=== PATIENT | female | born 1955 | race Caucasian/White ===

== ENCOUNTER → 2017-08-10 11:32 | Outpatient (REF) | payer MEDICARE, SELFPAY ==
[2017-08-10 14:02] LABS: Amphetamine/Metha Screen,Urine Negative ng/mL (<1000); Barbiturates Screen,Urine Negative ng/mL (<200); Benzodiazepines Screen,Urine Negative ng/mL (200); Cannabinoid Screen,Urine Negative ng/mL (<50); Cocaine Screen,Urine Negative ng/g (<300); Methadone Screen,Urine Negative ng/mL (<300); Opiate Screen,Urine Positive ng/mL (<300); Phencyclidine Screen,Urine Negative ng/mL (<25)
== END ==
LOC: LAB 11:32
PROVIDERS: Visit Provider Emergency Medicine
DX: Z79.899 Other long term (current) drug therapy (principal)
CPT/HCPCS: 80305

== ENCOUNTER → 2017-09-08 11:12 | Outpatient (REF) | payer MEDICARE, SELFPAY ==
[2017-09-08 14:08] LABS: Amphetamine/Metha Screen,Urine Negative ng/mL (<1000); Barbiturates Screen,Urine Negative ng/mL (<200); Benzodiazepines Screen,Urine Negative ng/mL (200); Cannabinoid Screen,Urine Negative ng/mL (<50); Cocaine Screen,Urine Negative ng/g (<300); Methadone Screen,Urine Negative ng/mL (<300); Opiate Screen,Urine Positive ng/mL (<300); Phencyclidine Screen,Urine Negative ng/mL (<25)
== END ==
LOC: LAB 11:12
PROVIDERS: Visit Provider Emergency Medicine
DX: Z79.899 Other long term (current) drug therapy (principal)
CPT/HCPCS: 80305

== ENCOUNTER → 2017-10-06 11:21 | Outpatient (REF) | payer MEDICARE, SELFPAY ==
[2017-10-06 14:10] LABS: Amphetamine/Metha Screen,Urine Negative ng/mL (<1000); Barbiturates Screen,Urine Negative ng/mL (<200); Benzodiazepines Screen,Urine Negative ng/mL (200); Cannabinoid Screen,Urine Negative ng/mL (<50); Cocaine Screen,Urine Negative ng/g (<300); Methadone Screen,Urine Negative ng/mL (<300); Opiate Screen,Urine Positive ng/mL (<300); Phencyclidine Screen,Urine Negative ng/mL (<25)
== END ==
LOC: LAB 11:21
PROVIDERS: Visit Provider Emergency Medicine
DX: Z79.899 Other long term (current) drug therapy (principal)
CPT/HCPCS: 80305

== ENCOUNTER → 2017-10-23 08:34 | Outpatient (CLI) | payer MEDICARE, SELFPAY ==
--- NOTE | 2017-10-23 08:37 | MR_ITS ---
MR lumbar spine wo con, MR 3-d myelogram/MRCP HISTORY: LBP Left Leg tingling and numbness started 6 months ago after surgery. Surgery X5yrs ago. ITS.REASON: Back Pain ORDERING PHYSICIAN: Glenn Mckee MD PATIENT AGE: 61 years COMPARISON: MRI of 12/27/2014 TECHNIQUE: Standard multiplanar multiecho sequences are performed without contrast. 3-D MIP and myelographic images are also rendered and reviewed FINDINGS: There is normal alignment. Spinal cord ends at the T12-L1 level. T11-T12: Mild degenerative disc disease. T12-L1: Unremarkable. L1-L2: Mild disc desiccation. L2-L3: Mild degenerative disc disease with minimal bulging disc with minimal central disc protrusion. There is facet hypertrophic change with bilateral lateral recess narrowing and mild bilateral foraminal narrowing. L3-L4: Mild degenerative disc disease with minimal bulging disc along with facet and ligamentum flavum hypertrophy with moderate bilateral lateral recess and foraminal narrowing. Type II endplate changes are present posteriorly. Previously described right paracentral disc protrusion at L3-L4 no longer apparent. L4-L5: Mild degenerative disc disease with minimal anterolisthesis of L4 to millimeters with bulging disc along with facet and ligamentum flavum hypertrophy with moderate left-sided foraminal narrowing and minimal impingement upon the exiting L4 nerve root. L5-S1: Mild degenerative disc disease with minimal bulging disc. IMPRESSION: 1. Mild multilevel lumbar spondylosis as described above. Please see above for detailed description at each level. 2. Bilateral foraminal narrowing at L3-L4 and left-sided foraminal narrowing at L4-L5 not significantly changed. 3. No canal stenosis or disc herniation evident
== END ==
PROVIDERS: PCP Emergency Medicine; Visit Provider Emergency Medicine
DX: M54.9 Dorsalgia, unspecified (principal); M54.5 Low back pain
CPT/HCPCS: 72148; 76376

== ENCOUNTER → 2017-11-04 08:28 | Outpatient (REF) | payer MEDICARE, SELFPAY ==
[2017-11-04 19:14] LABS: Amphetamine/Metha Screen,Urine Negative ng/mL (<1000); Barbiturates Screen,Urine Negative ng/mL (<200); Benzodiazepines Screen,Urine Negative ng/mL (200); Cannabinoid Screen,Urine Negative ng/mL (<50); Cocaine Screen,Urine Negative ng/g (<300); Methadone Screen,Urine Negative ng/mL (<300); Opiate Screen,Urine Positive ng/mL (<300); Phencyclidine Screen,Urine Negative ng/mL (<25)
== END ==
LOC: LAB 08:28
PROVIDERS: Visit Provider Emergency Medicine
DX: Z79.899 Other long term (current) drug therapy (principal)
CPT/HCPCS: 80305

== ENCOUNTER → 2017-12-04 10:24 | Outpatient (CLI) | payer MEDICARE, SELFPAY ==
[2017-12-04 14:12] LABS: Amphetamine/Metha Screen,Urine Negative ng/mL (<1000); Barbiturates Screen,Urine Negative ng/mL (<200); Benzodiazepines Screen,Urine Negative ng/mL (200); Cannabinoid Screen,Urine Negative ng/mL (<50); Cocaine Screen,Urine Negative ng/g (<300); Methadone Screen,Urine Negative ng/mL (<300); Opiate Screen,Urine Positive ng/mL (<300); Phencyclidine Screen,Urine Negative ng/mL (<25)
== END ==
PROVIDERS: Visit Provider Emergency Medicine
DX: M51.16 Intervertebral disc disorders with radiculopathy, lumbar region (principal); Z79.899 Other long term (current) drug therapy
CPT/HCPCS: 80305

== ENCOUNTER → 2018-01-01 10:24 | Outpatient (CLI) | payer MEDICARE, SELFPAY ==
[2018-01-01 19:35] LABS: Amphetamine/Metha Screen,Urine Negative ng/mL (<1000); Barbiturates Screen,Urine Negative ng/mL (<200); Benzodiazepines Screen,Urine Negative ng/mL (200); Cannabinoid Screen,Urine Negative ng/mL (<50); Cocaine Screen,Urine Negative ng/g (<300); Methadone Screen,Urine Negative ng/mL (<300); Opiate Screen,Urine Positive ng/mL (<300); Phencyclidine Screen,Urine Negative ng/mL (<25)
== END ==
PROVIDERS: Visit Provider Emergency Medicine
DX: M51.16 Intervertebral disc disorders with radiculopathy, lumbar region (principal)
CPT/HCPCS: 80305

== ENCOUNTER → 2018-02-01 11:29 | Outpatient (REF) | payer MEDICARE, SELFPAY ==
[2018-02-01 14:04] LABS: Amphetamine/Metha Screen,Urine Negative ng/mL (<1000); Barbiturates Screen,Urine Negative ng/mL (<200); Benzodiazepines Screen,Urine Negative ng/mL (<200); Cannabinoid Screen,Urine Negative ng/mL (<50); Cocaine Screen,Urine Negative ng/mL (<300); Methadone Screen,Urine Negative ng/mL (<300); Opiate Screen,Urine Negative ng/mL (<300); Phencyclidine Screen,Urine Negative ng/mL (<25)
== END ==
LOC: LAB 11:29
PROVIDERS: Visit Provider Emergency Medicine
DX: M51.16 Intervertebral disc disorders with radiculopathy, lumbar region (principal)
CPT/HCPCS: 80305

== ENCOUNTER → 2018-03-01 09:46 | Outpatient (REF) | payer MEDICARE, SELFPAY ==
[2018-03-01 14:18] LABS: Amphetamine/Metha Screen,Urine Negative ng/mL (<1000); Barbiturates Screen,Urine Negative ng/mL (<200); Benzodiazepines Screen,Urine Negative ng/mL (<200); Cannabinoid Screen,Urine Negative ng/mL (<50); Cocaine Screen,Urine Negative ng/mL (<300); Methadone Screen,Urine Negative ng/mL (<300); Opiate Screen,Urine Positive ng/mL (<300); Phencyclidine Screen,Urine Negative ng/mL (<25)
== END ==
LOC: LAB 09:46
PROVIDERS: Visit Provider Emergency Medicine
DX: M51.16 Intervertebral disc disorders with radiculopathy, lumbar region (principal)
CPT/HCPCS: 80305

== ENCOUNTER → 2018-03-06 09:04 | Outpatient (CLI) | payer MEDICARE, SELFPAY ==
[2018-03-06 09:29] LABS: Basophils # 0.1 K/mm3 (0-0.2); Basophils % 1.1 % (0.1-2.0); Eosinophils # 0.2 K/mm3 (0.0-0.4); Eosinophils % 2.7 % (0.1-12.0); Hematocrit 45.6 % (37.0-47.0); Hemoglobin 15.1 g/dL (12.2-16.2); Lymphocytes # 1.8 K/mm3 (0.7-4.5); Lymphocytes % 31.7 K/mm3 (10-50); Mean Corpuscular HGB Conc 33.2 g/dL (31.8-35.4); Mean Corpuscular Hemoglobin 29.6 pg (27.0-31.2); Mean Corpuscular Volume 89.4 fl (81-99); Mean Platelet Volume 6.9 fl (7.4-10.4); Monocytes # 0.3 K/mm3 (0.1-1.0); Monocytes % 5.6 % (1.7-9.3); Neutrophils # 3.4 K/mm3 (1.8-7.8); Neutrophils % 58.9 % (37.0-80.0); Platelet Count 366 K/mm3 (142-424); Red Cell Distribution Width 12.2 % (11.5-17.5); White Blood Count 5.8 K/mm3 (4.8-10.8)
[2018-03-06 12:20] LABS: Hemoglobin A1C 5.8 % (0.0-7.0)
[2018-03-06 12:21] LABS: Alanine Aminotransferase 29 U/L (12-78); Albumin Level 4.4 gm/dL (3.4-5.0); Albumin/Globulin Ratio 1.4 (1.1-1.8); Alkaline Phosphatase 192 U/L (46-116); Anion Gap 9.5 mEq/L (5-15); Aspartate Amino Transferase 18 U/L (15-37); Bilirubin,Direct 0.1 mg/dL (0.0-0.2); Bilirubin,Indirect 0.2 mg/dL (0.0-0.9); Bilirubin,Total 0.3 mg/dL (0.2-1.0); Blood Urea Nitrogen 19 mg/dL (7-18); Calcium 10.8 mg/dL (8.5-10.1); Carbon Dioxide 30 mmol/L (21.0-32.0); Chloride 104 mmol/L (98-107); Cholesterol 209 mg/dL (140-200); Creatinine,Serum 0.92 mg/dL (0.55-1.02); Estimated Glomerular Filt Rate 62 ml/min (>60); Free T4 (Free Thyroxine) 1.03 ng/dl (0.76-1.46); GFR (African American) 75 ML/MIN (>60); Globulin 3.1 gm/dl (1.3-3.2); Glucose 102 mg/dL (74-106); HDL Cholesterol 42 mg/dL (29-89); LDL Cholesterol 117 mg/dL (0-130); Potassium 4.5 mmoL/L (3.5-5.1); Sodium 139 mmol/L (136-145); Thyroid Stimulating Hormone 1.73 uIU/ml (0.358-3.740); Total Protein,Serum 7.5 gm/dL (6.4-8.2); Triglycerides 248 mg/dL (30-200); VLDL Cholesterol 50 mg/dL (0-40)
[2018-03-08 05:32] LABS: Triiodothyronine (T3) Free 3.3 pg/mL (2.0-4.4); Vitamin B12 526 pg/mL (232-1245)
[2018-03-09 16:04] LABS: Vitamin D 25 Hydroxy 13.1 ng/mL (30.0-100.0)
== END ==
PROVIDERS: Visit Provider Nurse Practitioner Psychiatric/Mental Health
DX: F43.10 Post-traumatic stress disorder, unspecified (principal); Z79.899 Other long term (current) drug therapy
CPT/HCPCS: 36415; 80053; 80061; 80076; 82607; 82652; 83036; 84439; 84443; 84481; 85025

== ENCOUNTER → 2018-03-31 10:26 | Outpatient (CLI) | payer MEDICARE, SELFPAY | PROVIDERS: Visit Provider Emergency Medicine | DX: Z79.899 Other long term (current) drug therapy (principal) ==

== ENCOUNTER → 2018-05-11 16:21 | Outpatient (REF) | payer MEDICARE, SELFPAY ==
[2018-05-11 20:43] LABS: Amphetamine/Metha Screen,Urine Negative ng/mL (<1000); Barbiturates Screen,Urine Negative ng/mL (<200); Benzodiazepines Screen,Urine Negative ng/mL (<200); Cannabinoid Screen,Urine Negative ng/mL (<50); Cocaine Screen,Urine Negative ng/mL (<300); Methadone Screen,Urine Negative ng/mL (<300); Opiate Screen,Urine Positive ng/mL (<300); Phencyclidine Screen,Urine Negative ng/mL (<25)
== END ==
LOC: LAB 16:21
PROVIDERS: Visit Provider Emergency Medicine
DX: Z79.899 Other long term (current) drug therapy (principal)
CPT/HCPCS: 80305

== ENCOUNTER → 2018-06-11 14:04 | Outpatient (CLI) | payer MEDICARE, SELFPAY ==
[2018-06-11 14:53] LABS: Amphetamine/Metha Screen,Urine Negative ng/mL (<1000); Barbiturates Screen,Urine Negative ng/mL (<200); Benzodiazepines Screen,Urine Negative ng/mL (<200); Cannabinoid Screen,Urine Negative ng/mL (<50); Cocaine Screen,Urine Negative ng/mL (<300); Methadone Screen,Urine Negative ng/mL (<300); Opiate Screen,Urine Positive ng/mL (<300); Phencyclidine Screen,Urine Negative ng/mL (<25)
== END ==
PROVIDERS: Visit Provider Emergency Medicine
DX: Z79.899 Other long term (current) drug therapy (principal)
CPT/HCPCS: 80305

== ENCOUNTER → 2018-07-09 14:35 | Outpatient (CLI) | payer MEDICARE, SELFPAY ==
[2018-07-09 16:36] LABS: Amphetamine/Metha Screen,Urine Negative ng/mL (<1000); Barbiturates Screen,Urine Negative ng/mL (<200); Benzodiazepines Screen,Urine Negative ng/mL (<200); Cannabinoid Screen,Urine Negative ng/mL (<50); Cocaine Screen,Urine Negative ng/mL (<300); Methadone Screen,Urine Negative ng/mL (<300); Opiate Screen,Urine Positive ng/mL (<300); Phencyclidine Screen,Urine Negative ng/mL (<25)
== END ==
PROVIDERS: Visit Provider Emergency Medicine
DX: Z79.899 Other long term (current) drug therapy (principal)
CPT/HCPCS: 80305

== ENCOUNTER → 2018-08-06 14:32 | Outpatient (CLI) | payer MEDICARE, SELFPAY ==
[2018-08-06 15:59] LABS: Amphetamine/Metha Screen,Urine Negative ng/mL (<1000); Barbiturates Screen,Urine Negative ng/mL (<200); Benzodiazepines Screen,Urine Negative ng/mL (<200); Cannabinoid Screen,Urine Negative ng/mL (<50); Cocaine Screen,Urine Negative ng/mL (<300); Methadone Screen,Urine Negative ng/mL (<300); Opiate Screen,Urine Positive ng/mL (<300); Phencyclidine Screen,Urine Negative ng/mL (<25)
== END ==
PROVIDERS: Visit Provider Emergency Medicine
DX: G89.29 Other chronic pain (principal)
CPT/HCPCS: 80305

== ENCOUNTER → 2018-10-04 14:52 | Outpatient (CLI) | payer MEDICARE, SELFPAY ==
[2018-10-04 17:53] LABS: Amphetamine/Metha Screen,Urine Negative ng/mL (<1000); Barbiturates Screen,Urine Negative ng/mL (<200); Benzodiazepines Screen,Urine Negative ng/mL (<200); Cannabinoid Screen,Urine Negative ng/mL (<50); Cocaine Screen,Urine Negative ng/mL (<300); Methadone Screen,Urine Negative ng/mL (<300); Opiate Screen,Urine Positive ng/mL (<300); Phencyclidine Screen,Urine Negative ng/mL (<25)
== END ==
PROVIDERS: Visit Provider Emergency Medicine
DX: Z79.899 Other long term (current) drug therapy (principal)
CPT/HCPCS: 80305

== ENCOUNTER → 2018-10-15 10:09 | Outpatient (CLI) | payer MEDICARE, SELFPAY ==
--- NOTE | 2018-10-15 10:11 | MR_ITS ---
MR lumbar spine wo con, MR 3-d myelogram/MRCP HISTORY: Low back pain with bilateral leg pain ITS.REASON: back pain ORDERING PHYSICIAN: Glenn Mckee MD PATIENT AGE: 62 years Comparison: 10/23/2017 TECHNIQUE: Standard multiplanar multiecho sequences are performed without contrast. 3-D MIP and myelographic images are also rendered and reviewed FINDINGS: There is normal alignment. The spinal cord ends at the T12 level. T11-T12: Mild degenerative disc disease. T12-L1: Unremarkable. L1-L2: Unremarkable. L2-L3: Minimal bulging disc with mild facet ligamentous hypertrophy with mild bilateral lateral recess narrowing. L3-L4: Mild degenerative disc disease with mild bulging disc along with facet and ligamentum flavum hypertrophy. There is a small left-sided foraminal disc protrusion causing moderate narrowing of the left L3-L4 foramen at this level. There is mild bilateral lateral recess narrowing from the facet and ligamentum hypertrophy. There is moderate bilateral foraminal narrowing left greater than right. L4-L5: Minimal anterolisthesis of L4 of 3 mm with mild bulging disc along with facet and ligamentum flavum hypertrophy. There is moderate left-sided foraminal narrowing at this level from the facet ligamentum flavum hypertrophic change with mild impingement upon the exiting L4 nerve root not significantly changed.. L5-S1: Degenerative disc disease with mild bulging disc and mild facet and ligamentum flavum hypertrophy. No other significant anomalies are evident. IMPRESSION: 1. L3-L4: Mild degenerative disc disease with mild bulging disc along with facet and ligamentum flavum hypertrophy. There is mild bilateral lateral recess narrowing and moderate bilateral foraminal narrowing is greater on the left secondary to a small foraminal disc protrusion . 2. L4-L5: Minimal anterolisthesis of L4 of 3 mm with mild bulging disc along with facet and ligamentum flavum hypertrophy. There is moderate left-sided foraminal narrowing at this level from the facet ligamentum flavum hypertrophic change with mild impingement upon the exiting L4 nerve root not significantly changed..
== END ==
PROVIDERS: PCP Emergency Medicine; Visit Provider Emergency Medicine
DX: M54.9 Dorsalgia, unspecified (principal); M54.5 Low back pain
CPT/HCPCS: 72148; 76376

== ENCOUNTER → 2018-11-11 15:11 | Outpatient (POV) | payer MEDICARE, SELFPAY | PROVIDERS: Visit Provider Neurological Surgery | DX: Z00.00 Encounter for general adult medical examination without abnormal findings (principal) ==

== ENCOUNTER → 2019-01-14 12:48 | Outpatient (CLI) | payer MEDICARE, SELFPAY ==
[2019-01-14 14:41] LABS: Amphetamine/Metha Screen,Urine Negative ng/mL (<1000); Barbiturates Screen,Urine Negative ng/mL (<200); Benzodiazepines Screen,Urine Negative ng/mL (<200); Cannabinoid Screen,Urine Negative ng/mL (<50); Cocaine Screen,Urine Negative ng/mL (<300); Methadone Screen,Urine Negative ng/mL (<300); Opiate Screen,Urine Positive ng/mL (<300); Phencyclidine Screen,Urine Negative ng/mL (<25)
== END ==
PROVIDERS: Visit Provider Emergency Medicine
DX: M47.816 Spondylosis without myelopathy or radiculopathy, lumbar region (principal)
CPT/HCPCS: 80305

== ENCOUNTER → 2019-03-15 13:50 | Outpatient (CLI) | payer MEDICARE, SELFPAY ==
[2019-03-15 15:43] LABS: Amphetamine/Metha Screen,Urine Negative ng/mL (<1000); Barbiturates Screen,Urine Negative ng/mL (<200); Benzodiazepines Screen,Urine Negative ng/mL (<200); Cannabinoid Screen,Urine Negative ng/mL (<50); Cocaine Screen,Urine Negative ng/mL (<300); Methadone Screen,Urine Negative ng/mL (<300); Opiate Screen,Urine Positive ng/mL (<300); Phencyclidine Screen,Urine Negative ng/mL (<25)
== END ==
PROVIDERS: Visit Provider Emergency Medicine
DX: M47.816 Spondylosis without myelopathy or radiculopathy, lumbar region (principal)
CPT/HCPCS: 80305

== ENCOUNTER → 2019-05-13 13:28 | Outpatient (CLI) | payer MEDICARE, SELFPAY ==
[2019-05-13 15:08] LABS: Amphetamine/Metha Screen,Urine Negative ng/mL (<1000); Barbiturates Screen,Urine Negative ng/mL (<200); Benzodiazepines Screen,Urine Negative ng/mL (<200); Cannabinoid Screen,Urine Negative ng/mL (<50); Cocaine Screen,Urine Negative ng/mL (<300); Methadone Screen,Urine Negative ng/mL (<300); Opiate Screen,Urine Positive ng/mL (<300); Phencyclidine Screen,Urine Negative ng/mL (<25)
== END ==
PROVIDERS: Visit Provider Emergency Medicine
DX: M47.816 Spondylosis without myelopathy or radiculopathy, lumbar region (principal)
CPT/HCPCS: 80305

== ENCOUNTER → 2019-05-17 09:59 | Outpatient (CLI) | payer MEDICARE, SELFPAY ==
--- NOTE | 2019-05-17 10:04 | XR_ITS ---
PROCEDURE: XR FOOT RT MIN 3V CLINICAL INDICATION: injured rt great toe Posttraumatic pain with bruising and swelling COMPARISON: No exams were available for comparison FINDINGS: No fracture or dislocation. No lytic or blastic change. There is normal mineralization. The joint spaces are well-preserved. No significant degenerative/arthritic changes. No erosive changes evident. Other findings:None. IMPRESSION: No acute findings. Dictated by: Devon Mayers MD 05/17/2019 17:39 Electronically signed by Devon Mayers MD in [place] 05/17/2019 17:39
== END ==
PROVIDERS: PCP Nurse Practitioner Family; Visit Provider Nurse Practitioner Family
DX: S99.921A Unspecified injury of right foot, initial encounter (principal)
CPT/HCPCS: 73630

== ENCOUNTER → 2019-05-24 09:37 | Outpatient (POV) | payer MEDICARE, SELFPAY | PROVIDERS: Visit Provider Dermatology | DX: Z00.00 Encounter for general adult medical examination without abnormal findings (principal) ==

== ENCOUNTER → 2019-07-12 13:50 | Outpatient (CLI) | payer MEDICARE, SELFPAY ==
[2019-07-12 16:50] LABS: Amphetamine/Metha Screen,Urine Negative ng/mL (<1000); Barbiturates Screen,Urine Negative ng/mL (<200); Benzodiazepines Screen,Urine Negative ng/mL (<200); Cannabinoid Screen,Urine Negative ng/mL (<50); Cocaine Screen,Urine Negative ng/mL (<300); Methadone Screen,Urine Negative ng/mL (<300); Opiate Screen,Urine Positive ng/mL (<300); Phencyclidine Screen,Urine Negative ng/mL (<25)
== END ==
PROVIDERS: Visit Provider Emergency Medicine
DX: M47.816 Spondylosis without myelopathy or radiculopathy, lumbar region (principal)
CPT/HCPCS: 80305

== ENCOUNTER → 2019-09-09 13:43 | Outpatient (CLI) | payer MEDICARE, SELFPAY ==
[2019-09-09 16:23] LABS: Amphetamine/Metha Screen,Urine Negative ng/mL (<1000); Barbiturates Screen,Urine Negative ng/mL (<200); Benzodiazepines Screen,Urine Positive ng/mL (<200); Cannabinoid Screen,Urine Negative ng/mL (<50); Cocaine Screen,Urine Negative ng/mL (<300); Methadone Screen,Urine Negative ng/mL (<300); Opiate Screen,Urine Positive ng/mL (<300); Phencyclidine Screen,Urine Negative ng/mL (<25)
[2019-09-18 12:08] LABS: Alprazolam Negative (Cutoff=100); Benzodiazepines Positive ng/mL (Cutoff=100); Clonazepam Negative (Cutoff=100); Flurazepam Negative (Cutoff=100); Lorazepam Negative (Cutoff=100); Midazolam Negative (Cutoff=100); Temazepam Negative (Cutoff=100); Triazolam Negative (Cutoff=100)
== END ==
PROVIDERS: Visit Provider Emergency Medicine
DX: M47.816 Spondylosis without myelopathy or radiculopathy, lumbar region (principal); Z79.899 Other long term (current) drug therapy
CPT/HCPCS: 80305; 80346

== ENCOUNTER 2020-01-19 16:16 | Emergency (ER) | payer MEDICARE, SELFPAY ==
[2020-01-19 16:18] VITALS: BP 178/114; PULSE 121; RESP 20; TEMP 36.9; O2SAT 96; BMI 25.7
--- NOTE | 2020-01-19 16:35 | CT_ITS ---
PROCEDURE: CT ABDOMEN PELVIS W CON CLINICAL INDICATION: NVD abd pain COMPARISON: ABDPELW/O CT ABD PELVIS W/O CONTRAST from 02/15/2015 TECHNIQUE: IV Contrast: 75ML OPTIRAY 350 Oral Contrast None Axial images obtained with sagittal and coronal reformats. All CT scans at the facility use one or more dose reduction, viz: automated exposure control, ma/kV adjustment per patient size (including targeted exams where dose is matched to indication, i.e. head), or iterative reconstruction technique. FINDINGS: CT scan the abdomen with contrast: There are 2 punctate calcifications in the left lower lobe. The enhanced liver, gallbladder, kidneys, adrenal glands, and pancreas is unremarkable. There is scattered splenic calcifications. The aorta, small and large bowel, and area of the appendix is unremarkable. Soft tissues are unremarkable. There is mild degenerative lumbar scoliosis. CT scan of the pelvis with contrast: Patient is status post hysterectomy. The adnexal structures, bladder, soft tissues and bony structures are unremarkable. IMPRESSION: Status posthysterectomy, remote pulmonary and splenic granulomatous disease. Dictated by: Zeus Berkowitz 01/20/2020 09:21 Electronically signed by Zeus Berkowitz in [facility] 01/20/2020 09:21
--- NOTE | 2020-01-19 16:51 | ECG_ITS ---
APPROVED REPORT Exam: Resting ECG HR:95 bpm ECG Measurements Heart Rate 95 AXES ND 168 P 52 QRSd 78 QRS -1 QT 346 T 17 QTc 434 <Conclusion> Normal sinus rhythm Poor R wave progression, unchanged since 2016 Abnormal ECG Electronically signed by : Ramesh Turcios, 01/23/2020 12:04:29
[2020-01-19 16:54] LABS: Basophils # 0.1 K/mm3 (0-0.2); Basophils % 1.8 % (0.1-2.0); Eosinophils # 0.1 K/mm3 (0.0-0.4); Eosinophils % 1.1 % (0.1-12.0); Hematocrit 45.9 % (37.0-47.0); Hemoglobin 15.3 g/dL (12.2-16.2); Lymphocytes # 1.7 K/mm3 (0.7-4.5); Lymphocytes % 22.9 % (10-50); Mean Corpuscular HGB Conc 33.2 g/dL (31.8-35.4); Mean Corpuscular Hemoglobin 30.9 pg (27.0-31.2); Mean Corpuscular Volume 92.9 fl (81-99); Mean Platelet Volume 6.6 fl (7.4-10.4); Monocytes # 0.5 K/mm3 (0.1-1.0); Monocytes % 6.6 % (1.7-9.3); Neutrophils % 67.6 % (37.0-80.0); Platelet Count 410 K/mm3 (142-424); Red Blood Count 4.94 M/mm3 (4.20-5.40); Red Cell Distribution Width 12.8 % (11.5-17.5); White Blood Count 7.3 K/mm3 (4.8-10.8)
[2020-01-19 17:07] LABS: Lipase 87 U/L (23-300)
[2020-01-19 17:17] LABS: Chloride 110 mmol/L (98-107); Potassium 3.5 mmoL/L (3.5-5.1); Sodium 142 mmol/L (136-145)
[2020-01-19 17:18] VITALS: BP 177/107; PULSE 106; RESP 20; O2SAT 96
[2020-01-19 17:19] LABS: Amylase 91 U/L (30-110)
[2020-01-19 17:20] LABS: Alanine Aminotransferase 15 U/L (12-78); Albumin Level 4.6 g/dl (3.5-5.0); Albumin/Globulin Ratio 1.8 (1.1-1.8); Alkaline Phosphatase 152 U/L (38-126); Anion Gap 9.5 mEq/L (5-15); Aspartate Amino Transferase 24 U/L (14-36); Bilirubin,Total 0.5 mg/dl (0.2-1.3); Blood Urea Nitrogen 13 mg/dl (7-17); Calcium 10.5 mg/dl (8.4-10.2); Carbon Dioxide 26 mmol/L (22.0-30.0); Creatinine Clearance Estimated 63 mL/min (50-200); Estimated Glomerular Filt Rate 85 ml/min (>60); GFR (African American) 103 ML/MIN (>60); Globulin 2.6 g/dL (1.3-3.2); Glucose 111 mg/dl (74-100); Total Protein,Serum 7.2 g/dl (6.3-8.2)
[2020-01-19 17:24] LABS: Microscopic, Urine URINE MICROSCOPIC (MICROSCOPIC)
[2020-01-19 17:26] LABS: Appearance,Urine CLEAR (Clear); Bilirubin,Urine Negative (Negative); Blood, Urine Negative (Negative); Color,Urine YELLOW (Yellow); Glucose,Urine (UA) Negative (Negative); Ketones,Urine Negative (Negative); Leukocyte Esterase,Urine TRACE (Negative); Nitrate,Urine Negative (Negative); PH,Urine 6.5 (5.0-8.5); Protein,Urine Negative (Negative); Urobilinogen,Urine 0.2 EU/dl (0.2)
[2020-01-19 17:30] VITALS: BP 174/96; PULSE 104; RESP 20; O2SAT 96
[2020-01-19 17:39] LABS: Bacteria,Urine Trace /lpf; Squamous Epithelial Cell,Urine Occasional #/hpf (0-5)
[2020-01-19 18:00] VITALS: BP 167/89; PULSE 105; RESP 20; O2SAT 96
--- NOTE | 2020-01-19 18:29 | HMH.EDGENADL ---
ED Disposition Clinical Impression: Gastroenteritis, Dehydration, Elevated blood pressure reading Disposition: Home, Self-Care Condition on Discharge: Good Instructions: DI for High Blood Pressure, DI for Diarrhea and Traveler's Diarrhea -- Adult, DI for Vomiting -- Adult Additional Instructions: Follow-up with your primary care provider for blood pressure management. Phenergan or Zofran as needed for nausea and vomiting. Continue to drink plenty of fluids. Collect diarrhea sample at home and have someone bring it back to the lab for outpatient testing, follow-up results with your primary care provider. Prescriptions: Ondansetron [Zofran 4mg ODT] 4 mg PO TIDP PRN #10 tab.rapdis PRN Reason: Nausea And Vomiting Transmission Status: Received by [facility] Referrals: Bev Eckert PA [Primary Care Provider] - - Critical Care Critical Care Time: No Attestation: On 01/19/20, the high probability of a clinically significant, sudden or life threatening deterioration of the following system(s) required my full and direct attention, intervention and personal management. The time I documented below is in addition to time spent performing reported procedures but includes the following listed in this critical care notation. Medical Decision Making - Marc Inquiry Pt receiving controlled substance: No Vital Signs: 01/19/20 16:18 01/19/20 17:18 01/19/20 17:30 Temperature 98.4 F Temperature Source Oral Pulse Rate Pulse Rate [Right] 121 H 106 H 104 H Respiratory Rate 20 20 20 Blood Pressure Blood Pressure [Right Arm] 178/114 H 177/107 H 174/96 H Blood Pressure Mean [Right Arm] 135 130 122 Blood Pressure Source Blood Pressure Source [Right Arm] Automatic Cuff Blood Pressure Position Blood Pressure Position [Right Arm] Supine Supine 02 Sat by Pulse Oximetry 96 96 96 Oxygen Delivery Method Room Air Room Air 01/19/20 18:00 01/19/20 18:30 01/19/20 18:54 Temperature 98.1 F Temperature Source Oral Pulse Rate 95 H Pulse Rate [Right] 105 H 95 H Respiratory Rate 20 20 20 Blood Pressure 154/97 H Blood Pressure [Right Arm] 167/89 H 154/97 H Blood Pressure Mean [Right Arm] 115 116 Blood Pressure Source Automatic Cuff Blood Pressure Source [Right Arm] Automatic Cuff Automatic Cuff Blood Pressure Position Sitting Blood Pressure Position [Right Arm] Supine Supine 02 Sat by Pulse Oximetry 96 98 Oxygen Delivery Method Room Air Room Air Room Air - Lab Data Lab results reviewed: Yes: I reviewed the patient's lab results. Lab Results 01/19/20 16:30: WBC 7.3, RBC 4.94, Hgb 15.3, Hct 45.9, MCV 92.9, MCH 30.9, MCHC 33.2, RDW 12.8, Plt Count 410, MPV 6.6 L, Neut % (Auto) 67.6, Lymph % (Auto) 22.9, [place] % (Auto) 6.6, Eos % (Auto) 1.1, Baso % (Auto) 1.8, Neut # (Auto) 5.0, Lymph # (Auto) 1.7, [place] # (Auto) 0.5, Eos # (Auto) 0.1, Baso # (Auto) 0.1 01/19/20 16:30: Sodium 142, Potassium 3.5, Chloride 110 H, Carbon Dioxide 26, Anion Gap 9.5, BUN 13, Creatinine 0.70, Estimated Creat Clear 63, Estimated GFR 85, Est GFR ( Amer) 103, Glucose 111 H, Calcium 10.5 H, Total Bilirubin 0.5, AST 24, ALT 15, Alkaline Phosphatase 152 H, Total Protein 7.2, Albumin 4.6, Globulin 2.6, Albumin/Globulin Ratio 1.8, Amylase 91 01/19/20 16:30: Lipase 87 01/19/20 17:07: Urine Color Yellow, Urine Appearance Clear, Urine pH 6.5, Ur Specific [place] 1.010, Urine Protein Negative, Urine Glucose (UA) Negative, Urine Ketones Negative, Urine Blood Negative, Urine Nitrate Negative, Urine Bilirubin Negative, Urine Urobilinogen 0.2, Ur Leukocyte Esterase Trace, Urine WBC 3-5, Ur Squamous Epith Cells Occasional, Urine Bacteria Trace Result diagrams: 01/19/20 16:30 01/19/20 16:30 Orders (Tests/Meds): ED MEDICATIONS Discontinued Medications Generic Name Dose Route Start Last Admin Trade Name Freq PRN Reason Stop Dose Admin Sodium Chloride 1,000 mls @ 999 mls/hr 01/19/20 16:45 01/18
[2020-01-19 18:30] VITALS: BP 154/97; PULSE 95; RESP 20; O2SAT 98
[2020-01-19 18:54] VITALS: BP 154/97; PULSE 95; RESP 20; TEMP 36.7; O2SAT 98
== END 2020-01-19 18:57 | disposition home or self-care (01) ==
PROVIDERS: Emergency Provider Emergency Medicine; PCP Physician Assistant
DX: K52.9 Noninfective gastroenteritis and colitis, unspecified (principal); E86.0 Dehydration; K21.9 Gastro-esophageal reflux disease without esophagitis; Z88.1 Allergy status to other antibiotic agents; Z79.899 Other long term (current) drug therapy
CPT/HCPCS: 74177; 80053; 81001; 82150; 83690; 85025; 93005; 96365; 96375; 99284; J2405; Q9967

== ENCOUNTER → 2020-01-20 11:48 | Outpatient (CLI) | payer MEDICARE, SELFPAY ==
[2020-01-20 14:09] LABS: Coronavirus 19 IgG Antibody Negative (Negative); Coronavirus 19 IgM Antibody Negative (Negative)
== END ==
PROVIDERS: PCP Emergency Medicine; Visit Provider Emergency Medicine
DX: Z03.818 Encounter for observation for suspected exposure to other biological agents ruled out (principal)
CPT/HCPCS: 36415; 86328

== ENCOUNTER 2020-02-09 13:04 | Emergency (ER) | payer MEDICARE, SELFPAY ==
[2020-02-09 13:34] VITALS: BP 142/93; PULSE 101; RESP 19; TEMP 36.8; O2SAT 98; BMI 25.5
--- NOTE | 2020-02-09 13:48 | HMH.EDUTC ---
[facility] [place] Disposition Clinical Impression: URI (upper respiratory infection) Qualifiers: URI type: unspecified URI Qualified Code(s): J06.9 - Acute upper respiratory infection, unspecified Disposition: Home, Self-Care Condition on Discharge: Good Instructions: Sore Throat, Sinusitis (Alternative Therapy), Preventing the Spread of Coronavirus Discharge Instructions Additional Instructions: *Monitor Temp, Over the counter Motrin or Tylenol as directed/as needed Tylenol every 4 hours and Motrin every 6 hours (as long as your family doctor has told you that you can take it) for fever or pain. and straight to ER if unable to lower temp less than 101.0 after medication given *Warm salt water gargles may help to soothe the throat *Throat Lozenges *Warm fluids like tea with honey may help to soothe the throat *Sleep elevated *Humidifier/Vaporizer *Flonase 2 sprays in each nostril daily but be aware that it may take 2-3 days before you notice improvement You was given handout with instructions on Quarantine for COVID19 make sure that you follow them as instructed Return if needed Your throat swab was sent for culture. Those results are typically sent to your primary care. Be sure to follow up in 2-3 days with your family doctor/primary care physician if no improvement so they can review those result and treat if necessary. If you don?t have a primary care doctor, I recommend you get one but in the mean time, you will have to return to a walk in clinic Follow up IMMEDIATELY for new or worsening symptoms or no Noticeable improvement over the next 48-72 hours. 911 for difficulty breathing or swallowing Prescriptions: Fluticasone Propionate [Flonase 50mcg nasal spray 16gm] 1 - 2 spr NS DAILY #1 bottle Transmission Status: [facility] Azithromycin [Z-Mikey 250mg Tab] 250 mg PO DIRECTED #6 tab Transmission Status: Pending to [facility] Referrals: Glenn Mckee MD [Primary Care Provider] - As needed Time of Disposition: 14:19 Medical Decision Making - Marc Inquiry Pt receiving controlled substance: No Marc was queried for this patient: No Vital Signs: 02/09/20 13:34 Temperature 98.2 F Temperature Source Oral Pulse Rate [Right Brachial] 101 H Respiratory Rate 19 Blood Pressure [Right Arm] 142/93 H Blood Pressure Mean [Right Arm] 109 Blood Pressure Source [Right Arm] Automatic Cuff Blood Pressure Position [Right Arm] Sitting 02 Sat by Pulse Oximetry 98 Oxygen Delivery Method Room Air - Lab Data Lab results reviewed: Yes: I reviewed the patient's lab results. Lab Results 02/09/20 13:41: Influenza Type A Ag Negative, Influenza Type B Ag Negative 02/09/20 13:41: Strep Scn Rapid Clinic Negative Orders (Tests/Meds): ORDERS Category Date Time Status SARS-CoV-2, ROSY Stat Lab 02/09/20 13:55 Received Strep Screen Confirmation Stat Micro 02/09/20 13:41 Received [facility] [place] HPI - General Stated complaint: sore throat cough muscle aches nausea Time Seen by Provider: 02/09/20 13:48 Mode of Arrival: Ambulatory Source of Information: Patient Limitations: No Limitations Description of Symptoms (Recalled from Triage Doc. by RN): PATIENT C/O SORE THROAT, BODY ACHES, NAUSEA, HEADACHE, EXHAUSTION, AND MUSCLE PAIN SINCE THURSDAY. SHE STATES THAT SHE HAD THE SAME SYMPTOMS APPROX 3 WEEKS AGO AND GOT BETTER, BUT IS SICK AGAIN HEENT Symptoms (Recalled from RN notes): Yes Resp Symptoms (Recalled from RN notes): No Skin Symptoms (Recalled from RN notes): No MS Symptoms (Recalled from RN notes): Yes Functional Status (Recalled from RN notes): WNL - History of Present Illness Provider Complaint: Patient states that she was sick about 3 weeks ago with the same symptoms and was tested for COVID and was negative States that around Thursday she started having some of the same symptoms again States that she was having sore throat, body aches, chills, sinus pain and pressure and low grade fever States that
[2020-02-09 14:00] LABS: UTC Strep Screen (Rapid) Negative (Negative)
[2020-02-09 14:01] LABS: UTC Influenza A Antigen Negative (Negative); UTC Influenza B Antigen Negative (Negative)
[2020-02-09 14:28] VITALS: BP 142/93; PULSE 101; RESP 19; TEMP 36.8; O2SAT 98
[2020-02-10 14:03] LABS: Covid-19 Nasal PCR Sendout Lex POSITIVE
== END 2020-02-09 14:30 | disposition home or self-care (01) ==
PROVIDERS: Emergency Provider Nurse Practitioner; PCP Emergency Medicine
DX: J06.9 Acute upper respiratory infection, unspecified (principal); F41.8 Other specified anxiety disorders; I10 Essential (primary) hypertension; Z03.818 Encounter for observation for suspected exposure to other biological agents ruled out
CPT/HCPCS: 87804; 87880; 99202; U0004

== ENCOUNTER → 2020-03-09 13:12 | Outpatient (CLI) | payer MEDICARE, SELFPAY ==
--- NOTE | 2020-03-09 13:18 | XR_ITS ---
PROCEDURE: XR HAND RT MIN 3V CLINICAL INDICATION: RT hand pain Fall with injury and pain COMPARISON: No exams were available for comparison FINDINGS: No fracture or dislocation. No lytic or blastic change. There is normal mineralization. There are mild osteoarthritic changes at the 2nd and 5th DIP joint Other findings:None. IMPRESSION: No acute findings. Dictated by: Devon Mayers MD 03/09/2020 13:39 Devon Mayers MD in [place] 03/09/2020 13:39
== END ==
PROVIDERS: PCP Emergency Medicine; Visit Provider Orthopaedic Surgery
DX: M79.643 Pain in unspecified hand (principal)
CPT/HCPCS: 73130

== ENCOUNTER 2020-03-09 14:38 | Outpatient (RCR) | payer MEDICARE, SELFPAY | END 2020-03-09 15:00 | disposition home or self-care (01) | LOC: OT 14:38 | PROVIDERS: Visit Provider Orthopaedic Surgery | DX: M79.641 Pain in right hand (principal) | CPT/HCPCS: 97763 ==

== ENCOUNTER → 2020-06-19 16:56 | Outpatient (CLI) | payer MEDICARE, SELFPAY ==
[2020-06-19 18:55] LABS: Alanine Aminotransferase 27 U/L (12-78); Albumin Level 4.5 g/dl (3.5-5.0); Albumin/Globulin Ratio 1.7 (1.1-1.8); Alkaline Phosphatase 163 U/L (38-126); Anion Gap 12.6 mEq/L (5-15); Aspartate Amino Transferase 33 U/L (14-36); Bilirubin,Total 0.7 mg/dl (0.2-1.3); Blood Urea Nitrogen 18 mg/dl (7-17); Calcium 11.3 mg/dl (8.4-10.2); Carbon Dioxide 28 mmol/L (22.0-30.0); Chloride 105 mmol/L (98-107); Chol/HDL Ratio 4.1 (1-3.5); Cholesterol 227 mg/dl (140-200); Estimated Glomerular Filt Rate 85 ml/min (>60); GFR (African American) 103 ML/MIN (>60); Globulin 2.7 g/dL (1.3-3.2); Glucose 103 mg/dl (74-100); HDL Cholesterol 56 mg/dl (40-60); Potassium 4.6 mmoL/L (3.5-5.1); Sodium 141 mmol/L (136-145); Total Protein,Serum 7.2 g/dl (6.3-8.2); Triglycerides 158 mg/dl (30-150); VLDL Cholesterol 32 mg/dL (0-40)
[2020-06-19 19:06] LABS: Direct LDL Cholesterol 139.27 mg/dL (100-129)
[2020-06-19 19:09] LABS: Basophils # 0.2 K/mm3 (0-0.2); Basophils % 2.4 % (0.1-2.0); Eosinophils # 0.1 K/mm3 (0.0-0.4); Eosinophils % 0.9 % (0.1-12.0); Hematocrit 47.6 % (37.0-47.0); Hemoglobin 15.6 g/dL (12.2-16.2); Lymphocytes # 1.4 K/mm3 (0.7-4.5); Lymphocytes % 21.5 % (10-50); Mean Corpuscular HGB Conc 32.8 g/dL (31.8-35.4); Mean Corpuscular Hemoglobin 31.9 pg (27.0-31.2); Mean Corpuscular Volume 97.3 fl (81-99); Mean Platelet Volume 10.7 fl (7.4-10.4); Monocytes # 0.4 K/mm3 (0.1-1.0); Monocytes % 6.1 % (1.7-9.3); Neutrophils # 4.5 K/mm3 (1.8-7.8); Platelet Count 396 K/mm3 (142-424); Red Blood Count 4.89 M/mm3 (4.20-5.40); Red Cell Distribution Width 14.5 % (11.5-17.5); White Blood Count 6.5 K/mm3 (4.8-10.8)
[2020-06-19 19:13] LABS: 25-OH Vitamin D, Total < 12.8 ng/mL (30-100); Free T4 (Free Thyroxine) 1.47 ng/dl (0.78-2.19)
[2020-06-19 19:28] LABS: Thyroid Stimulating Hormone 0.38 uIU/mL (0.465-4.68)
== END ==
PROVIDERS: Visit Provider Emergency Medicine
DX: R53.83 Other fatigue (principal); Z79.899 Other long term (current) drug therapy; E55.9 Vitamin D deficiency, unspecified
CPT/HCPCS: 80053; 80061; 82306; 84439; 84443; 85025

== ENCOUNTER → 2020-06-20 16:02 | Outpatient (CLI) | payer MEDICARE, SELFPAY ==
[2020-06-20 19:30] LABS: Intact Parathyroid Hormone 209.1 pg/mL (7.5-53.5)
== END ==
PROVIDERS: Visit Provider Physician Assistant
DX: E83.52 Hypercalcemia (principal); R74.8 Abnormal levels of other serum enzymes
CPT/HCPCS: 36415; 82330; 83970

== ENCOUNTER → 2020-07-03 11:34 | Outpatient (CLI) | payer MEDICARE, SELFPAY | PROVIDERS: Visit Provider Otolaryngology | DX: E21.3 Hyperparathyroidism, unspecified (principal) | CPT/HCPCS: 36415; 82330 ==

== ENCOUNTER → 2020-07-13 09:03 | Outpatient (CLI) | payer MEDICARE, SELFPAY ==
--- NOTE | 2020-07-13 09:04 | NM_ITS ---
PROCEDURE: NM PARATHYROID SPECT CLINICAL INDICATION: sestamibi scan to eval parathyroid Hyperparathyroidism COMPARISON: No exams were available for comparison TECHNIQUE: Dose 21.9 mCi technetium sestamibi FINDINGS: Immediate and 2 hour delayed images are obtained. On the immediate images there is a focal area of increased activity overlying the upper pole of the left lobe of the thyroid gland. This activity persists on the delayed images and is suspicious for a parathyroid adenoma IMPRESSION: Findings suspicious for left-sided parathyroid adenoma overlying the upper pole of the left lobe of the thyroid gland. Ultrasound may provide further evaluation for anatomic localization. Dictated by: Devon Mayers MD 07/16/2020 09:51 Devon Mayers MD in [place] 07/16/2020 09:51
== END ==
PROVIDERS: PCP Emergency Medicine; Visit Provider Otolaryngology
DX: E21.3 Hyperparathyroidism, unspecified (principal)
CPT/HCPCS: 78071; A9500

== ENCOUNTER → 2020-07-20 08:15 | Outpatient (CLI) | payer MEDICARE, SELFPAY ==
--- NOTE | 2020-07-20 08:38 | ECG_ITS ---
APPROVED REPORT Exam: Resting ECG HR:85 bpm ECG Measurements Heart Rate [address] 158 P 44 QRSd 64 QRS 58 QT 344 T 6 QTc 409 Conclusion Normal sinus rhythm Low voltage QRS Nonspecific T wave abnormality Abnormal ECG Electronically signed by : Ramesh Turcios, 07/21/2020 07:39:57
[2020-07-20 08:59] LABS: MANUAL DIFFERENTIAL MANUAL DIFFERENTIAL (MANUAL DIFF)
[2020-07-20 09:08] LABS: Chloride 104 mmol/L (98-107); Potassium 4.4 mmoL/L (3.5-5.1); Sodium 140 mmol/L (136-145)
[2020-07-20 09:10] LABS: Blood Urea Nitrogen 25 mg/dl (7-17); Estimated Glomerular Filt Rate 85 ml/min (>60); GFR (African American) 103 ML/MIN (>60)
[2020-07-20 09:11] LABS: Alanine Aminotransferase 20 U/L (12-78); Albumin Level 4.8 g/dl (3.5-5.0); Albumin/Globulin Ratio 1.6 (1.1-1.8); Alkaline Phosphatase 149 U/L (38-126); Anion Gap 10.4 mEq/L (5-15); Aspartate Amino Transferase 28 U/L (14-36); Bilirubin,Total 0.7 mg/dl (0.2-1.3); Calcium 11.2 mg/dl (8.4-10.2); Carbon Dioxide 30 mmol/L (22.0-30.0); Glucose 128 mg/dl (74-100); Total Protein,Serum 7.8 g/dl (6.3-8.2)
[2020-07-20 09:17] LABS: Basophils # 0.1 K/mm3 (0-0.2); Basophils % 1.4 % (0.1-2.0); Eosinophils # 0.1 K/mm3 (0.0-0.4); Eosinophils % 1.3 % (0.1-12.0); Hematocrit 45.8 % (37.0-47.0); Hemoglobin 15.2 g/dL (12.2-16.2); Lymphocytes # 1.7 K/mm3 (0.7-4.5); Lymphocytes % 27.7 % (10-50); Mean Corpuscular HGB Conc 33.2 g/dL (31.8-35.4); Mean Corpuscular Hemoglobin 30.9 pg (27.0-31.2); Mean Corpuscular Volume 92.9 fl (81-99); Mean Platelet Volume 7.7 fl (7.4-10.4); Monocytes # 0.4 K/mm3 (0.1-1.0); Monocytes % 6.6 % (1.7-9.3); Neutrophils # 3.9 K/mm3 (1.8-7.8); Platelet Count 403 K/mm3 (142-424); Red Blood Count 4.93 M/mm3 (4.20-5.40); White Blood Count 6.2 K/mm3 (4.8-10.8)
[2020-07-20 11:01] LABS: Lymphocytes % 26 % (10-50); Monocytes % 8 % (2-9); Neutrophils % 66 % (42-76); Platelet Estimate Normal; RBC Morphology Normal; Total Cells Counted 100
== END ==
PROVIDERS: PCP Emergency Medicine; Visit Provider Otolaryngology
DX: D35.1 Benign neoplasm of parathyroid gland (principal); Z03.818 Encounter for observation for suspected exposure to other biological agents ruled out
CPT/HCPCS: 36415; 80053; 85007; 85014; 85018; 85048; 85049; 93005; U0003

== ENCOUNTER 2020-08-01 16:28 | Emergency (ER) | payer MEDICARE, SELFPAY ==
[2020-08-01 16:35] VITALS: BP 197/107; PULSE 85; RESP 16; TEMP 36.8; O2SAT 98; BMI 25.7
--- NOTE | 2020-08-01 16:51 | HMH.EDGENADL ---
ED Disposition Clinical Impression: Postoperative bleeding from incision Disposition: Home, Self-Care Condition on Discharge: Good Instructions: DI for Post-Surgical Bleeding Additional Instructions: You have been evaluated for our bleeding from incisional site. Please keep Dermabond in place. Keep Steri-Strips in place. You may wash the area in 24 hours, do not scrub. Reapply Steri-Strips. Follow-up with your surgeon and PCP. Return to the emergency department for any new or worsening symptoms. Referrals: Glenn Mckee MD [Primary Care Provider] - Time of Disposition: 16:59 - Critical Care Critical Care Time: No Attestation: On , the high probability of a clinically significant, sudden or life threatening deterioration of the following system(s) required my full and direct attention, intervention and personal management. The time I documented below is in addition to time spent performing reported procedures but includes the following listed in this critical care notation. Medical Decision Making - Medical Records Medical records reviewed: Yes: I reviewed the patient's medical records. - Marc Inquiry Pt receiving controlled substance: No Medical Decision Narrative: In summary this is a 64-year-old female presenting to the emergency department with bleeding after thyroidectomy. Patient clinically stable on arrival. Bleeding is controlled with pressure. No palpable hematoma. No pulsatile bleed. Believe that bleeding was caused by removal of Dermabond. Wound cleaned. Reapproximated. Repaired with Dermabond. Procedure well-tolerated. Steri-Strips placed on top for extra tensile strength. Procedure well-tolerated. On reassessment there was no additional bleeding. Patient was comfortable with plan for discharge home. She will follow-up with her PCP. Given return precautions. General Adult HPI - General Stated complaint: Para thyroid surgery 07/24/20 Bleeding Time Seen by Provider: 08/01/20 16:41 - History of Present Illness HPI narrative: 64-year-old female presenting to the emergency department with postoperative bleeding. She had an elective parathyroidectomy 1 week ago. Has had a bandage over the incision site. Today she remove the bandage and some of the purple Dermabond came off with it. She has had bleeding from the right lateral side since then. Is dark purple blood. Not brisk. Not pulsatile. No swelling or hematoma. She does not take any blood thinning medicines. Denies any trauma to the site. No difficulty swallowing. No other concerns. - Related Data Home Medications Medication Instructions Recorded Confirmed carvedilol 6.25 mg tablet 6.25 mg PO tab 07/03/20 07/30/20 vitamin B complex 1 tab PO DAILY 07/03/20 07/30/20 Previous Rx's Medication Instructions Recorded Fluticasone Propionate [Flonase 1 - 2 spr NS DAILY #1 bottle 02/09/20 50mcg nasal spray 16gm] lisinopril 20 See Rx Instructions .ROUTE 03/07/20 mg-hydrochlorothiazide 25 mg tablet .COMPLEX #90 tab lisinopril 20 mg tablet See Rx Instructions .ROUTE 03/28/20 .COMPLEX #90 tab hydrocodone 10 mg-acetaminophen 1 tab PO QID PRN #120 tab 06/19/20 325 mg tablet atorvastatin 10 mg tablet 10 mg PO QHS #90 tab 06/20/20 cholecalciferol (vitamin D3) 25 1,000 unit PO DAILY #90 cap 06/20/20 mcg (1,000 unit) capsule ergocalciferol (vitamin D2) 1,250 50,000 unit PO QWEEK 90 Days #12 06/20/20 mcg (50,000 unit) capsule cap ondansetron HCl 4 mg tablet 4 mg PO Q8H PRN #20 tab 07/31/20 Allergies Allergy/AdvReac Type Severity Reaction Status Date / Time cefdinir [From Omnicef] Allergy Intermediate racing Verified 07/30/20 12:54 heart amoxicillin [AMOXICILLIN] Allergy Unknown I-RASH Verified 07/30/20 12:54 naproxen [NAPROXEN] Allergy Unknown I-RASH Verified 07/30/20 12:54 [facility] History - Hepatitis A Screen Attestation statement:: This patient has been screened for Hepatitis A risk factors. Medi
[2020-08-01 17:16] VITALS: BP 201/93; PULSE 85; RESP 16; TEMP 36.8; O2SAT 98
== END 2020-08-01 17:17 | disposition home or self-care (01) ==
PROVIDERS: Emergency Provider Emergency Medicine; PCP Emergency Medicine
DX: L76.22 Postprocedural hemorrhage of skin and subcutaneous tissue following other procedure (principal); F41.8 Other specified anxiety disorders; I10 Essential (primary) hypertension; Z88.1 Allergy status to other antibiotic agents
CPT/HCPCS: 12002; 99282

== ENCOUNTER 2020-08-02 22:52 | Emergency (ER) | payer MEDICARE, SELFPAY ==
[2020-08-02 23:04] VITALS: BP 132/70; PULSE 82; RESP 17; TEMP 36.6; O2SAT 100; BMI 24.1
[2020-08-02 23:18] VITALS: BP 135/72; PULSE 85; RESP 16; TEMP 36.6; O2SAT 98
== END 2020-08-02 23:25 | disposition home or self-care (01) ==
LOC: ER 23:21
PROVIDERS: Emergency Provider Emergency Medicine; PCP Emergency Medicine
DX: Z51.89 Encounter for other specified aftercare (principal); L76.22 Postprocedural hemorrhage of skin and subcutaneous tissue following other procedure
CPT/HCPCS: 99281

== ENCOUNTER → 2020-08-06 10:28 | Outpatient (CLI) | payer MEDICARE, SELFPAY ==
[2020-08-06 12:52] LABS: Intact Parathyroid Hormone 60.8 pg/mL (7.5-53.5)
[2020-08-08 03:18] LABS: Calcium, Ionized 5.3 mg/dL (4.5-5.6)
== END ==
PROVIDERS: Visit Provider Otolaryngology
DX: D35.1 Benign neoplasm of parathyroid gland (principal)
CPT/HCPCS: 36415; 82330; 83970

== ENCOUNTER → 2020-08-09 13:10 | Outpatient (CLI) | payer MEDICARE, SELFPAY ==
[2020-08-09 14:38] LABS: Activated Partial Thrombo Time 27.8 seconds (23.6-34.0); INR 0.94 (0.9-1.1); Prothrombin Time 10.5 seconds (9.4-11.8)
== END ==
PROVIDERS: Visit Provider Otolaryngology
DX: Z48.89 Encounter for other specified surgical aftercare (principal); Z51.89 Encounter for other specified aftercare
CPT/HCPCS: 36415; 85610; 85730

== ENCOUNTER → 2020-12-05 14:28 | Outpatient (CLI) | payer MEDICARE, SELFPAY ==
[2020-12-05 15:42] LABS: Amphetamine/Metha Screen,Urine Negative ng/ml (<1000)
[2020-12-05 15:43] LABS: Barbiturates Screen,Urine Negative ng/ml (<200); Benzodiazepines Screen,Urine Negative ng/ml (<200)
[2020-12-05 15:45] LABS: Cannabinoid Screen,Urine Negative ng/ml (<50); Cocaine Screen,Urine Negative ng/ml (<300)
[2020-12-05 15:46] LABS: Methadone Screen,Urine Negative ng/ml (<300)
[2020-12-05 15:47] LABS: Opiate Screen,Urine Positive ng/ml (<300); Phencyclidine Screen,Urine Negative ng/ml (<25)
== END ==
PROVIDERS: Visit Provider Emergency Medicine
DX: M47.816 Spondylosis without myelopathy or radiculopathy, lumbar region (principal); Z79.899 Other long term (current) drug therapy
CPT/HCPCS: 80305

== ENCOUNTER 2020-12-31 12:57 | Emergency (ER) | payer MEDICARE, SELFPAY ==
[2020-12-31 13:17] VITALS: BP 158/78; PULSE 107; RESP 18; TEMP 37.2; O2SAT 96; BMI 26.6
[2020-12-31 13:44] LABS: UTC Strep Screen (Rapid) Positive (Negative)
--- NOTE | 2020-12-31 13:47 | HMH.EDUTC ---
[facility] [place] Clinical Impression: Strep throat Disposition: Home, Self-Care Condition on Discharge: Good Instructions: DI for Strep Throat, Strep Throat Additional Instructions: *Monitor Temp, Over the counter Motrin or Tylenol as directed/as needed Tylenol every 4 hours and Motrin every 6 hours (as long as your family doctor has told you that you can take it) for fever or pain. and straight to ER if unable to lower temp less than 101.0 after medication given *Warm salt water gargles may help to soothe the throat *Throat Lozenges *Warm fluids like tea with honey may help to soothe the throat *Sleep elevated *Humidifier/Vaporizer *If you did not take Penicillin shot or was unable to, start taking antibiotic immediately and make sure that you take it for the FULL length of time although you should start to feel better in 24-48 hours *change toothbrush and toothpaste 24-48 hours after starting to take antibiotics so you do not reinfect yourself Monitor Temp. Tylenol and/or Ibuprofen as needed. ER if fever is no less than 101 despite alternating Tylenol and Ibuprofen * Encourage fluids, water, Gatorade, powerade, pedialyte if infant/toddler/or child *Cold fluids, popsicles and ice cream may feel good on his throat Follow up IMMEDIATELY for new or worsening symptoms or no Noticeable improvement over the next 48-72 hours. 911 for difficulty breathing or swallowing Prescriptions: Azithromycin [Z-Mikey 250mg Tab] 250 mg PO DIRECTED #6 tab Transmission Status: Pending to [facility] Referrals: Glenn Mckee MD [Primary Care Provider] - As needed Time of Disposition: 13:54 Medical Decision Making - Marc Inquiry Pt receiving controlled substance: No Marc was queried for this patient: No Vital Signs: 12/31/20 13:17 Temperature 98.9 F Temperature Source Oral Pulse Rate [Right] 107 H Respiratory Rate 18 Blood Pressure [Right Arm] 158/78 H Blood Pressure Mean [Right Arm] 104 02 Sat by Pulse Oximetry 96 - Lab Data Lab results reviewed: Yes: I reviewed the patient's lab results. Lab Results 12/31/20 13:24: Strep Scn Rapid Clinic Positive A Medical Decision Narrative: Patient states that she has taken azithromycin in the past without reactions or complications [facility] [place] - General Stated complaint: congestion,body aches,sore throat Time Seen by Provider: 12/31/20 13:47 Mode of Arrival: Ambulatory Source of Information: Patient Limitations: No Limitations Description of Symptoms (Recalled from Triage Doc. by RN): pt c/o cough, sore throat, body aches, FERRELL, runny/congested nose, and nauseous. pt states her grandaughter had strep last week. HEENT Symptoms (Recalled from RN notes): Yes (sore throat and nasal congestion) Resp Symptoms (Recalled from RN notes): Yes (cough) Skin Symptoms (Recalled from RN notes): No MS Symptoms (Recalled from RN notes): No Functional Status (Recalled from RN notes): body aches - History of Present Illness Provider Complaint: Patient state that she hasnt felt well for several days States that she has been having sore throat, cough, nasal congestion body aches and headache State that she was around her grandchild last week that had strep and thinks she may have it now too - Related Data Home Medications Medication Instructions Recorded Confirmed carvedilol 6.25 mg tablet 6.25 mg PO tab 07/03/20 12/05/20 vitamin B complex 1 tab PO DAILY 07/03/20 12/05/20 Previous Rx's Medication Instructions Recorded cholecalciferol (vitamin D3) 25 1,000 unit PO DAILY #90 cap 06/20/20 mcg (1,000 unit) capsule atorvastatin 10 mg tablet 10 mg PO QHS #90 tab 12/05/20 hydrocodone 10 mg-acetaminophen 1 tab PO QID PRN #120 tab 12/05/20 325 mg tablet lisinopril 20 See Rx Instructions .ROUTE 12/05/20 mg-hydrochlorothiazide 25 mg tablet .COMPLEX #90 tab ondansetron HCl 4 mg tablet 4 mg PO Q8H PRN #20 tab 12/28/20 Azithromycin [Z-Mikey 250mg Tab] 250 mg PO DIR
[2020-12-31 13:55] VITALS: BP 000/00; PULSE 99; RESP 18; TEMP 37.2
== END 2020-12-31 13:56 | disposition home or self-care (01) ==
PROVIDERS: Emergency Provider Nurse Practitioner; PCP Emergency Medicine
DX: J02.0 Streptococcal pharyngitis (principal); I10 Essential (primary) hypertension; F41.9 Anxiety disorder, unspecified; Z79.899 Other long term (current) drug therapy
CPT/HCPCS: G0463; 87880; 99202

== ENCOUNTER → 2021-02-01 17:35 | Outpatient (CLI) | payer MEDICARE, SELFPAY ==
[2021-02-01 18:35] LABS: Amphetamine/Metha Screen,Urine Negative ng/ml (<1000)
[2021-02-01 18:36] LABS: Barbiturates Screen,Urine Negative ng/ml (<200)
[2021-02-01 18:37] LABS: Benzodiazepines Screen,Urine Negative ng/ml (<200); Cannabinoid Screen,Urine Negative ng/ml (<50)
[2021-02-01 18:38] LABS: Cocaine Screen,Urine Negative ng/ml (<300)
[2021-02-01 18:39] LABS: Methadone Screen,Urine Negative ng/ml (<300); Opiate Screen,Urine Positive ng/ml (<300)
[2021-02-01 18:40] LABS: Phencyclidine Screen,Urine Negative ng/ml (<25)
== END ==
PROVIDERS: Visit Provider Emergency Medicine
DX: M47.816 Spondylosis without myelopathy or radiculopathy, lumbar region (principal)
CPT/HCPCS: 80305

== ENCOUNTER 2021-02-25 11:34 | Emergency (ER) | payer MEDICARE, SELFPAY ==
[2021-02-25 12:28] VITALS: BP 193/99; PULSE 94; RESP 22; TEMP 36.9; O2SAT 95; BMI 25.0
--- NOTE | 2021-02-25 12:43 | HMH.EDUTC ---
[facility] [place] Impression: Viral syndrome Disposition: Home, Self-Care Condition on Discharge: Good Instructions: DI for Viral Syndrome, DI for Nausea -- Adult, DI for COVID-19 (Suspected or Confirmed ), Preventing the Spread of Coronavirus Discharge Instructions Additional Instructions: Drink extra fluids with and between meals. If you have difficulty drinking, try very small amounts of water or suck on ice chips. ? Avoid fruit juices, as these do not replace minerals and can actually increase diarrhea. ? Children and adults can use sports drinks to replenish electrolytes. Younger children and infants should use products formulated for children, like oral rehydration solutions. ? Eat food in small amounts and let your stomach recover. ? Get lots of rest. You may feel tired or weak. ? No greasy or fried foods for the next 24-48 hours BRAT diet Bananas Rice Apples and [place] ? Make sure to drink plenty of liquids ? Return if needed ? Straight to ER if any life threatening symptoms ? Zofran as prescribed ? You was given an outpatient order for diarrhea panel, please collect specimen and bring back to outpatient lab then call back to the [facility] or follow up with family doctor for results ? Follow up with family doctor in the next 48-72 hours if no improvement or any worsening of symptoms Make sure to follow up for re-evaluation of your blood pressure Referrals: Glenn Mckee MD [Primary Care Provider] - As needed Time of Disposition: 12:50 Medical Decision Making - Marc Inquiry Pt receiving controlled substance: No Marc was queried for this patient: No Vital Signs: 02/25/21 12:28 02/25/21 12:52 Temperature 98.5 F 98.5 F Temperature Source Oral Pulse Rate 94 H Pulse Rate [Left Brachial] 94 H Respiratory Rate 22 22 Blood Pressure 193/99 H Blood Pressure [Left Arm] 193/99 H Blood Pressure Mean [Left Arm] 130 Blood Pressure Source [Left Arm] Automatic Cuff Blood Pressure Position [Left Arm] Sitting 02 Sat by Pulse Oximetry 95 Oxygen Delivery Method Room Air Orders (Tests/Meds): ORDERS Category Date Time Status Full Resp Panel w/COVID ([facility]) Routine Lab 02/25/21 12:30 Received Medical Decision Narrative: Patient blood pressure elevated discussed with patient about transfer to the ED for further work up and evaluation and patient declined States that she took her blood pressure medication but she is nervous and worried about maybe having COVID and thinks that is why it is up States that she will monitor it at home and follow up with her PCP if no improvement if she is negative for COVID [facility] [place] - General Stated complaint: vomiting, headache Time Seen by Provider: 02/25/21 12:43 Mode of Arrival: Ambulatory Source of Information: Patient Limitations: No Limitations Description of Symptoms (Recalled from Triage Doc. by RN): PATIENT STATES SHE HAS FELT SLUGGISH ALL LAST WEEK AND C/O HEADACHE, VOMITING, STOMACH ACHE AND CHILLS SINCE THURSDAY MORNING HEENT Symptoms (Recalled from RN notes): Yes Resp Symptoms (Recalled from RN notes): No Skin Symptoms (Recalled from RN notes): No MS Symptoms (Recalled from RN notes): No Functional Status (Recalled from RN notes): WNL - History of Present Illness Provider Complaint: Patient states that she wanted to get tested for COVID States that she has been feeling bad since Thursday States that she has been feeling sluggish and tired, body aches, chills, headache, diarrhea and nausea States that she had some Zofran and has helped a little but she is almost out States that she was worried that she may have COVID or the flu and wanted to get checked - Related Data Home Medications Medication Instructions Recorded Confirmed carvedilol 6.25 mg tablet 6.25 mg PO DAILY tab 07/03/20 02/25/21 Lisinopril/Hydrochlorothiazide 1 tab PO DAILY 02/25/21 02/25/21 [Lisinopril-Hctz 20-25 mg Tab*] lisinopriL [Lisinopril] 20 mg PO DAILY 02/25/21 02/25/21 ondanset
[2021-02-25 12:52] VITALS: BP 193/99; PULSE 94; RESP 22; TEMP 36.9; O2SAT 95
[2021-02-25 13:01] LABS: Adenovirus,PCR Not Detected (NotDetected); Bordetella Pertussis Not Detected (NotDetected); Chlamydophila Pneumoniae, PCR Not Detected (NotDetected); Coronavirus 19, PCR Not Detected (NotDetected); Coronavirus 229E Not Detected (NotDetected); Coronavirus NL63 Not Detected (NotDetected); Coronavirus OC43 Not Detected (NotDetected); Coronovirus HKU1,PCR Not Detected (NotDetected); Human Metapneumovirus Not Detected (NotDetected); Influenza A, PCR Not Detected (NotDetected); Influenza AH1, 2009 Not Detected (NotDetected); Influenza AH1, PCR Not Detected (NotDetected); Influenza AH3,PCR Not Detected (NotDetected); Influenza B, PCR Not Detected (NotDetected); Mycoplasma Pneumoniae, PCR Not Detected (NotDetected); Parainfluenza 1, PCR Not Detected (NotDetected); Parainfluenza 2, PCR Not Detected (NotDetected); Parainfluenza 3, PCR Not Detected (NotDetected); Parainfluenza 4, PCR Not Detected (NotDetected); Respiratory Syncytial Virus Not Detected (NotDetected); Rhinovirus/Enterovirus Not Detected (NotDetected)
== END 2021-02-25 13:00 | disposition home or self-care (01) ==
PROVIDERS: Emergency Provider Nurse Practitioner; PCP Emergency Medicine
DX: B34.9 Viral infection, unspecified (principal); Z20.822 Contact with and (suspected) exposure to COVID-19; I10 Essential (primary) hypertension; F41.8 Other specified anxiety disorders
CPT/HCPCS: G0463; 87581; 87633; 87798; 99202

== ENCOUNTER 2021-03-02 13:57 | Emergency (ER) | payer MEDICARE, SELFPAY ==
[2021-03-02 13:57] VITALS: BP 192/105; PULSE 98; RESP 18; TEMP 36.9; O2SAT 98; BMI 25.7
--- NOTE | 2021-03-02 14:11 | CT_ITS ---
PROCEDURE INFORMATION: Exam: CT Abdomen And Pelvis With Contrast Exam date and time: 03/02/2021 2:11 PM Age: 65 years old Clinical indication: Abdominal pain; Localized; Left lower quadrant (llq); Additional info: Llq pain and tenderness, R/O diverticulitis, PT only given iv contrast TECHNIQUE: Imaging protocol: Computed tomography of the abdomen and pelvis with contrast. Radiation optimization: All CT scans at this facility use at least one of these dose optimization techniques: automated exposure control; mA and/or kV adjustment per patient size (includes targeted exams where dose is matched to clinical indication); or iterative reconstruction. Contrast material: ISOVUE; Contrast volume: 75 ml; Contrast route: IV; COMPARISON: CT ABDOMEN PELVIS W CON 01/19/2020 5:36 PM FINDINGS: Liver: Subcentimeter low attenuation area in the liver is too small for characterization. Gallbladder and bile ducts: Normal. No calcified stones. No ductal dilation. Pancreas: Normal. No ductal dilation. Spleen: Normal. No splenomegaly. Adrenal glands: Normal. No mass. Kidneys and ureters: Normal. No hydronephrosis. Stomach and bowel: Bowel wall thickening in the rectosigmoid consistent with colitis. Constipation throughout the colon. Appendix: No evidence of appendicitis. Intraperitoneal space: Unremarkable. No free air. No significant fluid collection. Vasculature: Unremarkable. No abdominal aortic aneurysm. Lymph nodes: Unremarkable. No enlarged lymph nodes. Urinary bladder: Unremarkable as visualized. Reproductive: Unremarkable as visualized. Bones/joints: Unremarkable. No acute fracture. Soft tissues: Unremarkable. IMPRESSION: Bowel wall thickening in the rectosigmoid consistent with colitis..
--- NOTE | 2021-03-02 14:15 | HMH.EDNVD ---
ED Disposition Clinical Impression: Hypertension, Colitis Disposition: Home, Self-Care Condition on Discharge: Fair Instructions: DI for Diarrhea and Traveler's Diarrhea -- Adult, DI for Nausea -- Adult Prescriptions: Ciprofloxacin HCl [Cipro 500mg Tab] 500 mg PO BID #20 tab Transmission Status: Pending to [facility] metroNIDAZOLE [Metronidazole] 500 mg PO BID #20 tab Transmission Status: Pending to [facility] Referrals: Glenn Mckee MD [Primary Care Provider] - - Critical Care Critical Care Time: No Attestation: On , the high probability of a clinically significant, sudden or life threatening deterioration of the following system(s) required my full and direct attention, intervention and personal management. The time I documented below is in addition to time spent performing reported procedures but includes the following listed in this critical care notation. Medical Decision Making - Medical Records Medical records reviewed: Yes: I reviewed the patient's medical records. - Marc Inquiry Pt receiving controlled substance: No Vital Signs: 03/02/21 13:57 03/02/21 15:45 Temperature 98.4 F 98.4 F Temperature Source Oral Pulse Rate 89 Pulse Rate [Left] 98 H Respiratory Rate 18 20 Blood Pressure 195/100 H Blood Pressure [Left Arm] 192/105 H Blood Pressure Mean [Left Arm] 134 02 Sat by Pulse Oximetry 98 Oxygen Delivery Method Room Air Room Air - Lab Data Lab results reviewed: Yes: I reviewed the patient's lab results. Lab Results 03/02/21 14:20: WBC 10.4, RBC 5.24, Hgb 15.7, Hct 47.1 H, MCV 89.9, MCH 30.0, MCHC 33.3, RDW 13.2, Plt Count 465 H, MPV 7.0 L, Neut % (Auto) 77.4, Lymph % (Auto) 16.1, [place] % (Auto) 3.5, Eos % (Auto) 1.6, Baso % (Auto) 1.3, Neut # (Auto) 8.1 H, Lymph # (Auto) 1.7, [place] # (Auto) 0.4, Eos # (Auto) 0.2, Baso # (Auto) 0.1 03/02/21 14:20: Sodium 141, Potassium 3.9, Chloride 101, Carbon Dioxide 29, Anion Gap 14.9, BUN 14, Creatinine 0.60, Estimated Creat Clear 62, Estimated GFR 101, Est GFR ( Amer) 122, Glucose 121 H, Calcium 9.5, Total Bilirubin 0.5, AST 27, ALT 18, Alkaline Phosphatase 114, Total Protein 7.6, Albumin 4.8, Globulin 2.8, Albumin/Globulin Ratio 1.7, Lipase 30 03/02/21 14:20: Urine Color Yellow, Urine Appearance Sl cloudy, Urine pH 6.5, Ur Specific [place] <= 1.005, Urine Protein Negative, Urine Glucose (UA) Negative, Urine Ketones Negative, Urine Blood Negative, Urine Nitrate Negative, Urine Bilirubin Negative, Urine Urobilinogen 0.2, Ur Leukocyte Esterase 1+ A, Urine RBC None, Urine WBC Occasional, Ur Squamous Epith Cells Occasional, Urine Bacteria None Result diagrams: 03/02/21 14:20 03/02/21 14:20 Orders (Tests/Meds): ED MEDICATIONS Discontinued Medications Generic Name Dose Route Start Last Admin Trade Name Jamieq PRN Reason Stop Dose Admin Iopamidol 75 ml 03/02/21 15:01 03/02/21 15:02 Iopamidol-370 (76%);100ml Bottle IV 03/02/21 15:02 75 ml ONCE ONE Administration Sodium Chloride 10 ml 03/02/21 15:01 03/02/21 15:02 Sodium Chloride 0.9% 10ml Syr (Rad Only) IV 03/02/21 15:02 10 ml ONCE ONE Administration ORDERS Category Date Time Status Urine Culture Stat Micro 03/02/21 14:20 Received Medical Decision Narrative: Did with some diarrhea and left lower quadrant pain. The patient's work-up included a CT of the abdomen. The CT of the abdomen was consistent with colitis. The patient's vital signs are otherwise stable except for some chronic hypertension. The patient's laboratory work-up was unremarkable. The patient will be discharged home in stable condition with a prescription for metronidazole and ciprofloxacin. Nausea/Vomiting/Diarrhea HPI - General Chief complaint: Nausea/Vomiting/Diarrhea Stated complaint: dairrhea, nausea, bp feels high Time Seen by Provider: 03/02/21 14:15 Mode of Arrival: Ambulatory Source of Information: Patient Limitations: No Limitations Descrip
[2021-03-02 14:30] LABS: Microscopic, Urine URINE MICROSCOPIC (MICROSCOPIC)
[2021-03-02 14:38] LABS: Appearance,Urine SL CLOUDY (Clear); Bilirubin,Urine Negative (Negative); Blood, Urine Negative (Negative); Color,Urine YELLOW (Yellow); Glucose,Urine (UA) Negative (Negative); Ketones,Urine Negative (Negative); Leukocyte Esterase,Urine 1+ (Negative); Nitrate,Urine Negative (Negative); PH,Urine 6.5 (5.0-8.5); Protein,Urine Negative (Negative); Specific Gravity, Urine <= 1.005 (1.005-1.030); Urobilinogen,Urine 0.2 EU/dl (0.2)
[2021-03-02 14:40] LABS: Basophils # 0.1 K/mm3 (0-0.2); Basophils % 1.3 % (0.1-2.0); Eosinophils # 0.2 K/mm3 (0.0-0.4); Eosinophils % 1.6 % (0.1-12.0); Hematocrit 47.1 % (37.0-47.0); Hemoglobin 15.7 g/dL (12.2-16.2); Lymphocytes # 1.7 K/mm3 (0.7-4.5); Lymphocytes % 16.1 % (10-50); Mean Corpuscular HGB Conc 33.3 g/dL (31.8-35.4); Mean Corpuscular Volume 89.9 fl (81-99); Monocytes # 0.4 K/mm3 (0.1-1.0); Monocytes % 3.5 % (1.7-9.3); Neutrophils # 8.1 K/mm3 (1.8-7.8); Neutrophils % 77.4 % (37.0-80.0); Platelet Count 465 K/mm3 (142-424); Red Blood Count 5.24 M/mm3 (4.20-5.40); Red Cell Distribution Width 13.2 % (11.5-17.5); White Blood Count 10.4 K/mm3 (4.8-10.8)
[2021-03-02 14:45] LABS: Alanine Aminotransferase 18 U/L (12-78); Albumin Level 4.8 g/dl (3.5-5.0); Albumin/Globulin Ratio 1.7 (1.1-1.8); Alkaline Phosphatase 114 U/L (38-126); Anion Gap 14.9 mEq/L (5-15); Aspartate Amino Transferase 27 U/L (14-36); Bilirubin,Total 0.5 mg/dl (0.2-1.3); Blood Urea Nitrogen 14 mg/dl (7-17); Calcium 9.5 mg/dl (8.4-10.2); Carbon Dioxide 29 mmol/L (22.0-30.0); Chloride 101 mmol/L (98-107); Creatinine Clearance Estimated 62 mL/min (50-200); Estimated Glomerular Filt Rate 101 ml/min (>60); GFR (African American) 122 ML/MIN (>60); Globulin 2.8 g/dL (1.3-3.2); Glucose 121 mg/dl (74-100); Lipase 30 U/L (23-300); Potassium 3.9 mmoL/L (3.5-5.1); Sodium 141 mmol/L (136-145); Total Protein,Serum 7.6 g/dl (6.3-8.2)
--- NOTE | 2021-03-02 14:49 | PC.NURSE ---
pt to CT scanner via wheelchair at this time.
[2021-03-02 14:57] LABS: WBC,Urine Occasional #/hpf (0-3)
[2021-03-02 14:58] LABS: Squamous Epithelial Cell,Urine Occasional #/hpf (0-5)
[2021-03-02 15:45] VITALS: BP 195/100; PULSE 89; RESP 20; TEMP 36.9; O2SAT 98
== END 2021-03-02 15:50 | disposition home or self-care (01) ==
PROVIDERS: Emergency Provider Emergency Medicine; PCP Emergency Medicine
DX: K52.9 Noninfective gastroenteritis and colitis, unspecified (principal); I10 Essential (primary) hypertension; K21.9 Gastro-esophageal reflux disease without esophagitis; F41.8 Other specified anxiety disorders
CPT/HCPCS: 74177; 80053; 81001; 83690; 85025; 87086; 99283; Q9967

== ENCOUNTER → 2021-03-29 14:05 | Outpatient (CLI) | payer MEDICARE, SELFPAY ==
[2021-03-29 14:45] LABS: Amphetamine/Metha Screen,Urine Negative ng/ml (<1000); Benzodiazepines Screen,Urine Negative ng/ml (<200)
[2021-03-29 14:46] LABS: Barbiturates Screen,Urine Negative ng/ml (<200)
[2021-03-29 14:47] LABS: Cannabinoid Screen,Urine Negative ng/ml (<50); Cocaine Screen,Urine Negative ng/ml (<300)
[2021-03-29 14:48] LABS: Methadone Screen,Urine Negative ng/ml (<300); Opiate Screen,Urine Positive ng/ml (<300)
[2021-03-29 14:49] LABS: Phencyclidine Screen,Urine Negative ng/ml (<25)
== END ==
PROVIDERS: Visit Provider Emergency Medicine
DX: M47.816 Spondylosis without myelopathy or radiculopathy, lumbar region (principal)
CPT/HCPCS: 80305

== ENCOUNTER → 2021-05-24 12:45 | Outpatient (CLI) | payer MEDICARE, SELFPAY ==
[2021-05-24 13:19] LABS: Amphetamine/Metha Screen,Urine Negative ng/ml (<1000); Barbiturates Screen,Urine Negative ng/ml (<200)
[2021-05-24 13:20] LABS: Benzodiazepines Screen,Urine Negative ng/ml (<200)
[2021-05-24 13:21] LABS: Cannabinoid Screen,Urine Negative ng/ml (<50); Cocaine Screen,Urine Negative ng/ml (<300)
[2021-05-24 13:22] LABS: Methadone Screen,Urine Negative ng/ml (<300)
[2021-05-24 13:23] LABS: Opiate Screen,Urine Positive ng/ml (<300); Phencyclidine Screen,Urine Negative ng/ml (<25)
== END ==
PROVIDERS: Visit Provider Emergency Medicine
DX: M47.816 Spondylosis without myelopathy or radiculopathy, lumbar region (principal)
CPT/HCPCS: 80305

== ENCOUNTER → 2021-06-07 08:47 | Outpatient (CLI) | payer MEDICARE, SELFPAY ==
--- NOTE | 2021-06-07 08:47 | CA_ITS ---
APPROVED REPORT Probation Manager: Shari Wise RVT Study Quality: Good Indications: hypertension Risk Factors Hypertension Renal Artery Doppler Origin (R) 155.7/ cm/sec Proximal (R) 178.7/ cm/sec Mid (R) 126.8/ cm/sec Distal (R) 160.5/ cm/sec Renal Aorta Ratio (R) 1.50 Segmental A. (R) 76.9/23.1 cm/sec RI: 0.69 Segmental A. Sup (R) 63.0/26.1 cm/sec Segmental A. Mid (R) 73.8/27.7 cm/sec Segmental A. Inf (R) 76.9/23.1 cm/sec Origin (L) 105.7/ cm/sec Proximal (L) 117.2/ cm/sec Mid (L) 107.6/ cm/sec Distal (L) 138.4/ cm/sec Renal Aorta Ratio (L) 1.16 Segmental A. (L) 60.1/22.7 cm/sec RI: 0.62 Segmental A. Sup (L) 60.1/22.7 cm/sec Segmental A. Mid (L) 34.7/14.7 cm/sec Segmental A. Inf (L) 46.8/17.4 cm/sec Renal Measurements Kidney Size (R) 10.1x6.1 cm Cortical Thickness (R) 1.1 cm Kidney Size (L) 9.3x6.9 cm Cortical Thickness (L) 1.2 cm Findings Study suggests no evidence of stenosis of the bilateral renal arteries. Conclusion Study suggests no evidence of stenosis of the bilateral renal arteries. Electronically signed by : Devon Mayers MD 06/10/2021 15:24:27
== END ==
PROVIDERS: PCP Emergency Medicine; Visit Provider Emergency Medicine
DX: I10 Essential (primary) hypertension (principal)
CPT/HCPCS: 93976

== ENCOUNTER 2021-06-22 10:18 | Emergency (ER) | payer MEDICARE, SELFPAY ==
[2021-06-22] VITALS (8 sets, daily range): BP systolic 145–162; BP diastolic 71–103; PULSE 98–132; RESP 18; TEMP 36.8–37.1; O2SAT 94–96; BMI 24.9; BMI 24.1
[2021-06-22 11:40] LABS: Apearance,Urine Clear (Clear); Bilirubin,Urine Negative (Negative); Blood, Urine Trace (Negative); Color,Urine Yellow (Yellow); Glucose,Urine (UA) Negative (Negative); Ketones,Urine Negative (Negative); Protein,Urine Negative (Negative); Urobilinogen,Urine 0.2 EU/dl (0.2)
[2021-06-22 11:41] LABS: UTC Leukocyte Esterase,Urine Negative (Negative); UTC Nitrate,Urine Negative (Negative)
--- NOTE | 2021-06-22 12:17 | HMH.EDUTC ---
[facility] – [place] Disposition Condition on Discharge: Good <BarbourJaclyn briceno - Last Filed: 06/22/21 20:57> Time of Disposition: 15:00 <Álvaro Magaña - Last Filed: 06/24/21 07:59> Clinical Impression: Colitis Abdominal pain Qualifiers: Abdominal location: unspecified location Qualified Code(s): R10.9 - Unspecified abdominal pain Disposition: Home, Self-Care Instructions: DI for Acute Abdominal Pain Prescriptions: metroNIDAZOLE [Metronidazole] 500 mg PO TID #21 tab Transmission Status: Received by [facility] Referrals: Glenn Mckee MD [Primary Care Provider] - 06/24/21 (Call for appointment) Medical Decision Making - Marc Inquiry Pt receiving controlled substance: No Marc was queried for this patient: No - Lab Data Lab results reviewed: Yes: I reviewed the patient's lab results. Result diagrams: 06/22/21 13:00 06/22/21 13:00 <BarbourJaclyn Munoz - Last Filed: 06/22/21 20:57> - Lab Data Lab results reviewed: Yes: I reviewed the patient's lab results. Result diagrams: 06/22/21 13:00 06/22/21 13:00 <Álvaro Magaña - Last Filed: 06/24/21 07:59> Vital Signs: 06/22/21 11:15 06/22/21 12:33 06/22/21 12:34 Temperature 98.5 F 98.7 F Temperature Source Oral Oral Pulse Rate 124 H Pulse Rate [Right Brachial] 127 H 132 H Respiratory Rate 18 18 18 Blood Pressure 159/100 H Blood Pressure [Right Arm] 158/90 H 155/98 H Blood Pressure Mean 115 Blood Pressure Mean [Right Arm] 112 117 Blood Pressure Source Blood Pressure Source [Right Arm] Automatic Cuff Manual Cuff/ Doppler Blood Pressure Position Blood Pressure Position [Right Arm] Sitting Sitting 02 Sat by Pulse Oximetry 96 96 96 Oxygen Delivery Method Room Air Room Air Room Air 06/22/21 13:02 06/22/21 13:30 06/22/21 14:23 Temperature Temperature Source Pulse Rate 103 H 109 H 98 H Pulse Rate [Right Brachial] Respiratory Rate 18 18 18 Blood Pressure 162/103 H 145/76 H 146/71 H Blood Pressure [Right Arm] Blood Pressure Mean 122 107 116 Blood Pressure Mean [Right Arm] Blood Pressure Source Blood Pressure Source [Right Arm] Blood Pressure Position Blood Pressure Position [Right Arm] 02 Sat by Pulse Oximetry 96 94 L 96 Oxygen Delivery Method Room Air Room Air Room Air 06/22/21 14:30 06/22/21 15:12 Temperature 98.2 F Temperature Source Oral Pulse Rate 101 H 117 H Pulse Rate [Right Brachial] Respiratory Rate 18 18 Blood Pressure 149/72 H 149/72 H Blood Pressure [Right Arm] Blood Pressure Mean 103 Blood Pressure Mean [Right Arm] Blood Pressure Source Automatic Cuff Blood Pressure Source [Right Arm] Blood Pressure Position Supine Blood Pressure Position [Right Arm] 02 Sat by Pulse Oximetry 95 Oxygen Delivery Method Room Air Room Air - Lab Data Lab Results 06/22/21 11:28: Urine Color Yellow, Urine Appearance Clear, Urine pH 6.5, Ur Specific [place] <= 1.005, Urine Protein Negative, Urine Glucose (UA) Negative, Urine Ketones Trace, Urine Blood Trace-l, Urine Nitrate Negative, Urine Bilirubin Negative, Urine Urobilinogen 0.2, Ur Leukocyte Esterase Negative, Urine WBC Occasional, Ur Squamous Epith Cells Occasional, Urine Bacteria Trace 06/22/21 11:30: Urine Color Yellow, Urine Appearance Clear, Urine pH 6.0, Ur Specific [place] 1.010, Urine Protein Negative, Urine Glucose (UA) Negative, Urine Ketones Negative, Urine Blood Trace, Urine Nitrate Negative, Urine Bilirubin Negative, Urine Urobilinogen 0.2, Ur Leukocyte Esterase Negative 06/22/21 13:00: WBC 15.5 H, RBC 4.74, Hgb 15.4, Hct 43.7, MCV 92.0, MCH 32.4 H, MCHC 35.2, RDW 13.2, Plt Count 421, MPV 7.7, Neut % (Auto) 82.9 H, Lymph % (Auto) 10.6, [place] % (Auto) 4.9, Eos % (Auto) 0.7, Baso % (Auto) 0.9, Neut # (Auto) 12.9 H, Lymph # (Auto) 1.7, [place] # (Auto) 0.8, Eos # (Auto) 0.1, Baso # (Auto) 0.1, Total Counted 100, Neutrophils % (Manual) 85 H, Lymphocytes % (Manual) 9 L, Monocytes % (Manual) 6, Platelet Estimate Slight increase, RBC Morphol
[2021-06-22 13:19] LABS: Basophils # 0.1 K/mm3 (0-0.2); Basophils % 0.9 % (0.1-2.0); Eosinophils # 0.1 K/mm3 (0.0-0.4); Eosinophils % 0.7 % (0.1-12.0); Hematocrit 43.7 % (37.0-47.0); Hemoglobin 15.4 g/dL (12.2-16.2); Lymphocytes # 1.7 K/mm3 (0.7-4.5); Lymphocytes % 10.6 % (10-50); Mean Corpuscular HGB Conc 35.2 g/dL (31.8-35.4); Mean Corpuscular Hemoglobin 32.4 pg (27.0-31.2); Mean Platelet Volume 7.7 fl (7.4-10.4); Monocytes # 0.8 K/mm3 (0.1-1.0); Monocytes % 4.9 % (1.7-9.3); Neutrophils # 12.9 K/mm3 (1.8-7.8); Neutrophils % 82.9 % (37.0-80.0); Platelet Count 421 K/mm3 (142-424); Red Blood Count 4.74 M/mm3 (4.20-5.40); Red Cell Distribution Width 13.2 % (11.5-17.5); White Blood Count 15.5 K/mm3 (4.8-10.8)
[2021-06-22 13:21] LABS: MANUAL DIFFERENTIAL MANUAL DIFFERENTIAL (MANUAL DIFF)
[2021-06-22 13:25] LABS: Chloride 100 mmol/L (98-107); Potassium 3.8 mmoL/L (3.5-5.1); Sodium 138 mmol/L (136-145)
[2021-06-22 13:27] LABS: Alanine Aminotransferase 11 U/L (12-78); Alkaline Phosphatase 138 U/L (38-126); Anion Gap 11.8 mEq/L (5-15); Aspartate Amino Transferase 24 U/L (14-36); Bilirubin,Total 0.7 mg/dl (0.2-1.3); Blood Urea Nitrogen 18 mg/dl (7-17); Carbon Dioxide 30 mmol/L (22.0-30.0); Creatinine Clearance Estimated 60 mL/min (50-200); Estimated Glomerular Filt Rate 85 ml/min (>60); GFR (African American) 102 ML/MIN (>60); Lipase 26 U/L (23-300)
[2021-06-22 13:28] LABS: Albumin Level 4.3 g/dl (3.5-5.0); Albumin/Globulin Ratio 1.7 (1.1-1.8); Globulin 2.5 g/dL (1.3-3.2); Glucose 128 mg/dl (74-100); Total Protein,Serum 6.8 g/dl (6.3-8.2)
--- NOTE | 2021-06-22 13:31 | CT_ITS ---
PROCEDURE INFORMATION: Exam: CT Abdomen And Pelvis With Contrast Exam date and time: 06/22/2021 1:31 PM Age: 65 years old Clinical indication: Abdominal pain; Acute; Additional info: Llq pain TECHNIQUE: Imaging protocol: Computed tomography of the abdomen and pelvis with contrast. Radiation optimization: All CT scans at this facility use at least one of these dose optimization techniques: automated exposure control; mA and/or kV adjustment per patient size (includes targeted exams where dose is matched to clinical indication); or iterative reconstruction. Contrast material: ISOVUE; Contrast volume: 70 ml; Contrast route: IV; COMPARISON: CT ABDOMEN PELVIS W CON 03/02/2021 2:52 PM FINDINGS: Liver: 4 mm cyst noted within the left lobe of the liver. Gallbladder and bile ducts: Mild distention of the gallbladder without definitive stones present. Pancreas: Normal. No ductal dilation. Spleen: Normal. No splenomegaly. Adrenal glands: Normal. No mass. Kidneys and ureters: Normal. No hydronephrosis. Stomach and bowel: Thickening of the bowie of the descending rectosigmoid colon present consistent with colitis. Appendix: No evidence of appendicitis. Intraperitoneal space: Normal. No significant fluid collection. Vasculature: Unremarkable. No abdominal aortic aneurysm. Lymph nodes: Unremarkable. No enlarged lymph nodes. Urinary bladder: Unremarkable as visualized. Reproductive: Unremarkable as visualized. Bones/joints: The lumbar spine demonstrates mild degenerative changes at multiple levels. Soft tissues: There is a fat-containing umbilical hernia. IMPRESSION: 1. Thickening of the bowie of the descending rectosigmoid colon present consistent with colitis. Short-term follow-up is recommended. 2. Mild distention of the gallbladder without definitive stones present. 3. 4 mm cyst noted within the left lobe of the liver.
[2021-06-22 13:37] LABS: Lymphocytes % 9 % (10-50); Monocytes % 6 % (2-9); Neutrophils % 85 % (42-76); RBC Morphology Normal; Total Cells Counted 100
[2021-06-22 13:38] LABS: Platelet Estimate Slight Increase
[2021-06-22 14:26] LABS: Coronavirus 19, PCR Not Detected (NotDetected); Influenza A, PCR Not Detected (NotDetected); Influenza B, PCR Not Detected (NotDetected)
--- NOTE | 2021-06-22 14:41 | HMH.EDGENADL ---
ED Disposition Clinical Impression: Colitis Abdominal pain Qualifiers: Abdominal location: unspecified location Qualified Code(s): R10.9 - Unspecified abdominal pain Disposition: Home, Self-Care Condition on Discharge: Good Prescriptions: metroNIDAZOLE [Metronidazole] 500 mg PO TID #21 tab Transmission Status: [facility] Referrals: Glenn Mckee MD [Primary Care Provider] - 06/24/21 (Call for appointment) Time of Disposition: 14:47 - Critical Care Critical Care Time: No Attestation: On 06/22/21, the high probability of a clinically significant, sudden or life threatening deterioration of the following system(s) required my full and direct attention, intervention and personal management. The time I documented below is in addition to time spent performing reported procedures but includes the following listed in this critical care notation. Medical Decision Making - Medical Records Medical records reviewed: Yes: I reviewed the patient's medical records. - Marc Inquiry Pt receiving controlled substance: No Vital Signs: 06/22/21 11:15 06/22/21 12:34 Temperature 98.5 F 98.7 F Temperature Source Oral Oral Pulse Rate [Right Brachial] 127 H 132 H Respiratory Rate 18 18 Blood Pressure [Right Arm] 158/90 H 155/98 H Blood Pressure Mean [Right Arm] 112 117 Blood Pressure Source [Right Arm] Automatic Cuff Manual Cuff/ Doppler Blood Pressure Position [Right Arm] Sitting Sitting 02 Sat by Pulse Oximetry 96 96 Oxygen Delivery Method Room Air Room Air - Lab Data Lab results reviewed: Yes: I reviewed the patient's lab results. Lab Results 06/22/21 11:30: Urine Color Yellow, Urine Appearance Clear, Urine pH 6.0, Ur Specific [place] 1.010, Urine Protein Negative, Urine Glucose (UA) Negative, Urine Ketones Negative, Urine Blood Trace, Urine Nitrate Negative, Urine Bilirubin Negative, Urine Urobilinogen 0.2, Ur Leukocyte Esterase Negative 06/22/21 13:00: WBC 15.5 H, RBC 4.74, Hgb 15.4, Hct 43.7, MCV 92.0, MCH 32.4 H, MCHC 35.2, RDW 13.2, Plt Count 421, MPV 7.7, Neut % (Auto) 82.9 H, Lymph % (Auto) 10.6, [place] % (Auto) 4.9, Eos % (Auto) 0.7, Baso % (Auto) 0.9, Neut # (Auto) 12.9 H, Lymph # (Auto) 1.7, [place] # (Auto) 0.8, Eos # (Auto) 0.1, Baso # (Auto) 0.1, Total Counted 100, Neutrophils % (Manual) 85 H, Lymphocytes % (Manual) 9 L, Monocytes % (Manual) 6, Platelet Estimate Slight increase, RBC Morphology Normal 06/22/21 13:00: Sodium 138, Potassium 3.8, Chloride 100, Carbon Dioxide 30, Anion Gap 11.8, BUN 18 H, Creatinine 0.70, Estimated Creat Clear 60, Estimated GFR 85, Est GFR ( Amer) 102, Glucose 128 H, Calcium 9.0, Total Bilirubin 0.7, AST 24, ALT 11 L, Alkaline Phosphatase 138 H, Total Protein 6.8, Albumin 4.3, Globulin 2.5, Albumin/Globulin Ratio 1.7, Lipase 26 Result diagrams: 06/22/21 13:00 06/22/21 13:00 Orders (Tests/Meds): ED MEDICATIONS Discontinued Medications Generic Name Dose Route Start Last Admin Trade Name Jamieq PRN Reason Stop Dose Admin Iopamidol 70 ml 06/22/21 14:02 06/22/21 14:03 Iopamidol-370 (76%);100ml Bottle IV 06/22/21 14:03 70 ml ONCE ONE Administration Morphine Sulfate 4 mg 06/22/21 13:34 06/22/21 13:45 Morphine 4mg/Ml Syringe IV 06/22/21 13:35 4 mg ONCE ONE Administration Ondansetron HCl 4 mg 06/22/21 13:17 06/22/21 13:19 Ondansetron 4mg/2ml Vial IV 06/22/21 13:18 4 mg ONCE ONE Administration Ondansetron HCl 4 mg 06/22/21 13:34 06/22/21 13:47 Ondansetron 4mg/2ml Vial IV 06/22/21 13:35 Not Given ONCE ONE Sodium Chloride 10 ml 06/22/21 14:02 06/22/21 14:03 Sodium Chloride 0.9% 10ml Syr (Rad Only) IV 06/22/21 14:03 10 ml ONCE ONE Administration ORDERS Category Date Time Status Lactic Acid Stat Lab 06/22/21 Ordered Rapid PCR Covid and Flu A/B Stat Lab 06/22/21 13:16 Received UA [Urinalysis and Microscopic] Stat Lab 06/22/21 12:21 Ordered - CT Data CT Scan: Abdomen, Pelvis
[2021-06-22 15:53] LABS: Microscopic, Urine URINE MICROSCOPIC (MICROSCOPIC)
[2021-06-22 15:59] LABS: Appearance,Urine CLEAR (Clear); Bilirubin,Urine Negative (Negative); Blood, Urine TRACE-L (Negative); Color,Urine YELLOW (Yellow); Glucose,Urine (UA) Negative (Negative); Ketones,Urine TRACE (Negative); Leukocyte Esterase,Urine Negative (Negative); Nitrate,Urine Negative (Negative); PH,Urine 6.5 (5.0-8.5); Protein,Urine Negative (Negative); Specific Gravity, Urine <= 1.005 (1.005-1.030); Urobilinogen,Urine 0.2 EU/dl (0.2)
[2021-06-22 16:07] LABS: Bacteria,Urine Trace /lpf; Squamous Epithelial Cell,Urine Occasional #/hpf (0-5); WBC,Urine Occasional #/hpf (0-3)
== END 2021-06-22 15:12 | disposition home or self-care (01) ==
LOC: UTC 10:22 → ER 12:22
PROVIDERS: Nurse Practitioner; Emergency Provider Family Medicine; PCP Emergency Medicine
DX: K52.9 Noninfective gastroenteritis and colitis, unspecified (principal); F41.8 Other specified anxiety disorders; I10 Essential (primary) hypertension; Z20.822 Contact with and (suspected) exposure to COVID-19
CPT/HCPCS: 74177; 80053; 81001; 81003; 83690; 85007; 85025; 96374; 96375; 99284; C9803; J2405; Q9967; U0003; U0005

== ENCOUNTER 2021-06-28 09:35 | Emergency (ER) | payer MEDICARE, SELFPAY ==
[2021-06-28 11:17] VITALS: BP 165/109; PULSE 76; RESP 18; TEMP 36.9; O2SAT 98; BMI 24.1
[2021-06-28 11:27] LABS: UTC Strep Screen (Rapid) Negative (Negative)
--- NOTE | 2021-06-28 11:55 | HMH.EDUTC ---
[facility] Disposition Clinical Impression: Stomatitis Disposition: Home, Self-Care Condition on Discharge: Good Instructions: DI for Mouth Pain Additional Instructions: Take the medications as directed. Finish the flagyl (metronidazole) that you are on. This does not appear to be an allergic reaction to the flagyl. If you do start having tongue swelling or lip swelling please follow up merissa. The pharmacy is going to mix something up called magic mouthwash for you that will contain benedryl, maalox, and lidocaine. This medication should sooth your mouth and help your symptoms regardless of what is causing this. Take the diflucan as directed. Don't start it until tomorrow since we gave you the first dose here today. Follow up with your primary care physician. GO TO THE ER FOR ANY WORSENING SYMPTOMS OR CONCERNS Prescriptions: Fluconazole [Diflucan] 100 mg PO DAILY 3 Days #3 tab Transmission Status: Received by [facility] diphenhydrAMINE HCL [Diphenhydramine HCl] 5 ml PO TIDP PRN #50 ml PRN Reason: Mouth Irritation Transmission Status: Received by [facility] lidocaine HCL [Lidocaine viscous 100mL bottle] 5 ml PO TIDP PRN #50 ml PRN Reason: Mouth Irritation Transmission Status: Received by [facility] Mag Hydrox/Aluminum Hyd/Simeth [Mylanta Maximum Strength Liq] 5 ml PO TIDP PRN #50 ml PRN Reason: Mouth Irritation Transmission Status: Received by [facility] predniSONE [Prednisone 20mg Tab] 20 mg PO BID 4 Days #8 tab Transmission Status: Received by [facility] ondansetron HCL [Zofran 4mg Tab*] 4 mg PO TIDP PRN #30 tab PRN Reason: Nausea Transmission Status: Received by [facility] Referrals: Glenn Mckee MD [Primary Care Provider] - Time of Disposition: 12:15 Medical Decision Making - Medical Records Medical records reviewed: No: I reviewed the patient's medical records. - Marc Inquiry Pt receiving controlled substance: No Vital Signs: 06/28/21 11:17 06/28/21 12:19 Temperature 98.5 F 98.5 F Temperature Source Oral Pulse Rate 76 Pulse Rate [Left] 76 Respiratory Rate 18 18 Blood Pressure 165/109 H Blood Pressure [Right Arm] 165/109 H Blood Pressure Mean [Right Arm] 127 02 Sat by Pulse Oximetry 98 - Lab Data Lab Results 06/28/21 11:20: Strep Scn Rapid Clinic Negative Orders (Tests/Meds): ED MEDICATIONS Discontinued Medications Generic Name Dose Route Start Last Admin Trade Name Sharon PRN Reason Stop Dose Admin Fluconazole 200 mg 06/28/21 12:14 06/28/21 12:16 Fluconazole 100mg Tablet PO 06/28/21 12:15 200 mg ONCE ONE Administration ORDERS Category Date Time Status Strep Screen Confirmation Routine Micro 06/28/21 11:20 Received [facility] HPI - General Stated complaint: nausea Time Seen by Provider: 06/28/21 11:55 Mode of Arrival: Ambulatory Source of Information: Patient Limitations: No Limitations Description of Symptoms (Recalled from Triage Doc. by RN): pt c/o nausea and sores in her mouth. pt states she was seen in the ER thursday and dx with colitis. pt states she is feel worse. HEENT Symptoms (Recalled from RN notes): Yes (sores in mouth) Resp Symptoms (Recalled from RN notes): No Skin Symptoms (Recalled from RN notes): No MS Symptoms (Recalled from RN notes): No Functional Status (Recalled from RN notes): wnl - History of Present Illness Provider Complaint: She was having gi complaints (abdominal cramping, abd. pain, mucousy stools) and she was diagnosed with colitis in the ER here on 06/22. She was started on oral flagyl then. She states that her GI symptoms have resolved now, but over the past 2 days she has began having mouth irriation and sore areas on her tongue and the inside of her cheeks. She also thought she saw a whitish coating on her tongue and was worried about having thrush also. She denies any tongue swelling, lip swelling, lip pain or symptoms of an all
[2021-06-28 12:19] VITALS: BP 165/109; PULSE 76; RESP 18; TEMP 36.9
== END 2021-06-28 12:26 | disposition home or self-care (01) ==
PROVIDERS: Emergency Provider Nurse Practitioner Family; PCP Emergency Medicine
DX: K12.1 Other forms of stomatitis (principal); I10 Essential (primary) hypertension; F41.8 Other specified anxiety disorders
CPT/HCPCS: G0463; 87880; 99202

== ENCOUNTER 2021-07-26 11:20 | Emergency (ER) | payer MEDICARE, SELFPAY ==
[2021-07-26 13:00] VITALS: BP 186/86; PULSE 76; RESP 19; TEMP 36.8; O2SAT 99; BMI 23.8
[2021-07-26 13:27] LABS: UTC Influenza A Antigen Negative (Negative); UTC Influenza B Antigen Negative (Negative); UTC Strep Screen (Rapid) Negative (Negative)
--- NOTE | 2021-07-26 14:00 | HMH.EDUTC ---
[facility] [place] Disposition Clinical Impression: Pharyngitis Qualifiers: Pharyngitis/tonsillitis etiology: unspecified etiology Qualified Code(s): J02.9 - Acute pharyngitis, unspecified Disposition: Home, Self-Care Condition on Discharge: Good Instructions: DI for Pharyngitis/Tonsillopharyngitis -- Adult Additional Instructions: Drink plenty of fluids. Take tylenol or ibuprofen for pain or fever. Take the medications as directed. Follow up with your regular doctor. GO TO THE ER FOR ANY WORSENING SYMPTOMS Quarantine until you know the results of your covid-19 test. If it is positive, the health department should call you and give you further instructions about your length of Quarantine and other things. Notify your school or workplace of your results and follow their instructions regarding return to work/school. The cough medication (promethazine dm) will make you drowsy, so don't drive or operate heavy machinery after taking it. Prescriptions: Promethazine/Dextromethorphan [Promethazine-Dm Syrup] 5 ml PO Q6HP PRN #240 ml PRN Reason: Cough Transmission Status: Received by [facility] methylPREDNISolone [Medrol] 4 mg PO DIRECTED 6 Days #21 packet Transmission Status: Received by [facility] Azithromycin [Z-Mikey 250mg Tab*] 250 mg PO UD DOSE PK #6 tab Transmission Status: Received by [facility] Referrals: Glenn Mckee MD [Primary Care Provider] - Time of Disposition: 14:11 Medical Decision Making - Medical Records Medical records reviewed: No: I reviewed the patient's medical records. - Marc Inquiry Pt receiving controlled substance: No Vital Signs: 07/26/21 13:00 07/26/21 14:25 Temperature 98.3 F 98.3 F Temperature Source Oral Pulse Rate 76 Pulse Rate [Right Brachial] 76 Respiratory Rate 19 19 Blood Pressure 186/86 H Blood Pressure [Right Arm] 186/86 H Blood Pressure Mean [Right Arm] 119 Blood Pressure Source [Right Arm] Automatic Cuff Blood Pressure Position [Right Arm] Sitting 02 Sat by Pulse Oximetry 99 Oxygen Delivery Method Room Air - Lab Data Lab results reviewed: Yes: I reviewed the patient's lab results. Lab Results 07/26/21 13:11: Influenza Type A Ag Negative, Influenza Type B Ag Negative 07/26/21 13:11: Strep Scn Rapid Clinic Negative Orders (Tests/Meds): ORDERS Category Date Time Status Strep Screen Confirmation Stat Micro 07/26/21 13:11 Received [facility] [place] HPI - General Stated complaint: sore throat, cough, h/a, body aches Time Seen by Provider: 07/26/21 14:01 Mode of Arrival: Ambulatory Source of Information: Patient Limitations: No Limitations Description of Symptoms (Recalled from Triage Doc. by RN): PATIENT C/O SORE THROAT, BODY ACHES, HEADACHE, AND CONGESTION SINCE YESTERDAY HEENT Symptoms (Recalled from RN notes): Yes Resp Symptoms (Recalled from RN notes): Yes Skin Symptoms (Recalled from RN notes): No MS Symptoms (Recalled from RN notes): No Functional Status (Recalled from RN notes): WNL - History of Present Illness Provider Complaint: She c/o sore throat, low grade fever and feeling achy for the past 2 days. 2 of her grand children that she has been around have tested positive for strep throat. - Related Data Home Medications Medication Instructions Recorded Confirmed carvedilol 6.25 mg tablet 6.25 mg PO DAILY tab 07/03/20 07/08/21 cloNIDine HCL [cloNIDine 0.1mg 0.1 mg PO BID 06/22/21 07/08/21 Tablet] lisinopriL [Lisinopril] 20 mg PO DAILY 06/22/21 07/08/21 Previous Rx's Medication Instructions Recorded Fluconazole [Diflucan] 100 mg PO DAILY 3 Days #3 tab 06/28/21 Mag Hydrox/Aluminum Hyd/Simeth 5 ml PO TIDP PRN #50 ml 06/28/21 [Mylanta Maximum Strength Liq] diphenhydrAMINE HCL 5 ml PO TIDP PRN #50 ml 06/28/21 [Diphenhydramine HCl] lidocaine HCL [Lidocaine viscous 5 ml PO TIDP PRN #50 ml 06/28/21 100mL bottle] ondansetron HCL [Zofran 4mg Tab*] 4 mg PO TIDP PRN #30 tab 06/28/21
[2021-07-26 14:25] VITALS: BP 186/86; PULSE 76; RESP 19; TEMP 36.8; O2SAT 99
== END 2021-07-26 14:27 | disposition home or self-care (01) ==
PROVIDERS: Emergency Provider Nurse Practitioner Family; PCP Emergency Medicine
DX: U07.1 COVID-19 (principal); J02.9 Acute pharyngitis, unspecified; F41.8 Other specified anxiety disorders; I10 Essential (primary) hypertension; K21.9 Gastro-esophageal reflux disease without esophagitis; Z79.899 Other long term (current) drug therapy
CPT/HCPCS: G0463; 87804; 87880; 99203; C9803; U0003; U0005

== ENCOUNTER → 2021-08-14 09:28 | Outpatient (CLI) | payer MEDICARE, SELFPAY | PROVIDERS: Visit Provider Surgery | DX: Z01.812 Encounter for preprocedural laboratory examination (principal); Z11.52 Encounter for screening for COVID-19; Z12.11 Encounter for screening for malignant neoplasm of colon | CPT/HCPCS: C9803; U0003; U0005 ==

== ENCOUNTER 2021-08-16 09:30 | Day surgery (SDC) | payer MEDICARE, SELFPAY ==
[2021-08-12 09:16] VITALS: BMI 27.1
[2021-08-16 09:49] VITALS: BP 206/109; PULSE 102; RESP 18; TEMP 36.5; O2SAT 98
--- NOTE | 2021-08-16 09:49 | P.PN_ITS ---
[facility] Anesthesia Checklist - Patient Identification Patient Identification: Arm Band - Structural Data Admitted From: Home Planned Operative Procedure/s: Colonoscopy Consent for Planned Operative Procedure(s) Verified: Yes - NPO Status Verified Time NPO: 04:00 (prep) - Airway Assessment C-Spine Mobility Assessed: Yes TMJ Mobility Assessed: Yes - Neurological Assessment Level of Consciousness: Awake Hx Seizures: No Numbness or tingling in extremities: No - Anesthesia Plan Anesthesia Risk discussed: Yes Anesthesia Plan: Verified ASA Class: III Anesthesia Type: MAC [facility] History I have reviewed the patient's past medical history: Yes Medical History: Reports:: Anxiety, Cancer (breast), Depression, Hypertension Denies:: Diabetes Mellitus Type 1, Diabetes Mellitus Type 2, Internal Pacemaker, MRSA *Have you ever received a pneumonia vaccine?: No *Have you received a flu vaccine this season?: No Other Medical History: Reports: Arthritis Anesthesia experience/problems:: None Laterality Cases: Right: Breast Biopsy, Carpal Tunnel Release, Lumpectomy Other Surgeries: Yes: Appendectomy, Cancer Surgery, Colonoscopy, Hysterectomy- Total, Other. No: Pacemaker Amputation: No Fractures: No - *Social History Last grade of school completed: GED Smoking Status: Never smoker Tobacco Type: cigarettes Alcohol Intake: never Alcohol Intake Frequency:: other Substance Use Type: denies use *Occupational Status:: disabled Housing: house Household Members: spouse *Travel in the last 8 weeks: None - Psychiatric History Pschychiatric History:: Reports:: Anxiety, Depression Family Hx:: Cancer, Diabetes, Hypertension
--- NOTE | 2021-08-16 09:54 | PC.NURSE ---
anesthesia made aware of pt blood pressure
[2021-08-16 10:08] VITALS: O2SAT 97
--- NOTE | 2021-08-16 10:30 | P.PCN_ITS ---
- Procedure: Date: 08/16/21 Patient Date of :: 1955 Procedure Performed:: Limited colonoscopy with biopsies Indications:: Patient is a 65-year-old female. She had previous colonoscopy in 2016. Several months ago she had developed some significant lower abdominal pain and CT scan done on 03/02/2021 revealed findings consistent with colitis. Her symptoms had improved but then she had recurrent symptoms. Repeat CT scan done after presentation to the emergency department on 06/22/2021 revealed findings consistent with left-sided colitis. She was able to be managed with antibiotics and her symptoms improved. She was scheduled for colonoscopy. Performing Provider:: Cesar Roth MD Referring Provider:: Hussein Mckee MD Sedation:: MAC sedation Procedure:: Patient was taken to endoscopy procedure room. She was positioned in lateral decubitus position. Adequate intravenous sedation was achieved. Variable stiffness Olympus colonoscope was inserted via the anus. Significant stool was immediately encountered. However the colonoscope was ultimately able to be advanced to the transverse colon. Colonic preparation was very poor. Vis ualization was poor. Colonoscope was withdrawn through the colon. There was no evidence of any obvious masses or diverticuli. However, visualization was rather poor. Several biopsies were obtained of the left colon to rule out microscopic colitis but there was no obvious gross colitis noted. Colonoscope was withdrawn. Findings:: Very poor preparation and poor visualization No obvious mass or grossly severe colitis or obvious diverticulosis Biopsies performed to rule out microscopic colitis Recommendations:: Plan to follow-up on the biopsy results. I will obtain the pathology from her previous colonoscopy 5 years ago. Likely would advocate repeat colonoscopy in 6 to 12 months with aggressive 2-day bowel preparation. Complications:: None immediately apparent Estimated blood obtained (mL): 1
[2021-08-16 10:32] VITALS: BP 103/56; PULSE 103; RESP 16; TEMP 36.3; O2SAT 95
[2021-08-16 10:42] VITALS: BP 137/72; PULSE 102; RESP 16; O2SAT 98
[2021-08-16 10:52] VITALS: BP 128/69; PULSE 100; RESP 16; O2SAT 99
[2021-08-16 11:02] VITALS: BP 146/79; PULSE 84; RESP 16; O2SAT 100
== END 2021-08-16 11:02 | disposition home or self-care (01) ==
LOC: OUTP 09:31
PROVIDERS: PCP Emergency Medicine; Visit Provider Surgery
PROC: 0DJD8ZZ Inspection of Lower Intestinal Tract, Via Natural or Artificial Opening Endoscopic (ICD-10-PCS; principal; 2021-08-16 08:30)
DX: K52.9 Noninfective gastroenteritis and colitis, unspecified (principal); Z85.3 Personal history of malignant neoplasm of breast; I10 Essential (primary) hypertension; F41.9 Anxiety disorder, unspecified; F32.A Depression, unspecified; M19.90 Unspecified osteoarthritis, unspecified site; Z80.9 Family history of malignant neoplasm, unspecified; Z83.3 Family history of diabetes mellitus; Z82.49 Family history of ischemic heart disease and other diseases of the circulatory system; K21.9 Gastro-esophageal reflux disease without esophagitis; Z88.1 Allergy status to other antibiotic agents; Z88.8 Allergy status to other drugs, medicaments and biological substances; Z79.899 Other long term (current) drug therapy
CPT/HCPCS: 45380; 88305; J2704

== ENCOUNTER → 2021-11-11 09:17 | Outpatient (CLI) | payer MEDICARE, SELFPAY ==
[2021-11-11 14:48] LABS: Amphetamine/Metha Screen,Urine Negative ng/ml (<1000)
[2021-11-11 14:49] LABS: Barbiturates Screen,Urine Negative ng/ml (<200); Benzodiazepines Screen,Urine Negative ng/ml (<200)
[2021-11-11 14:50] LABS: Cannabinoid Screen,Urine Negative ng/ml (<50)
[2021-11-11 14:51] LABS: Cocaine Screen,Urine Negative ng/ml (<300); Methadone Screen,Urine Negative ng/ml (<300)
[2021-11-11 14:52] LABS: Opiate Screen,Urine Positive ng/ml (<300); Phencyclidine Screen,Urine Negative ng/ml (<25)
== END ==
PROVIDERS: Visit Provider Emergency Medicine
DX: G89.29 Other chronic pain (principal)
CPT/HCPCS: 80305

== ENCOUNTER → 2022-01-06 16:31 | Outpatient (CLI) | payer MEDICARE, SELFPAY ==
[2022-01-06 14:25] LABS: Amphetamine/Metha Screen,Urine Negative ng/ml (<1000)
[2022-01-06 14:28] LABS: Barbiturates Screen,Urine Negative ng/ml (<200); Benzodiazepines Screen,Urine Negative ng/ml (<200)
[2022-01-06 14:29] LABS: Cannabinoid Screen,Urine Negative ng/ml (<50)
[2022-01-06 14:33] LABS: Cocaine Screen,Urine Negative ng/ml (<300)
[2022-01-06 14:34] LABS: Methadone Screen,Urine Negative ng/ml (<300); Opiate Screen,Urine Positive ng/ml (<300)
[2022-01-06 14:35] LABS: Phencyclidine Screen,Urine Negative ng/ml (<25)
== END ==
PROVIDERS: Visit Provider Emergency Medicine
DX: M47.816 Spondylosis without myelopathy or radiculopathy, lumbar region (principal)
CPT/HCPCS: 80305

== ENCOUNTER → 2022-04-09 17:13 | Outpatient (CLI) | payer MEDICARE, SELFPAY ==
[2022-04-09 16:39] LABS: Alanine Aminotransferase 27 U/L (12-78); Albumin Level 4.4 g/dl (3.5-5.0); Albumin/Globulin Ratio 1.9 (1.1-1.8); Alkaline Phosphatase 123 U/L (38-126); Aspartate Amino Transferase 30 U/L (14-36); Bilirubin,Total 0.2 mg/dl (0.2-1.3); Blood Urea Nitrogen 17 mg/dl (7-17); Calcium 9.2 mg/dl (8.4-10.2); Carbon Dioxide 27 mmol/L (22.0-30.0); Chloride 104 mmol/L (98-107); Chol/HDL Ratio 3.9 (1-3.5); Cholesterol 221 mg/dl (140-200); Estimated Glomerular Filt Rate 124 ml/min (>60); GFR (African American) 150 ML/MIN (>60); Globulin 2.3 g/dL (1.3-3.2); Glucose 119 mg/dl (74-100); HDL Cholesterol 57 mg/dl (40-60); Sodium 140 mmol/L (136-145); Total Protein,Serum 6.7 g/dl (6.3-8.2); Triglycerides 105 mg/dl (30-150); VLDL Cholesterol 21 mg/dL (0-40)
[2022-04-09 16:48] LABS: Basophils # 0.1 K/mm3 (0-0.2); Basophils % 1.2 % (0.1-2.0); Hematocrit 46.2 % (37.0-47.0); Hemoglobin 14.7 g/dL (12.2-16.2); Lymphocytes # 1.2 K/mm3 (0.7-4.5); Lymphocytes % 16.3 % (10-50); Mean Corpuscular HGB Conc 31.8 g/dL (31.8-35.4); Mean Corpuscular Hemoglobin 31.7 pg (27.0-31.2); Mean Corpuscular Volume 99.7 fl (81-99); Mean Platelet Volume 8.2 fl (7.4-10.4); Monocytes # 0.4 K/mm3 (0.1-1.0); Monocytes % 5.7 % (1.7-9.3); Neutrophils # 5.8 K/mm3 (1.8-7.8); Neutrophils % 76.9 % (37.0-80.0); Platelet Count 493 K/mm3 (142-424); Red Blood Count 4.63 M/mm3 (4.20-5.40); White Blood Count 7.6 K/mm3 (4.8-10.8)
[2022-04-09 16:50] LABS: Direct LDL Cholesterol 138.05 mg/dL (100-129)
[2022-04-09 17:09] LABS: Thyroid Stimulating Hormone 0.13 uIU/mL (0.465-4.68)
[2022-04-09 18:01] LABS: Hemoglobin A1C 5.5 % (4.0-6.0)
== END ==
PROVIDERS: PCP Physician Assistant; Visit Provider Physician Assistant
DX: I10 Essential (primary) hypertension (principal); Z79.899 Other long term (current) drug therapy
CPT/HCPCS: 80053; 80061; 83036; 84443; 85025

== ENCOUNTER → 2022-04-25 12:00 | Outpatient (CLI) | payer MEDICARE, SELFPAY ==
[2022-04-25 12:26] LABS: Occult Blood,Stool Positive (Negative)
== END ==
PROVIDERS: PCP Physician Assistant; Visit Provider Physician Assistant
DX: R19.7 Diarrhea, unspecified (principal); K92.1 Melena
CPT/HCPCS: 82272; G0328

== ENCOUNTER → 2022-10-01 09:55 | Outpatient (CLI) | payer MEDICARE, SELFPAY ==
[2022-10-01 14:11] LABS: Basophils # 0.1 K/mm3 (0-0.2); Basophils % 1.7 % (0.1-2.0); Eosinophils # 0.1 K/mm3 (0.0-0.4); Eosinophils % 1.7 % (0.1-12.0); Hematocrit 38.7 % (37.0-47.0); Hemoglobin 13.1 g/dL (12.2-16.2); Lymphocytes # 1.5 K/mm3 (0.7-4.5); Lymphocytes % 21.7 % (10-50); Mean Corpuscular HGB Conc 33.8 g/dL (31.8-35.4); Mean Corpuscular Hemoglobin 32.9 pg (27.0-31.2); Mean Corpuscular Volume 97.1 fl (81-99); Mean Platelet Volume 8.5 fl (7.4-10.4); Monocytes # 0.5 K/mm3 (0.1-1.0); Monocytes % 6.7 % (1.7-9.3); Neutrophils # 4.7 K/mm3 (1.8-7.8); Neutrophils % 68.2 % (37.0-80.0); Platelet Count 518 K/mm3 (142-424); Red Blood Count 3.98 M/mm3 (4.20-5.40); Red Cell Distribution Width 14.3 % (11.5-17.5); White Blood Count 6.9 K/mm3 (4.8-10.8)
[2022-10-01 14:40] LABS: Alanine Aminotransferase 13 U/L (12-78); Albumin/Globulin Ratio 1.9 (1.1-1.8); Alkaline Phosphatase 107 U/L (38-126); Anion Gap 11.1 mEq/L (5-15); Aspartate Amino Transferase 21 U/L (14-36); Bilirubin,Total 0.4 mg/dl (0.2-1.3); Blood Urea Nitrogen 17 mg/dl (7-17); Calcium 8.8 mg/dl (8.4-10.2); Carbon Dioxide 26 mmol/L (22.0-30.0); Chloride 107 mmol/L (98-107); Chol/HDL Ratio 3.9 (1-3.5); Cholesterol 185 mg/dl (140-200); Estimated Glomerular Filt Rate 101 ml/min (>60); GFR (African American) 122 ML/MIN (>60); Globulin 2.1 g/dL (1.3-3.2); Glucose 119 mg/dl (74-100); HDL Cholesterol 47 mg/dl (40-60); Potassium 4.1 mmoL/L (3.5-5.1); Sodium 140 mmol/L (136-145); Total Protein,Serum 6.1 g/dl (6.3-8.2); Triglycerides 240 mg/dl (30-150); VLDL Cholesterol 48 mg/dL (0-40)
[2022-10-01 14:51] LABS: Direct LDL Cholesterol 91.41 mg/dL (100-129)
[2022-10-01 15:11] LABS: Thyroid Stimulating Hormone 0.57 uIU/mL (0.465-4.68)
[2022-10-01 17:52] LABS: Hemoglobin A1C 5.3 % (4.0-6.0)
== END ==
PROVIDERS: PCP Physician Assistant; Visit Provider Physician Assistant
DX: I10 Essential (primary) hypertension (principal); R11.0 Nausea; R53.83 Other fatigue; E66.3 Overweight; R73.09 Other abnormal glucose
CPT/HCPCS: 80053; 80061; 83036; 84443; 85025

== ENCOUNTER 2022-10-16 17:03 | Emergency (ER) | payer MEDICARE, SELFPAY ==
[2022-10-16 17:32] VITALS: BP 183/94; PULSE 94; RESP 20; TEMP 36.8; O2SAT 97; BMI 24.1
--- NOTE | 2022-10-16 18:04 | EXP.UTC ---
Discharge Plan Disposition Patient Disposition: Home, Self-Care Condition: Good Prescriptions Prescriptions: New azithromycin [Zithromax Z-Mikey] 250 mg tablet See Rx Instructions .ROUTE .COMPLEX 5 Days Qty: 6 0RF Rx Instructions: For 250 mg dose pack: take 500 mg today (day 1), then 250 mg for 4 days (days 2-5) No Action carvedilol 6.25 mg tablet 6.25 mg PO BID Qty: 180 3RF clonidine HCl 0.1 mg tablet 0.1 mg PO Q8H PRN (Reason: blood pressure) Qty: 90 1RF lisinopril 20 mg tablet See Rx Instructions .ROUTE .COMPLEX Qty: 90 1RF Dose Instruction: TAKE ONE TABLET BY MOUTH EVERY DAY FOR HYPERTENSION Rx Instructions: TAKE ONE TABLET BY MOUTH EVERY DAY FOR HYPERTENSION lisinopril-hydrochlorothiazide 20-25 mg tablet See Rx Instructions .ROUTE .COMPLEX Qty: 90 1RF Dose Instruction: TAKE ONE TABLET BY MOUTH EVERY DAY Rx Instructions: TAKE ONE TABLET BY MOUTH EVERY DAY atorvastatin [Lipitor] 10 mg tablet 10 mg PO HS Qty: 90 3RF amlodipine 5 mg tablet 5 mg PO DAILY Qty: 90 0RF ondansetron HCl 4 mg tablet See Rx Instructions .ROUTE .COMPLEX Qty: 20 5RF Dose Instruction: TAKE ONE TABLET BY MOUTH EVERY 8 HOURS Rx Instructions: TAKE ONE TABLET BY MOUTH EVERY 8 HOURS hydrocodone-acetaminophen 7.5-325 mg tablet 1 tab PO QID Qty: 120 0RF Referrals Follow up/Referrals: Bev Eckert PA [Primary Care Provider] - See instructions Activity Restrictions/Add. Instructions Additional Instructions/Restrictions: *Monitor Temp, Over the counter Motrin or Tylenol as directed/as needed Tylenol every 4 hours and Motrin every 6 hours (as long as your family doctor has told you that you can take it) for fever or pain. and straight to ER if unable to lower temp less than 101.0 after medication given *Warm salt water gargles may help to soothe the throat *Throat Lozenges? *Warm fluids like tea with honey may help to soothe the throat? *Sleep elevated *Humidifier/Vaporizer Follow up IMMEDIATELY for new or worsening symptoms or no Noticeable improvement over the next 48-72 hours. 911 for difficulty breathing or swallowing Follow up with your Family Doctor for Reevaluation of your blood pressure Clinical Impressions Clinical Impression: Strep throat Stand Alone Forms Stand Alone Forms: Work/School Release Instructions Patient Instructions: Strep Throat, DI for Strep Throat Discharge ED Provider: Jaclyn Barbour [facility] [place] HPI General Stated complaint: FERRELL, body aches, sore throat Mode of Arrival: Ambulatory Source of Information: Patient Limitations: No Limitations Time Seen by Provider: 10/16/22 17:45 Description of Symptoms (Recalled from Triage Doc. by RN): pt states she has had a sore throat, headache, and body aches for 2 days, states she was exposed to someone with strep throat a few days ago HEENT Symptoms (Recalled from RN notes): Yes (sore throat, headache) Resp Symptoms (Recalled from RN notes): No Skin Symptoms (Recalled from RN notes): No MS Symptoms (Recalled from RN notes): No Functional Status (Recalled from RN notes): wnl History of Present Illness Provider Complaint: Patient states that for the last couple of days she has been having sore throat, headache, body aches, chills States that she was around someone that has strep throat and feels like she may have it now too Related Data Previous Rx's Medication Instructions Recorded atorvastatin 10 mg tablet (Lipitor) 10 mg PO HS #90 tabs 08/06/22 carvedilol 6.25 mg tablet 6.25 mg PO BID Hypertension #180 08/06/22 tabs clonidine HCl 0.1 mg tablet 0.1 mg PO Q8H PRN blood pressure 08/06/22 #90 tabs lisinopril 20 mg tablet See Rx Instructions .Route 08/06/22 .COMPLEX #90 tabs lisinopril 20 See Rx Instructions .Route 08/06/22 mg-hydrochlorothiazide 25 mg tablet .COMPLEX #90 tabs ondansetron HCl 4 mg tablet See Rx Instructions .Route 08/14/22 .COMPL
[2022-10-16 18:10] VITALS: BP 183/94; PULSE 94; RESP 20; TEMP 36.8; O2SAT 97
[2022-10-16 18:39] LABS: UTC Strep Screen (Rapid) Positive (Negative)
== END 2022-10-16 18:16 | disposition home or self-care (01) ==
PROVIDERS: Emergency Provider Nurse Practitioner; PCP Physician Assistant
DX: J02.0 Streptococcal pharyngitis (principal); R51.9 Headache, unspecified; I10 Essential (primary) hypertension
CPT/HCPCS: 87880; 99212; 99214; G0463

== ENCOUNTER → 2022-10-21 13:19 | Outpatient (CLI) | payer MEDICARE, SELFPAY ==
[2022-10-21 14:13] LABS: Alanine Aminotransferase 22 U/L (12-78); Albumin Level 4.2 g/dl (3.5-5.0); Albumin/Globulin Ratio 1.9 (1.1-1.8); Alkaline Phosphatase 128 U/L (38-126); Anion Gap 11.3 mEq/L (5-15); Aspartate Amino Transferase 32 U/L (14-36); Bilirubin,Total 0.4 mg/dl (0.2-1.3); Blood Urea Nitrogen 13 mg/dl (7-17); Calcium 8.5 mg/dl (8.4-10.2); Carbon Dioxide 29 mmol/L (22.0-30.0); Chloride 103 mmol/L (98-107); Chol/HDL Ratio 4.7 (1-3.5); Cholesterol 180 mg/dl (140-200); Estimated Glomerular Filt Rate 124 ml/min (>60); GFR (African American) 150 ML/MIN (>60); Globulin 2.2 g/dL (1.3-3.2); Glucose 106 mg/dl (74-100); HDL Cholesterol 38 mg/dl (40-60); Potassium 3.3 mmoL/L (3.5-5.1); Sodium 140 mmol/L (136-145); Total Protein,Serum 6.4 g/dl (6.3-8.2); Triglycerides 381 mg/dl (30-150); VLDL Cholesterol 76 mg/dL (0-40)
[2022-10-21 14:17] LABS: Basophils # 0.1 K/mm3 (0-0.2); Basophils % 1.3 % (0.1-2.0); Eosinophils # 0.1 K/mm3 (0.0-0.4); Eosinophils % 2.2 % (0.1-12.0); Hematocrit 37.2 % (37.0-47.0); Hemoglobin 11.9 g/dL (12.2-16.2); Lymphocytes # 1.7 K/mm3 (0.7-4.5); Lymphocytes % 37.7 % (10-50); Mean Corpuscular Hemoglobin 30.6 pg (27.0-31.2); Mean Corpuscular Volume 95.9 fl (81-99); Mean Platelet Volume 8.2 fl (7.4-10.4); Monocytes # 0.3 K/mm3 (0.1-1.0); Monocytes % 5.8 % (1.7-9.3); Neutrophils # 2.4 K/mm3 (1.8-7.8); Platelet Count 597 K/mm3 (142-424); Red Blood Count 3.88 M/mm3 (4.20-5.40); Red Cell Distribution Width 13.9 % (11.5-17.5); White Blood Count 4.5 K/mm3 (4.8-10.8)
[2022-10-21 14:24] LABS: Direct LDL Cholesterol 94.67 mg/dL (100-129)
[2022-10-21 14:26] LABS: Intact Parathyroid Hormone 93.6 pg/mL (7.5-53.5)
[2022-10-21 14:31] LABS: 25-OH Vitamin D, Total < 12.8 ng/mL (30-100)
[2022-10-21 14:44] LABS: Thyroid Stimulating Hormone 0.94 uIU/mL (0.465-4.68)
[2022-10-22 12:18] LABS: Calcium, Ionized 4.8 mg/dL (4.5-5.6)
== END ==
PROVIDERS: PCP Physician Assistant; Visit Provider Physician Assistant
DX: Z86.018 Personal history of other benign neoplasm; E66.3 Overweight; F32.9 Major depressive disorder, single episode, unspecified; E55.9 Vitamin D deficiency, unspecified; G47.30 Sleep apnea, unspecified; R53.83 Other fatigue; R06.83 Snoring
CPT/HCPCS: 80053; 80061; 82306; 82330; 83970; 84443; 85025; G0399

== ENCOUNTER → 2022-10-23 08:16 | Outpatient (CLI) | payer MEDICARE, SELFPAY ==
--- NOTE | 2022-10-23 08:17 | US_ITS ---
FINAL REPORT TECHNIQUE: Sonographic images of the right upper quadrant were obtained. CLINICAL HISTORY: postprandial nausea COMPARISON: None FINDINGS: PANCREAS: Unremarkable. LIVER: There may be a tiny cyst in the left lobe of the liver. Otherwise, the liver is homogeneous. No intrahepatic biliary ductal dilatation. GALLBLADDER: No gallstones. No gallbladder wall thickening or pericholecystic fluid. COMMON DUCT: 4 mm. Normal for age. RIGHT KIDNEY: The right kidney measures 10.8 cm. There is no hydronephrosis, mass, or stone. FREE FLUID: None. IMPRESSION: Question tiny hepatic cyst. Otherwise unremarkable. Reviewed, Interpreted and Dictated by Shelia Brooke MD Transcribed by Zoë Cooper Authenticated and [facility]
== END ==
PROVIDERS: PCP Physician Assistant; Visit Provider Physician Assistant
DX: R11.0 Nausea (principal)
CPT/HCPCS: 76705

== ENCOUNTER → 2022-10-29 10:11 | Outpatient (CLI) | payer MEDICARE, SELFPAY ==
--- NOTE | 2022-10-29 10:11 | CA_ITS ---
FINAL REPORT TECHNIQUE: Color Doppler, duplex Doppler and rodriguez scale sonography of the bilateral neck arterial vasculature was performed. Velocities were measured in the carotid arteries. Stenosis evaluation based on the validated velocity criteria. CLINICAL HISTORY: bruit RCA, HTN FINDINGS: The peak systolic velocity of the right common carotid artery is 124 cm/s. The peak systolic velocity of the right internal carotid artery is 140 cm/s and end diastolic velocity 40 cm/s. The ICA/CCA ratio is 1.3. A small amount of plaque is present. The right external carotid artery is patent. The right vertebral artery is patent with antegrade flow. The peak systolic velocity of the left common carotid artery is 112 cm/s. The peak systolic velocity of the left internal carotid artery is 162 cm/s and end diastolic velocity 59 cm/s. The ICA/CCA ratio is 1.7. A small amount of plaque is present. The left external carotid artery is patent.The left vertebral artery is patent with antegrade flow. IMPRESSION: Less than 50% bilateral carotid stenoses. Bilateral patent vertebral arteries with antegrade flow. If indicated, CTA or MRA could further evaluate. Reviewed, Interpreted and Dictated by Chris Feldman MD Transcribed by Keke Allen Authenticated and . [facility]
== END ==
LOC: RT 10:11
PROVIDERS: PCP Physician Assistant; Visit Provider Physician Assistant
DX: I10 Essential (primary) hypertension (principal); Z79.899 Other long term (current) drug therapy; R09.89 Other specified symptoms and signs involving the circulatory and respiratory systems; R00.0 Tachycardia, unspecified
CPT/HCPCS: 93306; 93880

== ENCOUNTER → 2022-11-11 12:57 | Outpatient (CLI) | payer MEDICARE, SELFPAY ==
--- NOTE | 2022-11-11 12:58 | CT_ITS ---
FINAL REPORT TECHNIQUE: Thin section axial CT with IV contrast supplemented with multiplanar reconstruction under CT angiogram protocol. This study was performed with techniques to keep radiation doses as low as reasonably achievable (ALARA). Individualized dose reduction techniques using automated exposure control or adjustment of mA and/or kV according to the patient''s size were employed. NASCET criteria was utilized during interpretation. CLINICAL HISTORY: Bilateral carotid stenosis, high bp FINDINGS: Aortic arch: Arch shows no significant narrowing. Great vessel origins are widely patent. Right carotid: There is mild plaque in the carotid bulbs without evidence of stenosis. Left carotid: There is mild plaque in the carotid bulbs without evidence of stenosis. Vertebral: The vertebral arteries are codominant. No significant stenosis is present. There are multiple small thyroid nodules. IMPRESSION: Mild plaque in the carotid bulbs bilaterally without evidence of stenosis. Multiple thyroid nodules. If indicated, thyroid ultrasound may be helpful. Reviewed, Interpreted and Dictated by Cesar Matos III, MD Transcribed by Keke Allen Authenticated and [facility]
== END ==
PROVIDERS: PCP Physician Assistant; Visit Provider Physician Assistant
DX: I65.23 Occlusion and stenosis of bilateral carotid arteries (principal)
CPT/HCPCS: 70498; Q9967

== ENCOUNTER → 2022-11-17 11:06 | Outpatient (CLI) | payer MEDICARE, SELFPAY ==
--- NOTE | 2022-11-17 11:06 | US_ITS ---
FINAL REPORT TECHNIQUE: Ultrasound images of the thyroid were obtained. CLINICAL HISTORY: nodules FINDINGS: The right lobe of the thyroid measures 4.6 x 1.3 by 1.7 cm. The left lobe of the thyroid measures 4.5 x 1.3 x 1.4 cm. Bilateral thyroid nodules are seen. Nodule 1: on the right measuring 4 x 4 x 3 mm is cystic, TI-RADS 1. Nodule 2: On the right measuring 6 x 6 x 3 mm, is solid and hypoechoic. TI-RADS category 4. Nodule 3: On the left measuring 11 x 7 x 9 mm, solid/cystic and isoechoic, TI-RADS category 2. Multiple other smaller nodules are seen bilaterally. IMPRESSION: Multiple thyroid nodules, with no follow-up recommended. Reviewed, Interpreted and Dictated by Cesar Matos III, MD Transcribed by Shilpa Kline Authenticated and [facility]
== END ==
LOC: RAD 11:06
PROVIDERS: PCP Physician Assistant; Visit Provider Physician Assistant
DX: E04.1 Nontoxic single thyroid nodule (principal)
CPT/HCPCS: 76536

== ENCOUNTER → 2022-12-23 08:43 | Outpatient (CLI) | payer MEDICARE, SELFPAY ==
--- NOTE | 2022-12-23 08:43 | NM_ITS ---
FINAL REPORT CLINICAL HISTORY: Elevated PTH FINDINGS: 19.6 mCi Technetium Sestamibi was administered. Planar imaging was performed early and two-hour delayed of the neck and upper thorax. Early imaging shows physiologic uptake within the upper neck involving the salivary glands and lower neck involving the thyroid gland. On delayed imaging there is no abnormal retained activity in the lower neck or mediastinum to localize parathyroid adenoma. IMPRESSION: No scintigraphic evidence of parathyroid adenoma. Reviewed, Interpreted and Dictated by Chris Feldman MD Transcribed by Alexey Marks Authenticated and [facility]
== END ==
LOC: RAD 08:43
PROVIDERS: PCP Physician Assistant; Visit Provider Physician Assistant
DX: Z86.018 Personal history of other benign neoplasm (principal); E21.3 Hyperparathyroidism, unspecified
CPT/HCPCS: 78070; A9500

== ENCOUNTER 2023-03-21 13:56 | Emergency (ER) | payer MEDICARE, SELFPAY ==
[2023-03-21] VITALS (10 sets, daily range): BP systolic 175–210; BP diastolic 90–109; PULSE 85–105; RESP 17–23; TEMP 36.6–36.8; O2SAT 96–98; BMI 23.4
--- NOTE | 2023-03-21 13:56 | ECG_ITS ---
APPROVED REPORT Exam: Resting ECG HR:106 bpm ECG Measurements Heart Rate 106 AXES AZ 181 P 68 QRSd 86 QRS 37 QT 315 T 40 QTc 377 Conclusion SINUS TACHYCARDIA WITH OCCASIONAL SUPRAVENTRICULAR PREMATURE COMPLEXES MINIMAL ST DEPRESSION [0.025+ mV ST DEPRESSION] ABNORMAL RHYTHM ECG UNCONFIRMED REPORT Electronically signed by : Ramesh Turcios MD 03/24/2023 17:26:04
--- NOTE | 2023-03-21 14:16 | CT_ITS ---
PROCEDURE INFORMATION: Exam: CT Head Without Contrast Exam date and time: 03/21/2023 3:21 PM Age: 67 years old Clinical indication: Pain; Headache not specified; Additional info: Severe FERRELL TECHNIQUE: Imaging protocol: Computed tomography of the head without contrast. Radiation optimization: All CT scans at this facility use at least one of these dose optimization techniques: automated exposure control; mA and/or kV adjustment per patient size (includes targeted exams where dose is matched to clinical indication); or iterative reconstruction. REPORTING DATA: Count of CT and Cardiac NM exams in prior 12 months: This patient has received [address] and 0 known cardiac nuclear medicine studies in the 12 months prior to the current study. COMPARISON: CT ANGIO NECK 11/11/2022 1:15 PM FINDINGS: Brain: No acute intracranial hemorrhage.. There is mild diffuse heterogeneity of the white matter attenuation, consistent with chronic white matter ischemic changes. Mild cerebral atrophy Cerebral ventricles: No ventriculomegaly. Paranasal sinuses: Visualized sinuses are unremarkable. No fluid levels. Mastoid air cells: Visualized mastoid air cells are well aerated. Bones/joints: Unremarkable. No acute fracture. Soft tissues: Unremarkable. IMPRESSION: No acute intracranial hemorrhage..
--- NOTE | 2023-03-21 14:16 | CT_ITS ---
PROCEDURE INFORMATION: Exam: CTA Chest With Contrast Exam date and time: 03/21/2023 3:23 PM Age: 67 years old Clinical indication: Chest wall pain and radiating; Additional info: Chest pain rad- back, HTN TECHNIQUE: Imaging protocol: Computed tomographic angiography of the chest with contrast. Exam focused on the arteries. 3D rendering (Not supervised by radiologist): MIP and/or 3D reconstructed images were created by the technologist. Radiation optimization: All CT scans at this facility use at least one of these dose optimization techniques: automated exposure control; mA and/or kV adjustment per patient size (includes targeted exams where dose is matched to clinical indication); or iterative reconstruction. Contrast material: ISOVUE; Contrast volume: 100 ml; Contrast route: INTRAVENOUS (IV); REPORTING DATA: Count of CT and Cardiac NM exams in prior 12 months: This patient has received [address] and 0 known cardiac nuclear medicine studies in the 12 months prior to the current study. COMPARISON: CT ANGIO NECK 11/11/2022 1:15 PM FINDINGS: Pulmonary arteries: Pulmonary vasculature is adequately opacified without filling defects or other evidence of acute pulmonary embolism. Aorta: Scattered atherosclerotic changes of the thoracic aorta. No evidence of aortic aneurysm or dissection. Lungs: Scattered chronic granulomatous calcifications left lower lobe. Lung hatch are otherwise aerated and clear. Pleural spaces: Unremarkable. No pneumothorax. No pleural effusion. Heart: Heart is not significantly enlarged. No significant coronary artery calcifications. No significant pericardial effusion. Lymph nodes: Unremarkable. No enlarged lymph nodes. Bones/joints: Unremarkable. No acute fracture. Soft tissues: Unremarkable. IMPRESSION: Negative CT angiogram of the chest. No evidence of acute pulmonary embolism.
--- NOTE | 2023-03-21 14:17 | HMH.EDGENADL ---
Discharge Plan Disposition Patient Disposition: Home, Self-Care Condition: Good Prescriptions Prescriptions: New carvedilol [Coreg] 6.25 mg tablet 6.25 mg PO BID 30 Days Qty: 60 0RF Rx Instructions: must administer with a meal/food Continued atorvastatin 10 mg tablet 10 mg PO lisinopril-hydrochlorothiazide 20-25 mg tablet 1 tab PO QAM Patient Comments: TAKE ONE TABLET BY MOUTH EVERY DAY omeprazole 40 mg capsule,delayed release(DR/EC) 40 mg PO DAILY amlodipine 10 mg tablet 10 mg PO DAILY Qty: 30 2RF ergocalciferol (vitamin D2) 1,250 mcg (50,000 unit) capsule 1,250 mcg PO WEEKLY Qty: 14 3RF cholecalciferol (vitamin D3) 50 mcg (2,000 unit) capsule 50 mcg PO DAILY Qty: 90 3RF lisinopril 20 mg tablet See Rx Instructions .ROUTE .COMPLEX Qty: 90 1RF Dose Instruction: TAKE ONE TABLET BY MOUTH EVERY DAY Rx Instructions: TAKE ONE TABLET BY MOUTH EVERY DAY hydrocodone-acetaminophen 7.5-325 mg tablet 1 tab PO QID Qty: 120 0RF Discontinued clonidine HCl 0.1 mg tablet See Rx Instructions .ROUTE .COMPLEX Qty: 90 1RF Dose Instruction: TAKE ONE TABLET BY MOUTH EVERY 8 HOURS NEEDED FOR BLOOD PRESSURE Rx Instructions: TAKE ONE TABLET BY MOUTH EVERY 8 HOURS NEEDED FOR BLOOD PRESSURE Referrals Follow up/Referrals: Bev Eckert PA [Primary Care Provider] - See instructions Activity Restrictions/Add. Instructions Additional Instructions/Restrictions: You were evaluated in the emergency department today. At this time, Dr. Lord is ordering some outpatient medications for you to take. Please restart taking your carvedilol. Stop your clonidine. Follow-up outpatient with your primary care provider on Thursday or return here for lab reassessment. Return to the emergency department for new or worsening symptoms, such as recurrence of chest pain, shortness of breath, or other concerns. Clinical Impressions Clinical Impression: Dyspnea on exertion, FABIÁN (acute kidney injury) HTN (hypertension) Qualifiers: Hypertension type: primary hypertension Qualified Code(s): I10 - Essential (primary) hypertension Chest pain Qualifiers: Chest pain type: precordial pain Qualified Code(s): R07.2 - Precordial pain Instructions Patient Instructions: Acute Kidney Injury, DI for High Blood Pressure, DI for Atypical Chest Pain Discharge ED Provider: Chanel Stewart General Adult HPI <Alexis Denney MD - Last Filed: 03/21/23 14:22> General Chief complaint: Chest Pain Stated complaint: chest pain Time Seen by Provider: 03/21/23 14:04 History of Present Illness HPI narrative: Patient is a 67-year-old female with a history of refractory hypertension presenting today with multiple complaints. Patient states she is having some chest pain has been radiating through to her back over the last 24 hours. Also has some arm heaviness in bilateral upper extremities. Also complains of a headache that is severe in nature but has not been a thunderclap and has been slowly worsening. Also complains of dyspnea on exertion over the last month. Has a history of having a heart cath but has no coronary disease that she is aware of. She has been attempting to have her blood pressure controlled in outpatient setting and has been escalated to lisinopril 20 mg daily lisinopril 20 mg with hydrochlorothiazide combination tablets also takes clonidine and amlodipine 10 mg daily and has been taking a blood pressure log and her systolic blood pressures been remaining around 200 systolic. No changes in urine output or changes in mental status. Patient states she just does not feel well. No fevers or chills. Her main complaint from a pain standpoint at the moment is a headache. No neurologic complaints Related Data Home Medications Medication Instructions Recorded Confirmed atorvastatin 10 mg tablet 10 mg PO 01/21/23 03/18/23 lisinopril 20 1 tab PO QAM 03/18/23
[2023-03-21 14:30] LABS: Chloride 106 mmol/L (98-107)
[2023-03-21 14:31] LABS: Potassium 3.4 mmoL/L (3.5-5.1); Sodium 144 mmol/L (136-145)
[2023-03-21 14:33] LABS: Alanine Aminotransferase 19 U/L (12-78); Alkaline Phosphatase 114 U/L (38-126); Aspartate Amino Transferase 27 U/L (14-36); Bilirubin,Total 0.2 mg/dl (0.2-1.3); Blood Urea Nitrogen 17 mg/dl (7-17); Creatinine Clearance Estimated 51 mL/min (50-200); Estimated Glomerular Filt Rate 50 ml/min (>60); GFR (African American) 60 ML/MIN (>60)
[2023-03-21 14:34] LABS: Albumin Level 4.3 g/dl (3.5-5.0); Albumin/Globulin Ratio 1.6 (1.1-1.8); Anion Gap 13.4 mEq/L (5-15); Calcium 9.6 mg/dl (8.4-10.2); Carbon Dioxide 28 mmol/L (22.0-30.0); Globulin 2.7 g/dL (1.3-3.2); Glucose 121 mg/dl (74-100)
[2023-03-21 14:35] LABS: Basophils # 0.1 K/mm3 (0-0.2); Basophils % 1.2 % (0.1-2.0); Eosinophils # 0.1 K/mm3 (0.0-0.4); Eosinophils % 1.6 % (0.1-12.0); Hematocrit 38.5 % (37.0-47.0); Hemoglobin 12.1 g/dL (12.2-16.2); Lymphocytes # 1.4 K/mm3 (0.7-4.5); Mean Corpuscular HGB Conc 31.4 g/dL (31.8-35.4); Mean Corpuscular Hemoglobin 26.8 pg (27.0-31.2); Mean Corpuscular Volume 85.3 fl (81-99); Monocytes # 0.4 K/mm3 (0.1-1.0); Monocytes % 5.6 % (1.7-9.3); Neutrophils # 5.1 K/mm3 (1.8-7.8); Neutrophils % 71.7 % (37.0-80.0); Platelet Count 587 K/mm3 (142-424); Red Blood Count 4.51 M/mm3 (4.20-5.40); Red Cell Distribution Width 15.7 % (11.5-17.5); White Blood Count 7.2 K/mm3 (4.8-10.8)
[2023-03-21 14:42] LABS: Activated Partial Thrombo Time 28.7 seconds (22.8-30.6); INR 0.95 (0.9-1.1); Prothrombin Time 10.3 seconds (10.1-12.5)
[2023-03-21 14:43] LABS: NT Pro Brain Natriuretic Pep. 667 pg/mL (0-125)
[2023-03-21 14:54] LABS: Troponin I < 0.01 ng/ml (0.00-0.034)
[2023-03-21 15:20] LABS: Microscopic, Urine URINE MICROSCOPIC (MICROSCOPIC)
[2023-03-21 15:34] LABS: Appearance,Urine CLEAR (Clear); Bilirubin,Urine Negative (Negative); Blood, Urine TRACE-I (Negative); Color,Urine YELLOW (Yellow); Glucose,Urine (UA) Negative (Negative); Ketones,Urine Negative (Negative); Leukocyte Esterase,Urine 1+ (Negative); Nitrate,Urine Negative (Negative); Protein,Urine Negative (Negative); Urobilinogen,Urine 0.2 EU/dl (0.2)
[2023-03-21 15:48] LABS: RBC,Urine Occasional #/hpf (0-3); Squamous Epithelial Cell,Urine Occasional #/hpf (0-5); WBC,Urine Occasional #/hpf (0-3)
--- NOTE | 2023-03-21 16:28 | PC.NURSE ---
pt up to restroom, assisted back to bed by family, iv reconnected and bp cuff applied
--- NOTE | 2023-03-21 16:29 | PC.NURSE ---
DR BECKETT AT BEDSIDE TO UPDATE PT AND FAMILY
--- NOTE | 2023-03-21 17:06 | PC.NURSE ---
DR BECKETT SPEAKING WITH DR GREEN
[2023-03-21 17:34] LABS: Coronavirus 19, PCR Not Detected (NotDetected); Influenza A, PCR Not Detected (NotDetected); Influenza B, PCR Not Detected (NotDetected)
--- NOTE | 2023-03-21 18:16 | EXP.MED.CON ---
History of Present Illness *Admission Date: 03/21/23 *Reason for visit:: Chest pressure, back pain *History of present illness: Ms. Hutchinson is a pleasant 67-year-old female with history of refractory hypertension. She presented to the ER today with multiple complaints including chest pressure, radiation to her back, and elevated blood pressure over the past 24 hours. Has had intermittent headache. Symptoms accompanied by shortness of breath with exertion over the past month. Previous work-up with heart cath showed no coronary artery disease. Renal duplex in 2020 negative for stenosis. Has been working with her PCP to make adjustments to her blood pressure regimen, recently referred to cardiology [facility] but still awaiting appointment. Work-up in the ER consisting of imaging including CTA to evaluate for dissection. Imaging nonactionable. Lab abnormalities include bump in creatinine from her baseline (0.5-0.6) to 1.1. BUN at baseline however. Making urine. Improved blood pressure control treatment with labetalol in the ER. Medicine consulted for possible admission. Patient reports that she has been taking her blood pressure meds as prescribed. Blood pressure at home has been logged anywhere from systolic of 130-220. No changes in mentation, urine output. Denies fevers, chills, nausea, vomiting, hematuria. Pain is improved by the time of my evaluation after receiving labetalol with systolic blood pressure 170-180. No focal or general neurologic symptoms. [facility] Disclaimer: The information contained in this section may have been updated after the patient was seen, as this information can be updated by other users. Medical History History of pituitary adenoma History of sleep study Social History Smoking Status: Never smoker alcohol intake: never substance use type: denies use current occupational status: disabled Travel in the last 8 weeks: None household members: spouse housing: house current occupational exposures/hazards: No caffeine: Yes Review of Systems Review of Systems Review of systems (narrative): 14 point review of systems performed, pertinent positives and negatives as per HPI Exam Data for Last 24 hours Vital signs and Labs for Last 24 Hours: Temp Pulse Resp BP Pulse Ox O2 Del Method 98.2 F 86 23 192/94 H 96 Room Air 03/21/23 13:57 03/21/23 16:30 03/21/23 13:57 03/21/23 16:30 03/21/23 16:30 03/21/23 16:30 Laboratory Results - last 24 hr 03/21/23 14:00: WBC 7.2, RBC 4.51, Hgb 12.1 L, Hct 38.5, MCV 85.3, MCH 26.8 L, MCHC 31.4 L, RDW 15.7, Plt Count 587 H, MPV 7.0 L, Neut % (Auto) 71.7, Lymph % (Auto) 20.0, Citrus % (Auto) 5.6, Eos % (Auto) 1.6, Baso % (Auto) 1.2, Neut # (Auto) 5.1, Lymph # (Auto) 1.4, Citrus # (Auto) 0.4, Eos # (Auto) 0.1, Baso # (Auto) 0.1, PT 10.3, INR 0.95, APTT 28.7, Sodium 144, Potassium 3.4 L, Chloride 106, Carbon Dioxide 28, Anion Gap 13.4, BUN 17, Creatinine 1.10 H, Estimated Creat Clear 51, Estimated GFR 50 L, Est GFR ( Amer) 60, Glucose 121 H, Calcium 9.6, Total Bilirubin 0.2, AST 27, ALT 19, Alkaline Phosphatase 114, Troponin I < 0.01, NT-Pro-B Natriuret Pep 667 H, Total Protein 7.0, Albumin 4.3, Globulin 2.7, Albumin/Globulin Ratio 1.6 03/21/23 15:02: Urine Color Yellow, Urine Appearance Clear, Urine pH 6.0, Ur Specific Lisle 1.020, Urine Protein Negative, Urine Glucose (UA) Negative, Urine Ketones Negative, Urine Blood Trace-i, Urine Nitrate Negative, Urine Bilirubin Negative, Urine Urobilinogen 0.2, Ur Leukocyte Esterase 1+ A, Urine RBC Occasional, Urine WBC Occasional, Ur Squamous Epith Cells Occasional, Urine Bacteria None I & O for Last 24 hours: Intake & Output 03/18/23 03/19/23 03/20/23 03/21/23 23:59 23:59 23:59 23:59 Weight 63.957 kg Constitutional Constitutional: no acute distress *Routine HEENT Exam Head: Present normocephalic
[2023-03-21 18:37] LABS: Troponin I < 0.01 ng/ml (0.00-0.034)
== END 2023-03-21 18:15 | disposition home or self-care (01) ==
PROVIDERS: Student in an Organized Health Care Education/Training Program; Emergency Provider Emergency Medicine; PCP Physician Assistant
DX: R07.2 Precordial pain; N17.9 Acute kidney failure, unspecified; R51.9 Headache, unspecified; I10 Essential (primary) hypertension
CPT/HCPCS: 36415; 70450; 71275; 80053; 81001; 83880; 84484; 85025; 85610; 85730; 87086; 87636; 93005; 96361; 96374; 96375; 99285; J0131; Q9967

== ENCOUNTER → 2023-03-23 08:32 | Outpatient (CLI) | payer MEDICARE, SELFPAY ==
[2023-03-23 09:18] LABS: Alanine Aminotransferase 15 U/L (12-78); Albumin Level 4.3 g/dl (3.5-5.0); Albumin/Globulin Ratio 1.7 (1.1-1.8); Alkaline Phosphatase 113 U/L (38-126); Anion Gap 16.3 mEq/L (5-15); Aspartate Amino Transferase 20 U/L (14-36); Bilirubin,Total 0.2 mg/dl (0.2-1.3); Blood Urea Nitrogen 18 mg/dl (7-17); Calcium 9.5 mg/dl (8.4-10.2); Carbon Dioxide 27 mmol/L (22.0-30.0); Chloride 103 mmol/L (98-107); Estimated Glomerular Filt Rate 72 ml/min (>60); GFR (African American) 87 ML/MIN (>60); Globulin 2.5 g/dL (1.3-3.2); Glucose 116 mg/dl (74-100); Potassium 3.3 mmoL/L (3.5-5.1); Sodium 143 mmol/L (136-145); Total Protein,Serum 6.8 g/dl (6.3-8.2)
[2023-03-23 12:58] LABS: Magnesium 1.8 mg/dl (1.6-2.3)
[2023-03-23 13:16] LABS: Free T4 (Free Thyroxine) 1.17 ng/dl (0.78-2.19)
[2023-03-23 13:30] LABS: Thyroid Stimulating Hormone 0.64 uIU/mL (0.465-4.68)
[2023-03-27 00:09] LABS: Renin Activity, Plasma 2.681 ng/mL/hr (0.167-5.380)
[2023-04-05 00:07] LABS: Dopamine, Ur, 24hr 186 ug/24 hr (0-510); Dopamine, Urine 265 ug/L (Undefined); Epinephrine, U, 24hr 8 ug/24 hr (0-20); Epinephrine, Urine 11 ug/L (Undefined); Norepinephrine, Ur 73 ug/L (Undefined); Norepinephrine,U,24h 51 ug/24 hr (0-135)
== END ==
PROVIDERS: PCP Internal Medicine; Visit Provider Internal Medicine Adolescent Medicine
DX: I10 Essential (primary) hypertension (principal); R06.09 Other forms of dyspnea; R07.9 Chest pain, unspecified
CPT/HCPCS: 36415; 80053; 82088; 82384; 83735; 83835; 84244; 84439; 84443; 84585

== ENCOUNTER → 2023-03-25 06:08 | Outpatient (CLI) | payer MEDICARE, SELFPAY ==
[2023-04-06 04:10] LABS: Metanephrine, U,24hr 102 ug/24 hr (36-209); Metanephrine, Ur 146 ug/L (Undefined); Normetanephr.,U,24h 333 ug/24 hr (131-612); Normetanephrine, Ur 476 ug/L (Undefined)
== END ==
PROVIDERS: Internal Medicine; PCP Physician Assistant; Visit Provider Physician Assistant
DX: I10 Essential (primary) hypertension (principal); R06.09 Other forms of dyspnea; R07.9 Chest pain, unspecified
CPT/HCPCS: 83835

== ENCOUNTER → 2023-03-25 16:30 | Outpatient (CLI) | payer MEDICARE, SELFPAY | PROVIDERS: PCP Physician Assistant; Visit Provider Internal Medicine Adolescent Medicine | DX: R06.09 Other forms of dyspnea (principal) ==

== ENCOUNTER 2023-04-01 08:41 | Day surgery (SDC) | payer MEDICARE, SELFPAY ==
[2023-04-01] VITALS (14 sets, daily range): BP systolic 98–222; BP diastolic 48–116; PULSE 59–88; RESP 18–20; TEMP 36.1; O2SAT 95–99; BMI 22.9
--- NOTE | 2023-04-01 07:05 | IR_ITS ---
APPROVED REPORT Patient Location: Outpatient Circuits Engineer: ESTHER Marcus RT (R) PROCEDURES Left heart catheterization Left ventriculogram Selective coronary angiogram Drug-eluting stent deployment to the proximal LAD Bilateral selective renal angiography INDICATION Angina pectoris, Coronary artery disease, Malignant hypertension, Renovascular hypertension suspected, Renal artery stenosis suspected, Informed consent was obtained prior to the procedure. COMPLICATIONS None Estimated Blood Loss: Less than 10 ML TECHNIQUE One percent lidocaine used to anesthetize the right anterior aspect of the wrist. The right radial artery was accessed via the Seldinger technique. A 6 [place] Citizen sheath was placed in the right radial artery. 2.5 mg of Verapamil, 800 mcg of nitroglycerin, 1mg Lidocaine and 5000 U Heparin were given through the arterial sheath. The papa catheter was also used to perform selective coronary angiogram. At the end of the procedure therapeutic heparin was administered giving a therapeutic ACT and the guide catheter was placed in left main artery followed by Choice PT to support wire down the LAD. 3.5 x 18 mm Ilya frontier stent was deployed at 16 ciarra reducing the stenosis. A 3.5 x 8 mm noncompliant balloon was placed in the proximal and midportion and initially deployed at 20 ciarra then 24 ciarra and 26 ciarra to post dilate. Excellent angiographic results were obtained with MONIQUE-3 flow down the LAD and diagonal artery before and after the procedure. At the end the procedure the catheter was used to perform bilateral selective renal angiography. At the end the procedure the apparatus was removed the sheath was removed and hemostasis was achieved using TR banding patient was transferred to the postop putting in stable condition ANGIOGRAPHIC RESULTS The left main artery Normal The left anterior descending artery Has a proximal concentric 70 to 80% stenosis The circumflex artery Codominant mild 10% luminal irregularities The right coronary artery Codominant and normal The PAYAN ventriculogram reveals Not performed The left ventricular end-diastolic pressure Not measured Right renal artery singular normal Left renal artery singular normal IMPRESSION Severe proximal LAD disease Successful stent to the proximal LAD severe disease reduced to 0% with 1 drug-eluting stent Normal renal arteries bilaterally PLAN 1. Effient 10 mg daily plus aspirin 81 mg daily 2. Addition of beta-uziel to control heart rate and tachycardia 3. Avoidance of tobacco products 4. LDL less than 55 to be achieved with high intensity statin 5. Cardiac rehabilitation Electronically signed by : Ravinder Rogers MD 04/01/2023 10:47:02
[2023-04-01 09:26] LABS: Anion Gap 16.3 mEq/L (5-15); Basophils # 0.1 K/mm3 (0-0.2); Blood Urea Nitrogen 14 mg/dl (7-17); Carbon Dioxide 24 mmol/L (22.0-30.0); Chloride 108 mmol/L (98-107); Creatinine Clearance Estimated 55 mL/min (50-200); Eosinophils # 0.3 K/mm3 (0.0-0.4); Eosinophils % 3.8 % (0.1-12.0); Estimated Glomerular Filt Rate 100 ml/min (>60); GFR (African American) 121 ML/MIN (>60); Glucose 107 mg/dl (74-100); Hematocrit 23.6 % (37.0-47.0); Hemoglobin 12.5 g/dL (12.2-16.2); Lymphocytes # 1.8 K/mm3 (0.7-4.5); Lymphocytes % 19.7 % (10-50); Mean Platelet Volume 7.5 fl (7.4-10.4); Monocytes # 0.5 K/mm3 (0.1-1.0); Monocytes % 5.2 % (1.7-9.3); Neutrophils # 6.3 K/mm3 (1.8-7.8); Neutrophils % 70.3 % (37.0-80.0); Platelet Count 319 K/mm3 (142-424); Potassium 4.3 mmoL/L (3.5-5.1); Red Blood Count 2.75 M/mm3 (4.20-5.40); Red Cell Distribution Width 16.5 % (11.5-17.5); Sodium 144 mmol/L (136-145)
[2023-04-01 09:31] LABS: Mean Corpuscular HGB Conc 53.2 g/dL (31.8-35.4); Mean Corpuscular Hemoglobin 45.7 pg (27.0-31.2)
[2023-04-01 12:18] LABS: CATHL Activated Clotting Time 238 SEC (74-125)
--- NOTE | 2023-04-01 14:37 | P.CONPHA_ITS ---
PHA University Counselor Discharge Med Chief Design Drafter: Lupekaterin Foster has received discharge medication counseling on the following medications: ASPIRIN (NEW) EFFIENT (NEW) ATORVASTATIN CARVEDILOL LISINOPRIL PATIENT VERBALIZED UNDERSTANDING AND HAD NO QUESTIONS AT THIS TIME. -PRAVEEN MOHR, PHARMD
== END 2023-04-01 14:30 | disposition home or self-care (01) ==
PROVIDERS: PCP Physician Assistant; Visit Provider Internal Medicine
DX: R94.31 Abnormal electrocardiogram [ECG] [EKG] (principal); I25.118 Atherosclerotic heart disease of native coronary artery with other forms of angina pectoris; I70.1 Atherosclerosis of renal artery; I15.0 Renovascular hypertension; I10 Essential (primary) hypertension; Z79.899 Other long term (current) drug therapy
CPT/HCPCS: 36252; 80048; 85025; 85347; 92928; 93454; 99152; C1725; C1769; C1876; C9600; J1644; J2405; Q9967

== ENCOUNTER → 2023-04-09 10:04 | Outpatient (CLI) | payer MEDICARE, SELFPAY ==
[2023-04-09 10:58] LABS: Basophils # 0.1 K/mm3 (0-0.2); Basophils % 1.4 % (0.1-2.0); Eosinophils # 0.4 K/mm3 (0.0-0.4); Hematocrit 36.4 % (37.0-47.0); Hemoglobin 11.1 g/dL (12.2-16.2); Lymphocytes # 1.5 K/mm3 (0.7-4.5); Lymphocytes % 19.8 % (10-50); Mean Corpuscular HGB Conc 30.4 g/dL (31.8-35.4); Mean Corpuscular Hemoglobin 26.1 pg (27.0-31.2); Mean Corpuscular Volume 85.7 fl (81-99); Mean Platelet Volume 7.3 fl (7.4-10.4); Monocytes # 0.4 K/mm3 (0.1-1.0); Monocytes % 5.8 % (1.7-9.3); Neutrophils % 67.9 % (37.0-80.0); Platelet Count 537 K/mm3 (142-424); Red Blood Count 4.25 M/mm3 (4.20-5.40); Red Cell Distribution Width 15.6 % (11.5-17.5); White Blood Count 7.4 K/mm3 (4.8-10.8)
[2023-04-09 11:23] LABS: Anion Gap 12.5 mEq/L (5-15); Blood Urea Nitrogen 24 mg/dl (7-17); Carbon Dioxide 29 mmol/L (22.0-30.0); Chloride 103 mmol/L (98-107); Estimated Glomerular Filt Rate 84 ml/min (>60); GFR (African American) 102 ML/MIN (>60); Glucose 114 mg/dl (74-100); Potassium 4.5 mmoL/L (3.5-5.1); Sodium 140 mmol/L (136-145)
== END ==
PROVIDERS: PCP Physician Assistant; Visit Provider Internal Medicine
DX: I25.10 Atherosclerotic heart disease of native coronary artery without angina pectoris (principal)
CPT/HCPCS: 36415; 80048; 85025

== ENCOUNTER 2023-05-19 09:55 | Emergency (ER) | payer MEDICARE, SELFPAY ==
[2023-05-19 10:15] VITALS: BP 148/76; PULSE 136; RESP 19; TEMP 36.8; O2SAT 98; BMI 24.0
[2023-05-19 10:34] LABS: UTC Influenza A Antigen Negative (Negative); UTC Influenza B Antigen Positive (Negative)
--- NOTE | 2023-05-19 10:34 | EXP.UTC ---
Discharge Plan Disposition Patient Disposition: Home, Self-Care Condition: Good Prescriptions Prescriptions: No Action atorvastatin [Lipitor] 40 mg tablet 40 mg PO DAILY Qty: 30 5RF omeprazole 40 mg capsule,delayed release(DR/EC) 40 mg PO DAILY ondansetron HCl 4 mg tablet See Rx Instructions .ROUTE .COMPLEX Qty: 20 5RF Dose Instruction: TAKE ONE TABLET BY MOUTH EVERY 8 HOURS Rx Instructions: TAKE ONE TABLET BY MOUTH EVERY 8 HOURS hydrocodone-acetaminophen 7.5-325 mg tablet 1 tab PO QID Qty: 120 0RF lisinopril 20 mg tablet 20 mg PO DAILY spironolactone [Aldactone] 25 mg tablet 25 mg PO DAILY amlodipine 10 mg tablet 10 mg PO DAILY lisinopril-hydrochlorothiazide 20-25 mg tablet 1 tab PO QAM ergocalciferol (vitamin D2) 1,250 mcg (50,000 unit) capsule 1,250 mcg PO WEEKLY cholecalciferol (vitamin D3) 50 mcg (2,000 unit) capsule 50 mcg PO DAILY aspirin 81 mg Tablet,Chewable 81 mg PO DAILY Qty: 30 6RF prasugrel [Effient] 10 mg Tablet 10 mg PO DAILY Qty: 30 6RF carvedilol 25 mg Tablet 25 mg PO BID Qty: 60 3RF Rx Instructions: must administer with a meal/food Referrals Follow up/Referrals: Bev Eckert PA [Primary Care Provider] - See instructions Activity Restrictions/Add. Instructions Additional Instructions/Restrictions: Too late to start Tamiflu. Most effective when started within 48 hours of symptoms onset Lots of rest Increase Fluids water, Gatorade, powerade, pedialyte,if /toddler/child Alternate Tylenol and / or ibuprofen as discussed for fever, aches, chills Follow up IMMEDIATELY with your family doctor for new or worsening Symptoms OR no noticeable improvement over the next 48-72 hours, 911 for difficulty or breathing You or your child area contagious until no fever, aches, chills for 24 hours with medication for symptoms Help Prevent the spread of influenza: ?Wash your hands often. Use soap and water. Wash your hands after you use the bathroom, change a child's diapers, or sneeze. Wash your hands before you prepare or eat food. Use gel hand cleanser that has 60% alcohol, when soap and water are not available. Do not touch your eyes, nose, or mouth unless you have washed your hands first. Cover your mouth when you sneeze or cough. Cough into a tissue or the bend of your arm. If you use a tissue, throw it away immediately and wash your hands. Clean shared items with a germ-killing hand rug cleaner. Clean table surfaces, doorknobs, and light switches. Do not share towels, silverware, and dishes with people who are sick. Wash bed sheets, towels, silverware, and dishes with soap and water. Wear a mask over your mouth and nose if you are sick. The face mask may help protect others from becoming infected with the flu. Wear the mask when in common areas of your home or if you seek care with a healthcare provider. Stay away from others if you are sick. Stay at home until 24 hours after your fever and symptoms are gone. Clinical Impressions Clinical Impression: Influenza Instructions Patient Instructions: Influenza, DI for Influenza -- Adult Discharge ED Provider: Jaclyn Barbour [facility] [place] HPI General Stated complaint: THROWING UP Mode of Arrival: Ambulatory Source of Information: Patient Limitations: No Limitations Time Seen by Provider: 05/19/23 10:34 Description of Symptoms (Recalled from Triage Doc. by RN): PATIENT C/O VOMITING, CHILLS, BODY ACHES AND DIARRHEA X 3 DAYS HEENT Symptoms (Recalled from RN notes): No Resp Symptoms (Recalled from RN notes): No Skin Symptoms (Recalled from RN notes): No MS Symptoms (Recalled from RN notes): No Functional Status (Recalled from RN notes): WNL History of Present Illness Provider Complaint: Patient states that for
[2023-05-19 10:47] VITALS: BP 148/76; PULSE 103; RESP 19; TEMP 36.9; O2SAT 98
== END 2023-05-19 10:50 | disposition home or self-care (01) ==
PROVIDERS: Emergency Provider Nurse Practitioner; PCP Physician Assistant
DX: J10.2 Influenza due to other identified influenza virus with gastrointestinal manifestations (principal); R11.2 Nausea with vomiting, unspecified; R19.7 Diarrhea, unspecified; K21.9 Gastro-esophageal reflux disease without esophagitis; I10 Essential (primary) hypertension; F33.9 Major depressive disorder, recurrent, unspecified
CPT/HCPCS: 87804

== ENCOUNTER 2023-05-21 07:17 | Inpatient (IN) | payer MEDICARE, SELFPAY ==
[2023-05-21] VITALS (26 sets, daily range): BP systolic 132–178; BP diastolic 67–89; PULSE 108–135; RESP 13–21; TEMP 36.5–37.3; O2SAT 96–99; BMI 23.3; BMI 23.7
--- NOTE | 2023-05-21 07:23 | XR_ITS ---
FINAL REPORT CLINICAL HISTORY: Precordial chest pain COMPARISON: None FINDINGS: A single portable view of the chest was obtained. The heart size and pulmonary vascularity are within normal limits. The mediastinum is within normal limits. No acute pulmonary abnormality is identified. The bony thorax is intact. Multiple foreign bodies in the left arm may be on the patient. IMPRESSION: No active cardiopulmonary disease. Reviewed, Interpreted and Dictated by Cesar Matos III, MD Transcribed by Zoë Cooper Authenticated and . [facility]
--- NOTE | 2023-05-21 07:23 | CT_ITS ---
FINAL REPORT CLINICAL HISTORY: flu pos, CP, tachy COMPARISON: 03/21/2023 FINDINGS: Thin section axial CT images of the chest were obtained with contrast. 3D reformatted images were also obtained. This study was performed with techniques to keep radiation doses as low as reasonably achievable (ALARA). Individualized dose reduction techniques using automated exposure control or adjustment of mA and/or kV according to the patient's size were employed. There is no evidence of pulmonary embolism. There is no evidence of thoracic aortic aneurysm or dissection. There is no evidence of mediastinal or hilar mass or adenopathy. There is no evidence of pulmonary mass or nodule. Mild patchy groundglass opacities may represent edema or alveolitis. Calcified granulomas noted. Limited images of the upper abdomen are unremarkable. IMPRESSION: No evidence of pulmonary embolism. Mild patchy groundglass opacities may represent edema or alveolitis. Reviewed, Interpreted and Dictated by Cesar Matos III, MD Transcribed by Zoë Cooper Authenticated and [facility]
--- NOTE | 2023-05-21 07:25 | ECG_ITS ---
APPROVED REPORT Exam: Resting ECG HR:113 bpm ECG Measurements Heart Rate 113 AXES QRSd 79 QRS 42 QT 335 T -35 QTc 402 Conclusion ATRIAL FLUTTER/TACHYCARDIA WITH RAPID VENTRICULAR RESPONSE WITH ABERRANT CONDUCTION OR VENTRICULAR PREMATURE COMPLEXES ST DEVIATION AND MODERATE T-WAVE ABNORMALITY, CONSIDER INFERIOR ISCHEMIA [-0.1+ mV T-WAVE IN II/aVF] ABNORMAL ECG UNCONFIRMED REPORT Electronically signed by : Ramesh Turcios MD 05/21/2023 21:26:30
--- NOTE | 2023-05-21 07:27 | HMH.EDGENADL ---
Discharge Plan Disposition Patient Disposition: Admitted Chief Complaint: Chest Pain Prescriptions Prescriptions: No Action atorvastatin [Lipitor] 40 mg tablet 40 mg PO DAILY Qty: 30 5RF omeprazole 40 mg capsule,delayed release(DR/EC) 40 mg PO DAILY ondansetron HCl 4 mg tablet See Rx Instructions .ROUTE .COMPLEX Qty: 20 5RF Dose Instruction: TAKE ONE TABLET BY MOUTH EVERY 8 HOURS Rx Instructions: TAKE ONE TABLET BY MOUTH EVERY 8 HOURS hydrocodone-acetaminophen 7.5-325 mg tablet 1 tab PO QID Qty: 120 0RF lisinopril 20 mg tablet 20 mg PO DAILY spironolactone [Aldactone] 25 mg tablet 25 mg PO DAILY amlodipine 10 mg tablet 10 mg PO DAILY lisinopril-hydrochlorothiazide 20-25 mg tablet 1 tab PO QAM ergocalciferol (vitamin D2) 1,250 mcg (50,000 unit) capsule 1,250 mcg PO WEEKLY cholecalciferol (vitamin D3) 50 mcg (2,000 unit) capsule 50 mcg PO DAILY aspirin 81 mg Tablet,Chewable 81 mg PO DAILY Qty: 30 6RF prasugrel [Effient] 10 mg Tablet 10 mg PO DAILY Qty: 30 6RF carvedilol 25 mg Tablet 25 mg PO BID Qty: 60 3RF Rx Instructions: must administer with a meal/food Referrals Follow up/Referrals: Bev Eckert PA [Primary Care Provider] - See instructions Clinical Impressions Clinical Impression: Melena, Abnormal gall bladder diagnostic imaging, ABLA (acute blood loss anemia), Non-ST elevation OR (NSTEMI) Discharge ED Provider: Alfredo Schmidt General Adult HPI General Chief complaint: Chest Pain Stated complaint: vomiting,fever,stomach pain Time Seen by Provider: 05/21/23 07:23 History of Present Illness HPI narrative: Patient is a 67-year-old female with past medical history of coronary artery disease status post stenting who presents emergency department for evaluation of chest pain. Patient was recently diagnosed with the flu. Approximately 3 hours prior to arrival patient had substernal chest pain that was nonmodifiable, moderate to severe in intensity causing her to present here for continued evaluation. Per review of recent cardiology note ejection fraction 57%. Patient has stent in her LAD. Related Data Home Medications Medication Instructions Recorded Confirmed omeprazole 40 mg capsule,delayed 40 mg PO DAILY stomach 03/18/23 05/13/23 release amlodipine 10 mg tablet 10 mg PO DAILY htn 04/01/23 05/13/23 cholecalciferol (vitamin D3) 50 50 mcg PO DAILY Supplement 04/01/23 05/13/23 mcg (2,000 unit) capsule ergocalciferol (vitamin D2) 1,250 1,250 mcg PO WEEKLY Supplement 04/01/23 05/13/23 mcg (50,000 unit) capsule lisinopril 20 mg tablet 20 mg PO DAILY htn 04/01/23 05/13/23 lisinopril 20 1 tab PO QAM htn 04/01/23 05/13/23 mg-hydrochlorothiazide 25 mg tablet spironolactone 25 mg tablet 25 mg PO DAILY Fluid 04/01/23 05/13/23 (Aldactone) Previous Rx's Medication Instructions Recorded aspirin 81 mg chewable tablet 81 mg PO DAILY #30 tabs 04/01/23 carvedilol 25 mg tablet 25 mg PO BID #60 tabs 04/01/23 prasugrel 10 mg tablet (Effient) 10 mg PO DAILY #30 tabs 04/01/23 atorvastatin 40 mg tablet (Lipitor) 40 mg PO DAILY #30 tabs 04/09/23 ondansetron HCl 4 mg tablet See Rx Instructions .Route 05/05/23 .COMPLEX #20 tabs hydrocodone 7.5 mg-acetaminophen 1 tab PO QID Pain #120 tabs 05/13/23 325 mg tablet Allergies Allergy/AdvReac Type Severity Reaction Status Date / Time cefdinir [From Omnicef] Allergy Intermediate racing Verified 05/13/23 08:34 heart amoxicillin [AMOXICILLIN] Allergy Unknown I-RASH Verified 05/13/23 08:34 naproxen [NAPROXEN] Allergy Unknown I-RASH Verified 05/13/23 08:34 [id number]-[id number]-LgX Reductase AdvReac Intermediate Muscle Pain Verified 05/13/23 08:34 Inhibitor PFSH PFS Disclaimer: The information contained in this section may have been updated after the patient was seen, as this information can be updated by other users. Medical History (Updated
[2023-05-21 07:39] LABS: Basophils # 0.1 K/mm3 (0-0.2); Basophils % 0.8 % (0.1-2.0); Eosinophils # 0.1 K/mm3 (0.0-0.4); Eosinophils % 1.3 % (0.1-12.0); Lymphocytes # 1.7 K/mm3 (0.7-4.5); Lymphocytes % 22.4 % (10-50); Mean Corpuscular HGB Conc 33.6 g/dL (31.8-35.4); Mean Corpuscular Hemoglobin 29.4 pg (27.0-31.2); Mean Corpuscular Volume 87.3 fl (81-99); Mean Platelet Volume 7.4 fl (7.4-10.4); Monocytes # 0.3 K/mm3 (0.1-1.0); Monocytes % 4.3 % (1.7-9.3); Neutrophils # 5.3 K/mm3 (1.8-7.8); Neutrophils % 71.1 % (37.0-80.0); Platelet Count 449 K/mm3 (142-424); Red Blood Count 1.97 M/mm3 (4.20-5.40); Red Cell Distribution Width 21.7 % (11.5-17.5); White Blood Count 7.5 K/mm3 (4.8-10.8)
[2023-05-21 07:46] LABS: Chloride 111 mmol/L (98-107); Potassium 3.4 mmoL/L (3.5-5.1); Sodium 142 mmol/L (136-145)
[2023-05-21 07:48] LABS: Alanine Aminotransferase 16 U/L (12-78); Aspartate Amino Transferase 22 U/L (14-36); Blood Urea Nitrogen 29 mg/dl (7-17); Estimated Glomerular Filt Rate 100 ml/min (>60); GFR (African American) 121 ML/MIN (>60)
[2023-05-21 07:49] LABS: Albumin Level 3.5 g/dl (3.5-5.0); Albumin/Globulin Ratio 1.8 (1.1-1.8); Alkaline Phosphatase 98 U/L (38-126); Anion Gap 9.4 mEq/L (5-15); Bilirubin,Total < 0.1 mg/dl (0.2-1.3); Carbon Dioxide 25 mmol/L (22.0-30.0); Glucose 145 mg/dl (74-100); Total Protein,Serum 5.5 g/dl (6.3-8.2)
[2023-05-21 07:55] LABS: Hematocrit 17.2 % (37.0-47.0)
--- NOTE | 2023-05-21 07:56 | CT_ITS ---
FINAL REPORT TECHNIQUE: Pre-and postcontrast images of the abdomen through the pelvis were performed by computed tomography. Extensive 3-D reconstruction images were performed. A CTA was performed. This study was performed with techniques to keep radiation doses as low as reasonably achievable (ALARA). Individualized dose reduction techniques using automated exposure control or adjustment of mA and/or kV according to the patient's size were employed. CLINICAL HISTORY: melana/ Tachycardia/Epigastric pain COMPARISON: CT abdomen and pelvis 06/22/2021 FINDINGS: ABDOMEN: Precontrast images demonstrate no evidence of nephrolithiasis. There is mild nonspecific gallbladder wall thickening. There is new mild to moderate biliary ductal dilatation of uncertain etiology. There is mild bilateral adrenal gland enlargement, likely hyperplasia or adenoma. The liver, spleen and pancreas are unremarkable. PELVIS: The appendix is not identified. The urinary bladder is unremarkable. There is wall thickening of the descending and sigmoid colon which may represent colitis. Post hysterectomy. There is no significant free fluid or adenopathy. The bony pelvis is unremarkable. CTA: The abdominal aorta is proper caliber. The SMA, celiac axis, and SOWMYA are patent. There is no significant stenosis or calcification. The renal arteries are patent bilaterally. The iliac arteries are patent bilaterally. IMPRESSION: No evidence of stenosis or occlusion. Colitis. Mild bilateral adrenal gland enlargement, likely hyperplasia or adenoma. New mild to moderate biliary ductal dilatation of uncertain etiology. Severe gallbladder wall thickening. Reviewed, Interpreted and Dictated by Cesar Matos III, MD Transcribed by Zoë Cooper Authenticated and [facility]
--- NOTE | 2023-05-21 07:59 | PC.NURSE ---
Called peanut grader to notify DXrLuz Marina Schmidt added on CT scan
--- NOTE | 2023-05-21 07:59 | PC.NURSE ---
Dr. Schmidt notified of critical Hgb 5.8 & Hct 17.2. States he would like to transfuse 2 units and get a 3 hr post transfusion H&H
[2023-05-21 08:01] LABS: Troponin I 0.08 ng/ml (0.00-0.034)
--- NOTE | 2023-05-21 08:01 | PC.NURSE ---
Pt gone to RAD via stretcher
[2023-05-21 08:06] LABS: Reticulocyte % (Auto) 6.2 % (0.9-3.2)
[2023-05-21 08:21] LABS: Lactate Dehydrogenase 146 U/L (313-618)
--- NOTE | 2023-05-21 08:34 | PC.NURSE ---
Pt returned from RAD
--- NOTE | 2023-05-21 09:10 | PC.NURSE ---
Repeat EKG done at 0908
[2023-05-21 09:25] LABS: Hemoglobin 5.8 g/dL (12.2-16.2)
--- NOTE | 2023-05-21 09:38 | PC.NURSE ---
Pt ambulatory to bathroom. No other needs voiced. Call light within reach.
--- NOTE | 2023-05-21 09:45 | PC.NURSE ---
Dr. Schmidt at BS to update pt/family on results and POC
--- NOTE | 2023-05-21 10:30 | PC.NURSE ---
LAB at to collect second trop
--- NOTE | 2023-05-21 10:41 | PC.NURSE ---
waiting prescription benefit specialist back from cardiology office for consult per dr. dunaway request
--- NOTE | 2023-05-21 10:44 | PC.NURSE ---
Chanelle called back, notified her of cardiac consult
--- NOTE | 2023-05-21 10:44 | PC.NURSE ---
notified ja ozuna of cardiology consult
--- NOTE | 2023-05-21 10:58 | PC.NURSE ---
waiting transcription back from dr. collins, office staff reports dr. collins is in surgery states she will text him and notify him of consult it may be a little bit before he returns the call. Dr. Schmidt is aware.
--- NOTE | 2023-05-21 11:03 | PC.NURSE ---
dr. dunaway speaking with aj ozuna
--- NOTE | 2023-05-21 11:32 | PC.NURSE ---
Dr. Schmidt s/w Dr. Alcantara for gen surg consult
--- NOTE | 2023-05-21 11:36 | EXP.CARD.CON ---
History of Present Illness History of Present Illness Consult date: 05/21/23 Requesting physician: Anthony Lord Chief complaint: Generalized weakness, soa, palpitations History of present illness: 67-year-old white female with past medical history of coronary artery disease with recent stenting to LAD 04/01/2023 on DAPT with aspirin and effient, hypertension, history of breast cancer now in remission presents to ER with complaint of generalized weakness, palpitations and soa x a few days. Of note, patient was evalutated on May 09 in [facility] for n/v and dx with influence A. Patient was outside of tamiflu window. Upon presentation to ER, EKG was noted to be sinus tach rate of 113 without acute EKG changes. Labs as follow: WBC 7.5, hemoglobin 5.8, platelet count 449, sodium 142, potassium 3.4, creatinine 0.6, and troponin 0.08. Chest x-ray negative for acute cardiopulmonary process. CT abdomen pelvis shows no evidence of stenosis or occlusion. Colitis is present. Mild bilateral adrenal gland enlargement likely hyperplasia or adenoma. New mild to moderate biliary ductal dilation of uncertain etiology. Severe gallbladder wall thickening. Cardiology was asked to evaluate for elevated troponin and tachycardia. Patient does endorse a history of black, tarry stools the last few days and abdominal pain. Denies chest pain. Reports soa with exertion. [facility] Disclaimer: The information contained in this section may have been updated after the patient was seen, as this information can be updated by other users. Medical History (Updated 05/21/23 @ 11:58 by Jacqueline Dunn APRN) Bladder prolapse Breast cancer GERD (gastroesophageal reflux disease) History of pituitary adenoma History of sleep study HTN (hypertension) Major depressive disorder Pelvic organ prolapse quantification stage 3 cystocele Surgical History History of cardiac cath History of [facility] History of lumpectomy Family History Father Heart attack Social History Smoking Status: Never smoker alcohol intake: never substance use type: denies use current occupational status: disabled Travel in the last 8 weeks: None household members: spouse housing: house current occupational exposures/hazards: No caffeine: Yes Review of Systems Review of Systems Review of systems:: pertinent systems reviewed and negative unless documented below Constitutional Constitutional: Reports system reviewed and no additional complaints, except as documented *Cardiovascular Cardiovascular: Reports system reviewed and no additional complaints, except as documented and Reports dyspnea Comments: Palpitations *Respiratory Respiratory: Reports system reviewed and no additional complaints, except as documented and Reports dyspnea *Gastrointestinal Gastrointestinal: Reports system reviewed and no additional complaints, except as documented, Reports melena, Reports nausea and Reports vomiting *Neurologic Neurologic: Reports system reviewed and no additional complaints, except as documented and Denies confusion Psychiatric Psychiatric: Reports system reviewed and no additional complaints, except as documented and Denies confusion Exam Data for Last 24 hours Vital signs and Labs for Last 24 Hours: Temp Pulse Resp BP Pulse Ox O2 Del Method 98.9 F 109 H 16 151/80 H 99 Room Air 05/21/23 11:29 05/21/23 11:29 05/21/23 11:29 05/21/23 11:29 05/21/23 11:29 05/21/23 09:30 Laboratory Results - last 24 hr 05/21/23 07:30: WBC 7.5, RBC 1.97 L*, Hgb 5.8 L*, Hct 17.2 L*, MCV 87.3, MCH 29.4, MCHC 33.6, RDW 21.7 H, Plt Count 449 H, MPV 7.4, Neut % (Auto) 71.1, Lymph % (Auto) 22.4, [place] % (Auto) 4.3, Eos % (Auto) 1.3, Baso % (Auto) 0.8, Neut # (Auto) 5.3, Lymph # (Auto) 1.7, [place] # (Auto) 0.3, Eos # (Auto) 0.1, Baso # (Auto) 0.1, R
--- NOTE | 2023-05-21 11:37 | PC.NURSE ---
Dr. Schmidt s/w Dr. Lord for admission.
--- NOTE | 2023-05-21 11:39 | PC.NURSE ---
Called Case Management, s/w Karina to notify of admission to Dr. Lord for: Anemia HgB <6, Melena, and Type 2 NSTEMI
[2023-05-21 11:41] LABS: Troponin I 0.09 ng/ml (0.00-0.034)
--- NOTE | 2023-05-21 12:17 | EXP.HP ---
History of Present Illness *Admission Date: 05/21/23 *Reason for visit:: weakness, abdominal pain *History of present illness: This VBACs a 67-year-old female with a recent heart cath 6 weeks ago, CAD, on DAPT therapy. Has a history of hypertension, breast cancer now in remission. She presented to the ER with complaint of generalized weakness and palpitations for the past 2 to 3 days. Notes that this past weekend she had a GI illness with diarrhea and nausea and vomiting. Diarrhea was black tarry stool. For follow-up but better until Thursday when she was diagnosed with flu and is just felt weak since. Outside Tamiflu window so this medication was not resumed. Presented today due to persistent fatigue. Noted to have tachycardia with heart rate greater than 100. Labs upon work-up with white cell count of 7.5, hemoglobin 5.8, platelet count 449. BUN elevated disproportionately to creatinine. Given anemia and recent black stools along with elevated BUN, concern for GI bleed. CT obtained of the abdomen showing some mild to moderate biliary ductal dilatation. Liver enzymes normal however on labs. Gallbladder wall thickening but no right upper quadrant pain on exam. ER discussed case with cardiology and surgery who recommended admission for further management. ER consulted medicine for admission. After arriving to the floor, patient is stable on room air. Complains of some mild cough and fatigue but no oxygen requirement or productive cough. No further nausea vomiting or diarrhea since this weekend. Has received both her units of blood. Awaiting post H&H. Afebrile. [facility] Disclaimer: The information contained in this section may have been updated after the patient was seen, as this information can be updated by other users. Medical History Bladder prolapse Breast cancer GERD (gastroesophageal reflux disease) History of pituitary adenoma History of sleep study HTN (hypertension) Major depressive disorder Pelvic organ prolapse quantification stage 3 cystocele Surgical History History of cardiac cath History of [facility] History of lumpectomy Family History Heart attack Father Social History Smoking Status: Never smoker alcohol intake: never substance use type: denies use current occupational status: disabled Travel in the last 8 weeks: None household members: spouse housing: house current occupational exposures/hazards: No caffeine: Yes Review of Systems Review of Systems Review of systems (narrative): 14 point review of systems performed, pertinent positives and negatives as per HPI *Neurologic Neurologic: Reports system reviewed and no additional complaints, except as documented and Denies confusion Psychiatric Psychiatric: Denies confusion Meds Home Medications and Allergies Home Medications Medication Instructions Recorded Confirmed Type omeprazole 40 mg capsule,delayed 40 mg PO DAILY Acid Reflux 03/18/23 05/21/23 History release amlodipine 10 mg tablet 10 mg PO DAILY High Blood Pressure 04/01/23 05/21/23 History cholecalciferol (vitamin D3) 50 50 mcg PO DAILY Supplement 04/01/23 05/21/23 History mcg (2,000 unit) capsule ergocalciferol (vitamin D2) 1,250 1,250 mcg PO WEEKLY Supplement 04/01/23 05/21/23 History mcg (50,000 unit) capsule lisinopril 20 mg tablet 20 mg PO DAILY High Blood Pressure 04/01/23 05/21/23 History lisinopril 20 1 tab PO DAILY High Blood Pressure 04/01/23 05/21/23 History mg-hydrochlorothiazide 25 mg tablet spironolactone 25 mg tablet 25 mg PO DAILY Fluid 04/01/23 05/21/23 History (Aldactone) hydrocodone 7.5 mg-acetaminophen 1 tab PO QID Pain #120 tabs 05/13/23 05/21/23 Rx 325 mg tablet aspirin 81 mg chewable tablet 81 mg PO DAILY Heart Health
--- NOTE | 2023-05-21 12:20 | PC.NURSE ---
report called to lee ann monaco on second floor at this time.
--- NOTE | 2023-05-21 12:50 | HMH.PHAINT1 ---
Pharmacy Intervention Comments: MEDICATION RECONCILIATION COMPLETED ON PATIENT USING EXTERNAL FILL HISTORY FROM PHARMACY. -PRAVEEN MOHR, JOSE LD
--- NOTE | 2023-05-21 13:16 | CA_ITS ---
APPROVED REPORT EXAM: Comprehensive 2D, Doppler, and color-flow Echocardiogram [employer] Administrator: Melania Bejarano, FREYA, RVS Ht: 5 ft 4 in Wt: 136lbs BSA: 1.66 BP: 147/72 mmHg Indications: anemia-Hgb 5, Pre-op, CHF, Gerd, CP 2D Dimensions IVSd 1.32 cm LVEF (Visual) 58.30 % PWd 1.32 cm LVDd 3.92 cm LVDs 2.73 cm Aortic Root 2.91 cm Left Atrium 2.94 cm LVOT 2.10 cm (M/F) 1.5-2.5 M-Mode Dimensions EPSs 0.27 cm TAPSE 2.17 (<1.7) LV Diastology E Decel Time 47.00 (160-240 msec) E/A Ratio 0.58 MED E' 5.30 (< 7 cm/sec) MED A' 13.00 cm/s E'/MED E' Ratio 13.47 (>14) LAT E' 10.40 (<10 cm/sec) LAT A' 12.80 cm/s E/LAT E' Ratio 6.87 (>14) Aortic Valve LVOT Max 112.00 (70-110 cm/s) LVOT VTI 20.61 cm AoV Peak Germán. 143.00 (50-130 cm/s) AO Peak GR. 8.20 mmHg AO Mean GR. 4.00 (<5 mmHg) AO VTI 23.38 (18-25 cm) FABIAN (VTI) 3.05 (2.5-4.5 cm2) Mitral Valve MV A Velocity 124.00 (40-130 cm/s) E/A Ratio 0.58 MV Decel. Time 47.00 (160-240 ms) Tricuspid Valve TR P. Velocity 282.00 cm/s RAP Estimate 10.00 mmHg RVSP 41.80 mmHg Left Ventricle The left ventricle is normal size. The left ventricular systolic function is normal. The left ventricular ejection fraction is within the normal range. There is increased LV wall thickness. There is normal LV segmental wall motion. The left ventricular diastolic function is normal. LVEF is 65-70%. Right Ventricle The right ventricle is normal size. The right ventricular systolic function is normal. Atria The left atrium size is normal. The right atrium size is normal. Aortic Valve The aortic valve opens well. There is no aortic valvular stenosis. Trace aortic regurgitation. Mitral Valve The mitral valve is normal in structure. No evidence of mitral valve stenosis. Trace mitral regurgitation. Tricuspid Valve The tricuspid valve leaflets are thin and pliable. Mild tricuspid regurgitation. RVSP is 30-35 mmHg. Pulmonic Valve The pulmonary valve is normal in structure. Trace pulmonic regurgitation. Great Vessels The aortic root is normal in size. The ascending aorta is not well visualized. IVC is normal in size and collapses >50% with inspiration. Pericardium Trivial pericardial effusion. Other Information Study Quality: Fair Conclusion Normal biventricular systolic function. No significant valvular stenosis or regurgitation. Trivial pericardial effusion. Electronically signed by : Sandy Mccarty MD 05/23/2023 21:02:52
--- NOTE | 2023-05-21 14:16 | EXP.SURG.CON ---
History of Present Illness *Admission Date: 05/21/23 *Reason for visit:: Anemia *History of present illness: This is a 67-year-old female seen in consultation from the primary service after presenting to the emergency department with increasing weakness. Evaluation revealed a hemoglobin of 5.8. She is currently receiving a blood transfusion and states that she feels a little better . Forwarded from emergency department evaluation: Patient is a 67-year-old female with past medical history of coronary artery disease status post stenting who presents emergency department for evaluation of chest pain. Patient was recently diagnosed with the flu. Approximately 3 hours prior to arrival patient had substernal chest pain that was nonmodifiable, moderate to severe in intensity causing her to present here for continued evaluation. Per review of recent cardiology note ejection fraction 57%. Patient has stent in her LAD. Forwarded from cardiology evaluation: 67-year-old white female with past medical history of coronary artery disease with recent stenting to LAD 04/01/2023 on DAPT with aspirin and effient, hypertension, history of breast cancer now in remission presents to ER with complaint of generalized weakness, palpitations and soa x a few days. Of note, patient was evalutated on May 09 in [facility] for n/v and dx with influence A. Patient was outside of tamiflu window. Upon presentation to ER, EKG was noted to be sinus tach rate of 113 without acute EKG changes. Labs as follow: WBC 7.5, hemoglobin 5.8, platelet count 449, sodium 142, potassium 3.4, creatinine 0.6, and troponin 0.08. Chest x-ray negative for acute cardiopulmonary process. CT abdomen pelvis shows no evidence of stenosis or occlusion. Colitis is present. Mild bilateral adrenal gland enlargement likely hyperplasia or adenoma. New mild to moderate biliary ductal dilation of uncertain etiology. Severe gallbladder wall thickening. Cardiology was asked to evaluate for elevated troponin and tachycardia. Patient does endorse a history of black, tarry stools the last few days and abdominal pain. Denies chest pain. Reports soa with exertion. Acute myocardial injury -Elevated troponin noted at 0.1 in the setting of acute illness, GI bleed -EKG is negative for acute ischemic changes -Left heart cath 04/01/2023: Severe proximal LAD disease with stenting, normal renal arteries bilaterally -Patient was receiving DAPT therapy with Effient and aspirin. We will hold Effient and aspirin given new onset GI bleed. Continue Lipitor 40 mg p.o. daily and carvedilol 25 mg p.o. twice daily -Historically normal EF present. We will repeat echocardiogram after patient has received at least 2 units of packed red blood cells. Acute GI bleed Anemia Colitis Recent diagnosis of influenza -Hemoglobin 5.8, RBC transfusion initiated in emergency department. Please give Lasix 20 mg IV x1. -Hold DAPT therapy for acute bleed -Patient is cleared from a cardiology standpoint to proceed with upper and lower GI scopes. Hypertension -Continue carvedilol 25 mg p.o. twice daily and lisinopril 20 mg p.o. daily Hyperlipidemia -LDL goal < 100. LDL is 94. On statin. CV summary 05/21/2023: Elevated troponin likely secondary from acute illness and acute GI bleed. Please hold DAPT therapy. Echocardiogram to be performed after patient receives blood transfusions. PFSH PFSH Disclaimer: The information contained in this section may have been updated after the patient was seen, as this information can be updated by other users. Medical History (Updated 05/21/23 @ 11:58 by Jacqueline Dunn APRN) Bladder prolapse Breast cancer GERD (gastroesophageal reflux disease) History of pituitary adenoma History of sleep study HTN (hypertension) Major depressive disorder Pelvic organ prolapse quantification s
[2023-05-21 14:36] LABS: Troponin I 0.11 ng/ml (0.00-0.034)
--- NOTE | 2023-05-21 18:32 | PC.NURSE ---
Patient admitted to unit and tolerated two units of blood today. Continue to monitor.
[2023-05-21 18:45] LABS: Hematocrit 21.7 % (37.0-47.0)
[2023-05-21 18:55] LABS: Hemoglobin 7.4 g/dL (12.2-16.2)
--- NOTE | 2023-05-21 23:55 | PC.NURSE ---
2015 iv zofran ineffective for nausea. Remi Linda NP notified and order for phenergan obtained.
--- NOTE | 2023-05-21 23:56 | PC.NURSE ---
PATIENT RECEIVED PHENERGAN 25MG IN 25 ML NS FOR DRY HEAVES AT 2030 AND WAS EFFECTIVE. PATIENT C/O MUSCLE CRAMPS IN LEGGS. KESHAWN Linda NP WAS NOTIFIED BUT NO NEW ORDERS RECEIVED. AT 2339 PATIENT MEDICATED WITH NORC 7.5 1 TAB PO.
[2023-05-22] VITALS (20 sets, daily range): BP systolic 126–164; BP diastolic 58–84; PULSE 80–109; RESP 16–19; TEMP 36.5–36.9; O2SAT 97–99; BMI 23.3
--- NOTE | 2023-05-22 00:22 | PC.NURSE ---
PATIENT IS NPO SINCE MN FOR EGD IN AM.
--- NOTE | 2023-05-22 05:13 | PC.NURSE ---
PRE-OP CHECK LIST COMPLETED. CONSENT SIGNED. PATIENT NPO SINCE MN FOR EGD. NO FURTHER C/O NAUSEA SINCE 2100. NO FURTHER C/O LEG CRAMPS SINCE MIDNIGHT. FAMILY MEMBER AT BEDSIDE.
--- NOTE | 2023-05-22 06:22 | PC.NURSE ---
DR MONTALVO HERE TO SEE PATIENT.
--- NOTE | 2023-05-22 06:34 | PC.NURSE ---
1835 TO THE OR VIA BED. MASK ON DUE TO DROPLET PRECAUTIONS.
--- NOTE | 2023-05-22 06:35 | PC.NURSE ---
pt went down to get EGD via bed @06:34
--- NOTE | 2023-05-22 06:37 | P.PN_ITS ---
Subjective Patient reports: feels better Exam Data for Last 24 hours Vital signs and Labs for Last 24 Hours: Temp Pulse Resp BP Pulse Ox O2 Del Method 98.0 F 98 H 18 160/78 H 99 Room Air 05/22/23 04:00 05/22/23 04:00 05/22/23 04:00 05/22/23 04:00 05/22/23 04:00 05/22/23 06:23 Laboratory Results - last 24 hr 05/21/23 07:30: WBC 7.5, RBC 1.97 L*, Hgb 5.8 L*, Hct 17.2 L*, MCV 87.3, MCH 29.4, MCHC 33.6, RDW 21.7 H, Plt Count 449 H, MPV 7.4, Neut % (Auto) 71.1, Lymph % (Auto) 22.4, [place] % (Auto) 4.3, Eos % (Auto) 1.3, Baso % (Auto) 0.8, Neut # (Auto) 5.3, Lymph # (Auto) 1.7, [place] # (Auto) 0.3, Eos # (Auto) 0.1, Baso # (Auto) 0.1, Retic Count (auto) 6.2 H, Sodium 142, Potassium 3.4 L, Chloride 111 H, Carbon Dioxide 25, Anion Gap 9.4, BUN 29 H, Creatinine 0.60, Estimated GFR 1 00, Est GFR ( Amer) 121, Glucose 145 H, Calcium 8.0 L, Total Bilirubin < 0.1 L, AST 22, ALT 16, Alkaline Phosphatase 98, Lactate Dehydrogenase 146 L, Troponin I 0.08 H, Total Protein 5.5 L, Albumin 3.5, Globulin 2.0, Albumin/Globulin Ratio 1.8, Blood Type Confirm O Positive 05/21/23 08:44: Blood Type O Positive, Antibody Screen Negative, Crossmatch (AHG) See Detail 05/21/23 10:30: Troponin I 0.09 H 05/21/23 13:41: Troponin I 0.11 H 05/21/23 18:35: Hgb 7.4 L D, Hct 21.7 L I & O for Last 24 hours: Intake & Output 05/19/23 05/20/23 05/21/23 05/22/23 11:59 11:59 11:59 11:59 Intake Total 251 / 251 480 / 480 Output Total 2 / 2 Balance 251 / 251 478 / 478 Weight 136 lb 136 lb 6 oz Constitutional Constitutional: no acute distress *Routine Respiratory Exam Respiratory: Absent respiratory distress *Routine Cardiovascular Exam Cardiovascular: Absent tachycardia Progress Note: A&P Assessment and plan (1) Acute GI bleeding: Status: Acute Assessment and plan: Appropriate response to transfusion. Esophagogastroduodenoscopy this morning I have discussed the risks and benefits including, but not limited to: Bleeding Infection Damage to surrounding tissue Inherent risks of sedation The patient agrees to proceed. (2) Melena: Status: Acute (3) Abnormal gall bladder diagnostic imaging: Status: Acute Assessment and plan: The patient is aware of the radiographic findings. She reports no definitive symptomatology and states that she wishes to discuss in greater detail later in the office .
--- NOTE | 2023-05-22 07:07 | EXP.ANES.CKL ---
[facility] Disclaimer: The information contained in this section may have been updated after the patient was seen, as this information can be updated by other users. Medical History Bladder prolapse Breast cancer GERD (gastroesophageal reflux disease) History of pituitary adenoma History of sleep study HTN (hypertension) Major depressive disorder Pelvic organ prolapse quantification stage 3 cystocele Surgical History History of cardiac cath History of [facility] History of lumpectomy Family History Heart attack Father Social History Smoking Status: Never smoker alcohol intake: never substance use type: denies use current occupational status: disabled Travel in the last 8 weeks: None household members: spouse housing: house current occupational exposures/hazards: No caffeine: Yes [facility] Anesthesia Checklist Patient Identification Patient Identification: Arm Band Structural Data Admitted From: Home Planned Operative Procedure/s: EGD Consent for Planned Operative Procedure(s) Verified: Yes Verified Documents: Surgical Consent and History and Physical NPO Status Verified Time NPO: 00:00 Additional verifications Anesthesia Reactions: No Airway Assessment Mallampati Score:: Class I C-Spine Mobility Assessed: Yes TMJ Mobility Assessed: Yes Dentition: Good Dentition Neurological Assessment Level of Consciousness: Awake and Alert Anesthesia Plan Anesthesia Risk discussed: Yes Anesthesia Plan: Verified ASA Class: III Anesthesia Type: MAC
--- NOTE | 2023-05-22 07:24 | HMH.SCOPE ---
Procedure: Date: 05/22/23 Patient Date of :: 1955 Procedure Performed:: Esophagogastroduodenoscopy with biopsy Indications:: Gastrointestinal hemorrhage Melena Performing Provider:: aRchid Alcantara MD Referring Provider:: . Sedation:: Monitored anesthesia care Procedure:: After informed consent was obtained the patient was taken to the endoscopy suite. Sedation ensued after the patient was transferred to the left lateral decubitus position. Pulse, blood pressure, and oxygen saturation were monitored throughout the procedure. The endoscope was advanced beyond the duodenal bulb. Retroflexion within the gastric lumen was accomplished. The gastroscope was carefully removed and the patient was transferred to recovery in stable condition. Please see findings and specimens below for detail. Findings:: Gastroesophageal junction at 37 cm Moderate to large sliding hiatal hernia Patchy inflammatory mucosa in/around gastroesophageal junction/hiatal hernia Cluster of small to medium sized shallow ulcerations in antrum/prepyloric region Shallow nonbleeding duodenal sweep ulcer No sign of active/recent hemorrhage No visible clot at base of any ulcerations Specimens:: Antral biopsy Recommendations:: Continue proton pump inhibition Consider [place] Consider Cytotec Show hemoglobin/hematocrit Repeat esophagogastroduodenoscopy in 6-8 weeks (unless needed more urgently) Complications:: No immediate Estimated blood obtained (mL): 1 Colonoscopy Component Colonoscopy Component Was a colonoscopy performed during today's procedure?: No
[2023-05-22 09:37] LABS: Basophils % 0.5 % (0.1-2.0); Eosinophils # 0.1 K/mm3 (0.0-0.4); Eosinophils % 0.9 % (0.1-12.0); Hematocrit 22.4 % (37.0-47.0); Hemoglobin 7.6 g/dL (12.2-16.2); Lymphocytes # 1.3 K/mm3 (0.7-4.5); Lymphocytes % 17.4 % (10-50); Mean Corpuscular HGB Conc 33.7 g/dL (31.8-35.4); Mean Corpuscular Hemoglobin 30.4 pg (27.0-31.2); Mean Corpuscular Volume 90.1 fl (81-99); Mean Platelet Volume 7.7 fl (7.4-10.4); Monocytes # 0.3 K/mm3 (0.1-1.0); Monocytes % 4.2 % (1.7-9.3); Neutrophils # 5.7 K/mm3 (1.8-7.8); Platelet Count 421 K/mm3 (142-424); Red Blood Count 2.49 M/mm3 (4.20-5.40); Red Cell Distribution Width 19.7 % (11.5-17.5); White Blood Count 7.4 K/mm3 (4.8-10.8)
--- NOTE | 2023-05-22 09:46 | EXP.CARD.PN ---
Subjective Subjective Date: 05/22/23 Time: 08:00 Principal diagnosis: GI bleed Interval history: Patient doing well this morning. Is status post 2 units transfused. Hemoglobin stable this morning at 7.6. Patient is status post EGD, see note. Morning labs reviewed Exam Data for Last 24 hours Vital signs and Labs for Last 24 Hours: Temp Pulse Resp BP Pulse Ox O2 Del Method O2 Flow Rate 98.3 F 98 H 16 147/73 H 98 Room Air 5 05/22/23 07:25 05/22/23 07:35 05/22/23 07:35 05/22/23 07:35 05/22/23 07:35 05/22/23 07:35 05/22/23 07:07 Laboratory Results - last 24 hr 05/21/23 08:44: Blood Type O Positive, Antibody Screen Negative, Crossmatch (AHG) See Detail 05/21/23 10:30: Troponin I 0.09 H 05/21/23 13:41: Troponin I 0.11 H 05/21/23 18:35: Hgb 7.4 L D, Hct 21.7 L 05/22/23 09:14: WBC 7.4, RBC 2.49 L D, Hgb 7.6 L, Hct 22.4 L, MCV 90.1, MCH 30.4, MCHC 33.7, RDW 19.7 H, Plt Count 421, MPV 7.7, Neut % (Auto) 77.0, Lymph % (Auto) 17.4, [place] % (Auto) 4.2, Eos % (Auto) 0.9, Baso % (Auto) 0.5, Neut # (Auto) 5.7, Lymph # (Auto) 1.3, [place] # (Auto) 0.3, Eos # (Auto) 0.1, Baso # (Auto) 0.0 I & O for Last 24 hours: Intake & Output 05/19/23 05/20/23 05/21/23 05/22/23 23:59 23:59 23:59 23:59 Intake Total 731 / 731 Output Total 2 / 2 0 / 0 Balance 729 / 729 0 / 0 Weight 138 lb 3 oz 136 lb 6 oz Constitutional Constitutional: no acute distress *Routine Respiratory Exam Respiratory: Present CTA bilaterally and symmetric chest movement *Routine Cardiovascular Exam Cardiovascular: Present RRR, Normal S1 and Normal S2 *Routine Abdominal Exam Abdominal: Present soft and normoactive bowel sounds; Absent tenderness *Routine Extremities Exam Extremities: Present full ROM and normal capillary refill; Absent edema *Routine Skin Exam Skin: Present intact, dry and warm Detailed Neck Exam: Thyroids Thyroid: Absent bruit Progress Note: A&P Assessment and plan (1) Acute GI bleeding: Status: Acute (2) Melena: Status: Acute (3) Abnormal gall bladder diagnostic imaging: Status: Acute Assessment and Plan Assessment and Plan for All Diagnoses:: Coronary artery disease Recent stenting to LAD Acute myocardial injury -Elevated troponin noted at 0.1 in the setting of acute illness, GI bleed -EKG is negative for acute ischemic changes -Left heart cath 04/01/2023: Severe proximal LAD disease with stenting, normal renal arteries bilaterally -Patient was receiving DAPT therapy with Effient and aspirin. We will hold Effient and aspirin given new onset GI bleed. Continue Lipitor 40 mg p.o. daily and carvedilol 25 mg p.o. twice daily -Historically normal EF present. We will repeat echocardiogram after patient has received at least 2 units of packed red blood cells. Acute GI bleed Anemia Colitis Recent diagnosis of influenza -Hemoglobin 5.8, RBC transfusion initiated in emergency department. Please give Lasix 20 mg IV x1. -Hold DAPT therapy for acute bleed -Patient is cleared from a cardiology standpoint to proceed with upper and lower GI scopes. 05/22/2023: Patient is status post 2 units transfused. Hemoglobin stable at 7.6. Patient underwent EGD this morning which showed no signs of active/recent hemorrhage. Cardiology recommends that if hemoglobin remains stable then can restart Plavix 75 mg p.o. daily tomorrow. Hypertension -Continue carvedilol 25 mg p.o. twice daily and lisinopril 20 mg p.o. daily Hyperlipidemia -LDL goal < 100. LDL is 94. On statin. CV summary 05/22/2023: Patient is stable. Hemoglobin 7.6 this morning. Cardiology recommends that if hemoglobin remains stable can restart patient on Plavix 75 mg p.o. daily tomorrow.
[2023-05-22 09:50] LABS: Chloride 108 mmol/L (98-107); Potassium 3.1 mmoL/L (3.5-5.1); Sodium 141 mmol/L (136-145)
[2023-05-22 09:52] LABS: Blood Urea Nitrogen 28 mg/dl (7-17); Creatinine Clearance Estimated 55 mL/min (50-200); Estimated Glomerular Filt Rate 124 ml/min (>60); GFR (African American) 150 ML/MIN (>60)
[2023-05-22 09:53] LABS: Alanine Aminotransferase 18 U/L (12-78); Albumin Level 3.6 g/dl (3.5-5.0); Albumin/Globulin Ratio 1.8 (1.1-1.8); Alkaline Phosphatase 57 U/L (38-126); Anion Gap 10.1 mEq/L (5-15); Aspartate Amino Transferase 31 U/L (14-36); Carbon Dioxide 26 mmol/L (22.0-30.0); Glucose 135 mg/dl (74-100); Magnesium 1.7 mg/dl (1.6-2.3); Total Protein,Serum 5.6 g/dl (6.3-8.2)
[2023-05-22 10:15] LABS: Bilirubin,Total < 0.1 mg/dl (0.2-1.3)
[2023-05-22 10:21] LABS: Iron 22 ug/dL (37-170)
[2023-05-22 10:31] LABS: Total Iron Binding Capacity 372 ug/dL (265-497)
[2023-05-22 10:58] LABS: Ferritin 5.86 ng/ml (11.1-264)
--- NOTE | 2023-05-22 11:21 | PC.NURSE ---
courtesy tech note: pt was given ice water upon request. call light is within reach. pt is sitting on the side of bed with family at BS.
--- NOTE | 2023-05-22 12:39 | EXP.ACUTE.PN ---
Subjective *Date: 05/22/23 *Time: 14:43 Interval history: Patient complaining of some epigastric discomfort this morning. Went for EGD, ulcers found. No active bleeding. Labs remain stable but still quite anemic. Heart rate improved. On room air. No nausea or vomiting. No bloody stools per report. Medical Exam Vital signs and Labs for Last 24 Hours: Vital Signs Temp Pulse Pulse Resp BP BP Pulse Ox 05/22/23 10:40 97.7 F 98 H 18 153/69 H 98 05/22/23 10:10 97.7 F 98 H 18 153/70 H 98 05/22/23 09:40 97.7 F 98 H 16 154/70 H 98 05/22/23 09:10 97.7 F 98 H 16 157/75 H 98 05/22/23 08:40 97.7 F 98 H 16 159/77 H 98 05/22/23 08:25 97.7 F 98 H 16 163/78 H 98 05/22/23 10:52 05/22/23 08:10 97.7 F 98 H 16 164/79 H 98 05/22/23 07:55 97.7 F 98 H 16 156/84 H 98 05/22/23 07:40 97.7 F 93 H 16 144/74 H 05/22/23 08:00 98 05/22/23 09:00 05/22/23 07:35 98 H 16 147/73 H 98 05/22/23 07:25 98.3 F 103 H 16 145/58 H 98 05/22/23 07:07 05/22/23 06:23 05/22/23 04:00 98.0 F 98 H 18 160/78 H 99 05/22/23 05:00 05/22/23 04:00 85 05/22/23 03:00 05/22/23 00:00 96 H 05/22/23 01:00 05/22/23 00:00 98.2 F 95 H 18 136/70 99 05/21/23 20:00 99.1 F 119 H 18 141/78 H 98 05/21/23 23:00 05/21/23 21:00 05/21/23 20:00 98 05/21/23 20:00 120 H 05/21/23 16:00 98.8 F 115 H 21 178/75 H 99 05/21/23 16:00 120 H 05/21/23 14:50 98.1 F 112 H 16 132/75 98 05/21/23 13:50 98.2 F 109 H 16 160/79 H 98 05/21/23 13:00 98.4 F 05/21/23 13:23 98.3 F 108 H 18 143/74 H 05/21/23 12:50 98.3 F 108 H 18 143/74 H 99 O2 Del Method O2 Flow Rate 05/22/23 10:40 Room Air 05/22/23 10:10 Room Air 05/22/23 09:40 Room Air 05/22/23 09:10 Room Air 05/22/23 08:40 Room Air 05/22/23 08:25 Room Air 05/22/23 10:52 Room Air 05/22/23 08:10 Room Air 05/22/23 07:55 Room Air 05/22/23 07:40 Room Air 05/22/23 08:00 Room Air 05/22/23 09:00 Room Air 05/22/23 07:35 Room Air 05/22/23 07:25 Room Air 05/22/23 07:07 Room Air 5 05/22/23 06:23 Room Air 05/22/23 04:00 Room Air 05/22/23 05:00 Room Air 05/22/23 04:00 05/22/23 03:00 Room Air 05/22/23 00:00 05/22/23 01:00 Room Air 05/22/23 00:00 Room Air 05/21/23 20:00 Room Air 05/21/23 23:00 Room Air 05/21/23 21:00 Room Air 05/21/23 20:00 Room Air 05/21/23 20:00 05/21/23 16:00 Room Air 05/21/23 16:00 05/21/23 14:50 05/21/23 13:50 05/21/23 13:00 05/21/23 13:23 Room Air 05/21/23 12:50 Intake and Output 05/21/23 05/22/23 05/22/23 23:59 07:59 15:59 Intake Total 480 / 731 Output Total 2 / 2 0 / 0 0 / 0 Balance 478 / 729 0 / 0 0 / 0 Intake: Intake, Oral Amount 480 / 480 Output: Output, Urine Amount 2 / 2 0 / 0 0 / 0 Other: Number of Voids 1 1 0 Number of Unmeasured Voids 1 1 Weight 61.859 kg Patient Weight 05/22/23 23:59 Weight 61.859 kg Laboratory Results - last 24 hr 05/21/23 08:44: Crossmatch (AHG) See Detail 05/21/23 13:41: Troponin I 0.11 H 05/21/23 18:35: Hgb 7.4 L D, Hct 21.7 L 05/22/23 09:14: WBC 7.4, RBC 2.49 L D, Hgb 7.6 L, Hct 22.4 L, MCV 90.1, MCH 30.4, MCHC 33.7, RDW 19.7 H, Plt Count 421, MPV 7.7, Neut % (Auto) 77.0, Lymph % (Auto) 17.4, [place] % (Auto) 4.2, Eos % (Auto) 0.9, Baso % (Auto) 0.5, Neut # (Auto) 5.7, Lymph # (Auto) 1.3, [place] # (Auto) 0.3, Eos # (Auto) 0.1, Baso # (Auto) 0.0, Sodium 141, Potassium 3.1 L, Chloride 108 H, Carbon Dioxide 26, Anion Gap 10.1, BUN 28 H, Creatinine 0.50 L, Estimated Creat Clear 55, Estimated GFR 124, Est GFR ( Amer) 150 D, Glucose 135 H, Calcium 8.0 L, Magnesium 1.7, Iron 22 L, TIBC 372, Iron Saturation 5.10873 L, Ferritin 5.86 L, Total Bilirubin < 0.1 L, AST 31 D, ALT 18, Alkaline Phosphatase 57, Total Protein 5.6 L, Alb
[2023-05-23] VITALS (29 sets, daily range): BP systolic 103–148; BP diastolic 46–86; PULSE 16–97; RESP 16–18; TEMP 36.3–37.4; O2SAT 96–98; BMI 23.5
--- NOTE | 2023-05-23 05:52 | PC.NURSE ---
PATIENT C/O BACK/LEG PAIN, MEDICATED TWICE THIS SHIFT WITH NORCO 7.5/325 MG AND HAS BEEN EFFECTIVE. NO REPORTS OF BLACK STOOLS THIS SHIFT. REMAINS ON DROPLET PRECAUTIONS FOR FLU. FAMILY MEMBER AT BEDSIDE.
[2023-05-23 08:11] LABS: Chloride 108 mmol/L (98-107); Potassium 3.2 mmoL/L (3.5-5.1); Sodium 140 mmol/L (136-145)
[2023-05-23 08:14] LABS: Alanine Aminotransferase 14 U/L (12-78); Albumin Level 3.1 g/dl (3.5-5.0); Albumin/Globulin Ratio 1.6 (1.1-1.8); Alkaline Phosphatase 52 U/L (38-126); Anion Gap 6.2 mEq/L (5-15); Aspartate Amino Transferase 23 U/L (14-36); Blood Urea Nitrogen 24 mg/dl (7-17); Calcium 7.8 mg/dl (8.4-10.2); Carbon Dioxide 29 mmol/L (22.0-30.0); Creatinine Clearance Estimated 55 mL/min (50-200); Estimated Glomerular Filt Rate 100 ml/min (>60); GFR (African American) 121 ML/MIN (>60); Globulin 1.9 g/dL (1.3-3.2); Glucose 111 mg/dl (74-100)
[2023-05-23 08:15] LABS: Bilirubin,Total 0.1 mg/dl (0.2-1.3); Magnesium 1.8 mg/dl (1.6-2.3)
[2023-05-23 08:22] LABS: Basophils % 0.6 % (0.1-2.0); Eosinophils # 0.1 K/mm3 (0.0-0.4); Eosinophils % 1.6 % (0.1-12.0); Lymphocytes # 1.5 K/mm3 (0.7-4.5); Lymphocytes % 24.7 % (10-50); Mean Corpuscular HGB Conc 33.7 g/dL (31.8-35.4); Mean Corpuscular Hemoglobin 31.2 pg (27.0-31.2); Mean Corpuscular Volume 92.4 fl (81-99); Mean Platelet Volume 7.6 fl (7.4-10.4); Monocytes # 0.4 K/mm3 (0.1-1.0); Monocytes % 6.1 % (1.7-9.3); Platelet Count 437 K/mm3 (142-424); Red Blood Count 2.08 M/mm3 (4.20-5.40); Red Cell Distribution Width 21.1 % (11.5-17.5); White Blood Count 5.9 K/mm3 (4.8-10.8)
[2023-05-23 08:37] LABS: Hemoglobin 6.5 g/dL (12.2-16.2)
[2023-05-23 08:38] LABS: Hematocrit 19.3 % (37.0-47.0)
--- NOTE | 2023-05-23 10:31 | EXP.ACUTE.PN ---
Subjective *Date: 05/23/23 *Time: 12:08 Interval history: Patient continues to be quite weak. Stable on room air. 1 black bowel movement yesterday. Hemoglobin down to 6.5 today. Necessitating transfusion. Denies any nausea or vomiting. Still having some mild heartburn. Medical Exam Vital signs and Labs for Last 24 Hours: Vital Signs Temp Pulse Pulse Resp BP Pulse Ox O2 Del Method 05/23/23 09:00 Room Air 05/23/23 08:00 Room Air 05/23/23 08:00 82 05/23/23 07:34 97.4 F L 80 16 118/52 L 97 Room Air 05/23/23 06:30 Room Air 05/23/23 05:00 Room Air 05/23/23 04:00 75 05/23/23 04:00 98.2 F 79 16 104/54 L 97 Room Air 05/23/23 02:55 Room Air 05/23/23 00:48 Room Air 05/23/23 00:00 78 05/23/23 00:00 98 F 82 16 103/49 L 96 Room Air 05/22/23 23:00 Room Air 05/22/23 21:00 Room Air 05/22/23 20:00 97 Room Air 05/22/23 20:00 109 H 05/22/23 19:59 98.2 F 101 H 16 134/61 97 Room Air 05/22/23 16:36 Room Air 05/22/23 16:35 Room Air 05/22/23 16:00 89 05/22/23 16:00 98.5 F 91 H 17 126/61 97 Room Air 05/22/23 12:00 80 05/22/23 12:00 98.2 F 93 H 19 130/62 98 Room Air 05/22/23 10:40 97.7 F 98 H 18 153/69 H 98 Room Air 05/22/23 10:52 Room Air Intake and Output 05/22/23 05/23/23 05/23/23 23:59 07:59 15:59 Intake Total 270 / 970 240 / 510 270 / 510 Output Total 1 / 0 / 0 Balance 269 / 969 240 / 510 270 / 510 Intake: Intake, Oral Amount 270 / 870 240 / 510 270 / 510 Output: Output, Urine Amount / 1 0 / 0 Other: Number of Voids 1 0 Number of Unmeasured Voids 1 Weight 62.505 kg Patient Weight 05/23/23 23:59 Weight 62.505 kg Laboratory Results - last 24 hr 05/22/23 09:14: Iron 22 L, TIBC 372, Iron Saturation 5.13701 L, Ferritin 5.86 L 05/23/23 07:29: WBC 5.9, RBC 2.08 L, Hgb 6.5 L*, Hct 19.3 L*, MCV 92.4, MCH 31.2, MCHC 33.7, RDW 21.1 H, Plt Count 437 H, MPV 7.6, Neut % (Auto) 67.0, Lymph % (Auto) 24.7, [place] % (Auto) 6.1, Eos % (Auto) 1.6, Baso % (Auto) 0.6, Neut # (Auto) 4.0, Lymph # (Auto) 1.5, [place] # (Auto) 0.4, Eos # (Auto) 0.1, Baso # (Auto) 0.0, Sodium 140, Potassium 3.2 L, Chloride 108 H, Carbon Dioxide 29, Anion Gap 6.2, BUN 24 H, Creatinine 0.60, Estimated Creat Clear 55, Estimated GFR 100, Est GFR ( Amer) 121, Glucose 111 H, Calcium 7.8 L, Magnesium 1.8, Total Bilirubin 0.1 L, AST 23 D, ALT 14, Alkaline Phosphatase 52, Total Protein 5.0 L, Albumin 3.1 L D, Globulin 1.9, Albumin/Globulin Ratio 1.6 I & O for Labs for Last 24 Hours: Intake & Output 05/20/23 05/21/23 05/22/23 05/23/23 23:59 23:59 23:59 23:59 Intake Total 731 / 731 730 / 970 510 / 510 Output Total 2 / 2 0 / 0 Balance 729 / 729 729 / 969 510 / 510 Weight 62.681 kg 61.859 kg 62.505 kg Constitutional: Present no acute distress, average body habitus and chronically ill appearing Head: Present atraumatic and normocephalic ENT: Present normal exam Neck: Present normal inspection Respiratory: Present normal respiratory effort; Absent rhonchi, wheezes or crackles Cardiac: Present Reg Rate and Rhythm GI: Present soft, tenderness (mild epigastric) and normal bowel sounds; Absent distention Extremities: Present normal inspection and full ROM Skin: Present intact; Absent erythema Neuro: Present Grossly Intact, alert, awake, oriented x 3 and moves all extremities Assessment and Plan *Assessment and plan (1) Anemia: Status: Acute Qualifiers: Anemia type: iron deficiency Iron deficiency anemia type: chronic blood loss Qualified Code(s): D50.0 - Iron deficiency anemia secondary to blood loss (chronic) Category: Medical Code(s): D64.9 - Anemia, unspecified (2) Peptic ulcer disease: Status: Acute Category: Medical Code(s): K27.9 - Peptic ulcer, site unspecified, unspecified as acute or chronic, wi
--- NOTE | 2023-05-23 10:34 | EXP.SURG.PN ---
Subjective Narrative: She feels a little weak this morning . Exam Data for Last 24 hours Vital signs and Labs for Last 24 Hours: Temp Pulse Resp BP Pulse Ox O2 Del Method O2 Flow Rate 97.4 F L 82 16 118/52 L 97 Room Air 5 05/23/23 07:34 05/23/23 08:00 05/23/23 07:34 05/23/23 07:34 05/23/23 07:34 05/23/23 09:00 05/22/23 07:07 Laboratory Results - last 24 hr 05/22/23 09:14: Ferritin 5.86 L 05/23/23 07:29: WBC 5.9, RBC 2.08 L, Hgb 6.5 L*, Hct 19.3 L*, MCV 92.4, MCH 31.2, MCHC 33.7, RDW 21.1 H, Plt Count 437 H, MPV 7.6, Neut % (Auto) 67.0, Lymph % (Auto) 24.7, [place] % (Auto) 6.1, Eos % (Auto) 1.6, Baso % (Auto) 0.6, Neut # (Auto) 4.0, Lymph # (Auto) 1.5, [place] # (Auto) 0.4, Eos # (Auto) 0.1, Baso # (Auto) 0.0, Sodium 140, Potassium 3.2 L, Chloride 108 H, Carbon Dioxide 29, Anion Gap 6.2, BUN 24 H, Creatinine 0.60, Estimated Creat Clear 55, Estimated GFR 100, Est GFR ( Amer) 121, Glucose 111 H, Calcium 7.8 L, Magnesium 1.8, Total Bilirubin 0.1 L, AST 23 D, ALT 14, Alkaline Phosphatase 52, Total Protein 5.0 L, Albumin 3.1 L D, Globulin 1.9, Albumin/Globulin Ratio 1.6 I & O for Last 24 hours: Intake & Output 05/20/23 05/21/23 05/22/23 05/23/23 11:59 11:59 11:59 11:59 Intake Total 251 / 251 480 / 480 1240 / 1240 Output Total 2 / 2 Balance 251 / 251 478 / 478 1239 / 1239 Weight 136 lb 136 lb 6 oz 137 lb 12.8 oz Constitutional Constitutional: no acute distress *Routine Respiratory Exam Respiratory: Absent respiratory distress *Routine Cardiovascular Exam Cardiovascular: Absent tachycardia Progress Note: A&P Assessment and plan (1) Peptic ulcer disease: Status: Acute Assessment and plan: Continue PPI/Carafate Begin Cytotec (2) Acute GI bleeding: Status: Acute Assessment and plan: Hemoglobin 6.5 this morning. No active bleeding noted per EGD yesterday. May have some continued/recurrent active loss however, equilibration likely continuing. Continue medical management for now Transfuse as per primary service NPO after midnight for possible repeat EGD in a.m. (3) Melena: Status: Acute
[2023-05-23 21:14] LABS: Hematocrit 28.8 % (37.0-47.0)
[2023-05-24] VITALS: PULSE 77
[2023-05-24 04:00] VITALS: BP 125/60; PULSE 70; PULSE 75; RESP 17; TEMP 36.7; O2SAT 96; BMI 24.0
--- NOTE | 2023-05-24 06:03 | PC.NURSE ---
PATIENT HAS BEEN NPO SINCE MIDNIGHT FOR POSSIBLE EGD THIS AM. CONSENT SIGNED. MEDICATED TWICE THIS SHIFT WITH NORCO 7.5/325MG FOR BACK PAIN 02/02 WHICH WAS EFFECTIVE. NO REPORTS OF N/V/DIARRHEA THIS SHIFT.FAMILY MEMBER AT BED SIDE.
[2023-05-24 07:39] VITALS: BP 148/72; PULSE 82; RESP 17; TEMP 36.9; O2SAT 97
[2023-05-24 07:43] LABS: Basophils # 0.1 K/mm3 (0-0.2); Basophils % 0.8 % (0.1-2.0); Eosinophils # 0.1 K/mm3 (0.0-0.4); Eosinophils % 1.8 % (0.1-12.0); Hematocrit 29.4 % (37.0-47.0); Hemoglobin 9.9 g/dL (12.2-16.2); Lymphocytes # 1.6 K/mm3 (0.7-4.5); Lymphocytes % 23.5 % (10-50); Mean Corpuscular HGB Conc 33.6 g/dL (31.8-35.4); Mean Corpuscular Hemoglobin 30.1 pg (27.0-31.2); Mean Corpuscular Volume 89.5 fl (81-99); Mean Platelet Volume 7.5 fl (7.4-10.4); Monocytes # 0.5 K/mm3 (0.1-1.0); Monocytes % 7.4 % (1.7-9.3); Neutrophils # 4.4 K/mm3 (1.8-7.8); Neutrophils % 66.5 % (37.0-80.0); Platelet Count 446 K/mm3 (142-424); Red Blood Count 3.29 M/mm3 (4.20-5.40); Red Cell Distribution Width 18.8 % (11.5-17.5); White Blood Count 6.6 K/mm3 (4.8-10.8)
[2023-05-24 07:45] LABS: Chloride 109 mmol/L (98-107); Potassium 3.3 mmoL/L (3.5-5.1); Sodium 141 mmol/L (136-145)
[2023-05-24 07:47] LABS: Alanine Aminotransferase 16 U/L (12-78); Aspartate Amino Transferase 24 U/L (14-36); Blood Urea Nitrogen 20 mg/dl (7-17); Creatinine Clearance Estimated 57 mL/min (50-200); Estimated Glomerular Filt Rate 100 ml/min (>60); GFR (African American) 121 ML/MIN (>60)
[2023-05-24 07:48] LABS: Albumin Level 3.2 g/dl (3.5-5.0); Albumin/Globulin Ratio 1.5 (1.1-1.8); Alkaline Phosphatase 57 U/L (38-126); Anion Gap 7.3 mEq/L (5-15); Bilirubin,Total 0.2 mg/dl (0.2-1.3); Calcium 7.8 mg/dl (8.4-10.2); Carbon Dioxide 28 mmol/L (22.0-30.0); Globulin 2.1 g/dL (1.3-3.2); Glucose 112 mg/dl (74-100); Total Protein,Serum 5.3 g/dl (6.3-8.2)
--- NOTE | 2023-05-24 07:57 | EXP.DC.SUM ---
General Admission date:: 05/21/23 Discharge date: 05/24/23 HPI HPI HPI: Mrs. Foster is a 67-year-old female with a recent heart cath 6 weeks ago, CAD, on DAPT therapy. Has a history of hypertension, breast cancer now in remission. She presented to the ER with complaint of generalized weakness and palpitations for the past 2 to 3 days. Notes that this past weekend she had a GI illness with diarrhea and nausea and vomiting. Diarrhea was black tarry stool. For follow-up but better until Thursday when she was diagnosed with flu and is just felt weak since. Outside Tamiflu window so this medication was not resumed. Presented today due to persistent fatigue. Noted to have tachycardia with heart rate greater than 100. Labs upon work-up with white cell count of 7.5, hemoglobin 5.8, platelet count 449. BUN elevated disproportionately to creatinine. Given anemia and recent black stools along with elevated BUN, concern for GI bleed. CT obtained of the abdomen showing some mild to moderate biliary ductal dilatation. Liver enzymes normal however on labs. Gallbladder wall thickening but no right upper quadrant pain on exam. ER discussed case with cardiology and surgery who recommended admission for further management. ER consulted medicine for admission. After arriving to the floor, patient is stable on room air. Complains of some mild cough and fatigue but no oxygen requirement or productive cough. No further nausea vomiting or diarrhea since this weekend. Has received both her units of blood. Awaiting post H&H. Afebrile. Hospital Course Hospital Course Hospital Course: Ms. Foster is a 67-year-old female who presented with weakness after having melenic stools this past weekend. Found to be profoundly anemic with NSTEMI. Concern for upper GI bleed. Surgery was consulted along with cardiology, recommend admission for further management. Discussed case with ER physician, request admission for transfusion, possible EGD, further management. Medicine agreed to admit to inpatient care for treatment of suspected upper GI bleed with blood loss anemia. Transfused 4 units during hospitalization. Hemoglobin is remained stable for the last 24 hours after transfusion. Stable for discharge home. Close follow-up with cardiology already scheduled for tomorrow. Problems addressed during hospitalization as follows: Upper GI bleed Melena GERD Acute blood loss anemia -Patient presented with hemoglobin of 5.8. Recently had heart cath 6 weeks ago and was started on dual antiplatelet therapy with aspirin and Effient. Had episode of black bowel movements that were loose few days before presentation. Feeling quite fatigued. Anticoagulants were stopped and patient was transfused 2 units. She responded well with an increase to hemoglobin in the mid 7 range. Was taken for an EGD with surgery who was consulted to assist with care. EGD identified peptic ulcer disease. See report for full details. Started on pantoprazole on admission, advance to misoprostol and sucralfate to help with healing and ease irritation. Hemoglobin dropped again to 6.5 with only 1 dark bowel movement during remainder of hospitalization. Was transfused 2 more units with improvement to hemoglobin of 10. Stable at 9.9 on morning of discharge. Patient has close follow-up tomorrow, recommend repeat H&H in the morning. Continue PPI twice daily for 2 weeks then once daily thereafter, continue Carafate for a total of 2 weeks, continue Cytotec for 2 more weeks to 100 mg twice daily. Threshold for transfusion is hemoglobin less than 7. Received 1 dose of Venofer 220 mg IV during admission. Did not initiate iron therapy on discharge as I did not want to cloud the picture of if she is having further bleeding by causing dark stools with p.o. iron. Iron levels during admission showed that she is very low. Low ferritin and iron levels. 5.8 and 22 respectively. Would benefit from consideration for ir
[2023-05-24 08:00] VITALS: PULSE 72
--- NOTE | 2023-05-24 09:35 | EXP.SURG.PN ---
Subjective Patient reports: no new complaints and feels better Narrative: Feels stronger after blood transfusion yesterday. Exam Data for Last 24 hours Vital signs and Labs for Last 24 Hours: Temp Pulse Resp BP Pulse Ox O2 Del Method O2 Flow Rate 98.5 F 72 17 148/72 H 97 Room Air 5 05/24/23 07:39 05/24/23 08:00 05/24/23 07:39 05/24/23 07:39 05/24/23 07:39 05/24/23 07:39 05/22/23 07:07 Laboratory Results - last 24 hr 05/21/23 08:44: Blood Type O Positive, Antibody Screen Negative, Crossmatch (AHG) See Detail 05/23/23 21:05: Hgb 10.0 L D, Hct 28.8 L 05/24/23 07:12: WBC 6.6, RBC 3.29 L D, Hgb 9.9 L, Hct 29.4 L, MCV 89.5, MCH 30.1, MCHC 33.6, RDW 18.8 H, Plt Count 446 H, MPV 7.5, Neut % (Auto) 66.5, Lymph % (Auto) 23.5, [place] % (Auto) 7.4, Eos % (Auto) 1.8, Baso % (Auto) 0.8, Neut # (Auto) 4.4, Lymph # (Auto) 1.6, [place] # (Auto) 0.5, Eos # (Auto) 0.1, Baso # (Auto) 0.1, Sodium 141, Potassium 3.3 L, Chloride 109 H, Carbon Dioxide 28, Anion Gap 7.3, BUN 20 H, Creatinine 0.60, Estimated Creat Clear 57, Estimated GFR 100, Est GFR ( Amer) 121, Glucose 112 H, Calcium 7.8 L, Total Bilirubin 0.2, AST 24, ALT 16, Alkaline Phosphatase 57, Total Protein 5.3 L, Albumin 3.2 L, Globulin 2.1, Albumin/Globulin Ratio 1.5 I & O for Last 24 hours: Intake & Output 05/21/23 05/22/23 05/23/23 05/24/23 11:59 11:59 11:59 11:59 Intake Total 251 / 251 480 / 480 1240 / 1240 1610 / 1610 Output Total 2 / 2 804 / 804 Balance 251 / 251 478 / 478 1239 / 1239 806 / 806 Weight 136 lb 136 lb 6 oz 137 lb 12.8 oz 141 lb Constitutional Constitutional: no acute distress *Routine Respiratory Exam Respiratory: Absent respiratory distress *Routine Cardiovascular Exam Cardiovascular: Absent tachycardia Progress Note: A&P Assessment and plan (1) Acute GI bleeding: Status: Acute Assessment and plan: Hemoglobin 9.9 ([id number] response to 2 unit transfusion yesterday) this morning. No active bleeding noted per EGD yesterday. No evidence of ongoing blood loss Continue medical management for now Resume diet (2) Peptic ulcer disease: Status: Acute Assessment and plan: Continue PPI/Carafate/Cytotec
--- NOTE | 2023-05-25 16:46 | CARE MANAGER ---
Contacted patient related to hospital discharge. She states she is still tired, but feeling better. She has follow up appointment scheduled with cardiology, but plans on calling Dr. Alcantara's office tomorrow to schedule. She denies questions or concerns and has her new medications. LILIAN Harvey
== END 2023-05-24 10:00 | disposition home or self-care (01) | DRG 377 ==
LOC: ER 11:41 → 2ND 13:45
PROVIDERS: Surgery; Admitting Provider Internal Medicine Adolescent Medicine; Emergency Provider Emergency Medicine; PCP Physician Assistant; Visit Provider Internal Medicine Adolescent Medicine
PROC: 0DJ08ZZ Inspection of Upper Intestinal Tract, Via Natural or Artificial Opening Endoscopic (ICD-10-PCS; CPT 43235; principal; 2023-05-22 07:00)
DX: K26.4 Chronic or unspecified duodenal ulcer with hemorrhage (principal); I21.A1 Myocardial infarction type 2; K21.01 Gastro-esophageal reflux disease with esophagitis, with bleeding; D62 Acute posthemorrhagic anemia; J11.1 Influenza due to unidentified influenza virus with other respiratory manifestations; I25.10 Atherosclerotic heart disease of native coronary artery without angina pectoris; F32.9 Major depressive disorder, single episode, unspecified; I10 Essential (primary) hypertension; Z95.5 Presence of coronary angioplasty implant and graft; G89.29 Other chronic pain; K52.9 Noninfective gastroenteritis and colitis, unspecified; K25.4 Chronic or unspecified gastric ulcer with hemorrhage
CPT/HCPCS: 43239; 36415; 71045; 71275; 74174; 80053; 82728; 83540; 83550; 83615; 83735; 84484; 85014; 85018; 85025; 85044; 86850; 87804; 88305; 93005; 93306; 99291; J1756; J2405; P9016; Q9967

== ENCOUNTER → 2023-05-25 10:15 | Outpatient (CLI) | payer MEDICARE, SELFPAY ==
[2023-05-25 13:28] LABS: Hematocrit 31.3 % (37.0-47.0); Hemoglobin 10.7 g/dL (12.2-16.2)
== END ==
PROVIDERS: PCP Physician Assistant; Visit Provider Internal Medicine Adolescent Medicine
DX: E83.51 Hypocalcemia (principal); E83.42 Hypomagnesemia
CPT/HCPCS: 85014; 85018

== ENCOUNTER → 2023-06-02 10:04 | Outpatient (CLI) | payer MEDICARE, SELFPAY ==
[2023-06-02 10:38] LABS: Basophils # 0.1 K/mm3 (0-0.2); Basophils % 1.5 % (0.1-2.0); Eosinophils # 0.2 K/mm3 (0.0-0.4); Hematocrit 34.3 % (37.0-47.0); Hemoglobin 11.3 g/dL (12.2-16.2); Lymphocytes # 1.4 K/mm3 (0.7-4.5); Lymphocytes % 28.8 % (10-50); Mean Corpuscular HGB Conc 33.1 g/dL (31.8-35.4); Mean Corpuscular Hemoglobin 29.4 pg (27.0-31.2); Mean Corpuscular Volume 89.1 fl (81-99); Mean Platelet Volume 7.1 fl (7.4-10.4); Monocytes # 0.3 K/mm3 (0.1-1.0); Monocytes % 6.6 % (1.7-9.3); Neutrophils % 59.1 % (37.0-80.0); Red Blood Count 3.85 M/mm3 (4.20-5.40); Red Cell Distribution Width 16.2 % (11.5-17.5)
[2023-06-02 10:45] LABS: Platelet Count 630 K/mm3 (142-424)
== END ==
PROVIDERS: PCP Physician Assistant; Visit Provider Internal Medicine
DX: D64.9 Anemia, unspecified (principal); I10 Essential (primary) hypertension; I25.10 Atherosclerotic heart disease of native coronary artery without angina pectoris; K27.9 Peptic ulcer, site unspecified, unspecified as acute or chronic, without hemorrhage or perforation; K92.1 Melena
CPT/HCPCS: 36415; 85025

== ENCOUNTER → 2023-06-23 10:13 | Outpatient (CLI) | payer MEDICARE, SELFPAY ==
[2023-06-23 10:36] LABS: Basophils # 0.1 K/mm3 (0-0.2); Basophils % 0.8 % (0.1-2.0); Eosinophils # 0.2 K/mm3 (0.0-0.4); Eosinophils % 2.6 % (0.1-12.0); Hematocrit 35.8 % (37.0-47.0); Hemoglobin 11.2 g/dL (12.2-16.2); Lymphocytes # 1.3 K/mm3 (0.7-4.5); Lymphocytes % 17.9 % (10-50); Mean Corpuscular HGB Conc 31.3 g/dL (31.8-35.4); Mean Corpuscular Hemoglobin 28.4 pg (27.0-31.2); Mean Corpuscular Volume 90.9 fl (81-99); Mean Platelet Volume 7.2 fl (7.4-10.4); Monocytes # 0.3 K/mm3 (0.1-1.0); Monocytes % 4.5 % (1.7-9.3); Neutrophils # 5.3 K/mm3 (1.8-7.8); Neutrophils % 74.2 % (37.0-80.0); Platelet Count 553 K/mm3 (142-424); Red Blood Count 3.94 M/mm3 (4.20-5.40); Red Cell Distribution Width 16.2 % (11.5-17.5); White Blood Count 7.1 K/mm3 (4.8-10.8)
[2023-06-23 10:56] LABS: Chloride 109 mmol/L (98-107)
[2023-06-23 10:57] LABS: Potassium 3.5 mmoL/L (3.5-5.1); Sodium 143 mmol/L (136-145)
[2023-06-23 10:59] LABS: Blood Urea Nitrogen 19 mg/dl (7-17); Estimated Glomerular Filt Rate 84 ml/min (>60); GFR (African American) 102 ML/MIN (>60)
[2023-06-23 11:00] LABS: Alanine Aminotransferase 17 U/L (12-78); Albumin Level 4.2 g/dl (3.5-5.0); Alkaline Phosphatase 109 U/L (38-126); Anion Gap 11.5 mEq/L (5-15); Aspartate Amino Transferase 24 U/L (14-36); Bilirubin,Direct 0.3 mg/dl (0.0-0.4); Bilirubin,Total 0.3 mg/dl (0.2-1.3); Calcium 8.7 mg/dl (8.4-10.2); Carbon Dioxide 26 mmol/L (22.0-30.0); Glucose 86 mg/dl (74-100); Magnesium 1.9 mg/dl (1.6-2.3); Total Protein,Serum 6.3 g/dl (6.3-8.2)
== END ==
PROVIDERS: PCP Physician Assistant; Visit Provider Nurse Practitioner Family
DX: I10 Essential (primary) hypertension (principal); I25.10 Atherosclerotic heart disease of native coronary artery without angina pectoris
CPT/HCPCS: 36415; 80048; 80076; 83735; 85025

== ENCOUNTER → 2023-07-08 14:26 | Outpatient (CLI) | payer MEDICARE, SELFPAY ==
[2023-07-08 12:15] LABS: Benzodiazepines Screen,Urine Negative ng/ml (<200)
[2023-07-08 12:16] LABS: Amphetamine/Metha Screen,Urine Negative ng/ml (<1000)
[2023-07-08 12:17] LABS: Barbiturates Screen,Urine Negative ng/ml (<200); Methadone Screen,Urine Negative ng/ml (<300)
[2023-07-08 12:18] LABS: Cannabinoid Screen,Urine Negative ng/ml (<50); Cocaine Screen,Urine Negative ng/ml (<300)
[2023-07-08 12:20] LABS: Opiate Screen,Urine Positive ng/ml (<300); Phencyclidine Screen,Urine Negative ng/ml (<25)
== END ==
PROVIDERS: PCP Physician Assistant; Visit Provider Physician Assistant
DX: M47.816 Spondylosis without myelopathy or radiculopathy, lumbar region (principal)
CPT/HCPCS: 80305

== ENCOUNTER 2023-07-14 09:57 | Day surgery (SDC) | payer MEDICARE, SELFPAY ==
[2023-07-13 10:10] VITALS: BMI 22.6
[2023-07-14 10:13] VITALS: BP 205/102; PULSE 95; RESP 17; TEMP 36.2; O2SAT 98
--- NOTE | 2023-07-14 10:18 | HMH.SCOPE ---
Procedure: Date: 07/14/23 Patient Date of :: 1955 Procedure Performed:: Esophagogastroduodenoscopy with biopsy Indications:: Peptic ulcer disease Esophagogastroduodenoscopy in April 2023 revealed a cluster of antral/prepyloric region ulcerations and a shallow duodenal bulb ulceration. She was also found to have a moderate to large sliding hiatal hernia. Performing Provider:: Rachid Alcantara MD Referring Provider:: . Sedation:: Monitored anesthesia care Procedure:: After informed consent was obtained the patient was taken to the endoscopy suite. Sedation ensued after the patient was transferred to the left lateral decubitus position. Pulse, blood pressure, and oxygen saturation were monitored throughout the procedure. The endoscope was advanced beyond the duodenal bulb. Retroflexion within the gastric lumen was accomplished. The gastroscope was carefully removed and the patient was transferred to recovery in stable condition. Please see findings and specimens below for detail. Findings:: Gastroesophageal unction 37 cm Mild/early Schatzki ring Sliding hiatal hernia not as prominently visible most likely secondary to lack of full distention Antral/prepyloric ulcerations slightly improved Shallow duodenal bulb/sweep ulceration essentially unchanged Specimens:: Antral biopsy Recommendations:: Follow-up pathology Continue PPI/Cytotec Add Carafate Likely repeat EGD in 6-8 weeks Complications:: No immediate Estimated blood obtained (mL): 1 Colonoscopy Component Colonoscopy Component Was a colonoscopy performed during today's procedure?: No
--- NOTE | 2023-07-14 10:28 | EXP.ANES.CKL ---
[facility] Disclaimer: The information contained in this section may have been updated after the patient was seen, as this information can be updated by other users. Medical History Bladder prolapse Breast cancer GERD (gastroesophageal reflux disease) History of pituitary adenoma History of sleep study Negative for BRYAN 11/03/22 HTN (hypertension) Major depressive disorder Pelvic organ prolapse quantification stage 3 cystocele Surgical History History of appendectomy History of back surgery History of cardiac cath History of carpal tunnel surgery History of elbow surgery History of hammer toe correction History of LAVH History of lumpectomy History of shoulder surgery Family History Father Heart attack Cancer Mother Diabetes Sister Diabetes Hypertension Social History Smoking Status: Never smoker alcohol intake: never substance use type: denies use current occupational status: disabled Travel in the last 8 weeks: None household members: spouse housing: house current occupational exposures/hazards: No caffeine: Yes [facility] Anesthesia Checklist Patient Identification Patient Identification: Arm Band Structural Data Admitted From: Home Planned Operative Procedure/s: EGD Consent for Planned Operative Procedure(s) Verified: Yes Verified Documents: Surgical Consent and History and Physical NPO Status Verified Time NPO: 00:00 Additional verifications Anesthesia Reactions: No Airway Assessment Mallampati Score:: Class II C-Spine Mobility Assessed: Yes TMJ Mobility Assessed: Yes Dentition: Good Dentition Neurological Assessment Level of Consciousness: Awake and Alert Anesthesia Plan Anesthesia Risk discussed: Yes Anesthesia Plan: Verified ASA Class: III Anesthesia Type: MAC
[2023-07-14 10:43] VITALS: BP 144/68; PULSE 87; RESP 14; TEMP 36.2; O2SAT 98
[2023-07-14 10:53] VITALS: BP 125/54; PULSE 98; RESP 16; O2SAT 98
[2023-07-14 11:03] VITALS: BP 147/76; PULSE 92; RESP 16; O2SAT 98
[2023-07-14 11:16] VITALS: BP 177/85; PULSE 83; RESP 16; TEMP 36.6; O2SAT 98
== END 2023-07-14 11:20 | disposition home or self-care (01) ==
PROVIDERS: PCP Physician Assistant; Visit Provider Surgery
PROC: 0DJ08ZZ Inspection of Upper Intestinal Tract, Via Natural or Artificial Opening Endoscopic (ICD-10-PCS; CPT 43235; principal; 2023-07-14 11:00)
DX: K27.9 Peptic ulcer, site unspecified, unspecified as acute or chronic, without hemorrhage or perforation (principal); K22.2 Esophageal obstruction; K44.9 Diaphragmatic hernia without obstruction or gangrene; K31.9 Disease of stomach and duodenum, unspecified
CPT/HCPCS: 43239; 88305

== ENCOUNTER 2023-08-18 08:55 | Outpatient (CLI) | payer MEDICARE, SELFPAY ==
[2023-08-18 09:20] LABS: Basophils # 0.1 K/mm3 (0-0.2); Basophils % 1.7 % (0.1-2.0); Eosinophils # 0.1 K/mm3 (0.0-0.4); Eosinophils % 1.3 % (0.1-12.0); Hematocrit 25.4 % (37.0-47.0); Lymphocytes # 1.2 K/mm3 (0.7-4.5); Lymphocytes % 27.3 % (10-50); Mean Corpuscular HGB Conc 31.5 g/dL (31.8-35.4); Mean Corpuscular Hemoglobin 27.9 pg (27.0-31.2); Mean Corpuscular Volume 88.6 fl (81-99); Mean Platelet Volume 7.6 fl (7.4-10.4); Monocytes # 0.2 K/mm3 (0.1-1.0); Monocytes % 5.7 % (1.7-9.3); Neutrophils # 2.7 K/mm3 (1.8-7.8); Platelet Count 492 K/mm3 (142-424); Red Blood Count 2.87 M/mm3 (4.20-5.40); White Blood Count 4.3 K/mm3 (4.8-10.8)
[2023-08-18 09:44] LABS: Chloride 109 mmol/L (98-107)
[2023-08-18 09:45] LABS: Sodium 140 mmol/L (136-145)
[2023-08-18 09:46] LABS: Potassium 3.5 mmoL/L (3.5-5.1)
[2023-08-18 09:48] LABS: Alanine Aminotransferase 19 U/L (12-78); Albumin Level 3.7 g/dl (3.5-5.0); Alkaline Phosphatase 98 U/L (38-126); Anion Gap 9.5 mEq/L (5-15); Aspartate Amino Transferase 26 U/L (14-36); Bilirubin,Total 0.3 mg/dl (0.2-1.3); Blood Urea Nitrogen 17 mg/dl (7-17); Calcium 8.5 mg/dl (8.4-10.2); Carbon Dioxide 25 mmol/L (22.0-30.0); Cholesterol 111 mg/dl (140-200); Estimated Glomerular Filt Rate 100 ml/min (>60); GFR (African American) 121 ML/MIN (>60); Glucose 121 mg/dl (74-100); Total Protein,Serum 5.8 g/dl (6.3-8.2); Triglycerides 105 mg/dl (30-150); VLDL Cholesterol 21 mg/dL (0-40)
[2023-08-18 09:49] LABS: Chol/HDL Ratio 2.8 (1-3.5); HDL Cholesterol 39 mg/dl (40-60); Magnesium 1.8 mg/dl (1.6-2.3)
[2023-08-18 10:07] LABS: Free T4 (Free Thyroxine) 1.42 ng/dl (0.78-2.19)
[2023-08-18 10:20] LABS: Thyroid Stimulating Hormone 0.62 uIU/mL (0.465-4.68)
[2023-08-18 11:34] LABS: Bilirubin,Direct 0.1 mg/dl (0.0-0.4); Bilirubin,Indirect 0.1 mg/dL (0.0-0.9); Bilirubin,Unconjugated 0.1 mg/dL (0.0-1.1)
== END 2023-08-18 23:59 ==
LOC: LAB 08:56
PROVIDERS: PCP Physician Assistant; Visit Provider Internal Medicine
DX: D50.0 Iron deficiency anemia secondary to blood loss (chronic) (principal); I11.9 Hypertensive heart disease without heart failure; I25.10 Atherosclerotic heart disease of native coronary artery without angina pectoris; F32.9 Major depressive disorder, single episode, unspecified
CPT/HCPCS: 36415; 80048; 80061; 80076; 83735; 84439; 84443; 85025

== ENCOUNTER 2023-08-20 10:35 | Emergency (ER) | payer MEDICARE, SELFPAY ==
[2023-08-20] VITALS (10 sets, daily range): BP systolic 163–209; BP diastolic 78–117; PULSE 99–124; RESP 13–23; TEMP 36.6–36.7; O2SAT 96–99; BMI 22.1
--- NOTE | 2023-08-20 10:47 | PC.NURSE ---
PT WAS SENT OVER FROM CARDIOLOGY EKG WAS DONE AT OFFICE ER MD SEEN IT STATED HE WAS OKAY WITH THAT EKG, MARIELENA CALLED AND SPOKE WITH CHARGE NURSE(RONAK)
--- NOTE | 2023-08-20 11:25 | [facility].EDGENADL ---
Discharge Plan Disposition Patient Disposition: Home, Self-Care Condition: Good Prescriptions Prescriptions: No Action spironolactone [Aldactone] 50 mg tablet 50 mg PO DAILY Qty: 30 5RF misoprostol 200 mcg tablet 200 mcg PO BID 14 Days Qty: 28 0RF pantoprazole 40 mg tablet,delayed release (DR/EC) 40 mg PO BID 30 Days Qty: 60 12RF carvedilol 25 mg tablet 50 mg PO BID Qty: 120 5RF clopidogrel 75 mg tablet 75 mg PO DAILY 90 Days Qty: 90 0RF hydrocodone-acetaminophen 7.5-325 mg tablet 1 tab PO QID Qty: 120 0RF sucralfate [Carafate] 1 gram tablet 1 g PO BID Qty: 60 2RF lisinopril 20 mg tablet 20 mg PO DAILY amlodipine 10 mg tablet 10 mg PO DAILY lisinopril-hydrochlorothiazide 20-25 mg tablet 1 tab PO DAILY ergocalciferol (vitamin D2) 1,250 mcg (50,000 unit) capsule 1,250 mcg PO WEEKLY cholecalciferol (vitamin D3) 50 mcg (2,000 unit) capsule 50 mcg PO DAILY atorvastatin [Lipitor] 40 mg tablet 40 mg PO DAILY ondansetron HCl 4 mg tablet 4 mg PO Q8HP PRN (Reason: Nausea And Vomiting) Referrals Follow up/Referrals: Bev Eckert PA [Primary Care Provider] - See instructions Activity Restrictions/Add. Instructions Additional Instructions/Restrictions: You were evaluated in the emergency department today. At this time, your blood counts are stable. You have sludge in your gallbladder, but no evidence of acute infection. Please follow-up closely with Dr. Alcantara. I recommend calling his clinic in the morning to be seen in the morning. Take your pantoprazole twice a day. Take your sucralfate at home as well. Return to the emergency department for new or worsening symptoms. Follow-up with your primary care provider for reassessment of your potassium. Clinical Impressions Clinical Impression: Melena, Biliary sludge, Acute hypokalemia Instructions Patient Instructions: DI for Hypokalemia, DI for Gastrointestinal Bleeding Discharge ED Provider: Chanel Stewart General Adult HPI <Stephan Callaway MD - Last Filed: 08/20/23 16:02> General Chief complaint: GI Bleed Stated complaint: high heart rate anemia Time Seen by Provider: 08/20/23 10:38 Mode of Arrival: Ambulatory Source of Information: Patient Limitations: No Limitations Description of Symptoms (Recalled from ER Triage Doc. by RN): 67 yo F presents to ED from cardiology office for further workup. pt was being seen for high blood pressure. pt reports symptoms ongoing for the past several days. nausea, weakness associated. pt had labs drawn and cardiology notes hemoglobin low. History of Present Illness HPI narrative: 67-year-old female with history of hypertension, coronary, upper GI bleed secondary to peptic ulcer she is currently treating with Carafate and Protonix presenting with abdominal pain and dark stools. Patient states that she has had worsening dark stools and abdominal pain over the last 3 to 4 days. Nausea without vomiting. She states that since that time, she has also had shortness of breath and generalized weakness with minimal exertion. Yesterday, 08/19, she developed looser, dark, tarry stools concerning for GI bleed she had in the past. Not currently on anticoagulation. Related Data Home Medications Medication Instructions Recorded Confirmed amlodipine 10 mg tablet 10 mg PO DAILY High Blood Pressure 04/01/23 08/20/23 cholecalciferol (vitamin D3) 50 50 mcg PO DAILY Supplement 04/01/23 08/20/23 mcg (2,000 unit) capsule ergocalciferol (vitamin D2) 1,250 1,250 mcg PO WEEKLY Supplement 04/01/23 08/20/23 mcg (50,000 unit) capsule lisinopril 20 mg tablet 20 mg PO DAILY High Blood Pressure 04/01/23 08/20/23 lisinopril 20 1 tab PO DAILY High Blood Pressure 04/01/23 08/20/23 mg-hydrochlorothiazide 25 mg tablet atorvastatin 40 mg tablet (Lipitor) 40 mg PO DAILY Cholesterol 05/21/23 08/20/23 ondansetron HCl 4 mg tablet 4 mg PO Q8HP PRN Nausea And 05/21/23 08/20/23 Vomiting Previous Rx's Medication Instructions Recorded carvedilol 25 mg tablet 50 mg PO BID High Blood Pressure 06/02/23 #120 tabs misoprostol 200 mcg tablet 200 mcg PO BID 14 days #28 tabs 06/03/23 pantoprazole 40 mg tablet,delayed 40 mg PO BID 30 days #60 tabs 06/03/23 release clopidogrel 75 mg tablet 75 mg PO DAILY 90 days #90 tabs 06/16/23 spironolactone 50 mg tablet 50 mg PO DAILY #30 tabs 07/28/23 (Aldactone) hydrocodone 7.5 mg-acetaminophen 1 tab PO QID Pain #120 tabs 08/03/23 325 mg tablet sucralfate 1 gram tablet (Carafate) 1 g PO BID #60 tabs 08/12/23 Allergies Allergy/AdvReac Type Severity Reaction Status Date / Time cefdinir [From Omnicef] Allergy Intermediate racing Verified 08/20/23 10:52 heart amoxicillin [AMOXICILLIN] Allergy Unknown I-RASH Verified 08/20/23 10:52 naproxen [NAPROXEN] Allergy Unknown I-RASH Verified 08/20/23 10:52 [id number] Reductase AdvReac Intermediate Muscle Pain Verified 08/20/23 10:52 Inhibitor PFSH <Stephan Callaway MD - Last Filed: 08/20/23 16:02> PFSH Disclaimer: The information contained in this section may have been updated after the patient was seen, as this information can be updated by other users. Medical History Bladder prolapse Breast cancer GERD (gastroesophageal reflux disease) History of pituitary adenoma History of sleep study Negative for BRYAN 11/03/22 HTN (hypertension) Major depressive disorder Pelvic organ prolapse quantification stage 3 cystocele Surgical History History of appendectomy History of back surgery History of cardiac cath History of carpal tunnel surgery History of elbow surgery History of hammer toe correction History of LAVH History of lumpectomy History of shoulder surgery Family History Father Heart attack Cancer Mother Diabetes Sister Diabetes Hypertension Social History Smoking Status: Never smoker alcohol intake: never substance use type: denies use current occupational status: disabled Travel in the last 8 weeks: None household members: spouse housing: house current occupational exposures/hazards: No caffeine: Yes <Stephan Callaway MD - Last Filed: 08/20/23 16:02> ROS Obtained: Yes All systems reviewed & no additional complaints except as documented Physical Exam <Stephan Callaway MD - Last Filed: 08/20/23 16:02> General General appearance: alert and in no apparent distress Head Head exam: atraumatic and normocephalic Eye Eye exam: Present normal appearance, PERRL and EOMI ENT ENT exam: Present mucous membranes moist Neck Neck exam: Present normal inspection, full ROM and trachea midline Respiratory Respiratory exam: Absent respiratory distress, wheezes, stridor, accessory muscle use or prolonged expiratory phase Cardiovascular Cardiovascular exam: Present normal rhythm and tachycardia Abdominal Exam Abdominal exam: Present soft and tenderness; Absent distention, guarding, rebound or rigidity Abdominal tenderness: Present epigastrium and mild Extremities Exam Extremities exam: Absent edema Neurological Exam Neurological exam: Present alert, oriented X3, CN II-XII intact and normal gait; Absent motor sensory deficit Skin Skin exam: Present warm and dry; Absent diaphoresis or erythema Medical Decision Making <Stephan Callaway MD - Last Filed: 08/20/23 16:02> Medical Records Medical records reviewed: Yes I reviewed the patient's medical records. Marc Inquiry Pt receiving controlled substance: No Marc was queried for this patient: No Vital Signs: 08/20/23 10:36 08/20/23 11:00 08/20/23 11:30 Temperature 97.9 F Temperature Source Oral Pulse Rate 99 H 99 H Pulse Rate [Left Radial] 120 H Respiratory Rate 19 18 16 Blood Pressure 193/98 H 181/96 H Blood Pressure [Right Arm] 209/117 H Blood Pressure Mean 129 Blood Pressure Mean [Right Arm] 147 02 Sat by Pulse Oximetry 96 98 98 Oxygen Delivery Method Room Air Room Air Room Air 08/20/23 12:00 08/20/23 13:00 08/20/23 14:00 Temperature Temperature Source Pulse Rate 124 H 118 H 108 H Pulse Rate [Left Radial] Respiratory Rate 18 17 23 Blood Pressure 175/78 H 169/89 H 178/88 H Blood Pressure [Right Arm] Blood Pressure Mean Blood Pressure Mean [Right Arm] 02 Sat by Pulse Oximetry 98 98 97 Oxygen Delivery Method Room Air Room Air Room Air 08/20/23 14:30 08/20/23 15:00 08/20/23 15:30 Temperature Temperature Source Pulse Rate 114 H 107 H 107 H Pulse Rate [Left Radial] Respiratory Rate 19 14 13 Blood Pressure 165/85 H 163/84 H 170/89 H Blood Pressure [Right Arm] Blood Pressure Mean Blood Pressure Mean [Right Arm] 02 Sat by Pulse Oximetry 97 99 99 Oxygen Delivery Method Room Air Room Air Room Air 08/20/23 17:50 Temperature 98.0 F Temperature Source Pulse Rate 109 H Pulse Rate [Left Radial] Respiratory Rate 15 Blood Pressure 178/84 H Blood Pressure [Right Arm] Blood Pressure Mean Blood Pressure Mean [Right Arm] 02 Sat by Pulse Oximetry Oxygen Delivery Method Room Air Lab Data Lab Results 08/20/23 10:45: Urine Color Yellow, Urine Appearance Clear, Urine pH 6.0, Ur Specific [place] 1.025, Urine Protein Negative, Urine Glucose (UA) Negative, Urine Ketones Negative, Urine Blood Negative, Urine Nitrate Negative, Urine Bilirubin Negative, Urine Urobilinogen 0.2, Ur Leukocyte Esterase 2+ A, Urine RBC None, Urine WBC 5-10, Ur Squamous Epith Cells 3-5, Urine Bacteria Trace 08/20/23 10:46: WBC 5.0, RBC 3.31 L, Hgb 9.2 L, Hct 29.2 L, MCV 88.2, MCH 27.7, MCHC 31.4 L, RDW 18.4 H, Plt Count 627 H D, MPV 7.4, Neut % (Auto) 70.7, Lymph % (Auto) 21.9, [place] % (Auto) 5.2, Eos % (Auto) 0.4, Baso % (Auto) 1.7, Neut # (Auto) 3.5, Lymph # (Auto) 1.1, [place] # (Auto) 0.3, Eos # (Auto) 0.0, Baso # (Auto) 0.1, D-Dimer 0.57 H, Sodium 139, Potassium 3.1 L, Chloride 107, Carbon Dioxide 22, Anion Gap 13.1, BUN 18 H, Creatinine 0.70, Estimated Creat Clear 53, Estimated GFR 84, Est GFR ( Amer) 102, Glucose 117 H, Calcium 9.1, Total Bilirubin 0.4, AST 32, ALT 21, Alkaline Phosphatase 124, Troponin I < 0.01, Total Protein 6.7, Albumin 4.2, Globulin 2.5, Albumin/Globulin Ratio 1.7, Lipase 72 08/20/23 11:51: Lactate 1.3, Blood Type O Positive, Antibody Screen Negative 08/20/23 14:45: Troponin I < 0.01 08/20/23 17:15: SARS-CoV-2 (PCR) Not detected, Influenza A Untype (PCR) Not detected, Influenza Type B (PCR) Not detected 08/20/23 10:46 08/20/23 10:46 Orders (Tests/Meds): ED MEDICATIONS Discontinued Medications Generic Name Dose Route Start Last Admin Trade Name Freq PRN Reason Stop Dose Admin Hydrocodone Bitart/Acetaminophen 1 tab 08/20/23 17:45 08/20/23 17:47 Apap/Hydrocodone 325mg/7.5mg Tab PO 08/20/23 17:46 1 tab ONCE ONE Administration Belladonna Alkaloids 60 ml 08/20/23 11:18 08/20/23 11:30 Belladonna Alkaloids 60 Ml Ml PO 08/20/23 11:19 60 ml ONCE ONE Administration Famotidine 20 mg 08/20/23 11:18 08/20/23 11:30 Famotidine 20mg/2ml Vial IV 08/20/23 11:19 20 mg ONCE ONE Administration Hydralazine HCl 10 mg 08/20/23 11:20 08/20/23 11:30 Hydralazine 20mg/Ml Vial IV 08/20/23 11:21 10 mg ONCE ONE Administration Lactated Ringer's 1,000 mls @ 999 mls/hr 08/20/23 12:06 08/20/23 12:29 Lactated Ringer's 1000 Ml Bag IV 08/20/23 13:06 999 mls/hr .Q1H1M ONE Administration Ceftriaxone Sodium 1 gm/ 50 mls @ 100 mls/hr 08/20/23 13:39 08/20/23 14:22 Sodium Chloride IV 08/20/23 14:08 100 mls/hr ONCE ONE Administration Iopamidol 100 ml 08/20/23 13:52 08/20/23 13:54 Iopamidol-370 (76%);100ml Bottle IV 08/20/23 13:53 100 ml ONCE ONE Administration Ondansetron HCl 4 mg 08/20/23 12:19 08/20/23 12:29 Ondansetron 4mg/2ml Vial IV 08/20/23 12:20 4 mg ONCE ONE Administration Pantoprazole Sodium 40 mg 08/20/23 11:18 08/20/23 11:30 Pantoprazole 40mg Vial IV 08/20/23 11:19 40 mg ONCE ONE Administration Potassium Chloride 60 meq 08/20/23 12:05 08/20/23 12:29 Potassium Chloride 20meq Tab PO 08/20/23 12:06 60 meq ONCE ONE Administration Sodium Chloride 10 ml 08/20/23 11:18 Sodium Chloride 0.9% 10ml Vial IV 09/19/23 11:17 NEEDED PRN dilute protonix Sodium Chloride 8 ml 08/20/23 11:18 Sodium Chloride 0.9% 10ml Vial IV 09/19/23 11:17 NEEDED PRN dilute pepcid Sodium Chloride 10 ml 08/20/23 13:52 08/20/23 13:54 Sodium Chloride 0.9% 10ml Syr (Rad Only) IV 08/20/23 13:53 10 ml ONCE ONE Administration Sodium Chloride 50 ml 08/20/23 13:52 08/20/23 13:54 0.9 % Sodium Chloride 50 Ml Vial IV 08/20/23 13:53 50 ml ONCE ONE Administration ORDERS Category Date Time Status Type and Screen Stat BBK 08/20/23 11:[address] angio abdomen pelvis Stat Cat Scan 08/20/23 13:[address] angio chest PE protocol Stat Cat Scan 08/20/23 13:02 Completed US RUQ [US abdomen limited] Stat Exams 08/20/23 15:19 Completed CBC w/Auto Diff [Complete Blood Count Auto Diff] Stat Lab 08/20/23 10:46 Completed CMP [Comprehensive Metabolic Panel] Stat Lab 08/20/23 10:46 Completed D-Dimer Stat Lab 08/20/23 10:46 Completed Lactic Acid Stat Lab 08/20/23 11:51 Completed Lipase Stat Lab 08/20/23 10:46 Completed Rapid PCR Covid and Flu A/B Stat Lab 08/20/23 17:15 Completed Trop I [Troponin I] Stat Lab 08/20/23 10:46 Completed Troponin I Q3H Lab 08/20/23 14:45 Completed Troponin I Q3H Lab 08/20/23 17:30 Ordered UA [Urinalysis and Microscopic] Stat Lab 08/20/23 10:45 Completed Urine Culture Stat Micro 08/20/23 10:45 Received Medical Decision Narrative: 67-year-old female with history of hypertension, coronary, upper GI bleed secondary to peptic ulcer she is currently treating with Carafate and Protonix presenting with abdominal pain and dark stools. Patient states that she has had worsening dark stools and abdominal pain over the last 3 to 4 days. Nausea without vomiting. She states that since that time, she has also had shortness of breath and generalized weakness with minimal exertion. Yesterday, 08/19, she developed looser, dark, tarry stools concerning for GI bleed she had in the past. Not currently on anticoagulation. Patient states she does not think she has ever been worked up for or treated for H. pylori. History was obtained via conversation with patient and family. On arrival, patient hemodynamically stable, alert, oriented x4, appropriate, GCS 15, moving all extremities spontaneously, pupils equal and reactive to light. Full physical exam performed and significant for tired appearing woman in no acute distress. She is tachycardic to about 105 bpm while sitting still. Cardiac exam within normal limits, pulmonary exam within normal limits otherwise. No lower extremity edema. Oxygen saturation appropriate. Differential includes symptomatic anemia, upper GI bleed, lower GI bleed, peptic ulcer disease, H. pylori, AVM, ACS, CA, pancreatitis, PE, pneumothorax, among others. Patient was given Protonix, Pepcid for symptomatic management and correction of underlying abnormalities. Workup independently interpreted and significant for hemoglobin up to 9.2 up from 8 just a couple days prior, but otherwise her increase to make me think that she is probably hemoconcentrated and dehydrated. Nonactionable chemistry. Kidney function normal, troponin negative. D-dimer mildly elevated and in setting of persistent tachycardia, CT PE was ordered. CT PE negative for acute pulmonary embolus, CTA of the abdomen pelvis was negative for any acute bleed. CT of the abdomen pelvis did have renal artery stenosis, likely this is contributing to patient's hypertension. Because she does have epigastric pain/right upper quadrant pain and distended gallbladder on CT, gallbladder ultrasound was ordered. See radiology read for full review of final results. Independent interpretation of EKG shows sinus rhythm [address] changes concerning for acute ischemia, but patient does have T wave inversions in 3 and aVF. No reciprocal change. MS, QRS, QT intervals within normal limits. Prior to gallbladder ultrasound, canted off to oncoming physician. This patient likely to be admitted for symptomatic anemia and need for scope in the setting of previous bleeding ulcer. <Chanel N Stewart, DO - Last Filed: 08/20/23 20:13> Vital Signs: 08/20/23 10:36 08/20/23 11:00 08/20/23 11:30 Temperature 97.9 F Temperature Source Oral Pulse Rate 99 H 99 H Pulse Rate [Left Radial] 120 H Respiratory Rate 19 18 16 Blood Pressure 193/98 H 181/96 H Blood Pressure [Right Arm] 209/117 H Blood Pressure Mean 129 Blood Pressure Mean [Right Arm] 147 02 Sat by Pulse Oximetry 96 98 98 Oxygen Delivery Method Room Air Room Air Room Air 08/20/23 12:00 08/20/23 13:00 08/20/23 14:00 Temperature Temperature Source Pulse Rate 124 H 118 H 108 H Pulse Rate [Left Radial] Respiratory Rate 18 17 23 Blood Pressure 175/78 H 169/89 H 178/88 H Blood Pressure [Right Arm] Blood Pressure Mean Blood Pressure Mean [Right Arm] 02 Sat by Pulse Oximetry 98 98 97 Oxygen Delivery Method Room Air Room Air Room Air 08/20/23 14:30 08/20/23 15:00 08/20/23 15:30 Temperature Temperature Source Pulse Rate 114 H 107 H 107 H Pulse Rate [Left Radial] Respiratory Rate 19 14 13 Blood Pressure 165/85 H 163/84 H 170/89 H Blood Pressure [Right Arm] Blood Pressure Mean Blood Pressure Mean [Right Arm] 02 Sat by Pulse Oximetry 97 99 99 Oxygen Delivery Method Room Air Room Air Room Air 08/20/23 17:50 Temperature 98.0 F Temperature Source Pulse Rate 109 H Pulse Rate [Left Radial] Respiratory Rate 15 Blood Pressure 178/84 H Blood Pressure [Right Arm] Blood Pressure Mean Blood Pressure Mean [Right Arm] 02 Sat by Pulse Oximetry Oxygen Delivery Method Room Air Lab Data Lab Results 08/20/23 10:45: Urine Color Yellow, Urine Appearance Clear, Urine pH 6.0, Ur Specific [place] 1.025, Urine Protein Negative, Urine Glucose (UA) Negative, Urine Ketones Negative, Urine Blood Negative, Urine Nitrate Negative, Urine Bilirubin Negative, Urine Urobilinogen 0.2, Ur Leukocyte Esterase 2+ A, Urine RBC None, Urine WBC 5-10, Ur Squamous Epith Cells 3-5, Urine Bacteria Trace 08/20/23 10:46: WBC 5.0, RBC 3.31 L, Hgb 9.2 L, Hct 29.2 L, MCV 88.2, MCH 27.7, MCHC 31.4 L, RDW 18.4 H, Plt Count 627 H D, MPV 7.4, Neut % (Auto) 70.7, Lymph % (Auto) 21.9, [place] % (Auto) 5.2, Eos % (Auto) 0.4, Baso % (Auto) 1.7, Neut # (Auto) 3.5, Lymph # (Auto) 1.1, [place] # (Auto) 0.3, Eos # (Auto) 0.0, Baso # (Auto) 0.1, D-Dimer 0.57 H, Sodium 139, Potassium 3.1 L, Chloride 107, Carbon Dioxide 22, Anion Gap 13.1, BUN 18 H, Creatinine 0.70, Estimated Creat Clear 53, Estimated GFR 84, Est GFR ( Amer) 102, Glucose 117 H, Calcium 9.1, Total Bilirubin 0.4, AST 32, ALT 21, Alkaline Phosphatase 124, Troponin I < 0.01, Total Protein 6.7, Albumin 4.2, Globulin 2.5, Albumin/Globulin Ratio 1.7, Lipase 72 08/20/23 11:51: Lactate 1.3, Blood Type O Positive, Antibody Screen Negative 08/20/23 14:45: Troponin I < 0.01 08/20/23 17:15: SARS-CoV-2 (PCR) Not detected, Influenza A Untype (PCR) Not detected, Influenza Type B (PCR) Not detected Orders (Tests/Meds): ED MEDICATIONS Discontinued Medications Generic Name Dose Route Start Last Admin Trade Name Jamieq PRN Reason Stop Dose Admin Hydrocodone Bitart/Acetaminophen 1 tab 08/20/23 17:45 08/20/23 17:47 Apap/Hydrocodone 325mg/7.5mg Tab PO 08/20/23 17:46 1 tab ONCE ONE Administration Belladonna Alkaloids 60 ml 08/20/23 11:18 08/20/23 11:30 Belladonna Alkaloids 60 Ml Ml PO 08/20/23 11:19 60 ml ONCE ONE Administration Famotidine 20 mg 08/20/23 11:18 08/20/23 11:30 Famotidine 20mg/2ml Vial IV 08/20/23 11:19 20 mg ONCE ONE Administration Hydralazine HCl 10 mg 08/20/23 11:20 08/20/23 11:30 Hydralazine 20mg/Ml Vial IV 08/20/23 11:21 10 mg ONCE ONE Administration Lactated Ringer's 1,000 mls @ 999 mls/hr 08/20/23 12:06 08/20/23 12:29 Lactated Ringer's 1000 Ml Bag IV 08/20/23 13:06 999 mls/hr .Q1H1M ONE Administration Ceftriaxone Sodium 1 gm/ 50 mls @ 100 mls/hr 08/20/23 13:39 08/20/23 14:22 Sodium Chloride IV 08/20/23 14:08 100 mls/hr ONCE ONE Administration Iopamidol 100 ml 08/20/23 13:52 08/20/23 13:54 Iopamidol-370 (76%);100ml Bottle IV 08/20/23 13:53 100 ml ONCE ONE Administration Ondansetron HCl 4 mg 08/20/23 12:19 08/20/23 12:29 Ondansetron 4mg/2ml Vial IV 08/20/23 12:20 4 mg ONCE ONE Administration Pantoprazole Sodium 40 mg 08/20/23 11:18 08/20/23 11:30 Pantoprazole 40mg Vial IV 08/20/23 11:19 40 mg ONCE ONE Administration Potassium Chloride 60 meq 08/20/23 12:05 08/20/23 12:29 Potassium Chloride 20meq Tab PO 08/20/23 12:06 60 meq ONCE ONE Administration Sodium Chloride 10 ml 08/20/23 11:18 Sodium Chloride 0.9% 10ml Vial IV 09/19/23 11:17 NEEDED PRN dilute protonix Sodium Chloride 8 ml 08/20/23 11:18 Sodium Chloride 0.9% 10ml Vial IV 09/19/23 11:17 NEEDED PRN dilute pepcid Sodium Chloride 10 ml 08/20/23 13:52 08/20/23 13:54 Sodium Chloride 0.9% 10ml Syr (Rad Only) IV 08/20/23 13:53 10 ml ONCE ONE Administration Sodium Chloride 50 ml 08/20/23 13:52 08/20/23 13:54 0.9 % Sodium Chloride 50 Ml Vial IV 08/20/23 13:53 50 ml ONCE ONE Administration ORDERS Category Date Time Status Type and Screen Stat BBK 08/20/23 11:[address] angio abdomen pelvis Stat Cat Scan 08/20/23 13:[address] angio chest PE protocol Stat Cat Scan 08/20/23 13:02 Completed US RUQ [US abdomen limited] Stat Exams 08/20/23 15:19 Completed CBC w/Auto Diff [Complete Blood Count Auto Diff] Stat Lab 08/20/23 10:46 Completed CMP [Comprehensive Metabolic Panel] Stat Lab 08/20/23 10:46 Completed D-Dimer Stat Lab 08/20/23 10:46 Completed Lactic Acid Stat Lab 08/20/23 11:51 Completed Lipase Stat Lab 08/20/23 10:46 Completed Rapid PCR Covid and Flu A/B Stat Lab 08/20/23 17:15 Completed Trop I [Troponin I] Stat Lab 08/20/23 10:46 Completed Troponin I Q3H Lab 08/20/23 14:45 Completed Troponin I Q3H Lab 08/20/23 17:30 Ordered UA [Urinalysis and Microscopic] Stat Lab 08/20/23 10:45 Completed Urine Culture Stat Micro 08/20/23 10:45 Received Medical Decision Narrative: 67-year-old female with history of hypertension, coronary, upper GI bleed secondary to peptic ulcer she is currently treating with Carafate and Protonix presenting with abdominal pain and dark stools. Patient states that she has had worsening dark stools and abdominal pain over the last 3 to 4 days. Nausea without vomiting. She states that since that time, she has also had shortness of breath and generalized weakness with minimal exertion. Yesterday, 08/19, she developed looser, dark, tarry stools concerning for GI bleed she had in the past. Not currently on anticoagulation. Patient states she does not think she has ever been worked up for or treated for H. pylori. History was obtained via conversation with patient and family. On arrival, patient hemodynamically stable, alert, oriented x4, appropriate, GCS 15, moving all extremities spontaneously, pupils equal and reactive to light. Full physical exam performed and significant for tired appearing woman in no acute distress. She is tachycardic to about 105 bpm while sitting still. Cardiac exam within normal limits, pulmonary exam within normal limits otherwise. No lower extremity edema. Oxygen saturation appropriate. Differential includes symptomatic anemia, upper GI bleed, lower GI bleed, peptic ulcer disease, H. pylori, AVM, ACS, CA, pancreatitis, PE, pneumothorax, among others. Patient was given Protonix, Pepcid for symptomatic management and correction of underlying abnormalities. Workup independently interpreted and significant for hemoglobin up to 9.2 up from 8 just a couple days prior, but otherwise her increase to make me think that she is probably hemoconcentrated and dehydrated. Nonactionable chemistry. Kidney function normal, troponin negative. D-dimer mildly elevated and in setting of persistent tachycardia, CT PE was ordered. CT PE negative for acute pulmonary embolus, CTA of the abdomen pelvis was negative for any acute bleed. CT of the abdomen pelvis did have renal artery stenosis, likely this is contributing to patient's hypertension. Because she does have epigastric pain/right upper quadrant pain and distended gallbladder on CT, gallbladder ultrasound was ordered. See radiology read for full review of final results. Independent interpretation of EKG shows sinus rhythm [address] changes concerning for acute ischemia, but patient does have T wave inversions in 3 and aVF. No reciprocal change. MS, QRS, QT intervals within normal limits. Prior to gallbladder ultrasound, canted off to oncoming physician. This patient likely to be admitted for symptomatic anemia and need for scope in the setting of previous bleeding ulcer. Terry DO: On my assessment of the patient, she is resting comfortably and states she is feeling better. Ultrasound demonstrated biliary sludge without obvious acute findings concerning for cholecystitis. Her anemia is stable. I had an interactive discussion with Dr. Roth who advised that Dr. Alcantara has clinic in the morning and the patient should follow-up closely in the morning with them if I feel that she is appropriate for discharge. Patient does want to try going home. I counseled her that she needs to be seen very closely with surgery to determine whether or not her symptoms are coming from biliary issues versus symptomatic anemia related to her ulcers. She expressed understanding and agreement and will see them in the morning. She was given strict return precautions and instructions to continue her PPI and sucralfate as an outpatient. She was discharged in stable condition. Critical Care <Stephan Callaway MD - Last Filed: 08/20/23 16:02> Critical Care Time Critical Care Time: No
[2023-08-20] MEDS: FAMOTIDINE 20MG/2ML VIAL 20 MG IV (11:30)
[2023-08-20] MEDS: BELLADONNA ALKALOIDS 60 ML ML PO (11:30)
[2023-08-20] MEDS: PANTOPRAZOLE 40MG VIAL 40 MG IV (11:30)
[2023-08-20] MEDS: HYDRALAZINE 20MG/ML VIAL 10 MG IV (11:30)
[2023-08-20 11:41] LABS: D-Dimer 0.57 ug/mL (0.0-0.5)
[2023-08-20 11:42] LABS: Basophils # 0.1 K/mm3 (0-0.2); Basophils % 1.7 % (0.1-2.0); Eosinophils % 0.4 % (0.1-12.0); Hematocrit 29.2 % (37.0-47.0); Hemoglobin 9.2 g/dL (12.2-16.2); Lymphocytes # 1.1 K/mm3 (0.7-4.5); Lymphocytes % 21.9 % (10-50); Mean Corpuscular HGB Conc 31.4 g/dL (31.8-35.4); Mean Corpuscular Hemoglobin 27.7 pg (27.0-31.2); Mean Corpuscular Volume 88.2 fl (81-99); Mean Platelet Volume 7.4 fl (7.4-10.4); Monocytes # 0.3 K/mm3 (0.1-1.0); Monocytes % 5.2 % (1.7-9.3); Neutrophils # 3.5 K/mm3 (1.8-7.8); Neutrophils % 70.7 % (37.0-80.0); Platelet Count 627 K/mm3 (142-424); Red Blood Count 3.31 M/mm3 (4.20-5.40); Red Cell Distribution Width 18.4 % (11.5-17.5)
[2023-08-20 11:45] LABS: Chloride 107 mmol/L (98-107); Sodium 139 mmol/L (136-145)
[2023-08-20 11:46] LABS: Potassium 3.1 mmoL/L (3.5-5.1)
[2023-08-20 11:48] LABS: Alanine Aminotransferase 21 U/L (12-78); Albumin Level 4.2 g/dl (3.5-5.0); Albumin/Globulin Ratio 1.7 (1.1-1.8); Alkaline Phosphatase 124 U/L (38-126); Anion Gap 13.1 mEq/L (5-15); Aspartate Amino Transferase 32 U/L (14-36); Bilirubin,Total 0.4 mg/dl (0.2-1.3); Blood Urea Nitrogen 18 mg/dl (7-17); Calcium 9.1 mg/dl (8.4-10.2); Carbon Dioxide 22 mmol/L (22.0-30.0); Creatinine Clearance Estimated 53 mL/min (50-200); Estimated Glomerular Filt Rate 84 ml/min (>60); GFR (African American) 102 ML/MIN (>60); Globulin 2.5 g/dL (1.3-3.2); Glucose 117 mg/dl (74-100); Lipase 72 U/L (23-300); Total Protein,Serum 6.7 g/dl (6.3-8.2)
[2023-08-20 12:01] LABS: Troponin I < 0.01 ng/ml (0.00-0.034)
[2023-08-20 12:15] LABS: Lactic Acid 1.3 mmol/L (0.7-2.1)
[2023-08-20] MEDS: LACTATED RINGERS 1000ML 1,000 ML 999 ML IV (12:29)
[2023-08-20] MEDS: ONDANSETRON 4MG/2ML VIAL 4 MG IV (12:29)
[2023-08-20] MEDS: POTASSIUM CHLORIDE 20MEQ TAB 60 MEQ PO (12:29)
[2023-08-20 12:48] LABS: Microscopic, Urine URINE MICROSCOPIC (MICROSCOPIC)
[2023-08-20 12:54] LABS: Appearance,Urine CLEAR (Clear); Bilirubin,Urine Negative (Negative); Blood, Urine Negative (Negative); Color,Urine YELLOW (Yellow); Glucose,Urine (UA) Negative (Negative); Ketones,Urine Negative (Negative); Leukocyte Esterase,Urine 2+ (Negative); Nitrate,Urine Negative (Negative); Protein,Urine Negative (Negative); Specific Gravity, Urine 1.025 (1.005-1.030); Urobilinogen,Urine 0.2 EU/dl (0.2)
--- NOTE | 2023-08-20 13:02 | CT_ITS ---
FINAL REPORT TECHNIQUE: The patient was injected with IV contrast. Axial images were obtained through the chest in a PE protocol. 3-D reconstruction images were also performed. Individualized dose reduction techniques using automated exposure control or adjustment of the MA and/or KV according to patient's size were employed. CLINICAL HISTORY: tachycardia, soa COMPARISON: 05/21/2023 FINDINGS: Mediastinal vasculature is adequately opacified. No pulmonary artery filling defects are identified to suggest PE. There is no aortic dissection. There is no axillary adenopathy. There is no hilar or mediastinal adenopathy. The heart size is normal. There is no pericardial or pleural effusion. There are calcified granulomas in the superior segment of the left lower lobe. No suspicious infiltrate or nodule is identified. IMPRESSION: No pulmonary embolus or dissection. Reviewed, Interpreted and Dictated by Chris Feldman MD Transcribed by Keke Allen Authenticated and . [facility]
--- NOTE | 2023-08-20 13:02 | CT_ITS ---
FINAL REPORT TECHNIQUE: Pre-and postcontrast images of the abdomen and pelvis were performed by computed tomography. Extensive 3-D reconstruction images were performed. A CTA was performed. This study was performed with techniques to keep radiation doses as low as reasonably achievable (ALARA). Individualized dose reduction techniques using automated exposure control or adjustment of mA and/or kV according to the patient''s size were employed. CLINICAL HISTORY: UGIB with melena and epigastric pain COMPARISON: 05/21/2023 FINDINGS: ABDOMEN/PELVIS: Guide the liver parenchyma is homogeneous. The gallbladder is significantly distended. The spleen and pancreas are unremarkable. Common duct measures up to 7 mm in diameter. There is mild nodularity of the adrenal gland, probably due to adenomas. Finding is stable since prior. The kidneys are unremarkable. There is retained contrast or ingested material within the colon. Pessary device is seen in the pelvis. CTA: The abdominal aorta is proper caliber. Vascular calcification is seen at the origins of the celiac axis and SMA. Stenosis of the SMA measures 50%. There is dense calcification at the proximal renal arteries, left greater than right. There is mild to moderate stenosis of the proximal renal arteries bilaterally. The iliac arteries are widely patent. 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 Mild to moderate stenosis of the proximal renal arteries bilaterally. Significantly distended gallbladder. Reviewed, Interpreted and Dictated by Chris Feldman MD Transcribed by Keke Allen Authenticated and [facility]
[2023-08-20 13:32] LABS: Bacteria,Urine Trace /lpf
[2023-08-20] MEDS: IOPAMIDOL-370 (76%);100ML BOTTLE 100 ML IV (13:54)
[2023-08-20] MEDS: SODIUM CHLORIDE 0.9% 10ML SYR (RAD ONLY) 10 ML IV (13:54)
[2023-08-20] MEDS: 0.9 % SODIUM CHLORIDE 50 ML VIAL IV (13:54)
[2023-08-20] MEDS: CEFTRIAXONE SODIUM 1 GM in 0.9 % SODIUM CHLORIDE 50 ML IV (14:22)
--- NOTE | 2023-08-20 15:19 | US_ITS ---
FINAL REPORT CLINICAL HISTORY: epigastric pain, distended GB on ct FINDINGS: RIGHT UPPER QUADRANT ULTRASOUND Sonographic images of the right upper quadrant were obtained. Images of the pancreas are unremarkable. There is mild fatty infiltration of the liver. The gallbladder is distended with minimal sludge. The common duct measures 8 mm. Limited images of the right kidney are normal. IMPRESSION: Mildly enlarged common duct. Fatty liver. Distended gallbladder with sludge. Reviewed, Interpreted and Dictated by Chris Feldman MD Transcribed by Keke Allen Authenticated and [facility]
[2023-08-20 15:45] LABS: Troponin I < 0.01 ng/ml (0.00-0.034)
--- NOTE | 2023-08-20 16:10 | PC.NURSE ---
US spoke with Dr Callaway
[2023-08-20 17:18] LABS: Coronavirus 19, PCR Not Detected (NotDetected); Influenza A, PCR Not Detected (NotDetected); Influenza B, PCR Not Detected (NotDetected)
[2023-08-20] MEDS: APAP/HYDROCODONE 325MG/7.5MG TAB 1 TAB PO (17:47)
--- NOTE | 2023-08-26 16:23 | PC.NURSE ---
URINE CULTURE DISCUSSED WITH DR ALLEN, RX FOR MACROBID CALLED INTO CLINIC PHARMACY. PT NOTIFIED
== END 2023-08-20 17:51 | disposition home or self-care (01) ==
PROVIDERS: Emergency Medicine; Emergency Provider Emergency Medicine; PCP Physician Assistant
DX: R10.13 Epigastric pain (principal); K92.1 Melena; R06.02 Shortness of breath; R53.1 Weakness; R00.0 Tachycardia, unspecified; K83.9 Disease of biliary tract, unspecified; E87.6 Hypokalemia; I10 Essential (primary) hypertension; K21.9 Gastro-esophageal reflux disease without esophagitis; Z85.3 Personal history of malignant neoplasm of breast
CPT/HCPCS: 36415; 71275; 74174; 76705; 80053; 81001; 83605; 83690; 84484; 85025; 85378; 86850; 87086; 87636; 96361; 96365; 96375; 99285; J0696; J2405; Q9967

== ENCOUNTER 2023-08-21 09:48 | Outpatient (CLI) | payer MEDICARE, SELFPAY ==
[2023-08-21 10:32] LABS: Hematocrit 26.6 % (37.0-47.0); Hemoglobin 8.4 g/dL (12.2-16.2)
== END 2023-08-21 23:59 ==
LOC: LAB 09:49
PROVIDERS: PCP Physician Assistant; Visit Provider Surgery
DX: K92.1 Melena (principal)
CPT/HCPCS: 36415; 85014; 85018

== ENCOUNTER 2023-08-25 06:01 | Day surgery (SDC) | payer MEDICARE, SELFPAY ==
[2023-08-21 16:23] VITALS: BMI 22.1
[2023-08-25] MEDS: LACTATED RINGERS 1000ML 1,000 ML 25 ML IV (06:15)
--- NOTE | 2023-08-25 06:28 | HMH.SCOPE ---
Procedure: Date: 08/25/23 Patient Date of :: 1955 Procedure Performed:: Esophagogastroduodenoscopy Indications:: Peptic ulcer disease - Esophagogastroduodenoscopy in April 2023 revealed a cluster of antral/prepyloric region ulcerations and a shallow duodenal bulb ulceration. She was also found to have a moderate to large sliding hiatal hernia. Repeat esophagogastroduodenoscopy: August 05 of this year showed an essentially unchanged shallow duodenal bulb/sweep ulceration. Antral/prepyloric ulcerations slightly improved. She returned to the emergency department on August 20 with increasing weakness and concern for possible recurrent bleed. Most recent hemoglobin stable at 8.4. Performing Provider:: Rachid Alcantara MD Referring Provider:: . Sedation:: Monitored anesthesia care Procedure:: After informed consent was obtained the patient was taken to the endoscopy suite. Sedation ensued after the patient was transferred to the left lateral decubitus position. Pulse, blood pressure, and oxygen saturation were monitored throughout the procedure. The endoscope was advanced beyond the duodenal bulb. Retroflexion within the gastric lumen was accomplished. The gastroscope was carefully removed and the patient was transferred to recovery in stable condition. Please see findings and specimens below for detail. Findings:: Mild/early Schatzki ring unchanged Sliding hiatal hernia unchanged Antral/prepyloric ulceration persist Shallow duodenal bulb/sweep ulceration essentially unchanged Specimens:: none Recommendations:: Continue current medical regimen Continue serial hemoglobin/hematocrit Gastrin level ordered Consider evaluation at a tertiary facility with capabilities of complex endoscopic intervention and capabilities of complex foregut surgery Complications:: No immediate Estimated blood obtained (mL): 1 Colonoscopy Component Colonoscopy Component Was a colonoscopy performed during today's procedure?: No
[2023-08-25 06:32] VITALS: BP 214/109; PULSE 101; RESP 18; TEMP 36.1; O2SAT 98
[2023-08-25 06:43] LABS: Basophils # 0.1 K/mm3 (0-0.2); Basophils % 0.8 % (0.1-2.0); Eosinophils # 0.3 K/mm3 (0.0-0.4); Eosinophils % 4.7 % (0.1-12.0); Hematocrit 25.4 % (37.0-47.0); Hemoglobin 7.9 g/dL (12.2-16.2); Lymphocytes # 1.1 K/mm3 (0.7-4.5); Lymphocytes % 16.8 % (10-50); Mean Corpuscular HGB Conc 31.4 g/dL (31.8-35.4); Mean Corpuscular Volume 86.3 fl (81-99); Mean Platelet Volume 7.3 fl (7.4-10.4); Monocytes # 0.3 K/mm3 (0.1-1.0); Monocytes % 5.3 % (1.7-9.3); Neutrophils # 4.5 K/mm3 (1.8-7.8); Neutrophils % 72.3 % (37.0-80.0); Platelet Count 717 K/mm3 (142-424); Red Blood Count 2.94 M/mm3 (4.20-5.40); Red Cell Distribution Width 17.5 % (11.5-17.5); White Blood Count 6.2 K/mm3 (4.8-10.8)
[2023-08-25 07:09] VITALS: O2SAT 98
--- NOTE | 2023-08-25 07:10 | EXP.ANES.CKL ---
[facility] Disclaimer: The information contained in this section may have been updated after the patient was seen, as this information can be updated by other users. Medical History Bladder prolapse Breast cancer GERD (gastroesophageal reflux disease) History of pituitary adenoma History of sleep study Negative for BRYAN 11/03/22 HTN (hypertension) Major depressive disorder Pelvic organ prolapse quantification stage 3 cystocele Surgical History History of appendectomy History of back surgery History of cardiac cath History of carpal tunnel surgery History of elbow surgery History of hammer toe correction History of LAVH History of lumpectomy History of shoulder surgery Family History Father Heart attack Cancer Mother Diabetes Sister Diabetes Hypertension Social History Smoking Status: Never smoker alcohol intake: never substance use type: denies use current occupational status: disabled Travel in the last 8 weeks: None household members: spouse housing: house current occupational exposures/hazards: No caffeine: Yes [facility] Anesthesia Checklist Patient Identification Patient Identification: Arm Band Structural Data Admitted From: Home Planned Operative Procedure/s: EGD Consent for Planned Operative Procedure(s) Verified: Yes Verified Documents: Surgical Consent and History and Physical NPO Status Verified Time NPO: 00:00 Additional verifications Anesthesia Reactions: No Airway Assessment Mallampati Score:: Class II C-Spine Mobility Assessed: Yes TMJ Mobility Assessed: Yes Dentition: Poor Dentition Neurological Assessment Level of Consciousness: Awake and Alert Anesthesia Plan Anesthesia Risk discussed: Yes Anesthesia Plan: Verified ASA Class: III Anesthesia Type: MAC
[2023-08-25 07:22] VITALS: BP 167/133; PULSE 109; RESP 16; O2SAT 99
[2023-08-25 07:32] VITALS: BP 161/84; PULSE 101; RESP 16; O2SAT 98
[2023-08-25 07:42] VITALS: BP 162/78; PULSE 95; RESP 16; O2SAT 98
[2023-08-25 07:52] VITALS: BP 177/91; PULSE 90; RESP 16; TEMP 36.9; O2SAT 98
[2023-08-27 16:13] LABS: Gastrin 24 pg/mL (0-115)
== END 2023-08-25 07:52 | disposition home or self-care (01) ==
PROVIDERS: PCP Physician Assistant; Visit Provider Surgery
PROC: 0DJ08ZZ Inspection of Upper Intestinal Tract, Via Natural or Artificial Opening Endoscopic (ICD-10-PCS; CPT 43235; principal; 2023-08-25 07:00)
DX: K25.9 Gastric ulcer, unspecified as acute or chronic, without hemorrhage or perforation (principal); K26.9 Duodenal ulcer, unspecified as acute or chronic, without hemorrhage or perforation; K44.9 Diaphragmatic hernia without obstruction or gangrene; K22.2 Esophageal obstruction
CPT/HCPCS: 43235; 36415; 82941; 85025

== ENCOUNTER 2023-08-26 15:37 | Outpatient (CLI) | payer MEDICARE, SELFPAY ==
[2023-08-26 16:29] LABS: Basophils # 0.1 K/mm3 (0-0.2); Basophils % 1.1 % (0.1-2.0); Eosinophils # 0.2 K/mm3 (0.0-0.4); Eosinophils % 2.3 % (0.1-12.0); Hematocrit 27.5 % (37.0-47.0); Hemoglobin 8.4 g/dL (12.2-16.2); Lymphocytes # 1.4 K/mm3 (0.7-4.5); Lymphocytes % 18.2 % (10-50); Mean Corpuscular HGB Conc 30.4 g/dL (31.8-35.4); Mean Corpuscular Hemoglobin 26.4 pg (27.0-31.2); Mean Platelet Volume 7.4 fl (7.4-10.4); Monocytes # 0.3 K/mm3 (0.1-1.0); Neutrophils # 5.5 K/mm3 (1.8-7.8); Neutrophils % 74.3 % (37.0-80.0); Platelet Count 808 K/mm3 (142-424); Red Blood Count 3.17 M/mm3 (4.20-5.40); White Blood Count 7.4 K/mm3 (4.8-10.8)
[2023-08-26 16:46] LABS: Anion Gap 11.4 mEq/L (5-15); Blood Urea Nitrogen 15 mg/dl (7-17); Calcium 9.2 mg/dl (8.4-10.2); Carbon Dioxide 25 mmol/L (22.0-30.0); Chloride 107 mmol/L (98-107); Estimated Glomerular Filt Rate 100 ml/min (>60); GFR (African American) 121 ML/MIN (>60); Glucose 102 mg/dl (74-100); Potassium 4.4 mmoL/L (3.5-5.1); Sodium 139 mmol/L (136-145)
[2023-08-26 18:38] LABS: Creatinine,Urine Random 88 mg/dL (Not Estab.)
[2023-08-26 18:50] LABS: Microalbumin/Creatinine Ratio 39.6
== END 2023-08-26 23:59 ==
PROVIDERS: PCP Physician Assistant; Visit Provider Internal Medicine
DX: D64.9 Anemia, unspecified (principal); I10 Essential (primary) hypertension; I25.10 Atherosclerotic heart disease of native coronary artery without angina pectoris; R60.9 Edema, unspecified
CPT/HCPCS: 36415; 80048; 82043; 82570; 85025

== ENCOUNTER 2023-09-01 13:33 | Outpatient (CLI) | payer MEDICARE, SELFPAY ==
[2023-09-01 13:52] LABS: Hematocrit 23.1 % (37.0-47.0); Hemoglobin 7.1 g/dL (12.2-16.2)
== END 2023-09-01 23:59 ==
PROVIDERS: PCP Physician Assistant; Visit Provider Surgery
DX: K92.1 Melena (principal)
CPT/HCPCS: 36415; 85014; 85018

== ENCOUNTER 2023-09-02 08:36 | Outpatient (CLI) | payer MEDICARE, SELFPAY ==
[2023-09-02] VITALS (10 sets, daily range): BP systolic 132–204; BP diastolic 64–107; PULSE 89–105; RESP 16–18; TEMP 36.8–37.4; O2SAT 96–100; BMI 22.8
[2023-09-02 08:56] LABS: Hematocrit 23.8 % (37.0-47.0); Hemoglobin 7.3 g/dL (12.2-16.2)
[2023-09-02] MEDS: ACETAMINOPHEN 325MG TAB 650 MG (11:48)
[2023-09-02] MEDS: cloNIDine 0.2MG TABLET 0.200000000000000011 MG PO (11:49)
[2023-09-02] MEDS: FUROSEMIDE 20 MG/2 ML VIAL IV (11:57)
[2023-09-02] MEDS: 0.9 % SODIUM CHLORIDE 250 ML 25 ML IV (12:03)
--- NOTE | 2023-09-02 12:23 | PC.NURSE ---
MD aware of elevated blood pressure. Patient received Lasix 20mg IV and Clonidine 0.2mg po prior to transfusion initiation.
[2023-09-02 12:51] LABS: Microscopic, Urine URINE MICROSCOPIC (MICROSCOPIC)
[2023-09-02 13:03] LABS: Appearance,Urine CLEAR (Clear); Bilirubin,Urine Negative (Negative); Blood, Urine Negative (Negative); Color,Urine YELLOW (Yellow); Glucose,Urine (UA) Negative (Negative); Ketones,Urine Negative (Negative); Leukocyte Esterase,Urine TRACE (Negative); Nitrate,Urine Negative (Negative); Protein,Urine Negative (Negative); Urobilinogen,Urine 0.2 EU/dl (0.2)
[2023-09-02 14:19] LABS: Bacteria,Urine Trace /lpf; WBC,Urine Occasional #/hpf (0-3)
== END 2023-09-02 15:02 | disposition home or self-care (01) ==
PROVIDERS: PCP Physician Assistant; Visit Provider Surgery
DX: K92.1 Melena (principal)
CPT/HCPCS: 36415; 36430; 81001; 85014; 85018; 86850; P9016

== ENCOUNTER 2023-09-04 11:57 | Outpatient (CLI) | payer MEDICARE, SELFPAY ==
[2023-09-04 12:19] LABS: Hematocrit 29.9 % (37.0-47.0); Hemoglobin 9.5 g/dL (12.2-16.2); Mean Corpuscular HGB Conc 31.8 g/dL (31.8-35.4); Mean Corpuscular Hemoglobin 27.2 pg (27.0-31.2); Mean Corpuscular Volume 85.7 fl (81-99); Platelet Count 441 K/mm3 (142-424); Red Blood Count 3.49 M/mm3 (4.20-5.40); White Blood Count 5.1 K/mm3 (4.8-10.8)
[2023-09-04 12:47] LABS: C-Reactive Protein 1.6 mg/L (0-4)
[2023-09-04 13:17] LABS: Erythrocyte Sedimentation Rate 22 mm/hr (0-30)
[2023-09-04 13:41] LABS: Iron 24 ug/dL (37-170)
[2023-09-04 13:50] LABS: Total Iron Binding Capacity 440 ug/dL (265-497)
[2023-09-05 10:56] LABS: Transferrin 382 mg/dL (192-364)
[2023-09-05 12:20] LABS: Deamidated Gliadin Abs, IgA 7 units (0-19); Deamidated Gliadin Abs, IgG 2 units (0-19); Tissue Transglutaminase IgA Ab <2 U/mL (0-3); Tissue Transglutaminase IgG Ab <2 U/mL (0-5)
[2023-09-07 15:21] LABS: Endomysial IgA Antibody Negative (Negative)
[2023-09-09 07:12] LABS: Reticulin IgA Antibody Negative titer (Neg:<1:2.5)
== END 2023-09-04 23:59 ==
LOC: LAB 11:58
PROVIDERS: PCP Physician Assistant; Visit Provider Physician Assistant
DX: D50.0 Iron deficiency anemia secondary to blood loss (chronic) (principal)
CPT/HCPCS: 36415; 83516; 83540; 83550; 84466; 85014; 85018; 85048; 85049; 85651; 86140; 86255; 86256

== ENCOUNTER 2023-09-16 15:01 | Outpatient (CLI) | payer MEDICARE, SELFPAY ==
[2023-09-16 15:23] LABS: Basophils # 0.1 K/mm3 (0-0.2); Eosinophils # 0.1 K/mm3 (0.0-0.4); Eosinophils % 1.2 % (0.1-12.0); Hematocrit 31.3 % (37.0-47.0); Hemoglobin 9.7 g/dL (12.2-16.2); Lymphocytes # 1.7 K/mm3 (0.7-4.5); Lymphocytes % 27.7 % (10-50); Mean Corpuscular HGB Conc 30.9 g/dL (31.8-35.4); Mean Corpuscular Hemoglobin 26.9 pg (27.0-31.2); Mean Platelet Volume 7.2 fl (7.4-10.4); Monocytes # 0.4 K/mm3 (0.1-1.0); Neutrophils # 3.8 K/mm3 (1.8-7.8); Neutrophils % 64.1 % (37.0-80.0); Platelet Count 673 K/mm3 (142-424); Red Blood Count 3.59 M/mm3 (4.20-5.40); Red Cell Distribution Width 18.4 % (11.5-17.5); White Blood Count 5.9 K/mm3 (4.8-10.8)
== END 2023-09-16 23:59 ==
PROVIDERS: PCP Physician Assistant; Visit Provider Internal Medicine
DX: D64.9 Anemia, unspecified (principal)
CPT/HCPCS: 36415; 85025

== ENCOUNTER 2023-09-29 08:13 | Emergency (ER) | payer MEDICARE, SELFPAY ==
[2023-09-29 08:20] VITALS: BP 183/87; PULSE 114; RESP 18; TEMP 36.7; O2SAT 98; BMI 22.6
--- NOTE | 2023-09-29 08:38 | ED_ITS ---
Discharge Plan Disposition Patient Disposition: Home, Self-Care Condition: Good Prescriptions Prescriptions: New azithromycin [Zithromax] 250 mg tablet 250 mg PO UD DOSE PK Qty: 6 0RF Rx Instructions: Take two (2) tablets today, then one (1) tablet days #2 thru #5 benzonatate [benzonatate] 100 mg capsule 100 mg PO TIDP PRN (Reason: Cough) Qty: 30 0RF No Action spironolactone [Aldactone] 50 mg tablet 50 mg PO DAILY Qty: 30 5RF pantoprazole 40 mg tablet,delayed release (DR/EC) 40 mg PO BID 30 Days Qty: 60 12RF carvedilol 25 mg tablet 50 mg PO BID Qty: 120 5RF hydrocodone-acetaminophen 7.5-325 mg tablet 1 tab PO QID Qty: 120 0RF hydrochlorothiazide 50 mg tablet 50 mg PO DAILY Qty: 30 3RF isosorbide mononitrate 60 mg tablet extended release 24 hr 60 mg PO DAILY Qty: 30 3RF lisinopril 40 mg tablet 40 mg PO DAILY Qty: 30 3RF sucralfate [Carafate] 1 gram tablet 1 g PO BID Qty: 60 2RF amlodipine 10 mg tablet See Rx Instructions .ROUTE .COMPLEX Qty: 30 2RF Dose Instruction: TAKE ONE TABLET BY MOUTH EVERY DAY Rx Instructions: TAKE ONE TABLET BY MOUTH EVERY DAY ergocalciferol (vitamin D2) 1,250 mcg (50,000 unit) capsule 1,250 mcg PO WEEKLY cholecalciferol (vitamin D3) 50 mcg (2,000 unit) capsule 50 mcg PO DAILY atorvastatin [Lipitor] 40 mg tablet 40 mg PO DAILY Referrals Follow up/Referrals: Bev Eckert PA [Primary Care Provider] - See instructions Activity Restrictions/Add. Instructions Additional Instructions/Restrictions: Drink plenty of fluids. Take tylenol or ibuprofen for pain or fever. Take the medications as directed. Follow up with your regular doctor. GO TO THE ER FOR ANY WORSENING SYMPTOMS Clinical Impressions Clinical Impression: Acute viral syndrome, Sinusitis Instructions Patient Instructions: DI for Sinusitis, DI for Viral Syndrome Discharge ED Provider: Anthony Rea [facility] HPI General Stated complaint: sore throat, FERRELL, body aches Mode of Arrival: Ambulatory Source of Information: Patient Limitations: No Limitations Time Seen by Provider: 09/29/23 08:38 Description of Symptoms (Recalled from Triage Doc. by RN): Pt's symptoms are sore throat, coughing, body aches, and runny nose. HEENT Symptoms (Recalled from RN notes): Yes Resp Symptoms (Recalled from RN notes): No Skin Symptoms (Recalled from RN notes): No MS Symptoms (Recalled from RN notes): No Functional Status (Recalled from RN notes): n/a History of Present Illness Provider Complaint: She states that she has had sore throat, fever, chills, sinus congestion, and body aches since yesterday. Related Data Home Medications Medication Instructions Recorded Confirmed cholecalciferol (vitamin D3) 50 50 mcg PO DAILY Supplement 04/01/23 09/29/23 mcg (2,000 unit) capsule ergocalciferol (vitamin D2) 1,250 1,250 mcg PO WEEKLY Supplement 04/01/23 09/29/23 mcg (50,000 unit) capsule atorvastatin 40 mg tablet (Lipitor) 40 mg PO DAILY Cholesterol 05/21/23 09/29/23 Previous Rx's Medication Instructions Recorded carvedilol 25 mg tablet 50 mg PO BID High Blood Pressure 06/02/23 #120 tabs pantoprazole 40 mg tablet,delayed 40 mg PO BID 30 days #60 tabs 06/03/23 release spironolactone 50 mg tablet 50 mg PO DAILY #30 tabs 07/28/23 (Aldactone) sucralfate 1 gram tablet (Carafate) 1 g PO BID #60 tabs 08/12/23 hydrochlorothiazide 50 mg tablet 50 mg PO DAILY #30 tabs 08/26/23 isosorbide mononitrate 60 mg 60 mg PO DAILY #30 tabs 08/26/23 tablet,extended release 24 hr lisinopril 40 mg tablet 40 mg PO DAILY #30 tabs 08/26/23 amlodipine 10 mg tablet See Rx Instructions .Route 09/08/23 .COMPLEX #30 tabs hydrocodone 7.5 mg-acetaminophen 1 tab PO QID Pain #120 tabs 09/23/23 325 mg tablet azithromycin 250 mg tablet 250 mg PO UD DOSE PK #6 tabs 09/29/23 (Zithromax) benzonatate 100 mg capsule 100 mg PO TIDP PRN Cough #30 caps 09/29/23 Allergies Allergy/AdvReac Type Severity Reaction Status Date / Time cefdinir [From Omnicef] Allergy Intermediate racing Verified 09/29/23 08:33 heart amoxicillin [AMOXICILLIN] Allergy Unknown I-RASH Verified 09/29/23 08:33 naproxen [NAPROXEN] Allergy Unknown I-RASH Verified 09/29/23 08:33 Pxotcba-[id number]-LsM Reductase AdvReac Intermediate Muscle Pain Verified 09/29/23 08:33 Inhibitor Worker's Comp Is this a Worker's Comp case?: No [facility] Disclaimer: The information contained in this section may have been updated after the patient was seen, as this information can be updated by other users. Medical History Bladder prolapse Breast cancer GERD (gastroesophageal reflux disease) History of pituitary adenoma History of sleep study Negative for BRYAN 11/03/22 HTN (hypertension) Major depressive disorder Pelvic organ prolapse quantification stage 3 cystocele Surgical History History of appendectomy History of back surgery History of cardiac cath History of carpal tunnel surgery History of elbow surgery History of hammer toe correction History of LAVH History of lumpectomy History of shoulder surgery Family History Father Heart attack Cancer Mother Diabetes Sister Diabetes Hypertension Social History Smoking Status: Never smoker alcohol intake: never substance use type: denies use current occupational status: disabled Travel in the last 8 weeks: None household members: spouse housing: house current occupational exposures/hazards: No caffeine: Yes ROS Obtained: Yes All systems reviewed & no additional complaints except as documented Constitutional Constitutional: Reports chills and Reports fever(s) Eyes Eyes: Denies eye discharge ENT Ears, Nose, Mouth, and Throat: Reports as per HPI Cardiovascular Cardiovascular: Denies chest pain Respiratory Respiratory: Denies chest congestion and Reports cough Gastrointestinal Gastrointestingal: Reports nausea; Denies abdominal pain, constipation, cramping, diarrhea or vomiting Musculoskeletal Musculoskeletal: Denies arthralgias Integumentary/Breasts Skin/Breast: Denies rash Neurologic Neurologic: Denies paresthesias Physical Exam General General appearance: alert and in no apparent distress Eye Eye exam: Present normal appearance, PERRL and EOMI ENT ENT exam: Present mucous membranes moist and normal external ear exam Expanded ENT Exam External ear exam: Present normal external inspection TM/Canal exam: Bilateral TM: erythema and bulging Nose exam: Absent sinus tenderness Nasal speculum exam: Bilateral: normal Mouth exam: Present normal external inspection; Absent drooling Teeth exam: Present normal inspection Throat exam: Present tonsillar erythema and tonsillomegaly Neck Neck exam: Present normal inspection, full ROM and trachea midline; Absent tenderness, lymphadenopathy or thyromegaly Chest Chest inspection: Present normal inspection and symmetric chest wall rise; Absent tenderness or rash Respiratory Respiratory exam: Present normal lung sounds bilaterally; Absent respiratory distress, wheezes, stridor or accessory muscle use Cardiovascular Cardiovascular exam: Present regular rate, normal rhythm and normal heart sounds Abdominal Exam Abdominal exam: Present soft; Absent distention, tenderness, guarding, rebound or rigidity Extremities Exam Extremities exam: Present normal inspection, full ROM and normal capillary refill; Absent tenderness or calf tenderness Back Exam Back exam: Present normal inspection and full ROM; Absent tenderness Neurological Exam Neurological exam: Present alert and oriented X3 Psychiatric Psychiatric exam: Present normal affect and normal mood Skin Skin exam: Present warm, dry, intact and normal color Lymphatic Lymphatic Findings: no adenopathy Medical Decision Making Medical Records Medical records reviewed: No I reviewed the patient's medical records. Marc Inquiry Pt receiving controlled substance: No Vital Signs: 09/29/23 08:20 Temperature 98.0 F Temperature Source Oral Pulse Rate [Right Radial] 114 H Respiratory Rate 18 Blood Pressure [Right Arm] 183/87 H Blood Pressure Mean [Right Arm] 119 Blood Pressure Source [Right Arm] Automatic Cuff Blood Pressure Position [Right Arm] Sitting 02 Sat by Pulse Oximetry 98 Oxygen Delivery Method Room Air Lab Data Lab results reviewed: Yes I reviewed the patient's lab results.
[2023-09-29 08:49] LABS: UTC Influenza A Antigen Negative (Negative); UTC Influenza B Antigen Negative (Negative); UTC Strep Screen (Rapid) Negative (Negative)
[2023-09-29 09:16] VITALS: BP 183/87; PULSE 114; RESP 18; TEMP 36.7; O2SAT 98
[2023-09-29 09:19] LABS: Coronavirus 19, PCR Not Detected (NotDetected); Influenza A, PCR Not Detected (NotDetected); Influenza B, PCR Not Detected (NotDetected)
== END 2023-09-29 09:16 | disposition home or self-care (01) ==
PROVIDERS: Emergency Provider Nurse Practitioner Family; PCP Physician Assistant
DX: J01.90 Acute sinusitis, unspecified (principal); R07.0 Pain in throat; R50.9 Fever, unspecified; M79.18 Myalgia, other site; R09.81 Nasal congestion; B34.9 Viral infection, unspecified; K21.9 Gastro-esophageal reflux disease without esophagitis; I10 Essential (primary) hypertension
CPT/HCPCS: 87636; 87804; 87880; 99212; 99214; G0463

== ENCOUNTER 2023-10-02 08:13 | Emergency (ER) | payer MEDICARE, SELFPAY ==
[2023-10-02] VITALS (20 sets, daily range): BP systolic 156–198; BP diastolic 77–97; PULSE 106–125; RESP 14–18; TEMP 36.4–36.7; O2SAT 96–100; BMI 24.1
--- NOTE | 2023-10-02 08:13 | ECG_ITS ---
APPROVED REPORT Exam: Resting ECG HR:116 bpm ECG Measurements Heart Rate 116 AXES AZ 169 P 76 QRSd 80 QRS 53 QT 332 T 25 QTc 401 Conclusion SINUS TACHYCARDIA NONSPECIFIC ST & T-WAVE ABNORMALITY ABNORMAL RHYTHM ECG UNCONFIRMED REPORT Electronically signed by : Anthony Denney, 10/02/2023 15:45:49
--- NOTE | 2023-10-02 08:20 | PC.NURSE ---
DR DIAZ AT BEDSIDE
--- NOTE | 2023-10-02 08:22 | XR_ITS ---
FINAL REPORT CLINICAL HISTORY: Precordial chest pain FINDINGS: A single view of the chest was obtained. The heart is normal in size. The mediastinum is unremarkable. The lungs are clear. There is no pleural effusion. There is no pneumothorax. There is no acute osseous abnormality. IMPRESSION: No acute cardiopulmonary process. Reviewed, Interpreted and Dictated by Cesar Matos III, MD Transcribed by Rani Red Authenticated and [facility]
[2023-10-02 08:30] LABS: Basophils # 0.1 K/mm3 (0-0.2); Basophils % 1.7 % (0.1-2.0); Eosinophils # 0.1 K/mm3 (0.0-0.4); Eosinophils % 1.6 % (0.1-12.0); Lymphocytes # 1.4 K/mm3 (0.7-4.5); Mean Corpuscular HGB Conc 30.2 g/dL (31.8-35.4); Mean Corpuscular Volume 92.8 fl (81-99); Mean Platelet Volume 7.4 fl (7.4-10.4); Monocytes # 0.4 K/mm3 (0.1-1.0); Monocytes % 6.1 % (1.7-9.3); Neutrophils # 3.8 K/mm3 (1.8-7.8); Neutrophils % 65.6 % (37.0-80.0); Platelet Count 480 K/mm3 (142-424); Red Blood Count 1.85 M/mm3 (4.20-5.40); Red Cell Distribution Width 24.1 % (11.5-17.5); White Blood Count 5.7 K/mm3 (4.8-10.8)
[2023-10-02 08:34] LABS: Hematocrit 17.1 % (37.0-47.0)
[2023-10-02 08:37] LABS: Occult Blood,Stool Positive (Negative)
[2023-10-02 08:39] LABS: Hemoglobin 5.2 g/dL (12.2-16.2)
--- NOTE | 2023-10-02 08:41 | HMH.EDGENADL ---
Discharge Plan Disposition Patient Disposition: Admitted Chief Complaint: GI Bleed Prescriptions Prescriptions: No Action carvedilol 25 mg tablet 50 mg PO BID Qty: 120 5RF hydrocodone-acetaminophen 7.5-325 mg tablet 1 tab PO QID Qty: 120 0RF sucralfate [Carafate] 1 gram tablet 1 g PO BID Qty: 60 2RF ergocalciferol (vitamin D2) 1,250 mcg (50,000 unit) capsule 1,250 mcg PO WEEKLY cholecalciferol (vitamin D3) 50 mcg (2,000 unit) capsule 50 mcg PO DAILY atorvastatin [Lipitor] 40 mg tablet 40 mg PO DAILY benzonatate [benzonatate] 100 mg capsule 100 mg PO TIDP PRN (Reason: Cough) Qty: 30 0RF azithromycin [Zithromax] 250 mg tablet 250 mg PO DIRECTED Rx Instructions: Take two (2) tablets today, then one (1) tablet days #2 thru #5 hydrochlorothiazide 50 mg tablet 50 mg PO DAILY clopidogrel 75 mg tablet 75 mg PO DAILY isosorbide mononitrate 60 mg tablet extended release 24 hr 60 mg PO DAILY amlodipine 10 mg tablet 10 mg PO DAILY pantoprazole 40 mg tablet,delayed release (DR/EC) 40 mg PO BID lisinopril 40 mg tablet 40 mg PO DAILY spironolactone [Aldactone] 50 mg tablet 50 mg PO DAILY Referrals Follow up/Referrals: Bev Eckert PA [Primary Care Provider] - See instructions Clinical Impressions Clinical Impression: Acute upper GI bleed, Acute blood loss anemia, Myocardial injury Instructions Patient Instructions: DI for Gastrointestinal Bleeding Discharge ED Provider: Alexis Denney General Adult HPI General Chief complaint: GI Bleed Stated complaint: chest painj Time Seen by Provider: 10/02/23 08:19 History of Present Illness HPI narrative: Patient is a 67-year-old female with a history of coronary artery disease has a stent has been on prasugrel in the past and had a GI bleed last April with stopping that medication had an endoscopy showing a poorly healing ulcer has had multiple endoscopies since that time and has not had complete resolution of those symptoms. She has been following with our surgeons and a spanish language lecturer in [place] as well. Has required a transfusion at least 1 other time since last April. Woke up this morning and was profoundly weak and the person who accompanies her in the room with her states that she was extremely pale and has lost all of her color. The patient denies any noted melena over the last several weeks to months. Denies any abdominal pain does have some dyspnea with exertion but no significant chest pain at the moment. Related Data Home Medications Medication Instructions Recorded Confirmed cholecalciferol (vitamin D3) 50 50 mcg PO DAILY Supplement 04/01/23 10/02/23 mcg (2,000 unit) capsule ergocalciferol (vitamin D2) 1,250 1,250 mcg PO WEEKLY Supplement 04/01/23 10/02/23 mcg (50,000 unit) capsule atorvastatin 40 mg tablet (Lipitor) 40 mg PO DAILY Cholesterol 05/21/23 10/02/23 amlodipine 10 mg tablet 10 mg PO DAILY High Blood Pressure 10/02/23 10/02/23 azithromycin 250 mg tablet 250 mg PO DIRECTED Infection 10/02/23 10/02/23 (Zithromax) clopidogrel 75 mg tablet 75 mg PO DAILY Platelet Inhibitor 10/02/23 10/02/23 hydrochlorothiazide 50 mg tablet 50 mg PO DAILY Fluid 10/02/23 10/02/23 isosorbide mononitrate 60 mg 60 mg PO DAILY High Blood Pressure 10/02/23 10/02/23 tablet,extended release 24 hr lisinopril 40 mg tablet 40 mg PO DAILY High Blood Pressure 10/02/23 10/02/23 pantoprazole 40 mg tablet,delayed 40 mg PO BID Acid Reflux 10/02/23 10/02/23 release spironolactone 50 mg tablet 50 mg PO DAILY Fluid 10/02/23 10/02/23 (Aldactone) Previous Rx's Medication Instructions Recorded carvedilol 25 mg tablet 50 mg (2 x 25 mg) PO BID High 06/02/23 Blood Pressure #120 tabs sucralfate 1 gram tablet (Carafate) 1 g PO BID #60 tabs 08/12/23 hydrocodone 7.5 mg-acetaminophen 1 tab PO QID Pain #120 tabs 09/23/23 325 mg tablet benzonatate 100 mg capsule 100 mg PO TIDP PRN Cough #30 caps 09/29/23 Allergies Allergy/AdvReac Type Severity Reaction Status Date / Time cefdinir [From Omnicef] Allergy Intermediate racing Verified 09/29/23 08:33 heart amoxicillin [AMOXICILLIN] Allergy Unknown I-RASH Verified 09/29/23 08:33 naproxen [NAPROXEN] Allergy Unknown I-RASH Verified 09/29/23 08:33 [id number] Reductase AdvReac Intermediate Muscle Pain Verified 09/29/23 08:33 Inhibitor PFSH PFS Disclaimer: The information contained in this section may have been updated after the patient was seen, as this information can be updated by other users. Medical History Bladder prolapse Breast cancer GERD (gastroesophageal reflux disease) History of pituitary adenoma History of sleep study Negative for BRYAN 11/03/22 HTN (hypertension) Major depressive disorder Pelvic organ prolapse quantification stage 3 cystocele Surgical History History of appendectomy History of back surgery History of cardiac cath History of carpal tunnel surgery History of elbow surgery History of hammer toe correction History of LAVH History of lumpectomy History of shoulder surgery Family History Father Heart attack Cancer Mother Diabetes Sister Diabetes Hypertension Social History Smoking Status: Never smoker alcohol intake: never substance use type: denies use current occupational status: disabled Travel in the last 8 weeks: None household members: spouse housing: house current occupational exposures/hazards: No caffeine: Yes ROS Obtained: Yes All systems reviewed & no additional complaints except as documented Physical Exam General General appearance: in distress and other (Pale in appearance) Respiratory Respiratory exam: Present normal lung sounds bilaterally and respiratory distress Cardiovascular Cardiovascular exam: Present tachycardia (Heart rate 120 my exam) Abdominal Exam Abdominal exam: Present soft; Absent distention or tenderness Rectal Exam Rectal exam: Present other (Black stool that was heme positive) Neurological Exam Neurological exam: Present alert and oriented X3 Medical Decision Making Marc Inquiry Pt receiving controlled substance: No Vital Signs: 10/02/23 08:16 10/02/23 09:00 Temperature 97.6 F Temperature Source Oral Pulse Rate 107 H Pulse Rate [Right] 112 H Respiratory Rate 17 18 Blood Pressure 156/78 H Blood Pressure [Right Arm] 185/86 H Blood Pressure Mean 104 Blood Pressure Mean [Right Arm] 119 Blood Pressure Source [Right Arm] Automatic Cuff 02 Sat by Pulse Oximetry 100 98 Oxygen Delivery Method Room Air Lab Data Lab results reviewed: Yes I reviewed the patient's lab results. Lab Results 10/02/23 08:10: WBC 5.7, RBC 1.85 L*, Hgb 5.2 L*, Hct 17.1 L*, MCV 92.8, MCH 28.0, MCHC 30.2 L, RDW 24.1 H, Plt Count 480 H, MPV 7.4, Neut % (Auto) 65.6, Lymph % (Auto) 25.0, [place] % (Auto) 6.1, Eos % (Auto) 1.6, Baso % (Auto) 1.7, Neut # (Auto) 3.8, Lymph # (Auto) 1.4, [place] # (Auto) 0.4, Eos # (Auto) 0.1, Baso # (Auto) 0.1, PT 10.5, INR 0.97, APTT 23.8, Sodium 140, Potassium 3.7, Chloride 108 H, Carbon Dioxide 25, Anion Gap 10.7, BUN 26 H, Creatinine 0.60, Estimated Creat Clear 58, Estimated GFR 100, Est GFR ( Amer) 121, Glucose 144 H, Calcium 8.3 L, Total Bilirubin 0.1 L, AST 33, ALT 20, Alkaline Phosphatase 92, Troponin I 0.07 H, Total Protein 5.4 L, Albumin 3.4 L, Globulin 2.0, Albumin/Globulin Ratio 1.7 10/02/23 08:28: Stool Occult Blood Positive A 10/02/23 08:50: Crossmatch (AHG) See Detail 10/02/23 08:10 10/02/23 08:10 Orders (Tests/Meds): ED MEDICATIONS Generic Name Dose Route Start Last Admin Trade Name Freq PRN Reason Stop Dose Admin Sodium Chloride 250 mls @ 25 mls/hr 10/02/23 08:45 Sod Chlor 0.9% 250ml Bag IV 10/03/23 08:44 .Q10H EVITA Sodium Chloride 10 ml 10/02/23 08:45 10/02/23 08:45 Sodium Chloride 0.9% 10ml Vial IV 11/01/23 08:44 10 ml NEEDED PRN Administration dilute protonix Discontinued Medications Generic Name Dose Route Start Last Admin Trade Name Freq PRN Reason Stop Dose Admin Lactated Ringer's 1,000 mls @ 999 mls/hr 10/02/23 08:30 10/02/23 08:45 Lactated Ringer's 1000 Ml Bag IV 10/02/23 09:30 999 mls/hr .Q1H1M EVITA Administration Pantoprazole Sodium 40 mg 10/02/23 08:45 10/02/23 08:45 Pantoprazole 40mg Vial IV 10/02/23 08:46 40 mg ONCE ONE Administration ORDERS Category Date Time Status Transfuse RBC's [Red Blood Cells] Stat BBK 10/02/23 08:50 Received Type and Screen Stat BBK 10/02/23 08:50 Received CXR --portable [XR chest portable] Stat Exams 10/02/23 08:22 Taken Complete Blood Count Auto Diff Stat Lab 10/02/23 08:10 Completed Comprehensive Metabolic Panel Stat Lab 10/02/23 08:10 Completed Occult Blood,Stool Stat Lab 10/02/23 08:28 Completed PT/PTT Stat Lab 10/02/23 08:10 Completed Troponin I Q3H Lab 10/02/23 11:30 Ordered Troponin I Q3H Lab 10/02/23 14:30 Ordered Troponin I Stat Lab 10/02/23 08:10 Completed ECG Data Tracing #1: I reviewed this ECG and interpreted as documented below: Ventricular rate of 116 sinus tachycardia no acute ischemic changes noted normal axis no conduction abnormalities Medical Decision Narrative: Patient is a 67-year-old female presenting today with profound weakness pale in appearance tachycardia. She has a history of an upper GI bleed. On my physical exam she did have melena and was heme positive. Hemoglobin came back at 5.2 she was crossed for 4 units and administered 2. IV fluids administered right now. No signs of shock. She does have some dyspnea on exertion which is likely secondary to oxygen delivery from her profound anemia but is possible she may have myocardial injury associated with this pending troponin. She will need to be admitted for an endoscopy again. Reassessment labs indicated myocardial injury with a troponin of 0.07. Patient likely still has underlying ischemic disease in her heart. I reviewed her records further she has had essentially nonhealing ulcers in her duodenal bulb with some other antral ulcers noted on repeat endoscopies. She will need to be admitted for an EGD and further intervention. She also will need her antiplatelet agents held. She remains hemodynamically stable right now most recent heart rate is 108 and blood pressure of 166/83. She also appears clinically stable. Will discuss the case with her surgeon and admit the patient for further evaluation and treatment. Critical Care Critical Care Time Critical Care Time: Yes Attestation: On 10/02/23, the high probability of a clinically significant, sudden or life threatening deterioration of the following system(s) required my full and direct attention, intervention and personal management. The time I documented below is in addition to time spent performing reported procedures but includes the following listed in this critical care notation. Total Time Total Critical Care Time: 35
[2023-10-02] MEDS: LACTATED RINGERS 1000ML 1,000 ML 999 ML IV (08:45)
[2023-10-02] MEDS: PANTOPRAZOLE 40MG VIAL 40 MG IV (08:45)
[2023-10-02] MEDS: SODIUM CHLORIDE 0.9% 10ML VIAL 10 ML IV (08:45)
[2023-10-02 08:47] LABS: Activated Partial Thrombo Time 23.8 seconds (22.8-30.6); INR 0.97 (0.9-1.1); Prothrombin Time 10.5 seconds (10.1-12.5)
--- NOTE | 2023-10-02 09:00 | HMH.PHAINT1 ---
Pharmacy Intervention Comments: MEDICATION RECONCILIATION COMPLETED ON PATIENT USING EXTERNAL FILL HISTORY FROM PHARMACY. -PRAVEEN MOHR, JOSE LD
[2023-10-02 09:02] LABS: Alanine Aminotransferase 20 U/L (12-78); Albumin Level 3.4 g/dl (3.5-5.0); Albumin/Globulin Ratio 1.7 (1.1-1.8); Alkaline Phosphatase 92 U/L (38-126); Anion Gap 10.7 mEq/L (5-15); Aspartate Amino Transferase 33 U/L (14-36); Blood Urea Nitrogen 26 mg/dl (7-17); Calcium 8.3 mg/dl (8.4-10.2); Carbon Dioxide 25 mmol/L (22.0-30.0); Chloride 108 mmol/L (98-107); Creatinine Clearance Estimated 58 mL/min (50-200); Estimated Glomerular Filt Rate 100 ml/min (>60); GFR (African American) 121 ML/MIN (>60); Glucose 144 mg/dl (74-100); Potassium 3.7 mmoL/L (3.5-5.1); Sodium 140 mmol/L (136-145); Total Protein,Serum 5.4 g/dl (6.3-8.2)
[2023-10-02 09:14] LABS: Troponin I 0.07 ng/ml (0.00-0.034)
--- NOTE | 2023-10-02 09:15 | PC.NURSE ---
BLood consent signed
[2023-10-02 09:21] LABS: Bilirubin,Total 0.1 mg/dl (0.2-1.3)
--- NOTE | 2023-10-02 09:29 | PC.NURSE ---
DR MONTALVO PAGED
--- NOTE | 2023-10-02 09:49 | PC.NURSE ---
pt to restroom hooked back up to monitor no needs at this time
--- NOTE | 2023-10-02 09:56 | PC.NURSE ---
DR DIAZ SPEAKING WITH DR MONTALVO
--- NOTE | 2023-10-02 10:15 | PC.NURSE ---
called [facility] for transfer to [place], they are to call back
--- NOTE | 2023-10-02 10:29 | PC.NURSE ---
Picked up 1st unit of PRBC @ 1007. Began infusing at 1025. Unit # [id number]. Verified with Alexis Pak RN
--- NOTE | 2023-10-02 10:34 | PC.NURSE ---
DR DIAZ SPEAKING WITH [facility], PT HAS BEEN ACCEPTED BY DR. MILLER FOR GI
--- NOTE | 2023-10-02 10:38 | PC.NURSE ---
Pt stated I have to use the bathroom, assisted pt to the bathroom with blood still infusing. HR increased up to 123. Pt reports feeling tired and dizzy when standing. Bedside commode brought to pt's room to ensure she does not have to get up or walk too far.
--- NOTE | 2023-10-02 11:23 | PC.NURSE ---
Rounded on pt to see if they had any needs. pt asked for a drink of water. checked with the Dr and he okayed it for the pt to have some water. vpt had no other needs at this time.
--- NOTE | 2023-10-02 11:50 | PC.NURSE ---
Called report to [facility] [place]. Pt signed transfer record
--- NOTE | 2023-10-02 12:26 | PC.NURSE ---
Rounded on pt to se if they had any needs. Pt had no needs at this time.
[2023-10-02] MEDS: PANTOPRAZOLE SODIUM 80 MG in 0.9 % SODIUM CHLORIDE 100 ML 10 MG IV (12:30)
--- NOTE | 2023-10-02 12:38 | PC.NURSE ---
Gave report to EMS. Pt used restroom prior to get on EMS stretcher
== END 2023-10-02 12:51 | disposition short-term general hospital (02) ==
PROVIDERS: Emergency Provider Student in an Organized Health Care Education/Training Program; PCP Physician Assistant
DX: K27.4 Chronic or unspecified peptic ulcer, site unspecified, with hemorrhage; D62 Acute posthemorrhagic anemia; I5A Non-ischemic myocardial injury (non-traumatic); R00.0 Tachycardia, unspecified; I10 Essential (primary) hypertension; K21.9 Gastro-esophageal reflux disease without esophagitis
CPT/HCPCS: 36430; 71045; 80053; 82272; 84484; 85025; 85610; 85730; 86850; 93005; 96361; 96365; 96366; 99291; G0328; P9016

== ENCOUNTER 2023-10-07 14:37 | Outpatient (CLI) | payer MEDICARE, SELFPAY ==
[2023-10-07 15:17] LABS: Basophils # 0.1 K/mm3 (0-0.2); Basophils % 1.4 % (0.1-2.0); Eosinophils # 0.2 K/mm3 (0.0-0.4); Eosinophils % 3.1 % (0.1-12.0); Hemoglobin 10.3 g/dL (12.2-16.2); Lymphocytes # 1.2 K/mm3 (0.7-4.5); Lymphocytes % 18.3 % (10-50); Mean Corpuscular HGB Conc 31.2 g/dL (31.8-35.4); Mean Corpuscular Hemoglobin 28.5 pg (27.0-31.2); Mean Corpuscular Volume 91.3 fl (81-99); Mean Platelet Volume 7.2 fl (7.4-10.4); Monocytes # 0.5 K/mm3 (0.1-1.0); Monocytes % 6.6 % (1.7-9.3); Neutrophils # 4.8 K/mm3 (1.8-7.8); Neutrophils % 70.5 % (37.0-80.0); Platelet Count 502 K/mm3 (142-424); Red Blood Count 3.62 M/mm3 (4.20-5.40); Red Cell Distribution Width 17.9 % (11.5-17.5); White Blood Count 6.8 K/mm3 (4.8-10.8)
== END 2023-10-07 23:59 ==
PROVIDERS: PCP Physician Assistant; Visit Provider Internal Medicine
DX: D50.0 Iron deficiency anemia secondary to blood loss (chronic) (principal); K27.9 Peptic ulcer, site unspecified, unspecified as acute or chronic, without hemorrhage or perforation; I25.10 Atherosclerotic heart disease of native coronary artery without angina pectoris; I10 Essential (primary) hypertension; L98.499 Non-pressure chronic ulcer of skin of other sites with unspecified severity; K21.00 Gastro-esophageal reflux disease with esophagitis, without bleeding
CPT/HCPCS: 36415; 85025

== ENCOUNTER 2023-10-28 09:54 | Emergency (ER) | payer MEDICARE, SELFPAY ==
[2023-10-28 10:05] VITALS: BP 211/100; PULSE 87; RESP 20; TEMP 36.4; O2SAT 97; BMI 22.6
[2023-10-28 10:24] LABS: UTC Strep Screen (Rapid) Negative (Negative)
--- NOTE | 2023-10-28 10:25 | EXP.UTC ---
Discharge Plan Disposition Patient Disposition: Home, Self-Care Condition: Good Prescriptions Prescriptions: New azithromycin [Zithromax Z-Mikey] 250 mg tablet See Rx Instructions .ROUTE .COMPLEX 5 Days Qty: 6 0RF Rx Instructions: For 250 mg dose pack: take 500 mg today (day 1), then 250 mg for 4 days (days 2-5) No Action carvedilol 25 mg tablet 50 mg PO BID Qty: 120 5RF sucralfate [Carafate] 1 gram tablet 1 g PO BID Qty: 60 2RF hydrocodone-acetaminophen 7.5-325 mg tablet 1 tab PO QID Qty: 120 0RF atorvastatin [Lipitor] 40 mg tablet 40 mg PO DAILY Qty: 90 0RF ergocalciferol (vitamin D2) 1,250 mcg (50,000 unit) capsule 1,250 mcg PO WEEKLY cholecalciferol (vitamin D3) 50 mcg (2,000 unit) capsule 50 mcg PO DAILY benzonatate [benzonatate] 100 mg capsule 100 mg PO TIDP PRN (Reason: Cough) Qty: 30 0RF hydrochlorothiazide 50 mg tablet 50 mg PO DAILY isosorbide mononitrate 60 mg tablet extended release 24 hr 60 mg PO DAILY amlodipine 10 mg tablet 10 mg PO DAILY pantoprazole 40 mg tablet,delayed release (DR/EC) 40 mg PO BID lisinopril 40 mg tablet 40 mg PO DAILY spironolactone [Aldactone] 50 mg tablet 50 mg PO DAILY Referrals Follow up/Referrals: Bev Eckert PA [Primary Care Provider] - See instructions Activity Restrictions/Add. Instructions Additional Instructions/Restrictions: *Monitor Temp, Over the counter Motrin or Tylenol as directed/as needed Tylenol every 4 hours and Motrin every 6 hours (as long as your family doctor has told you that you can take it) for fever or pain. and straight to ER if unable to lower temp less than 101.0 after medication given *Warm salt water gargles may help to soothe the throat *Throat Lozenges? *Warm fluids like tea with honey may help to soothe the throat? *Sleep elevated *Humidifier/Vaporizer Your throat swab was sent for culture. Those results are typically sent to your primary care. Be sure to follow up in 2-3 days with your family doctor/primary care physician if no improvement so they can review those result and treat if necessary. If you don?t have a primary care doctor, I recommend you get one but in the mean time, you will have to return to a walk in clinic Follow up IMMEDIATELY for new or worsening symptoms or no Noticeable improvement over the next 48-72 hours. 911 for difficulty breathing or swallowing Make sure to follow up on your blood pressure as discussed Clinical Impressions Clinical Impression: Pharyngitis Instructions Patient Instructions: Sore Throat Discharge ED Provider[place] [facility] [place] General Stated complaint: sore throat, headache Mode of Arrival: Ambulatory Source of Information: Patient Limitations: No Limitations Time Seen by Provider: 10/28/23 10:26 Description of Symptoms (Recalled from Triage Doc. by RN): PATIENT C/O SORE THROAT, HEADACHE, AND BODY ACHES SINCE YESTERDAY. RECENTLY EXPOSED TO STREP HEENT Symptoms (Recalled from RN notes): Yes Resp Symptoms (Recalled from RN notes): No Skin Symptoms (Recalled from RN notes): No MS Symptoms (Recalled from RN notes): No Functional Status (Recalled from RN notes): WNL History of Present Illness Provider Complaint: Patient states that she has been around her daughter and grandson that has strep throat and yesterday her throat started killing her feeling dry, scratchy and hurting when she would swallow states feels like she is swallowing glass and feeling achy and having headache like she gets with strep throat Related Data Home Medications Medication Instructions Recorded Confirmed cholecalciferol (vitamin D3) 50 50 mcg PO DAILY Supplement 04/01/23 10/07/23 mcg (2,000 unit) capsule ergocalciferol (vitamin D2) 1,250 1,250 mcg PO WEEKLY Supplement 04/01/23 10/07/23 mcg (50,000 unit) capsule amlodipine 10 mg tablet 10 mg PO DAILY High Blood Pressure 10/02/23 10/07/23 hydrochlorothiazide 50 mg tablet 50 mg PO DAILY Fluid 10/02/23 10/07/23 isosorbide mononitrate 60 mg 60 mg PO DAILY High Blood Pressure 10/02/23 10/07/23 tablet,extended release 24 hr lisinopril 40 mg tablet 40 mg PO DAILY High Blood Pressure 10/02/23 10/07/23 pantoprazole 40 mg tablet,delayed 40 mg PO BID Acid Reflux 10/02/23 10/07/23 release spironolactone 50 mg tablet 50 mg PO DAILY Fluid 10/02/23 10/07/23 (Aldactone) Previous Rx's Medication Instructions Recorded carvedilol 25 mg tablet 50 mg (2 x 25 mg) PO BID High 06/02/23 Blood Pressure #120 tabs sucralfate 1 gram tablet (Carafate) 1 g PO BID #60 tabs 08/12/23 benzonatate 100 mg capsule 100 mg PO TIDP PRN Cough #30 caps 09/29/23 hydrocodone 7.5 mg-acetaminophen 1 tab PO QID Pain #120 tabs 10/26/23 325 mg tablet atorvastatin 40 mg tablet (Lipitor) 40 mg PO DAILY Cholesterol #90 tabs 10/27/23 azithromycin 250 mg tablet See Rx Instructions PO .COMPLEX 5 10/28/23 (Zithromax Z-Mikey) days #6 tabs Allergies Allergy/AdvReac Type Severity Reaction Status Date / Time cefdinir [From Omnicef] Allergy Intermediate racing Verified 10/07/23 13:52 heart amoxicillin [AMOXICILLIN] Allergy Unknown I-RASH Verified 10/07/23 13:52 naproxen [NAPROXEN] Allergy Unknown I-RASH Verified 10/07/23 13:52 [id number] Reductase AdvReac Intermediate Muscle Pain Verified 10/07/23 13:52 Inhibitor Worker's Comp Is this a Worker's Comp case?: No [facility] Disclaimer: The information contained in this section may have been updated after the patient was seen, as this information can be updated by other users. Medical History Pelvic organ prolapse quantification stage 3 cystocele Bladder prolapse HTN (hypertension) History of sleep study Negative for BRYAN 11/03/22 History of pituitary adenoma GERD (gastroesophageal reflux disease) Breast cancer Major depressive disorder Surgical History History of elbow surgery History of back surgery History of carpal tunnel surgery History of hammer toe correction History of shoulder surgery History of appendectomy History of LAVH History of lumpectomy History of cardiac cath Family History Father Heart attack Cancer Mother Diabetes Sister Diabetes Hypertension Social History Smoking Status: Never smoker alcohol intake: never substance use type: denies use current occupational status: disabled Travel in the last 8 weeks: None household members: spouse housing: house current occupational exposures/hazards: No caffeine: Yes ROS Obtained: Yes All systems reviewed & no additional complaints except as documented and Yes Systems reviewed as appropriate & no additional complaints except as documented Constitutional Constitutional: Reports system reviewed and no additional complaints, except as documented, Reports as per HPI, Reports body ache and Reports headache(s) ENT Ears, Nose, Mouth, and Throat: Reports system reviewed and no additional complaints, except as documented, Reports as per HPI, Reports headache(s) and Reports sore throat Cardiovascular Cardiovascular: Reports system reviewed and no additional complaints, except as documented and Reports as per HPI Respiratory Respiratory: Reports system reviewed and no additional complaints, except as documented and Reports as per HPI Gastrointestinal Gastrointestingal: Reports system reviewed and no additional complaints, except as documented and as per HPI Neurologic Neurologic: Reports headache(s) Physical Exam General General appearance: alert and in no apparent distress ENT ENT exam: Present mucous membranes moist Expanded ENT Exam Throat exam: Present tonsillar erythema Respiratory Respiratory exam: Present normal lung sounds bilaterally; Absent respiratory distress or wheezes Cardiovascular Cardiovascular exam: Present regular rate, normal rhythm and normal heart sounds Neurological Exam Neurological exam: Present alert, oriented X3 and normal gait Medical Decision Making Marc Inquiry Pt receiving controlled substance: No Marc was queried for this patient: No Vital Signs: 10/28/23 10:05 Temperature 97.5 F L Temperature Source Oral Pulse Rate [Left Brachial] 87 Respiratory Rate 20 Blood Pressure [Left Arm] 211/100 H Blood Pressure Mean [Left Arm] 137 Blood Pressure Source [Left Arm] Automatic Cuff Blood Pressure Position [Left Arm] Sitting 02 Sat by Pulse Oximetry 97 Oxygen Delivery Method Room Air Lab Data Lab results reviewed: Yes I reviewed the patient's lab results. Lab Results 10/28/23 10:05: Strep Scn Rapid Clinic Negative Orders (Tests/Meds): ORDERS Category Date Time Status Strep Screen Confirmation Stat Micro 10/28/23 10:05 Received Medical Decision Narrative: Patient blood pressure elevated discussed with patient and recommended transfer to the ED for furhter work up and evaluation and patient declined States she follows Cardiology and they are adjusting her medication to get it under control and she did not wanted treated for blood pressure today Patient aware of risks and still declined Patient states that she has take azithromycin in the past without complications or reactions
[2023-10-28 10:55] VITALS: BP 211/100; PULSE 87; RESP 20; TEMP 36.4; O2SAT 97
== END 2023-10-28 10:58 | disposition home or self-care (01) ==
PROVIDERS: Emergency Provider Nurse Practitioner; PCP Physician Assistant
DX: J02.9 Acute pharyngitis, unspecified (principal); R51.9 Headache, unspecified; I10 Essential (primary) hypertension; K21.9 Gastro-esophageal reflux disease without esophagitis
CPT/HCPCS: 87880; 99212; 99214; G0463

== ENCOUNTER 2023-11-05 11:43 | Outpatient (CLI) | payer MEDICARE, SELFPAY ==
--- NOTE | 2023-11-05 11:44 | ECG_ITS ---
APPROVED REPORT Exam: Resting ECG HR:89 bpm ECG Measurements Heart Rate 89 AXES MN 161 P 62 QRSd 85 QRS 8 QT 362 T 27 QTc 409 Conclusion SINUS RHYTHM LOW QRS VOLTAGE IN PRECORDIAL LEADS [QRS DEFLECTION < 1.0 mV IN CHEST LEADS] Old anterior changes BORDERLINE ECG UNCONFIRMED REPORT Electronically signed by : Ramesh Turcios MD 11/05/2023 19:22:19
[2023-11-05 11:48] LABS: MANUAL DIFFERENTIAL MANUAL DIFFERENTIAL (MANUAL DIFF)
[2023-11-05 12:07] LABS: Basophils # 0.1 K/mm3 (0-0.2); Basophils % 1.8 % (0.1-2.0); Eosinophils # 0.2 K/mm3 (0.0-0.4); Eosinophils % 3.6 % (0.1-12.0); Hematocrit 36.3 % (37.0-47.0); Hemoglobin 11.4 g/dL (12.2-16.2); Lymphocytes # 1.2 K/mm3 (0.7-4.5); Lymphocytes % 24.2 % (10-50); Mean Corpuscular HGB Conc 31.4 g/dL (31.8-35.4); Mean Corpuscular Hemoglobin 28.4 pg (27.0-31.2); Mean Corpuscular Volume 90.5 fl (81-99); Mean Platelet Volume 6.3 fl (7.4-10.4); Monocytes # 0.3 K/mm3 (0.1-1.0); Monocytes % 6.1 % (1.7-9.3); Neutrophils # 3.3 K/mm3 (1.8-7.8); Neutrophils % 64.4 % (37.0-80.0); Platelet Count 382 K/mm3 (142-424); Red Blood Count 4.01 M/mm3 (4.20-5.40); White Blood Count 5.1 K/mm3 (4.8-10.8)
[2023-11-05 12:34] LABS: Lymphocytes % 20 % (10-50); Monocytes % 5 % (2-9); Neutrophils % 75 % (42-76); Platelet Estimate Normal; RBC Morphology Normal; Total Cells Counted 100
[2023-11-05 12:47] LABS: Alanine Aminotransferase 20 U/L (12-78); Albumin Level 3.8 g/dl (3.5-5.0); Albumin/Globulin Ratio 1.9 (1.1-1.8); Alkaline Phosphatase 117 U/L (38-126); Anion Gap 10.2 mEq/L (5-15); Aspartate Amino Transferase 30 U/L (14-36); Bilirubin,Total 0.2 mg/dl (0.2-1.3); Blood Urea Nitrogen 21 mg/dl (7-17); Calcium 8.9 mg/dl (8.4-10.2); Carbon Dioxide 29 mmol/L (22.0-30.0); Chloride 105 mmol/L (98-107); Estimated Glomerular Filt Rate 72 ml/min (>60); GFR (African American) 87 ML/MIN (>60); Glucose 99 mg/dl (74-100); Potassium 4.2 mmoL/L (3.5-5.1); Sodium 140 mmol/L (136-145); Total Protein,Serum 5.8 g/dl (6.3-8.2)
== END 2023-11-05 23:59 | disposition home or self-care (01) ==
LOC: LAB 11:44
PROVIDERS: PCP Physician Assistant; Visit Provider Physician Assistant
DX: N81.10 Cystocele, unspecified (principal); D64.9 Anemia, unspecified; I25.10 Atherosclerotic heart disease of native coronary artery without angina pectoris; Z79.899 Other long term (current) drug therapy
CPT/HCPCS: 36415; 80053; 85007; 85014; 85018; 85048; 85049; 93005

== ENCOUNTER 2023-12-14 12:51 | Outpatient (CLI) | payer MEDICARE, SELFPAY ==
[2023-12-14 13:18] LABS: Basophils # 0.1 K/mm3 (0-0.2); Basophils % 1.2 % (0.1-2.0); Eosinophils # 0.1 K/mm3 (0.0-0.4); Eosinophils % 1.2 % (0.1-12.0); Hematocrit 36.9 % (37.0-47.0); Hemoglobin 11.6 g/dL (12.2-16.2); Lymphocytes # 1.3 K/mm3 (0.7-4.5); Mean Corpuscular HGB Conc 31.3 g/dL (31.8-35.4); Mean Corpuscular Hemoglobin 28.3 pg (27.0-31.2); Mean Corpuscular Volume 90.5 fl (81-99); Mean Platelet Volume 7.9 fl (7.4-10.4); Monocytes # 0.3 K/mm3 (0.1-1.0); Monocytes % 3.9 % (1.7-9.3); Neutrophils # 4.6 K/mm3 (1.8-7.8); Neutrophils % 73.8 % (37.0-80.0); Platelet Count 433 K/mm3 (142-424); Red Blood Count 4.08 M/mm3 (4.20-5.40); Red Cell Distribution Width 17.7 % (11.5-17.5); White Blood Count 6.3 K/mm3 (4.8-10.8)
[2023-12-14 14:28] LABS: 25-OH Vitamin D, Total 27.4 ng/mL (30-100)
[2023-12-14 14:41] LABS: Thyroid Stimulating Hormone 0.43 uIU/mL (0.465-4.68)
[2023-12-14 17:14] LABS: Chloride 108 mmol/L (98-107); Potassium 3.4 mmoL/L (3.5-5.1); Sodium 140 mmol/L (136-145)
[2023-12-14 17:16] LABS: Alanine Aminotransferase 16 U/L (12-78); Aspartate Amino Transferase 25 U/L (14-36); Blood Urea Nitrogen 20 mg/dl (7-17); Estimated Glomerular Filt Rate 72 ml/min (>60); GFR (African American) 87 ML/MIN (>60)
[2023-12-14 17:17] LABS: Albumin Level 3.8 g/dl (3.5-5.0); Albumin/Globulin Ratio 1.7 (1.1-1.8); Alkaline Phosphatase 108 U/L (38-126); Anion Gap 12.4 mEq/L (5-15); Calcium 9.2 mg/dl (8.4-10.2); Carbon Dioxide 23 mmol/L (22.0-30.0); Globulin 2.3 g/dL (1.3-3.2); Glucose 112 mg/dl (74-100); Total Protein,Serum 6.1 g/dl (6.3-8.2)
[2023-12-14 17:18] LABS: Bilirubin,Total 0.1 mg/dl (0.2-1.3)
== END 2023-12-14 23:59 | disposition home or self-care (01) ==
LOC: LAB 12:52
PROVIDERS: PCP Physician Assistant; Visit Provider Physician Assistant
DX: R53.83 Other fatigue (principal); E55.9 Vitamin D deficiency, unspecified; Z68.23 Body mass index [BMI] 23.0-23.9, adult
CPT/HCPCS: 36415; 80053; 82306; 84443; 85025

== ENCOUNTER 2024-01-06 13:56 | Emergency (ER) | payer MEDICARE, SELFPAY ==
--- NOTE | 2024-01-06 14:06 | ED_ITS ---
<Statement entered by Alexis Denney MD - 01/06/24 15:36> I was consulted by the NAZIA, and we discussed the complexity of the problems being addressed. I approved the treatment and management plan for this patient's care in the emergency department, thus performing a substantive portion of the medical decision making. Alexis Denney MD, TORO, FACEP Discharge Plan Disposition Patient Disposition: Home, Self-Care Condition: Good Prescriptions Prescriptions: No Action ondansetron HCl 4 mg tablet 4 mg PO DAILY Patient Comments: TAKE ONE TABLET BY MOUTH EVERY 8 HOURS hydrocodone-acetaminophen 7.5-325 mg tablet 1 tab PO Q6H PRN (Reason: pain) Qty: 120 0RF hydrocodone-acetaminophen 7.5-325 mg tablet 1 tab PO QID Qty: 120 0RF hydralazine 25 mg tablet 25 mg PO TID Qty: 270 3RF isosorbide mononitrate 120 mg tablet extended release 24 hr 120 mg PO DAILY Qty: 90 3RF ergocalciferol (vitamin D2) 1,250 mcg (50,000 unit) capsule See Rx Instructions .ROUTE .COMPLEX Qty: 14 3RF Dose Instruction: TAKE ONE CAPSULE BY MOUTH ONCE WEEKLY Rx Instructions: TAKE ONE CAPSULE BY MOUTH ONCE WEEKLY cholecalciferol (vitamin D3) 50 mcg (2,000 unit) capsule See Rx Instructions .ROUTE .COMPLEX Qty: 90 3RF Dose Instruction: TAKE ONE CAPSULE BY MOUTH EVERY DAY Rx Instructions: TAKE ONE CAPSULE BY MOUTH EVERY DAY carvedilol 25 mg tablet 50 mg PO BID 90 Days Qty: 360 1RF lisinopril 40 mg tablet 40 mg PO DAILY Qty: 90 1RF atorvastatin [Lipitor] 40 mg tablet 40 mg PO DAILY Qty: 90 1RF hydrochlorothiazide 50 mg tablet 50 mg PO DAILY amlodipine 10 mg tablet 10 mg PO DAILY pantoprazole 40 mg tablet,delayed release (DR/EC) 40 mg PO BID spironolactone [Aldactone] 50 mg tablet 50 mg PO DAILY Referrals Follow up/Referrals: Phillip Garzon MD [Physician] - See instructions (Recurrent epistaxis, currently packed) Bev Eckert PA [Primary Care Provider] - See instructions Sushant Mccarty MD [Staff Physician] - See instructions (Uncontrolled hypertension) Activity Restrictions/Add. Instructions Additional Instructions/Restrictions: I have referred you to an ear nose and throat doctor. Please call in the morning to make an appointment. I have also referred you back to Dr. Arredondo for blood pressure management. Please call and make an appointment in the a.m. Please leave packing in place until evaluation by ear nose and throat. Please return to ER for any worsening signs or symptoms or bleeding. l Clinical Impressions Clinical Impression: Epistaxis, Hypertension, uncontrolled Instructions Patient Instructions: Essential Hypertension, DI for Nosebleed Discharge ED Provider: Alexis Denney General Adult HPI <CAROLINA López - Last Filed: 01/06/24 16:04> General Chief complaint: Epistaxis Stated complaint: nosebleed for an hour Time Seen by Provider: 01/06/24 14:06 History of Present Illness HPI narrative: Patient presents for evaluation of a nosebleed. Patient has had several previous epistaxis in the last 30 to 90 days but has not seen ear nose and throat for this yet. Previously with she has been able to achieve hemostasis with compression and ice packs to her nose. That was tried today and it did not work and additionally patient states it is never bled this intensely before. She denies chest pain fever chills hemoptysis hematochezia melena vomiting or diarrhea but does have significant nausea. Patient also has a longstanding history of significant hypertension that is very difficult to manage and presents today with a blood pressure of 234/118 with a heart rate of 138 on arrival. Related Data Home Medications Medication Instructions Recorded Confirmed amlodipine 10 mg tablet 10 mg PO DAILY High Blood Pressure 10/02/23 11/18/23 hydrochlorothiazide 50 mg tablet 50 mg PO DAILY Fluid 10/02/23 11/18/23 pantoprazole 40 mg tablet,delayed 40 mg PO BID Acid Reflux 10/02/23 11/18/23 release spironolactone 50 mg tablet 50 mg PO DAILY Fluid 10/02/23 11/18/23 (Aldactone) ondansetron HCl 4 mg tablet 4 mg PO DAILY 11/18/23 11/18/23 Previous Rx's Medication Instructions Recorded ergocalciferol (vitamin D2) 1,250 See Rx Instructions .Route 11/04/23 mcg (50,000 unit) capsule .COMPLEX #14 caps cholecalciferol (vitamin D3) 50 See Rx Instructions .Route 11/05/23 mcg (2,000 unit) capsule .COMPLEX #90 caps hydralazine 25 mg tablet 25 mg PO TID #270 tabs 11/11/23 isosorbide mononitrate 120 mg 120 mg PO DAILY #90 tabs 11/11/23 tablet,extended release 24 hr hydrocodone 7.5 mg-acetaminophen 1 tab PO Q6H PRN pain #120 tabs 11/19/23 325 mg tablet hydrocodone 7.5 mg-acetaminophen 1 tab PO QID Pain #120 tabs 11/19/23 325 mg tablet atorvastatin 40 mg tablet (Lipitor) 40 mg PO DAILY Cholesterol #90 tabs 12/24/23 carvedilol 25 mg tablet 50 mg (2 x 25 mg) PO BID High 12/24/23 Blood Pressure 90 days #360 tabs lisinopril 40 mg tablet 40 mg PO DAILY High Blood Pressure 12/24/23 #90 tabs Allergies Allergy/AdvReac Type Severity Reaction Status Date / Time cefdinir [From Omnicef] Allergy Intermediate racing Verified 01/06/24 14:15 heart amoxicillin [AMOXICILLIN] Allergy Unknown I-RASH Verified 01/06/24 14:15 naproxen [NAPROXEN] Allergy Unknown I-RASH Verified 01/06/24 14:15 Trhiugu-JEW-RrD Reductase AdvReac Intermediate Muscle Pain Verified 01/06/24 14:15 Inhibitor PFSH <CAROLINA López - Last Filed: 01/06/24 16:04> [facility] Disclaimer: The information contained in this section may have been updated after the patient was seen, as this information can be updated by other users. Medical History Pelvic organ prolapse quantification stage 3 cystocele Bladder prolapse HTN (hypertension) History of sleep study Negative for BRYAN 11/03/22 History of pituitary adenoma GERD (gastroesophageal reflux disease) Breast cancer Major depressive disorder Surgical History History of elbow surgery History of back surgery History of carpal tunnel surgery History of hammer toe correction History of shoulder surgery History of appendectomy History of LAVH History of lumpectomy History of cardiac cath Family History Father Heart attack Cancer Mother Diabetes Sister Diabetes Hypertension Social History Smoking Status: Never smoker alcohol intake: never substance use type: denies use current occupational status: disabled Travel in the last 8 weeks: None household members: spouse housing: house current occupational exposures/hazards: No caffeine: Yes <CAROLINA López - Last Filed: 01/06/24 16:04> ROS Obtained: Yes Systems reviewed as appropriate & no additional complaints except as documented Physical Exam <CAROLINA López - Last Filed: 01/06/24 16:04> General General appearance: alert Head Head exam: atraumatic and normal inspection Eye Eye exam: Present normal appearance Expanded ENT Exam Nasal speculum exam: Bilateral: epistaxis (Fairly brisk venous flow that appears to be more out of the right than the left however the bleeding vessel cannot be identified due to the flow) Neck Neck exam: Present normal inspection; Absent tenderness Respiratory Respiratory exam: Present normal lung sounds bilaterally Cardiovascular Cardiovascular exam: Present normal rhythm, tachycardia, normal heart sounds, +S1 and +S2 Neurological Exam Neurological exam: Present alert, oriented X3 and CN II-XII intact Medical Decision Making <CAROLINA López - Last Filed: 01/06/24 16:04> Medical Records Medical records reviewed: Yes I reviewed the patient's medical records. Marc Inquiry Pt receiving controlled substance: No Vital Signs: 01/06/24 14:09 01/06/24 14:13 01/06/24 14:30 Temperature Temperature Source Pulse Rate 131 H 116 H Pulse Rate [Right Brachial] 138 H Respiratory Rate 18 Blood Pressure 234/118 H 219/121 H Blood Pressure [Right Arm] 234/118 H Blood Pressure Mean Blood Pressure Mean [Right Arm] 156 Blood Pressure Source Blood Pressure Source [Right Arm] Automatic Cuff Blood Pressure Position 02 Sat by Pulse Oximetry 98 98 96 Oxygen Delivery Method Room Air 01/06/24 15:00 01/06/24 15:20 01/06/24 16:00 Temperature 98.6 F Temperature Source Oral Pulse Rate 110 H 97 H 93 H Pulse Rate [Right Brachial] Respiratory Rate 18 Blood Pressure 228/145 H 200/116 H 224/110 H Blood Pressure [Right Arm] Blood Pressure Mean 172 144 Blood Pressure Mean [Right Arm] Blood Pressure Source Automatic Cuff Blood Pressure Source [Right Arm] Blood Pressure Position Sitting 02 Sat by Pulse Oximetry 96 97 Oxygen Delivery Method Room Air Lab Data Lab results reviewed: Yes I reviewed the patient's lab results. Lab Results 01/06/24 14:40: WBC 6.2, RBC 4.62, Hgb 13.1, Hct 41.8, MCV 90.3, MCH 28.3, MCHC 31.3 L, RDW 17.0, Plt Count 523 H, MPV 7.9, Neut % (Auto) 73.5, Lymph % (Auto) 18.5, [place] % (Auto) 5.0, Eos % (Auto) 1.5, Baso % (Auto) 1.5, Neut # (Auto) 4.6, Lymph # (Auto) 1.2, [place] # (Auto) 0.3, Eos # (Auto) 0.1, Baso # (Auto) 0.1, PT 10.3, INR 0.95, Sodium 142, Potassium 3.6, Chloride 103, Carbon Dioxide 27, A nion Gap 15.6 H, BUN 21 H, Creatinine 0.80, Estimated Creat Clear 53, Estimated GFR 72, Est GFR ( Amer) 87, Glucose 152 H, Calcium 9.6, Magnesium 2.0, Total Bilirubin 0.3, AST 28, ALT 22, Alkaline Phosphatase 126, Troponin I < 0.01, Total Protein 7.3, Albumin 4.6, Globulin 2.7, Albumin/Globulin Ratio 1.7, Urine Color Yellow, Urine Appearance Clear, Urine pH 6.0, Ur Specific [place] 1.020, Urine Protein Negative, Urine Glucose (UA) Negative, Urine Ketones Negative, Urine Blood Trace-i, Urine Nitrate Negative, Urine Bilirubin Negative, Urine Urobilinogen 0.2, Ur Leukocyte Esterase 1+ A, Urine RBC Occasional, Urine WBC 3-5, Ur Squamous Epith Cells None, Urine Bacteria None 01/06/24 14:40 01/06/24 14:40 Orders (Tests/Meds): ED MEDICATIONS Discontinued Medications Generic Name Dose Route Start Last Admin Trade Name Freq PRN Reason Stop Dose Admin Acetaminophen 1,000 mg 01/06/24 14:27 01/06/24 15:15 Acetaminophen 1,000mg/100ml Vial IV 01/06/24 14:28 1,000 mg ONCE ONE Administration Tranexamic Acid 10 mg/ Sodium 250.1 mls @ 500.2 mls/hr 01/06/24 14:25 01/06/24 14:28 Chloride TP 01/06/24 14:26 500.2 mls/hr ONCE ONE Administration Lactated Ringer's 1,000 mls @ 999 mls/hr 01/06/24 14:27 01/06/24 15:15 Lactated Ringer's 1000 Ml Bag IV 01/06/24 15:27 999 mls/hr .Q1H1M ONE Administration Labetalol HCl 20 mg 01/06/24 15:00 Labetalol 20mg/4ml Syringe IV 01/06/24 15:01 ONCE ONE Ondansetron HCl 4 mg 01/06/24 14:27 01/06/24 15:15 Ondansetron 4mg/2ml Vial IV 01/06/24 14:28 4 mg ONCE ONE Administration Oxycodone HCl 5 mg 01/06/24 15:08 01/06/24 15:16 Oxycodone 5mg Immediate Release Tablet PO 01/06/24 15:09 5 mg ONCE ONE Administration Oxymetazoline HCl 2 ml 01/06/24 14:25 01/06/24 14:28 Oxymetazoline Nasal [place] 0.05% 15ml NS 01/06/24 14:26 2 ml ONCE ONE Administration ORDERS Category Date Time Status CBC w/Auto Diff [Complete Blood Count Auto Diff] Stat Lab 01/06/24 14:40 Completed CMP [Comprehensive Metabolic Panel] Stat Lab 01/06/24 14:40 Completed INR [Prothrombin Time INR] Stat Lab 01/06/24 14:40 Completed Magnesium Stat Lab 01/06/24 14:40 Completed Trop I [Troponin I] Stat Lab 01/06/24 14:40 Completed UA [Urinalysis and Microscopic] Stat Lab 01/06/24 14:40 Completed Urine Culture Stat Micro 01/06/24 14:40 Received HEART Score History (anamnesis): Slightly suspicious ECG: Normal Age: >65 years Risk factors: 3 or more risk factors Troponin: </= normal limit HEART Score: 4 Medical Decision Narrative: In summary patient is a 68-year-old female who presents to the emergency department for evaluation of epistaxis. Patient is hypertensive with a blood pressure of 234/118 and tachycardic with a heart rate of 138 but otherwise hemodynamically stable upon arrival, afebrile. Physical exam shows a fairly brisk venous appearing predominately left-sided appearing epistaxis. Differential diagnosis includes anterior bleed versus posterior bleed versus bilateral bleeding, malignant hypertension or accelerated essential hypertension etc. Initial workup will be conducted with hematologic labs twelve-lead EKG. Initial interventions include direct pressure, nasal packing with TXA, continuous cardiac monitoring and pulse oximetry. Initial workup reviewed by me shows that her hematologic labs do not reveal endorgan damage including normal creatinine normal troponin with no protein in her urine and a stable H&H and INR. Upon repeat evaluation patient has achieved hemostasis however she reports discomfort with the nasal packing but is not currently bleeding. Given this patient is appropriate for discharge with referrals to ear nose and throat, referral back to her risk management specialist for blood pressure management, and return instructions for any recurrent bleeding. <Stephan Callaway MD - Last Filed: 01/06/24 19:59> Vital Signs: 01/06/24 14:09 01/06/24 14:13 01/06/24 14:30 Temperature Temperature Source Pulse Rate 131 H 116 H Pulse Rate [Right Brachial] 138 H Respiratory Rate 18 Blood Pressure 234/118 H 219/121 H Blood Pressure [Right Arm] 234/118 H Blood Pressure Mean Blood Pressure Mean [Right Arm] 156 Blood Pressure Source Blood Pressure Source [Right Arm] Automatic Cuff Blood Pressure Position 02 Sat by Pulse Oximetry 98 98 96 Oxygen Delivery Method Room Air 01/06/24 15:00 01/06/24 15:20 01/06/24 16:00 Temperature 98.6 F Temperature Source Oral Pulse Rate 110 H 97 H 93 H Pulse Rate [Right Brachial] Respiratory Rate 18 Blood Pressure 228/145 H 200/116 H 224/110 H Blood Pressure [Right Arm] Blood Pressure Mean 172 144 Blood Pressure Mean [Right Arm] Blood Pressure Source Automatic Cuff Blood Pressure Source [Right Arm] Blood Pressure Position Sitting 02 Sat by Pulse Oximetry 96 97 Oxygen Delivery Method Room Air Lab Data Lab Results 01/06/24 14:40: WBC 6.2, RBC 4.62, Hgb 13.1, Hct 41.8, MCV 90.3, MCH 28.3, MCHC 31.3 L, RDW 17.0, Plt Count 523 H, MPV 7.9, Neut % (Auto) 73.5, Lymph % (Auto) 18.5, [place] % (Auto) 5.0, Eos % (Auto) 1.5, Baso % (Auto) 1.5, Neut # (Auto) 4.6, Lymph # (Auto) 1.2, [place] # (Auto) 0.3, Eos # (Auto) 0.1, Baso # (Auto) 0.1, PT 10.3, INR 0.95, Sodium 142, Potassium 3.6, Chloride 103, Carbon Dioxide 27, A [place]ion [place] 15.6 H, BUN 21 H, Creatinine 0.80, Estimated Creat Clear 53, Estimated GFR 72, Est GFR ( Amer) 87, Glucose 152 H, Calcium 9.6, Magnesium 2.0, Total Bilirubin 0.3, AST 28, ALT 22, Alkaline Phosphatase 126, Troponin I < 0.01, Total Protein 7.3, Albumin 4.6, Globulin 2.7, Albumin/Globulin Ratio 1.7, Urine Color Yellow, Urine Appearance Clear, Urine pH 6.0, Ur Specific [place] 1.020, Urine Protein Negative, Urine Glucose (UA) Negative, Urine Ketones Negative, Urine Blood Trace-i, Urine Nitrate Negative, Urine Bilirubin Negative, Urine Urobilinogen 0.2, Ur Leukocyte Esterase 1+ A, Urine RBC Occasional, Urine WBC 3-5, Ur Squamous Epith Cells None, Urine Bacteria None Orders (Tests/Meds): ED MEDICATIONS Discontinued Medications Generic Name Dose Route Start Last Admin Trade Name Freq PRN Reason Stop Dose Admin Acetaminophen 1,000 mg 01/06/24 14:27 01/06/24 15:15 Acetaminophen 1,000mg/100ml Vial IV 01/06/24 14:28 1,000 mg ONCE ONE Administration Tranexamic Acid 10 mg/ Sodium 250.1 mls @ 500.2 mls/hr 01/06/24 14:25 01/06/24 14:28 Chloride TP 01/06/24 14:26 500.2 mls/hr ONCE ONE Administration Lactated Ringer's 1,000 mls @ 999 mls/hr 01/06/24 14:27 01/06/24 15:15 Lactated Ringer's 1000 Ml Bag IV 01/06/24 15:27 999 mls/hr .Q1H1M ONE Administration Labetalol HCl 20 mg 01/06/24 15:00 Labetalol 20mg/4ml Syringe IV 01/06/24 15:01 ONCE ONE Ondansetron HCl 4 mg 01/06/24 14:27 01/06/24 15:15 Ondansetron 4mg/2ml Vial IV 01/06/24 14:28 4 mg ONCE ONE Administration Oxycodone HCl 5 mg 01/06/24 15:08 01/06/24 15:16 Oxycodone 5mg Immediate Release Tablet PO 01/06/24 15:09 5 mg ONCE ONE Administration Oxymetazoline HCl 2 ml 01/06/24 14:25 01/06/24 14:28 Oxymetazoline Nasal [place] 0.05% 15ml NS 01/06/24 14:26 2 ml ONCE ONE Administration ORDERS Category Date Time Status CBC w/Auto Diff [Complete Blood Count Auto Diff] Stat Lab 01/06/24 14:40 Completed CMP [Comprehensive Metabolic Panel] Stat Lab 01/06/24 14:40 Completed INR [Prothrombin Time INR] Stat Lab 01/06/24 14:40 Completed Magnesium Stat Lab 01/06/24 14:40 Completed Trop I [Troponin I] Stat Lab 01/06/24 14:40 Completed UA [Urinalysis and Microscopic] Stat Lab 01/06/24 14:40 Completed Urine Culture Stat Micro 01/06/24 14:40 Received ECG Data Tracing #1: I reviewed this ECG and interpreted as documented below: Normal sinus rhythm 92 bpm. NV 159, QRS 86, QTc 410, axis normal. ECG initial impression date: 01/06/24 ECG initial impression time: 14:55 HEART Score HEART Score: 4 Medical Decision Narrative: In summary patient is a 68-year-old female who presents to the emergency department for evaluation of epistaxis. Patient is hypertensive with a blood pressure of 234/118 and tachycardic with a heart rate of 138 but otherwise hemodynamically stable upon arrival, afebrile. Physical exam shows a fairly brisk venous appearing predominately left-sided appearing epistaxis. Differential diagnosis includes anterior bleed versus posterior bleed versus bilateral bleeding, malignant hypertension or accelerated essential hypertension etc. Initial workup will be conducted with hematologic labs twelve-lead EKG. Initial interventions include direct pressure, nasal packing with TXA, continuous cardiac monitoring and pulse oximetry. Initial workup reviewed by me shows that her hematologic labs do not reveal endorgan damage including normal creatinine normal troponin with no protein in her urine and a stable H&H and INR. Upon repeat evaluation patient has achieved hemostasis however she reports discomfort with the nasal packing but is not currently bleeding. Given this patient is appropriate for discharge with referrals to ear nose and throat, referral back to her risk management specialist for blood pressure management, and return instructions for any recurrent bleeding. I independently interviewed and examined patient. I was consulted by the NAZIA, and we discussed the complexity of the problems being addressed. I approved the treatment and management plan for this patient?s care in the Emergency Department, thus performing a substantive portion of the medical decision making. Stephan Callaway MD Critical Care <CAROLINA López - Last Filed: 01/06/24 16:04> Critical Care Time Critical Care Time: No
[2024-01-06 14:09] VITALS: BP 234/118; PULSE 138; RESP 18; O2SAT 98; BMI 22.4
[2024-01-06 14:13] VITALS: BP 234/118; PULSE 131; O2SAT 98
[2024-01-06] MEDS: TRANEXAMIC ACID TP (14:28)
[2024-01-06] MEDS: OXYMETAZOLINE NASAL SPRAY 0.05% 15ML 2 ML NS (14:28)
[2024-01-06] MEDS: SODIUM CHLORIDE 0.9% TP (14:28)
[2024-01-06 14:30] VITALS: BP 219/121; PULSE 116; O2SAT 96
--- NOTE | 2024-01-06 14:55 | ECG_ITS ---
APPROVED REPORT Exam: Resting ECG HR:92 bpm ECG Measurements Heart Rate 92 AXES DE 159 P 72 QRSd 86 QRS 36 QT 360 T 59 QTc 410 Conclusion SINUS RHYTHM LOW QRS VOLTAGE IN PRECORDIAL LEADS [QRS DEFLECTION < 1.0 mV IN CHEST LEADS] BORDERLINE ECG Electronically signed by : LORY STILES, 01/07/2024 19:10:20
[2024-01-06 14:57] LABS: Microscopic, Urine URINE MICROSCOPIC (MICROSCOPIC)
[2024-01-06 15:00] VITALS: BP 228/145; PULSE 110; O2SAT 96
[2024-01-06 15:02] LABS: Appearance,Urine CLEAR (Clear); Bilirubin,Urine Negative (Negative); Blood, Urine TRACE-I (Negative); Color,Urine YELLOW (Yellow); Glucose,Urine (UA) Negative (Negative); Ketones,Urine Negative (Negative); Leukocyte Esterase,Urine 1+ (Negative); Nitrate,Urine Negative (Negative); Protein,Urine Negative (Negative); Urobilinogen,Urine 0.2 EU/dl (0.2)
[2024-01-06 15:08] LABS: Alanine Aminotransferase 22 U/L (12-78); Albumin Level 4.6 g/dl (3.5-5.0); Albumin/Globulin Ratio 1.7 (1.1-1.8); Alkaline Phosphatase 126 U/L (38-126); Anion Gap 15.6 mEq/L (5-15); Aspartate Amino Transferase 28 U/L (14-36); Basophils # 0.1 K/mm3 (0-0.2); Basophils % 1.5 % (0.1-2.0); Bilirubin,Total 0.3 mg/dl (0.2-1.3); Blood Urea Nitrogen 21 mg/dl (7-17); Calcium 9.6 mg/dl (8.4-10.2); Carbon Dioxide 27 mmol/L (22.0-30.0); Chloride 103 mmol/L (98-107); Creatinine Clearance Estimated 53 mL/min (50-200); Eosinophils # 0.1 K/mm3 (0.0-0.4); Eosinophils % 1.5 % (0.1-12.0); Estimated Glomerular Filt Rate 72 ml/min (>60); GFR (African American) 87 ML/MIN (>60); Globulin 2.7 g/dL (1.3-3.2); Glucose 152 mg/dl (74-100); Hematocrit 41.8 % (37.0-47.0); Hemoglobin 13.1 g/dL (12.2-16.2); Lymphocytes # 1.2 K/mm3 (0.7-4.5); Lymphocytes % 18.5 % (10-50); Mean Corpuscular HGB Conc 31.3 g/dL (31.8-35.4); Mean Corpuscular Hemoglobin 28.3 pg (27.0-31.2); Mean Corpuscular Volume 90.3 fl (81-99); Mean Platelet Volume 7.9 fl (7.4-10.4); Monocytes # 0.3 K/mm3 (0.1-1.0); Neutrophils # 4.6 K/mm3 (1.8-7.8); Neutrophils % 73.5 % (37.0-80.0); Platelet Count 523 K/mm3 (142-424); Potassium 3.6 mmoL/L (3.5-5.1); Red Blood Count 4.62 M/mm3 (4.20-5.40); Sodium 142 mmol/L (136-145); Total Protein,Serum 7.3 g/dl (6.3-8.2); White Blood Count 6.2 K/mm3 (4.8-10.8)
[2024-01-06] MEDS: LACTATED RINGERS 1000ML 1,000 ML 999 ML IV (15:15)
[2024-01-06] MEDS: ONDANSETRON 4MG/2ML VIAL 4 MG IV (15:15)
[2024-01-06] MEDS: ACETAMINOPHEN 1,000MG/100ML VIAL 1000 MG IV (15:15)
[2024-01-06] MEDS: OXYCODONE 5MG IMMEDIATE RELEASE TABLET 5 MG PO (15:16)
[2024-01-06 15:20] VITALS: BP 200/116; PULSE 97; O2SAT 97
[2024-01-06 15:27] LABS: RBC,Urine Occasional #/hpf (0-3)
[2024-01-06 15:31] LABS: Troponin I < 0.01 ng/ml (0.00-0.034)
[2024-01-06 15:51] LABS: INR 0.95 (0.9-1.1); Prothrombin Time 10.3 seconds (10.1-12.5)
[2024-01-06 16:00] VITALS: BP 224/110; PULSE 93; RESP 18; TEMP 37; O2SAT 97
== END 2024-01-06 16:00 | disposition home or self-care (01) ==
PROVIDERS: Physician Assistant; Emergency Provider Student in an Organized Health Care Education/Training Program; PCP Physician Assistant
DX: R04.0 Epistaxis; I10 Essential (primary) hypertension; R00.0 Tachycardia, unspecified; B96.89 Other specified bacterial agents as the cause of diseases classified elsewhere; K21.9 Gastro-esophageal reflux disease without esophagitis
CPT/HCPCS: 30901; 80053; 81001; 83735; 84484; 85025; 85610; 87086; 93005; 96361; 96374; 96375; 99285; J0131; J2405; J7120

== ENCOUNTER 2024-04-06 10:16 | Emergency (ER) | payer MEDICARE, SELFPAY ==
[2024-04-06 10:40] VITALS: BP 193/103; PULSE 81; RESP 20; TEMP 37.1; O2SAT 97; BMI 22.3
--- NOTE | 2024-04-06 10:43 | EXP.UTC ---
Discharge Plan Disposition Patient Disposition: Home, Self-Care Condition: Good Prescriptions Prescriptions: New benzonatate 100 mg capsule 100 mg PO TIDP PRN (Reason: Cough) Qty: 30 0RF methylprednisolone 4 mg Tablets,Dose Pack 4 mg PO DIRECTED 6 Days Qty: 21 0RF Rx Instructions: Take 1 pack as directed for 6 days No Action hydralazine 50 mg tablet 50 mg PO TID hydrochlorothiazide 50 mg tablet 100 mg PO DAILY Qty: 180 3RF lisinopril 40 mg tablet 40 mg PO DAILY Qty: 90 1RF hydrocodone-acetaminophen 7.5-325 mg tablet 1 tab PO QID PRN (Reason: Pain) 30 Days Qty: 120 0RF atorvastatin 40 mg tablet 40 mg PO HS Patient Comments: TAKE ONE TABLET BY MOUTH EVERY DAY FOR cholesterol carvedilol 25 mg tablet 25 mg PO DAILY Patient Comments: TAKE TWO TABLETS BY MOUTH TWICE DAILY FOR HIGH BLOOD PRESSURE isosorbide mononitrate 120 mg tablet extended release 24 hr 120 mg PO DAILY Patient Comments: TAKE ONE TABLET BY MOUTH EVERY DAY amlodipine 10 mg tablet 10 mg PO DAILY Patient Comments: TAKE ONE TABLET BY MOUTH EVERY DAY pantoprazole 40 mg tablet,delayed release (DR/EC) 40 mg PO DAILY Patient Comments: TAKE ONE TABLET BY MOUTH TWICE DAILY spironolactone 50 mg tablet 50 mg PO DAILY Patient Comments: TAKE ONE TABLET BY MOUTH EVERY DAY FOR fluid Referrals Follow up/Referrals: Bev Eckert PA [Primary Care Provider] - See instructions Activity Restrictions/Add. Instructions Additional Instructions/Restrictions: Drink plenty of fluids. Take tylenol or ibuprofen for pain or fever. Take the medications as directed. Follow up with your regular doctor. GO TO THE ER FOR ANY WORSENING SYMPTOMS Clinical Impressions Clinical Impression: Acute bronchitis, Sinusitis Instructions Patient Instructions: Sinusitis, DI for Sinusitis Print Language Print Language: Luxembourgish Discharge ED Provider: Anthony Rea [facility] [place] HPI General Stated complaint: sore throat, headache, body aches Time Seen by Provider: 04/06/24 10:43 Related Data Home Medications ?Medication ?Instructions ?Recorded ?Confirmed amlodipine 10 mg tablet 10 mg PO DAILY 04/06/24 04/13/24 atorvastatin 40 mg tablet 40 mg PO HS 04/06/24 04/13/24 carvedilol 25 mg tablet 25 mg PO DAILY 04/06/24 04/13/24 isosorbide mononitrate 120 mg 120 mg PO DAILY 04/06/24 04/13/24 tablet,extended release 24 hr pantoprazole 40 mg tablet,delayed 40 mg PO DAILY 04/06/24 04/13/24 release spironolactone 50 mg tablet 50 mg PO DAILY 04/06/24 04/13/24 hydralazine 50 mg tablet 50 mg PO TID 04/13/24 04/13/24 Previous Rx's ?Medication ?Instructions ?Recorded lisinopril 40 mg tablet 40 mg PO DAILY High Blood Pressure 12/24/23 #90 tabs hydrocodone 7.5 mg-acetaminophen 1 tab PO QID PRN Pain 30 days #120 03/31/24 325 mg tablet tabs benzonatate 100 mg capsule 100 mg PO TIDP PRN Cough #30 caps 04/06/24 methylprednisolone 4 mg tablets in 4 mg PO DIRECTED 6 days #21 tabs 04/06/24 a dose pack hydrochlorothiazide 50 mg tablet 100 mg (2 x 50 mg) PO DAILY #180 04/13/24 tabs Allergies Allergy/AdvReac Type Severity Reaction Status Date / Time amoxicillin [AMOXICILLIN] Allergy Unknown I-RASH Verified 04/13/24 13:39 naproxen [NAPROXEN] Allergy Unknown I-RASH Verified 04/13/24 13:39 [facility] Disclaimer: The information contained in this section may have been updated after the patient was seen, as this information can be updated by other users. Medical History Pelvic organ prolapse quantification stage 3 cystocele Bladder prolapse HTN (hypertension) History of sleep study Negative for BRYAN 11/03/22 History of pituitary adenoma GERD (gastroesophageal reflux disease) Breast cancer Major depressive disorder Surgical History History of elbow surgery History of back surgery History of carpal tunnel surgery History of hammer toe correction History of shoulder surgery History of appendectomy History of LAVH History of lumpectomy History of cardiac cath Family History Father Heart attack Cancer Mother Diabetes Sister Diabetes Hypertension Social History Smoking Status: Never smoker alcohol intake: never substance use type: denies use current occupational status: disabled Travel in the last 8 weeks: None household members: spouse housing: house current occupational exposures/hazards: No caffeine: Yes ROS Obtained: Yes All systems reviewed & no additional complaints except as documented Constitutional Constitutional: Reports poor appetite Eyes Eyes: Reports system reviewed and no additional complaints, except as documented ENT Ears, Nose, Mouth, and Throat: Reports as per HPI Cardiovascular Cardiovascular: Reports system reviewed and no additional complaints, except as documented and Denies chest pain Respiratory Respiratory: Denies shortness of breath, Reports chest congestion, Reports cough, Denies stridor and Denies wheezing Gastrointestinal Gastrointestingal: Reports system reviewed and no additional complaints, except as documented; Denies abdominal pain, diarrhea or vomiting Musculoskeletal Musculoskeletal: Reports system reviewed and no additional complaints, except as documented and Denies arthralgias Integumentary/Breasts Skin/Breast: Reports system reviewed and no additional complaints, except as documented and Denies rash Neurologic Neurologic: Denies paresthesias Allergic/Immunologic Allergic/Immunologic: Denies wheezing Physical Exam General General appearance: alert and in no apparent distress Eye Eye exam: Present normal appearance, PERRL and EOMI ENT ENT exam: Present mucous membranes moist and normal external ear exam Expanded ENT Exam External ear exam: Present normal external inspection TM/Canal exam: Bilateral TM: erythema and bulging Nose exam: Absent sinus tenderness Nasal speculum exam: Bilateral: normal Mouth exam: Present normal external inspection; Absent drooling Teeth exam: Present normal inspection Throat exam: Present tonsillar erythema and tonsillomegaly Neck Neck exam: Present normal inspection, full ROM and trachea midline; Absent tenderness, lymphadenopathy or thyromegaly Chest Chest inspection: Present normal inspection and symmetric chest wall rise; Absent tenderness or rash Respiratory Respiratory exam: Present normal lung sounds bilaterally; Absent respiratory distress, wheezes, stridor or accessory muscle use Cardiovascular Cardiovascular exam: Present regular rate, normal rhythm and normal heart sounds Abdominal Exam Abdominal exam: Present soft; Absent distention, tenderness, guarding, rebound or rigidity Extremities Exam Extremities exam: Present normal inspection, full ROM and normal capillary refill; Absent tenderness or calf tenderness Back Exam Back exam: Present normal inspection and full ROM; Absent tenderness Neurological Exam Neurological exam: Present alert and oriented X3 Psychiatric Psychiatric exam: Present normal affect and normal mood Skin Skin exam: Present warm, dry, intact and normal color Lymphatic Lymphatic Findings: no adenopathy Medical Decision Making Medical Records Medical records reviewed: No I reviewed the patient's medical records. Marc Inquiry Pt receiving controlled substance: No
[2024-04-06 10:54] LABS: UTC Strep Screen (Rapid) Negative (Negative)
[2024-04-06 11:15] VITALS: BP 193/103; PULSE 81; RESP 20; TEMP 37.1; O2SAT 97
[2024-04-06 11:16] VITALS: BP 193/110; PULSE 81; RESP 20; TEMP 37.1; O2SAT 97
== END 2024-04-06 11:20 | disposition home or self-care (01) ==
PROVIDERS: Emergency Provider Nurse Practitioner Family; PCP Physician Assistant
DX: J20.9 Acute bronchitis, unspecified (principal); J01.90 Acute sinusitis, unspecified; R51.9 Headache, unspecified; R07.0 Pain in throat
CPT/HCPCS: 87880; 99212; 99214; G0463

== ENCOUNTER 2024-06-07 10:52 | Outpatient (CLI) | payer MEDICARE, SELFPAY ==
[2024-06-07 11:10] VITALS: BP 224/126; PULSE 101; RESP 20; TEMP 36.7; O2SAT 99
[2024-06-07] MEDS: IRON SUCROSE COMPLEX 200 MG in 0.9 % SODIUM CHLORIDE 100 ML 220 MG IV (11:10)
[2024-06-07 11:25] VITALS: BP 217/110; PULSE 98; RESP 20; O2SAT 98
[2024-06-07] MEDS: SODIUM CHLORIDE 0.9% 50ML BAG 50 ML IV (11:39)
[2024-06-07] MEDS: SODIUM CHLORIDE 0.9% 10ML FLUSH SYRINGE 10 ML IV (11:39)
[2024-06-07 11:50] VITALS: BP 213/111; PULSE 90; RESP 20; O2SAT 99
== END 2024-06-07 11:50 | disposition home or self-care (01) ==
LOC: INF 10:54
PROVIDERS: PCP Physician Assistant; Visit Provider Physician Assistant
DX: D50.9 Iron deficiency anemia, unspecified (principal)
CPT/HCPCS: 96365; J1756

== ENCOUNTER 2024-06-15 10:52 | Outpatient (CLI) | payer MEDICARE, SELFPAY ==
[2024-06-15 11:00] VITALS: BP 174/121; PULSE 105; RESP 18; O2SAT 97
[2024-06-15] MEDS: IRON SUCROSE COMPLEX 200 MG in 0.9 % SODIUM CHLORIDE 100 ML 220 MG IV (11:10)
[2024-06-15] MEDS: 0.9 % SODIUM CHLORIDE 50 ML 100 ML IV (11:10)
[2024-06-15 11:50] VITALS: BP 155/87; PULSE 96; RESP 18; O2SAT 95
== END 2024-06-15 11:55 | disposition home or self-care (01) ==
LOC: INF 10:54
PROVIDERS: PCP Physician Assistant; Visit Provider Physician Assistant
DX: D50.9 Iron deficiency anemia, unspecified (principal)
CPT/HCPCS: 96365; J1756

== ENCOUNTER 2024-06-22 10:49 | Outpatient (CLI) | payer MEDICARE, SELFPAY ==
[2024-06-22 10:55] VITALS: BP 175/95; PULSE 93; RESP 18; O2SAT 93
[2024-06-22] MEDS: IRON SUCROSE COMPLEX 200 MG in 0.9 % SODIUM CHLORIDE 100 ML 220 MG IV (11:15)
[2024-06-22] MEDS: 0.9 % SODIUM CHLORIDE 50 ML 200 ML IV (11:45)
== END 2024-06-22 11:50 | disposition home or self-care (01) ==
LOC: INF 10:50
PROVIDERS: PCP Physician Assistant; Visit Provider Physician Assistant
DX: D50.9 Iron deficiency anemia, unspecified (principal)
CPT/HCPCS: 96365; J1756

== ENCOUNTER 2024-06-29 10:52 | Outpatient (CLI) | payer MEDICARE, SELFPAY ==
[2024-06-29 11:14] VITALS: BP 155/91; PULSE 83; RESP 20; TEMP 36.4; O2SAT 99
[2024-06-29] MEDS: SODIUM CHLORIDE 0.9% 10ML FLUSH SYRINGE 10 ML IV (11:14)
[2024-06-29] MEDS: SODIUM CHLORIDE 0.9% 50ML BAG 50 ML IV (11:14)
[2024-06-29] MEDS: IRON SUCROSE COMPLEX 200 MG in 0.9 % SODIUM CHLORIDE 100 ML 220 MG IV (11:14)
[2024-06-29 11:47] VITALS: BP 163/95; PULSE 81; RESP 20; O2SAT 99
== END 2024-06-29 11:50 | disposition home or self-care (01) ==
LOC: INF 10:54
PROVIDERS: PCP Physician Assistant; Visit Provider Physician Assistant
DX: D50.9 Iron deficiency anemia, unspecified (principal)
CPT/HCPCS: 96365; J1756

== ENCOUNTER 2024-07-06 10:55 | Outpatient (CLI) | payer MEDICARE, SELFPAY ==
[2024-07-06] MEDS: IRON SUCROSE COMPLEX 200 MG in 0.9 % SODIUM CHLORIDE 100 ML 220 MG IV (11:18)
[2024-07-06 11:22] VITALS: BP 186/89; PULSE 95; RESP 18; O2SAT 96
[2024-07-06] MEDS: SODIUM CHLORIDE 0.9% 50ML BAG 50 ML IV (11:24)
[2024-07-06 12:00] VITALS: BP 199/95; PULSE 80; RESP 18; O2SAT 96
== END 2024-07-06 12:00 | disposition home or self-care (01) ==
LOC: INF 10:58
PROVIDERS: PCP Physician Assistant; Visit Provider Physician Assistant
DX: D50.9 Iron deficiency anemia, unspecified (principal)
CPT/HCPCS: 96365; J1756

== ENCOUNTER 2024-07-25 04:13 | Emergency (ER) | payer MEDICARE, SELFPAY ==
[2024-07-25] VITALS (13 sets, daily range): BP systolic 184–261; BP diastolic 83–142; PULSE 70–98; RESP 18–20; TEMP 36.5–36.6; O2SAT 95–98; BMI 22.4
--- NOTE | 2024-07-25 04:23 | CT_ITS ---
PROCEDURE INFORMATION: Exam: CT Head Without Contrast Exam date and time: 07/25/2024 4:31 AM Age: 68 years old Clinical indication: Pain; Other: HTN; Headache; Additional info: FERRELL HTN TECHNIQUE: Imaging protocol: Computed tomography of the head without contrast. Radiation optimization: All CT scans at this facility use at least one of these dose optimization techniques: automated exposure control; mA and/or kV adjustment per patient size (includes targeted exams where dose is matched to clinical indication); or iterative reconstruction. COMPARISON: No relevant prior studies available. FINDINGS: Brain: Chronic ischemic change within limits for age. Cerebral ventricles: No ventriculomegaly. Paranasal sinuses: Visualized sinuses are unremarkable. No fluid levels. Mastoid air cells: Visualized mastoid air cells are well aerated. Bones: Unremarkable. No acute fracture. Soft tissues: Unremarkable. IMPRESSION: Chronic ischemic change without evidence of superimposed acute process.
--- NOTE | 2024-07-25 04:23 | HMH.EDGENADL ---
Discharge Plan Disposition Patient Disposition: Home, Self-Care Condition: Good Prescriptions Prescriptions: No Action hydralazine 50 mg tablet 50 mg PO TID hydrochlorothiazide 50 mg tablet 100 mg PO DAILY Qty: 180 3RF hydrocodone-acetaminophen 7.5-325 mg tablet 1 tab PO QID PRN (Reason: Pain) 30 Days Qty: 120 0RF lisinopril 40 mg tablet See Rx Instructions .ROUTE .COMPLEX Qty: 90 1RF Dose Instruction: TAKE ONE TABLET BY MOUTH EVERY DAY FOR BLOOD PRESSURE Rx Instructions: TAKE ONE TABLET BY MOUTH EVERY DAY FOR BLOOD PRESSURE carvedilol 25 mg tablet See Rx Instructions .ROUTE .COMPLEX Qty: 360 1RF Dose Instruction: TAKE TWO TABLETS BY MOUTH TWICE DAILY FOR HIGH BLOOD PRESSURE Rx Instructions: TAKE TWO TABLETS BY MOUTH TWICE DAILY FOR HIGH BLOOD PRESSURE atorvastatin 40 mg tablet 40 mg PO HS 90 Days Qty: 90 3RF Patient Comments: TAKE ONE TABLET BY MOUTH EVERY DAY FOR cholesterol isosorbide mononitrate 120 mg tablet extended release 24 hr 120 mg PO DAILY Patient Comments: TAKE ONE TABLET BY MOUTH EVERY DAY amlodipine 10 mg tablet 10 mg PO DAILY Patient Comments: TAKE ONE TABLET BY MOUTH EVERY DAY pantoprazole 40 mg tablet,delayed release (DR/EC) 40 mg PO DAILY Patient Comments: TAKE ONE TABLET BY MOUTH TWICE DAILY spironolactone 50 mg tablet 50 mg PO DAILY Patient Comments: TAKE ONE TABLET BY MOUTH EVERY DAY FOR fluid benzonatate 100 mg capsule 100 mg PO TIDP PRN (Reason: Cough) Qty: 30 0RF methylprednisolone 4 mg Tablets,Dose Pack 4 mg PO DIRECTED 6 Days Qty: 21 0RF Rx Instructions: Take 1 pack as directed for 6 days Referrals Follow up/Referrals: Bev Eckert PA [Primary Care Provider] - See instructions Activity Restrictions/Add. Instructions Additional Instructions/Restrictions: You were evaluated in the ER and are appropriate for discharge at this time. Use the provided Afrin if needed for nosebleed as discussed. Do not use this more than twice a day. Do not use it more than 2 days in a row. Take all your home medications as prescribed. Call your seafood manager and make an appointment as soon as possible. Call your ENT and make an appointment for reevaluation. Return to the ER with new, worsening, or otherwise concerning symptoms. Clinical Impressions Clinical Impression: Epistaxis, Hypertension Instructions Patient Instructions: DI for Nosebleed Print Language Print Language: Icelandic Discharge ED Provider: Connor Rodriguez General Adult HPI General Chief complaint: Epistaxis Stated complaint: nosebleed Time Seen by Provider: 07/25/24 04:19 Mode of Arrival: Ambulatory Source of Information: Patient Limitations: No Limitations Description of Symptoms (Recalled from ER Triage Doc. by RN): Pt has history of HTN having a nosebleed for past 15 min History of Present Illness HPI narrative: 68-year-old female with a history of hypertension that is difficult to control presents to the ER complaining of nosebleed. She reports that started 15 minutes ago, she used Afrin and it did not stop so she came to the ER. Patient denies any trauma. She states she has previously had to have her nose cauterized. She states she takes a small amount of blood in the back of her throat. She has not been any vomiting or diarrhea, no chest pain or difficulty breathing. Notably on arrival she was severely hypertensive, she does report headache but no numbness, tingling, or weakness. Headache is not thunderclap in nature and she describes it only as mild. She has no other associated symptoms or concerns at this time. She reports she is taking her hypertensive medications as directed. Related Data Home Medications ?Medication ?Instructions ?Recorded ?Confirmed amlodipine 10 mg tablet 10 mg PO DAILY 04/06/24 06/29/24 isosorbide mononitrate 120 mg 120 mg PO DAILY 04/06/24 06/29/24 tablet,extended release 24 hr pantoprazole 40 mg tablet,delayed 40 mg PO DAILY 04/06/24 06/29/24 release spironolactone 50 mg tablet 50 mg PO DAILY 04/06/24 06/29/24 hydralazine 50 mg tablet 50 mg PO TID 04/13/24 06/29/24 Previous Rx's ?Medication ?Instructions ?Recorded hydrocodone 7.5 mg-acetaminophen 1 tab PO QID PRN Pain 30 days #120 03/31/24 325 mg tablet tabs benzonatate 100 mg capsule 100 mg PO TIDP PRN Cough #30 caps 04/06/24 methylprednisolone 4 mg tablets in 4 mg PO DIRECTED 6 days #21 tabs 04/06/24 a dose pack hydrochlorothiazide 50 mg tablet 100 mg (2 x 50 mg) PO DAILY #180 04/13/24 tabs carvedilol 25 mg tablet See Rx Instructions .Route 07/13/24 .COMPLEX #360 tabs lisinopril 40 mg tablet See Rx Instructions .Route 07/13/24 .COMPLEX #90 tabs atorvastatin 40 mg tablet 40 mg PO HS 90 days #90 tabs 07/18/24 Allergies Allergy/AdvReac Type Severity Reaction Status Date / Time amoxicillin (AMOXICILLIN) Allergy Unknown I-RASH Verified 06/29/24 11:18 naproxen (NAPROXEN) Allergy Unknown I-RASH Verified 06/29/24 11:18 [facility] Disclaimer: The information contained in this section may have been updated after the patient was seen, as this information can be updated by other users. Medical History Pelvic organ prolapse quantification stage 3 cystocele Bladder prolapse HTN (hypertension) History of sleep study Negative for BRYAN 11/03/22 History of pituitary adenoma GERD (gastroesophageal reflux disease) Breast cancer Major depressive disorder Surgical History History of elbow surgery History of back surgery History of carpal tunnel surgery History of hammer toe correction History of shoulder surgery History of appendectomy History of LAVH History of lumpectomy History of cardiac cath Family History Father Heart attack Cancer Mother Diabetes Sister Diabetes Hypertension Social History Smoking Status: Never smoker alcohol intake: never substance use type: denies use current occupational status: disabled Travel in the last 8 weeks: None household members: spouse housing: house current occupational exposures/hazards: No caffeine: Yes Have you lived/traveled outside [place] in past 30 days?: No Contact w/someone who lives/traveled outside [place] past 30 days?: No Exposure to someone with infectious disease in past 14 days?: No Do you have a fever (greater than 100.4 F or 38 C)?: No Have you tested positive for COVID-19: No Exposed to someone with COVID-19 in past 14 days?: No Do you have a sore throat?: No Do you have a cough?: No Do you have any weakness?: No Do you have any diarrhea?: No Are you experiencing any unusual bleeding?: No Do you have any muscle aches/pain?: No Do you have any abdominal pain?: No Are you experiencing loss of taste or smell?: No Other Medical History Have you received the Flu Vaccine for this season: No Have you received the Pneumonia Vaccine: No ROS Obtained: Yes Systems reviewed as appropriate & no additional complaints except as documented Per HPI Physical Exam General General appearance: alert and in no apparent distress Head Head exam: atraumatic and normocephalic Eye Eye exam: Present PERRL and EOMI ENT ENT exam: Present mucous membranes moist and other (Patient had nose clamp on, this was removed and she is not having any epistaxis at this time. Trace blood in the posterior oropharynx but nothing actively running down her throat. Dried blood in the left naris.) Neck Neck exam: Present normal inspection and full ROM Chest Chest inspection: Present symmetric chest wall rise Respiratory Respiratory exam: Present normal lung sounds bilaterally; Absent respiratory distress, wheezes or stridor Cardiovascular Cardiovascular exam: Present regular rate and normal rhythm Extremities Exam Extremities exam: Present full ROM Neurological Exam Neurological exam: Present alert, oriented X3, CN II-XII intact and normal gait; Absent motor sensory deficit Psychiatric Psychiatric exam: Present normal affect and normal mood Skin Skin exam: Present warm and dry Medical Decision Making Medical Records Screening: Per USPSTF and CDC recommendations, given the prevalence of disease in our region, it is our hospital?s policy to screen for HIV and viral Hepatitis for all patients aged 18 and over and those with ongoing risk factors. MR Comment: Review of most recent cardiology note demonstrates patient has CAD with drug-eluting stent, she has received multiple blood transfusions and iron infusions due to GI bleeds. Patient was referred to for renal denervation, increased hydrochlorothiazide to 100 mg daily. Blood pressure at that visit was 221/128. Review of cardiology notes from the last year demonstrates patient consistently has systolic blood pressures in the 200s. Marc Inquiry Pt receiving controlled substance: No Vital Signs: 07/25/24 04:20 07/25/24 04:22 07/25/24 04:27 Temperature 97.7 F Temperature Source Tympanic Pulse Rate Pulse Rate [Right Brachial] 98 H Respiratory Rate 20 Blood Pressure 252/128 H 261/130 H Blood Pressure [Right Arm] 261/142 H Blood Pressure Mean [Right Arm] 181 Blood Pressure Source Manual Cuff/ Auscultation Blood Pressure Source [Right Arm] Automatic Cuff 02 Sat by Pulse Oximetry 98 Oxygen Delivery Method Room Air 07/25/24 05:00 07/25/24 05:15 07/25/24 05:51 Temperature Temperature Source Pulse Rate 86 82 76 Pulse Rate [Right Brachial] Respiratory Rate Blood Pressure 205/116 H 225/107 H 223/93 H Blood Pressure [Right Arm] Blood Pressure Mean [Right Arm] Blood Pressure Source Blood Pressure Source [Right Arm] 02 Sat by Pulse Oximetry 97 97 98 Oxygen Delivery Method 07/25/24 06:15 07/25/24 06:30 07/25/24 06:58 Temperature Temperature Source Pulse Rate 72 73 70 Pulse Rate [Right Brachial] Respiratory Rate Blood Pressure 194/85 H 184/83 H 204/89 H Blood Pressure [Right Arm] Blood Pressure Mean [Right Arm] Blood Pressure Source Blood Pressure Source [Right Arm] 02 Sat by Pulse Oximetry 96 96 97 Oxygen Delivery Method 07/25/24 07:00 07/25/24 07:15 Temperature Temperature Source Pulse Rate 83 77 Pulse Rate [Right Brachial] Respiratory Rate Blood Pressure 205/97 H 200/89 H Blood Pressure [Right Arm] Blood Pressure Mean [Right Arm] Blood Pressure Source Blood Pressure Source [Right Arm] 02 Sat by Pulse Oximetry 95 96 Oxygen Delivery Method Room Air Lab Data Lab Results 07/25/24 04:40: WBC 6.4, RBC 5.04, Hgb 14.6, Hct 43.8, MCV 86.9, MCH 29.0, MCHC 33.3, RDW 17.8 H, Plt Count 343, MPV 8.6, Neut % (Auto) 52.2, Lymph % (Auto) 33.5, [place] % (Auto) 8.6, Eos % (Auto) 3.8, Baso % (Auto) 1.7, Neut # (Auto) 3.3, Lymph # (Auto) 2.1, [place] # (Auto) 0.6, Eos # (Auto) 0.2, Baso # (Auto) 0.1, PT 10.0 L, INR 0.88 L, APTT 29.0, Sodium 141, Potassium 3.3 L, Chloride 102, Carbon Dioxide 33 H, Anion Gap 9.3, BUN 19 H, Creatinine 0.60, Estimated Creat Clear 53, Estimated GFR 100, Est GFR ( Amer) 121, Glucose 116 H, Calcium 9.2, Total Bilirubin 0.3, AST 38 H, ALT 28, Alkaline Phosphatase 176 H, Troponin I < 0.01, Total Protein 6.4, Albumin 4.2, Globulin 2.2, Albumin/Globulin Ratio 1.9 H, HIV Ag/Ab Combo Qual Negative 07/25/24 04:40 07/25/24 04:40 Orders (Tests/Meds): ED MEDICATIONS Discontinued Medications Generic Name Dose Route Start Last Admin Trade Name Sharon PRN Reason Stop Dose Admin Labetalol HCl 10 mg 07/25/24 04:23 07/25/24 04:27 Labetalol 20mg/4ml Syringe IV 07/25/24 04:24 10 mg ONCE ONE Administration Oxymetazoline HCl 1 ml 07/25/24 05:15 07/25/24 06:31 Oxymetazoline Nasal [place] 0.05% 15ml NS 07/25/24 05:16 1 ml ONCE ONE Administration ORDERS Category Date Time Status CT head/brain wo con Stat Cat Scan 07/25/24 04:23 Completed CXR --portable [XR chest portable] Stat Exams 07/25/24 04:25 Completed CBC w/Auto Diff [Complete Blood Count Auto Diff] Stat Lab 07/25/24 04:40 Completed CMP [Comprehensive Metabolic Panel] Stat Lab 07/25/24 04:40 Completed HIV (1&2) Antibody Rapid Stat Lab 07/25/24 04:22 Ordered HIV Combo Routine Lab 07/25/24 04:40 Completed Hep C Ab with Reflex to RNA Stat Lab 07/25/24 04:40 Received PT INR [Prothrombin Time INR] Stat Lab 07/25/24 04:40 Completed PTT [Activated Partial Thrombo Time] Stat Lab 07/25/24 04:40 Completed Trop I [Troponin I] Stat Lab 07/25/24 04:40 Completed Medical Decision Narrative: In summary, this 68-year-old female presents to the emergency department today with nosebleed. On initial evaluation patient is severely hypertensive with blood pressure in the 260s, she does also report headache, but she is a GCS 15, no neurologic deficits, no thunderclap onset or syncope associated, cardiac exam is benign, ENT exam does not demonstrate active epistaxis. Differential diagnosis includes but is not limited to hypertensive urgency, emergency, intracranial bleed, epistaxis caused by hypertension, I considered anterior nosebleed, posterior nosebleed (no evidence of this), coagulopathy, blood loss anemia, LVH, among others. Based on these concerns, I ordered CT head, serum labs, EKG, nosebleed does not require any intervention at this time as it is not actively bleeding. ECG personally interpreted demonstrates normal sinus rhythm, rate 76, normal axis, normal UT and QTc, no STEMI. Patient's severe hypertension that was symptomatic with headache was treated with IV labetalol. She had improvement of her blood pressure from the 260s to the low 200s. Based on my review of previous records, this is her normal range. Her headache resolved with this treatment. Labs personally reviewed demonstrate no leukocytosis or anemia, platelets normal, PT/INR nonactionable, APTT normal, CMP not acutely actionable at this time, mild transaminitis which is nonspecific and nonactionable, initial troponin undetectably low at less than 0.01, repeat troponin not indicated at this time since patient has no chest pain, no shortness of breath, and reassuring ECG. Patient has very mild prerenal azotemia but is tolerating oral intake, she does not require IV fluids at this time. She does not have any indications of damage to the kidneys from her hypertension. Patient did start having mild oozing of the left naris again so I had her blow her nose and Afrin was administered with a nasal clamp. She had small amount of blood running down the back of her throat initially however this stopped. She did not have brisk bleeding or large-volume bleeding. Chest x-ray personally turbid it does not demonstrate acute intrathoracic abnormality, see radiology read for final interpretation. CT head personally interpreted does not demonstrate acute intracranial abnormality, no bleed, mass, or midline shift. See radiology read for final interpretation. Patient's epistaxis has resolved. Her blood pressure has remained in the mid 190s to low 200s which is consistently her normal range based on my review of previous notes. She remains asymptomatic at this time. She also reports her blood pressure is usually 200s. I do not believe further intervention or management is indicated for her blood pressure at this time since she has had close, consistent management of this problem with cardiology Patient has follow-up for her hypertension coming up in July. I instructed her to call the office and get an appointment as soon as possible. I also suggested that she consider getting a second opinion. Since she is well within her normal at this time, she does not require transfer, but another opinion on her longstanding refractory hypertension may be valuable. She agrees with this. She has established care with ENT in the past and I instructed her to follow-up with them as well for potential cautery. Patient was provided the Afrin used in the ER and instructed how to use it at home if needed. Patient was given instructions on symptomatic management, follow up instructions, and return precautions for the emergency department. Patient indicated understanding and was discharged in stable condition. Critical Care Critical Care Time Critical Care Time: No
--- NOTE | 2024-07-25 04:25 | XR_ITS ---
PROCEDURE INFORMATION: Exam: XR Chest Exam date and time: 07/25/2024 5:41 AM Age: 68 years old Clinical indication: Other: HTN TECHNIQUE: Imaging protocol: Radiologic exam of the chest. Views: 1 view. COMPARISON: CR XR CHEST PORTABLE 10/02/2023 8:32 AM FINDINGS: Lungs: Scattered granulomas. Pleural spaces: Unremarkable. No pleural effusion. No pneumothorax. Heart/Mediastinum: Unremarkable. No cardiomegaly. Bones/joints: Unremarkable. IMPRESSION: No acute process.
[2024-07-25] MEDS: LABETALOL 20MG/4ML SYRINGE 10 MG IV (04:27)
[2024-07-25 04:49] LABS: Basophils # 0.1 K/mm3 (0-0.2); Basophils % 1.7 % (0.1-2.0); Eosinophils # 0.2 K/mm3 (0.0-0.4); Eosinophils % 3.8 % (0.1-12.0); Hematocrit 43.8 % (37.0-47.0); Hemoglobin 14.6 g/dL (12.2-16.2); Lymphocytes # 2.1 K/mm3 (0.7-4.5); Lymphocytes % 33.5 % (10-50); Mean Corpuscular HGB Conc 33.3 g/dL (31.8-35.4); Mean Corpuscular Volume 86.9 fl (81-99); Mean Platelet Volume 8.6 fl (7.4-10.4); Monocytes # 0.6 K/mm3 (0.1-1.0); Monocytes % 8.6 % (1.7-9.3); Neutrophils # 3.3 K/mm3 (1.8-7.8); Neutrophils % 52.2 % (37.0-80.0); Platelet Count 343 K/mm3 (142-424); Red Blood Count 5.04 M/mm3 (4.20-5.40); Red Cell Distribution Width 17.8 % (11.5-17.5); White Blood Count 6.4 K/mm3 (4.8-10.8)
[2024-07-25 04:54] LABS: Albumin Level 4.2 g/dl (3.5-5.0); Chloride 102 mmol/L (98-107); Sodium 141 mmol/L (136-145)
[2024-07-25 04:55] LABS: Potassium 3.3 mmoL/L (3.5-5.1)
[2024-07-25 04:57] LABS: Alanine Aminotransferase 28 U/L (12-78); Albumin/Globulin Ratio 1.9 (1.1-1.8); Alkaline Phosphatase 176 U/L (38-126); Anion Gap 9.3 mEq/L (5-15); Aspartate Amino Transferase 38 U/L (14-36); Bilirubin,Total 0.3 mg/dl (0.2-1.3); Blood Urea Nitrogen 19 mg/dl (7-17); Calcium 9.2 mg/dl (8.4-10.2); Carbon Dioxide 33 mmol/L (22.0-30.0); Creatinine Clearance Estimated 53 mL/min (50-200); Estimated Glomerular Filt Rate 100 ml/min (>60); GFR (African American) 121 ML/MIN (>60); Globulin 2.2 g/dL (1.3-3.2); Glucose 116 mg/dl (74-100); Total Protein,Serum 6.4 g/dl (6.3-8.2)
--- NOTE | 2024-07-25 04:57 | ECG_ITS ---
APPROVED REPORT Exam: Resting ECG HR:76 bpm ECG Measurements Heart Rate 76 AXES WY 190 P 71 QRSd 76 QRS 35 QT 387 T 36 QTc 418 Conclusion SINUS RHYTHM LOW QRS VOLTAGE IN PRECORDIAL LEADS [QRS DEFLECTION < 1.0 mV IN CHEST LEADS] ANTEROSEPTAL MYOCARDIAL INFARCTION , PROBABLY OLD [40+ ms Q WAVE IN V1-V4] No STEMI Electronically signed by : MARA MITCHELL, 07/25/2024 07:45:39
[2024-07-25 05:00] LABS: INR 0.88 (0.9-1.1)
[2024-07-25 05:10] LABS: Troponin I < 0.01 ng/ml (0.00-0.034)
[2024-07-25 05:46] LABS: HIV Combo NEGATIVE (Negative)
[2024-07-25] MEDS: OXYMETAZOLINE NASAL SPRAY 0.05% 15ML NS (06:31)
--- NOTE | 2024-07-25 07:36 | PC.NURSE ---
I attempted to d/c the pt. After removing her IV and her about to get up her R nare began bleeding again. I informed / Dr. Rodrgiuez.
--- NOTE | 2024-07-25 07:45 | PC.NURSE ---
I went bedside with Dr. Denney to place a rhino rocket soaked in TXA
[2024-07-25] MEDS: TRANEXAMIC ACID 1,000 MG in 0.9 % SODIUM CHLORIDE 250 ML 32.5 MG TP (07:53)
--- NOTE | 2024-07-25 08:05 | PC.NURSE ---
I rounded on the pt. no new complaints at this time. No bleeding at this time. call armijo in reach.
--- NOTE | 2024-07-25 08:26 | PC.NURSE ---
I rounded on the pt, no bleeding at this time. no needs voiced. call armijo in reach.
--- NOTE | 2024-07-25 08:45 | PC.NURSE ---
Dr. Denney at bedside
[2024-07-26 05:33] LABS: HCV Ab Non Reactive (Non Reactive)
== END 2024-07-25 08:49 | disposition home or self-care (01) ==
PROVIDERS: Emergency Provider Emergency Medicine; PCP Physician Assistant
DX: I10 Essential (primary) hypertension (principal); R04.0 Epistaxis; R51.9 Headache, unspecified
CPT/HCPCS: 70450; 71045; 80053; 84484; 85025; 85610; 85730; 86803; 87389; 93005; 96374; 99284; J1920

== ENCOUNTER 2024-08-04 08:58 | Outpatient (CLI) | payer MEDICARE, SELFPAY ==
--- NOTE | 2024-08-04 09:02 | XR_ITS ---
FINAL REPORT CLINICAL HISTORY: POST MENOPAUSAL/VERTEBRAL FRACT ASSESS COMPARISON: None FINDINGS: Using L1-4, the bone mineral density of the spine is 0.911 g/cm2, corresponding to T-score of 1.2, consistent with osteopenia. Using the left hip, the bone mineral density of the total hip is 0.530 g/cm2, corresponding to a T-score of -3.4, consistent with osteoporosis. Using the right hip, the bone mineral density of the total hip is 0.525 g/cm2, corresponding to a T-score of -3.4, consistent with osteoporosis. FRAX not reported because some T-score at or below-2.5; patient treated for osteoporosis. NOTE: T-score: Standard deviation compared with peak bone mass of young adult mean. *Following the recommendations of the International Society of Bone densitometry, classification of hip BMD is based on the lower of two T-scores; total hip or femoral neck. IMPRESSION: Diminished bone mineral density consistent with osteoporosis. Reviewed, Interpreted and Dictated by Chris Feldman MD Transcribed by Zoë Cooper Authenticated and . [facility]
== END 2024-08-04 23:59 | disposition home or self-care (01) ==
LOC: RAD 09:00
PROVIDERS: PCP Physician Assistant; Visit Provider Physician Assistant
DX: Z78.0 Asymptomatic menopausal state (principal)
CPT/HCPCS: 77080

== ENCOUNTER 2024-10-13 10:36 | Outpatient (CLI) | payer MEDICARE, SELFPAY ==
[2024-10-14 14:12] LABS: Cortisol,AM 8.1 ug/dL (6.2-19.4)
[2024-10-20 15:32] LABS: Miscellaneous Test SCANNED IMAGE
== END 2024-10-13 23:59 | disposition home or self-care (01) ==
LOC: LAB 10:39
PROVIDERS: PCP Physician Assistant; Visit Provider Emergency Medicine
DX: I10 Essential (primary) hypertension (principal)
CPT/HCPCS: 36415; 82384; 82533

== ENCOUNTER 2024-11-16 21:36 | Inpatient (IN) | payer MEDICARE, SELFPAY ==
[2024-11-16 21:33] VITALS: BP 152/63; PULSE 41; RESP 17; O2SAT 95
--- NOTE | 2024-11-16 21:33 | CT_ITS ---
PROCEDURE INFORMATION: Exam: CTA Abdomen and Pelvis With Contrast Exam date and time: 11/16/2024 9:46 PM Age: 68 years old Clinical indication: Other: Eval for ugib; Additional info: Eval ugib/concern for perf TECHNIQUE: Imaging protocol: Computed tomographic angiography of the abdomen and pelvis with contrast. Exam focused on the arteries. 3D rendering (Not supervised by radiologist): MIP and/or 3D reconstructed images were created by the technologist. Radiation optimization: All CT scans at this facility use at least one of these dose optimization techniques: automated exposure control; mA and/or kV adjustment per patient size (includes targeted exams where dose is matched to clinical indication); or iterative reconstruction. Contrast material: ISOVUE; Contrast volume: 80 ml; Contrast route: INTRAVENOUS (IV); COMPARISON: CT ANGIO ABDOMEN PELVIS 08/20/2023 1:21 PM FINDINGS: Lungs: The visualized lung bases demonstrate no focal infiltrates. Aorta: No aortic aneurysm. No aortic dissection. Celiac trunk and mesenteric arteries: No occlusion or significant stenosis. Renal arteries: No occlusion or significant stenosis. Right iliac arteries: No occlusion or significant stenosis. Left iliac arteries: No occlusion or significant stenosis. Liver: The liver appears within normal limits. Gallbladder and biliary ducts: The gallbladder is normal. There is no evidence of biliary ductal dilation. Pancreas: The pancreas is normal. Spleen: The spleen is normal. Adrenal glands: The adrenal glands appear within normal limits. Kidneys and ureters: The kidneys are normal. Stomach and bowel: The stomach appears within normal limits. No wall thickening or inflammatory change. Bowel wall edema and surrounding pericolonic inflammatory change is noted throughout a significant portion of the colon and rectum. No abscess or perforation is identified. No evidence for pneumatosis. Appendix: No evidence of appendicitis. Intraperitoneal space: No free air. No evidence for focal fluid collection or ascites. No evidence for omental thickening. Lymph nodes: Unremarkable. No pathologically enlarged lymph nodes are identified. Urinary bladder: The bladder appears within normal limits. No wall thickening. Reproductive: There has been a hysterectomy. Bones/joints: No acute fracture. Soft tissues: Unremarkable. IMPRESSION: 1. Findings consistent with acute colitis. 2. No CT angiographic evidence for active GI bleed. 3. No stenosis or occlusion
[2024-11-16 21:39] VITALS: BP 152/63; PULSE 115; RESP 20; TEMP 36.6; O2SAT 97; BMI 21.9
--- NOTE | 2024-11-16 21:39 | ED_ITS ---
Discharge Plan Disposition Patient Disposition: Admitted Clinical Impressions Clinical Impression: Upper gastrointestinal bleed Discharge ED Provider: Neno Valente General Adult HPI General Chief complaint: Abdominal Pain Stated complaint: Nausea and Vomiting Time Seen by Provider: 11/16/24 21:43 Mode of Arrival: Ambulatory Source of Information: Patient Limitations: No Limitations History of Present Illness HPI narrative: This is a 68-year-old female with a history of gastric ulcers who presents with epigastric abdominal pain and coffee-ground emesis/melena. States that she had her first episode of coffee-ground emesis a couple hours ago. Has had 1 other episode since then as well as melanic diarrhea. Called EMS who reports that patient has been normotensive and stable throughout transport however blood pressure seems to be trending down. Patient reports that her symptoms have progressed to epigastric abdominal pain that is severe. Has been taking Protonix. Related Data Home Medications ?Medication ?Instructions ?Recorded ?Confirmed amlodipine 10 mg tablet 10 mg PO DAILY 04/06/24 11/17/24 isosorbide mononitrate 120 mg 120 mg PO DAILY 04/06/24 11/17/24 tablet,extended release 24 hr pantoprazole 40 mg tablet,delayed 40 mg PO DAILY 04/06/24 11/17/24 release cholecalciferol (vitamin D3) 50 50 mcg PO DAILY 08/01/24 11/17/24 mcg (2,000 unit) capsule ergocalciferol (vitamin D2) 1,250 1,250 mcg PO WEEKLY 08/01/24 11/17/24 mcg (50,000 unit) capsule ferrous sulfate 325 mg (65 mg 325 mg PO DAILY 08/01/24 11/17/24 iron) tablet (FeroSul) hydrocodone 10 mg-acetaminophen 1 tab PO QID PRN Pain 08/01/24 11/17/24 325 mg tablet ondansetron HCl 8 mg tablet 8 mg PO NEEDED PRN Nausea And 08/01/24 11/17/24 Vomiting alendronate 70 mg tablet 70 mg PO WEEKLY 11/17/24 11/17/24 clonidine HCl 0.1 mg tablet 0.1 mg PO BID 11/17/24 11/17/24 Previous Rx's ?Medication ?Instructions ?Recorded hydrochlorothiazide 50 mg tablet 100 mg (2 x 50 mg) PO DAILY #180 04/13/24 tabs carvedilol 25 mg tablet See Rx Instructions .Route 07/13/24 .COMPLEX #360 tabs lisinopril 40 mg tablet See Rx Instructions .Route 07/13/24 .COMPLEX #90 tabs atorvastatin 40 mg tablet 40 mg PO HS 90 days #90 tabs 07/18/24 Allergies Allergy/AdvReac Type Severity Reaction Status Date / Time amoxicillin (AMOXICILLIN) Allergy Unknown I-RASH Verified 08/01/24 12:51 naproxen (NAPROXEN) Allergy Unknown I-RASH Verified 08/01/24 12:51 PFSH PFS Disclaimer: The information contained in this section may have been updated after the patient was seen, as this information can be updated by other users. Medical History Headache Pelvic organ prolapse quantification stage 3 cystocele Bladder prolapse HTN (hypertension) History of sleep study History of pituitary adenoma GERD (gastroesophageal reflux disease) Breast cancer Major depressive disorder Surgical History History of elbow surgery History of back surgery History of carpal tunnel surgery History of hammer toe correction History of shoulder surgery History of appendectomy History of LAVH History of lumpectomy History of cardiac cath Family History Father Heart attack Cancer Mother Diabetes Sister Diabetes Hypertension Social History (Updated 11/17/24 @ 00:57 by Elizabeth Sibley RN) Smoking Status: Unknown if ever smoked alcohol intake: never substance use type: denies use current occupational status: disabled Travel in the last 8 weeks: None household members: spouse housing: house current occupational exposures/hazards: No caffeine: Yes Have you lived/traveled outside US in past 30 days?: No Contact w/someone who lives/traveled outside US past 30 days?: No Exposure to someone with infectious disease in past 14 days?: No Do you have a fever (greater than 100.4 F or 38 C)?: No Have you tested positive for COVID-19: No Exposed to someone with COVID-19 in past 14 days?: No Do you have a sore throat?: No Do you have a cough?: No Do you have any weakness?: No Are you experiencing any nausea/vomitting?: No Do you have any diarrhea?: No Are you experiencing any unusual bleeding?: No Do you have any muscle aches/pain?: No Do you have any abdominal pain?: No Are you experiencing loss of taste or smell?: No Other Medical History Have you received the Flu Vaccine for this season: No Have you received the Pneumonia Vaccine: No ROS Obtained: Yes All systems reviewed & no additional complaints except as documented Physical Exam General General appearance: alert, anxious and in distress Head Head exam: atraumatic Eye Eye exam: Present normal appearance, PERRL and EOMI Neck Neck exam: Present normal inspection and full ROM Chest Chest inspection: Present symmetric chest wall rise Respiratory Respiratory exam: Present normal lung sounds bilaterally; Absent respiratory distress Cardiovascular Cardiovascular exam: Present regular rate and normal rhythm Abdominal Exam Abdominal exam: Present soft, tenderness (Epigastric), guarding and rebound; Absent distention Extremities Exam Extremities exam: Present normal inspection Neurological Exam Neurological exam: Present alert and oriented X3 Psychiatric Psychiatric exam: Present normal affect and normal mood Skin Skin exam: Present warm and dry Medical Decision Making Medical Records Medical records reviewed: Yes I reviewed the patient's medical records. Screening: Per USPSTF and CDC recommendations, given the prevalence of disease in our region, it is our hospital?s policy to screen for HIV and viral Hepatitis for all patients aged 18 and over and those with ongoing risk factors. Marc Inquiry Pt receiving controlled substance: No Vital Signs: 11/16/24 21:33 11/16/24 21:39 11/16/24 21:58 Temperature 97.8 F Temperature Source Oral Pulse Rate 41 L 88 Pulse Rate [Radial] 115 H Respiratory Rate 17 20 15 Blood Pressure 152/63 H 135/54 L Blood Pressure [Right Arm] 152/63 H Blood Pressure Mean [Right Arm] 92 02 Sat by Pulse Oximetry 95 97 97 Oxygen Delivery Method Room Air Room Air Room Air 11/16/24 22:01 11/17/24 00:07 11/17/24 00:22 Temperature 98.1 F Temperature Source Pulse Rate 88 84 Pulse Rate [Radial] Respiratory Rate 16 16 Blood Pressure 123/53 L 118/62 Blood Pressure [Right Arm] Blood Pressure Mean [Right Arm] 02 Sat by Pulse Oximetry 97 Oxygen Delivery Method Room Air Room Air Lab Data Lab Results 11/16/24 21:10: WBC 9.0, RBC 2.42 L, Hgb 8.1 L, Hct 24.4 L, MCV 100.8 H, MCH 33.5 H, MCHC 33.2, RDW 14.1, Plt Count 372, MPV 9.7, Neut % (Auto) 66.9, Lymph % (Auto) 24.7, [place] % (Auto) 5.8, Eos % (Auto) 1.0, Baso % (Auto) 1.3, Neut # (Auto) 6.0, Lymph # (Auto) 2.2, [place] # (Auto) 0.5, Eos # (Auto) 0.1, Baso # (Auto) 0.1, PT 10.9, INR 0.97, Sodium 139, Potassium 3.6, Chloride 110 H, Carbon Dioxide 24, Anion Gap 8.6, BUN 39 H, Creatinine 0.60, Estimated GFR 100, Est GFR ( Amer) 121, Glucose 139 H, Calcium 8.1 L, Total Bilirubin 0.3, AST 21, ALT 13, Alkaline Phosphatase 87, Troponin I < 0.01, Total Protein 5.4 L, Albumin 3.3 L, Globulin 2.1, Albumin/Globulin Ratio 1.6, Lipase 36 11/16/24 21:56: Lactate 1.0, Blood Type O Positive, Antibody Screen Negative 11/17/24 01:16 11/16/24 21:10 Orders (Tests/Meds): ED MEDICATIONS Generic Name Dose Route Start Last Admin Trade Name Freq PRN Reason Stop Dose Admin Acetaminophen 650 mg 11/17/24 00:12 Acetaminophen 325mg Tab PO 12/17/24 00:11 Q4HP PRN Fever or Mild Pain (1-3) Hydrocodone Bitart/Acetaminophen 1 tab 11/17/24 00:12 Hydrocodone/Apap 5/325 Mg Tablet PO 12/17/24 00:11 Q4HP PRN Mild to Moderate Pain (1-6) Piperacillin Sod/Tazobactam 100 mls @ 200 mls/hr 11/16/24 21:45 11/16/24 22:17 Sod 4.5 gm/ Sodium Chloride IV 11/26/24 21:44 200 mls/hr Q6H EVITA Administration Pantoprazole Sodium 80 mg/ 100 mls @ 10 mls/hr 11/17/24 00:15 11/17/24 00:42 Sodium Chloride IV 11/20/24 00:14 10 mls/hr .Q10H EVITA Administration Sodium Chloride 1,000 mls @ 100 mls/hr 11/17/24 00:30 11/17/24 00:31 Sod Chlor 0.9% 1000ml Bag IV 12/17/24 00:29 100 mls/hr .Q10H EVITA Administration Morphine Sulfate 2 mg 11/17/24 00:12 Morphine 2mg/Ml Syringe IV 12/17/24 00:11 Q4HP PRN Severe Pain (7-10) Ondansetron HCl 4 mg 11/17/24 00:12 Ondansetron 4mg/2ml Vial IV 12/17/24 00:11 Q8HP PRN Nausea Sodium Chloride 10 ml 11/16/24 21:46 11/16/24 21:47 Sodium Chloride 0.9% 10ml Syr (Rad Only) IV 12/16/24 21:45 10 ml NEEDED PRN Administration Maintain IV Site Sodium Chloride 10 ml 11/17/24 00:12 Sodium Chloride 0.9% 10ml Flush Syringe IV 12/17/24 00:11 NEEDED PRN Maintain IV Site Sodium Chloride 10 ml 11/17/24 00:30 Sodium Chloride 0.9% 10ml Flush Syringe IV 12/17/24 00:29 NEEDED PRN Maintain IV Site Discontinued Medications Generic Name Dose Route Start Last Admin Trade Name Freq PRN Reason Stop Dose Admin Hydromorphone HCl 0.5 mg 11/16/24 21:32 11/16/24 22:18 Hydromorphone 2mg/Ml Syringe IV 11/16/24 21:33 0.5 mg ONCE ONE Administration Pantoprazole Sodium 80 mg/ 100 mls @ 100 mls/hr 11/16/24 21:32 11/16/24 22:17 Sodium Chloride IV 11/16/24 22:31 100 mls/hr ONCE ONE Administration Lactated Ringer's 1,000 mls @ 999 mls/hr 11/16/24 21:32 11/16/24 22:17 Lactated Ringer's 1000 Ml Bag IV 11/16/24 22:32 999 mls/hr .Q1H1M ONE Administration Iopamidol 75 ml 11/16/24 21:46 11/16/24 21:47 Iopamidol-370 (76%);100ml Bottle IV 11/16/24 21:47 75 ml ONCE ONE Administration Ondansetron HCl 4 mg 11/16/24 21:32 11/16/24 22:17 Ondansetron 4mg/2ml Vial IV 11/16/24 21:33 4 mg ONCE ONE Administration ORDERS Category Date Time Status Type and Screen Stat BBK 11/16/24 21:[address] angio abd/pel - GI Bleed Stat Cat Scan 11/16/24 21:33 Completed CBC w/Auto Diff [Complete Blood Count Auto Diff] Stat Lab 11/16/24 21:10 Completed CMP [Comprehensive Metabolic Panel] Stat Lab 11/16/24 21:10 Completed Lactic Acid Stat Lab 11/16/24 21:56 Completed Lipase Stat Lab 11/16/24 21:10 Completed PT/INR [Prothrombin Time INR] Stat Lab 11/16/24 21:10 Completed Troponin I Q3H Lab 11/17/24 01:16 Received Troponin I Q3H Lab 11/17/24 04:30 Ordered Troponin I Stat Lab 11/16/24 21:10 Completed ECG Data Tracing #1: I reviewed this ECG and interpreted as documented below: Sinus tachycardia at a rate of 104, QTc 408, normal axis, ST segment depressions in leads II, III, and aVF however no other reciprocal changes. No STEMI. Medical Decision Narrative: In summary, this 68-year-old female with a history of hypertension and gastric ulcers presents to the emergency department today with epigastric abdominal pain, coffee-ground emesis, melena. On initial evaluation patient is afebrile, normotensive at 152/63, tachycardic to 100. Abdominal exam concerning with involuntary guarding and epigastric tenderness. Differential diagnosis includes but is not limited to upper GI bleed, gastric ulcer, perforated ulcer, pancreatitis. Based on these concerns, I ordered CBC, CMP, lipase, lactate, PT/INR, type and screen, CTA of abdomen/pelvis GI bleed protocol to be done emergently. Also ordered EKG. ECG personally interpreted as noted above. Ordered to repeat which revealed no dynamic changes. Also added on troponin. Patient received 80 mg of IV Protonix, 1 L of lactated Ringer's, Zofran, Dilaudid, Zosyn empirically given clinical concern for perforation for treatment. Labs personally reviewed demonstrate hemoglobin of 8.1, unremarkable CMP, undetectable troponin, normal lipase, normal lactate. CT imaging personally interpreted demonstrates no active extravasation of a GI bleed or no perforation. Patient remained stable and had no further episodes of coffee-ground emesis. Consulted hospital medicine who ultimately admitted the patient for GI consult and nonemergent scope in the morning. Critical Care Critical Care Time Critical Care Time: No
[2024-11-16 21:43] LABS: Basophils # 0.1 K/mm3 (0-0.2); Basophils % 1.3 % (0.1-2.0); Eosinophils # 0.1 Kmm3 (0.0-0.4); Hematocrit 24.4 % (37.0-47.0); Hemoglobin 8.1 g/dL (12.2-16.2); Lymphocytes # 2.2 K/mm3 (0.7-4.5); Lymphocytes % 24.7 % (10-50); Mean Corpuscular HGB Conc 33.2 g/dL (31.8-35.4); Mean Corpuscular Hemoglobin 33.5 pg (27.0-31.2); Mean Corpuscular Volume 100.8 fl (81-99); Mean Platelet Volume 9.7 fl (7.4-10.4); Monocytes # 0.5 K/mm3 (0.1-1.0); Monocytes % 5.8 % (1.7-9.3); Neutrophils % 66.9 % (37.0-80.0); Nucleated Red Blood Cells # 0 10^3/uL; Nucleated Red Blood Cells % 0 %; Platelet Count 372 K/mm3 (142-424); Red Blood Count 2.42 M/mm3 (4.20-5.40); Red Cell Distribution Width 14.1 % (11.5-17.5); Red Cell Distribution Width-SD 51.2 fL
--- OUTSIDE RECORDS SUMMARY | 2024-11-16 21:43 | XMS_ITS ---
Laboratory report Created on: October 29, 2024 LITTLEFRANCES : 1955 Sex: Female Author Organization Unknown PROBLEMS Problems List Code Description RESULTS Laboratory Orders Date Order Code Test 2024-10-13 847580 CATECHOLAMINES, PLASMA Laboratory Results Date LOINC Test Value Unit Reference Range Interpre tation 2024-10-13 2666-6 NOREPINEPHRINE, PL 465 PG/ML 0-874 2024-10-13 2230-1 EPINEPHRINE, PL <15 PG/ML 0-62 2024-10-13 2216-0 DOPAMINE, PL <30 PG/ML 0-48
--- OUTSIDE RECORDS SUMMARY | 2024-11-16 21:44 | XMS_ITS | Continuity of Care Document ---
Author Organization [facility] Phone Care Team Providers Care Corporate Recruiter Name Role Phone NAREN HERNANDEZ Unavailable NAREN HERNANDEZ Admitting Senthil MORRIS Primary Care NAREN HERNANDEZ Primary Attending ALLERGIES AND ADVERSE REACTIONS ALLERGIES AND ADVERSE REACTIONS Code System Allergy Substance Adverse Reaction Date Reaction (Severity) Comment Status Reported By Updated By 723 RXNorm Amoxicillin Adverse reaction to substance NO INFO active [id number] on September 21, 2024 2:51:23 PM [place] 7258 RXNorm Naproxen Adverse reaction to substance NO INFO active [id number] on September 21, 2024 2:51:23 PM [place] RESULTS Patient: LITTLE DANIELS Date of : 1955 LABORATORY RESULTS Information is not available LABORATORY NARRATIVE RESULTS Information is not available RADIOLOGY RESULTS ORDER 100: NM MYOCARD SPEC W M/EF UNDERWATER HUNTER TRAPPER (LOINC: 12340-0) ORDER DATE: September 21, 2024 2:31:00 PM UTC PERFORMING LAB: [address] [id number] Final Result Date: September 27, 2024 12:36:28 AM UTC (TECH: [id number]) Nuclear stress test [facility] 2 EXAM: NM MYOCARD SPEC WM/EF UNDERWATER HUNTER TRAPPER [id number] DATE OF EXAM: 09/21/2024 09:30:00 PROVIDER: Margie Wilde MD TECHNIQUE: The patient was studied with a 1-day protocol using Lexiscan and sestamibi due to lack of coordination and arthritis with inability to walk the treadmill. FINDINGS: Baseline EKG showed normal sinus rhythm. Heart rate varied from 84 to 117 beats per minute. Blood pressure varied from 191/125 to 220/105. Raw imaging showed no unusual uptake. Nuclear ejection fraction calculated at 65% at rest and 75% at stress. Wall motion was normal on gated analysis. Perfusion imaging showed homogeneous radiotracer uptake with no scintigraphic evidence of ischemia. Transient ischemic dilatation ratio was 0.99. CONCLUSIONS: Normal nuclear ejection fraction. No scintigraphic evidence of ischemia. DICTATED BY: Margie Wilde MD CW/MODL /[id number] Electronically Signed By: CHANDAN MENDIOLA MD 2024-09-27 10:26:31 PATHOLOGY NARRATIVE RESULTS Information is not available MICROBIOLOGY RESULTS No Micro Labs/Results Exist for Patient BLOOD ADMIN RESULTS Information is not available MEDICATIONS HOME MEDICATIONS Status RXNORM NDC Medication Dose Route Frequency Dates Comments Reported By Updated By Drug Treatment Unknown DISCHARGE MEDICATIONS Status RXNORM NDC Medication Dose Route Frequency Dates Comments Physician Updated By No Discharge Medication Info rmation Available INPATIENT MEDICATIONS Status RXNORM NDC Medication Dose Route Frequency Rat e Quantity Dates Comments Physician Updated By Discont inued [id number] REGADENOSON 0.4 MG/5ML SOLN 0.4 MG INTRAV ENOUS ONE TIME ADMINISTRA TION (UNSCHEDUL ED) Start: 2024 2:51:0 0 PM UT End: 2024 4:36:3 7 PM UT MARY Munoz APRN [id number] on September 21, 2024 4:36:00 PM UT SOCIAL HISTORY SOCIAL HISTORY SNOMED-CT Social History Element Description Effective Dates Offered Cessation Comment UpdatedBy [id number] Smoking Status Unknown If Ever Smoked SOCIAL HISTORY - Gender Sex: Female SOCIAL HISTORY - Status : status i nformation is not available Intention in Next Year: intention information is not available SOCIAL HISTORY - Sexual Behavior Sexual Orientation Gender Identity SNOMED-CT Description SNO MED -CT Description Activity Level No of Partners Partner Type UpdatedBy Information is not available VITAL SIGNS PATIENT VITAL SIGNS This section displays the mo st recent value for each vital sign as of September 28, 2024 2:16:11 AM UTC Loinc Code Vital [place] [address]-7 Body weight Measured August 3:12:36 PM [place] 61.2 kg (135.0 lb) [id number] on September 21, 2024 3:12:36 PM [facility] 8462-4 Diastolic blood pressure September 21, 2024 2:15:00 PM UTC 125.0 mm[Hg] [id number] on September 21, 2024 3:12:35 PM [facility] 8867-4 Heart rate September 21 2:15:00 PM UT 100 /min [id number] on September 21, 2024 3:12:35 PM [facility] 95642-3 Oxygen saturation in Arterial blood by Pulse oximetry September 21, 2024 2:15:00 PM UT 100.0 % [id number] on September 21, 2024 3:12:35 PM [facility] 8480-6 Systolic blood pressure September 21, 2024 2:15:00 PM [place] 199.0 mm[Hg] [id number] on September 21, 2024 3:12:35 PM [facility] PEDIATRIC GROWTH CHART - VITAL SIGNS This section displays Head C ircumference Percentile, Weight for Length Percentile and BMI Percentile Loinc Code Pediatric Measure Age (Months) Result Updat ed By No Pediatric Growth Chart Pe rcentile Information Available. HEALTH CONCERNS Problems Concern Status Health Concern problem infor mation not available. Smoking Status Status Years Used Consumed packs p er day Health Concern smoking histo ry information not available. Family History Concern Status Health Concern family histor y information not available. ENCOUNTERS ENCOUNTER INFORMATION Reason for Visit Not Specified Admission September 21, 2024 1:43:[address] [id number] Discharge September 21, 2024 6:43:00 PM [facility] DISCHARGED TO HOME OR SELF CARE ENCOUNTER DIAGNOSES Notes information is not lennox ilable. Code System Diagnosis Onset Date Diagnosis information is not available. ABSTRACT DIAGNOSES Code System Diagnosis Updated By I25.10 ICD10 ATHEROSCLEROTIC HEART DISEASE OF [place] CORONARY ARTERY WITHOUT ANGINA PECTORIS [id number] on September 12, 2024 9:01:16 PM [facility] I25.10 ICD10 ATHEROSCLEROTIC HEART DISEASE OF [place] CORONARY ARTERY WITHOUT ANGINA PECTORIS [id number] on September 24, 2024 5:02:13 AM [facility] CARE TEAM Care Corporate Recruiter Role NAREN HERNANDEZ Referring NAREN HERNANDEZ Admitting D ARTURO Primary Care NAREN HERNANDEZ Primary Attending CARE TEAM CARE plant control aide Role on Team Status Start Date End Date Update d By ARTURO FIGUEROA PCP normal August 1:45:29 PM UTC September 21, 2024 6:43:00 PM UTC [id number] on September 21, 2024 1:45:29 PM UTC MARY Munoz APRN Referring normal September 12, 2024 9:01:16 PM UTC September 21, 2024 6:43:00 PM UTC [id number] on September 21, 2024 1:45:29 PM UTC MARY Munoz APRN Attending normal September 12, 2024 9:01:16 PM UTC September 21, 2024 6:43:00 PM UTC [id number] on September 21, 2024 1:45:29 PM UTC MARY Munoz APRN Admitting normal September 12, 2024 9:01:16 PM UTC September 21, 2024 6:43:00 PM UTC [id number] on September 21, 2024 1:45:29 PM UTC
--- OUTSIDE RECORDS SUMMARY | 2024-11-16 21:44 | XMS_ITS | Data Portability ---
Author Organization [place] [facility] [place] Address [address] [place] [id number] Care Team Providers Care Workforce Management Manager Name Role Phone BEV ECKERT Primary Care Provider Assessment Encounter Date Assessment Date Assessment LastModified by Organization Details LastModified Time 02/25/2023 02/25/2023 67-year-old female with: 1) Poor appetite/nausea/v omiting/heartburn /early satiety: EGD scheduled for further evaluation -Will increase Omeprazole to 40 mg p.o. daily. 2) Opioid induced constipation: Start Relistor. 3) History of colonoscopy: At [facility] last year by Dr. Alcantara. Normal per patient report. [email or web address] Not available 02/25/2023 17:05:31 09/04/2023 09/04/2023 67-year-old female with: 1) Duodenal ulcer with recent GI hemorrhage: She has no signs of active GI bleeding. Recent EGD results from [facility] reviewed, indicated non-healing duodenal ulcer. -I will have her resume the Carafate QID -I have instructed her to change the timing of her pantoprazole administration to 30 minutes before morning and evening meal. -Will schedule repeat EGD in 6-8 weeks to assess for healing. -Avoid NSAIDS. -Check a Celiac disease panel, CRP, and ESR 2) Anemia: Due to blood loss. No ongoing signs of bleeding. Will check B12/Folate/CBC and iron study. Consider addition of an oral iron supplement if indicated. -She is taking Plavix -Will obtain a colonoscopy with upcoming EGD to ensure to source of lower GI blood loss as well. 3) Heartburn: Change timing of PPI administration per above. Dexilant does not appear to be covered by her insurance. 4) Opioid induced constipation: Relistor and Movantik were not covered. Continue Miralax as needed. She also likely has pelvic floor dysfunction. She is scheduled to undergo bladder tack next month at [facility]. Labs to be done at [facility] per patient request. [email or web address] Not available 09/04/2023 14:38:23 Plan of Treatment Reminders Order Date Submit Date Provider Last Modified By Organization Details Last Modified Time Details Appointments None recorded. Lab CBC 2023 024 ULISES [facility], [address], [address], [place], [address], 4 14:05:18 iron + total iron-bindin g capacity (TIBC), serum 2023 024 acaldwell 64 [facility], [address], [address], [place], [address], 4 09:10:12 celiac disease comprehensi ve panel, serum 2023 024 [facility], [address], [address], [place], [address], 4 08:15:44 ESR (erythrocyt e sedimentati on rate), blood 2023 024 acaldwell 64 [facility], [address], [address], [place], [address], 4 09:10:12 C reactive protein, QN, serum or plasma 2023 024 acaldwell 64 [facility], [address], [address], [place], [address], 4 09:10:12 vitamin B12 + folate, serum or blood 2023 024 [email or web address] 64 [facility], [address], [address], [place], [address], 4 09:10:12 Referral None recorded. Procedures None recorded. Surgeries None recorded. Imaging None recorded. Medication Orders omeprazole 40 mg capsule,del ayed release [address] [facility], [address] [place] [address] E [address]ella Abel [place], [id number], 4 09:37:20 Relistor 150 mg tablet [address] [facility], [address] [place] [address] E [address] [place], [id number], 3 17:39:09 Patient TargetsNo targets recorded. Patient InstructionsNo instructions recorded. Reason for Referral None Reported. Results Created Date Observation Date Name Description Value Unit Range Abnormal Flag Note LastModifiedBy Organization Detail LastModifiedTime 11/02/19 24 11/05/2023 PATHO LOGY SPECI MEN pathology specimen SEE VICTORINO PARRA Not Available [facility] ([facility] [address] , [place], [address], 11/05/2023 15:09:25 Result Notes None recorded. Problems Name Problem SNOMED Code Status Onset Date Resolution Date Notes Provider Name and Address Organization Details Recorded Time Therapeuti c opioid induced constipati on 9451621918501 02 Active 2022 Rojas Smith PA-C [address], [place], [address] , [place] - [facility] & [place] 3 10:13:20 Nausea 295539019 Active 2022 Rojas Smith PA-C [address], [place], [address] , [place] - [facility] & [place] 3 10:14:33 Heartburn 29632648 Active 2022 Rojas Smith PA-C [address], [place], [address] , [place] - [facility] & [place] 3 10:14:36 Early satiety 539619859 Active 2022 Rojas Smith PA-C [address], [place], [address] , [facility] & [place] 3 10:14:40 Loss of appetite 48535030 Active 2022 Rojas Smith PA-C [address], [place], [place], [address] [place] [address] , [facility] & [place] 3 17:03:43 Hiatal hernia with gastroesop hageal reflux 494973004 Active [address], [place] [address] , [facility] & [place] 4 10:08:31 Anemia due to blood loss 952382119 Active [address], [place] [address] , [facility] & [place] 4 10:14:56 Iron deficiency anemia 51406234 Active [address], [place] [address] , [facility] & [place] 4 14:52:46 Erosive esophagiti s 09307089 Active [address], [place] [address] , [facility] & [place] 4 09:55:08 Problem Notes None recorded. Medical Equipment None Reported. Allergies Allergen ID Allergen Name Allergen Category Reaction Reaction Severity Criticality Documentation Date Start Date Code Code System Note Provider Name and Address Organization Details Recorded Time 90462 naproxen medicatio n Not available Not available Not available 02/25/2023 7258 [facility] Mariah Dillon [place], [place] - [facility] & [place] 3 09:39:26 44787 amoxicill in medicatio n Not available Not available Not available 02/25/2023 723 RxNorm Mariahquinten Carranza [facility], [place] - [facility] [place] [facility] [place] 3 09:39:30 Medications Name Sig Start Date Stop Date Status Note LastModified by Organization Details LastModified Time atorvastati n 40 mg tablet TAKE ONE TABLET BY MOUTH EVERY DAY active Not Available Not Available No t Available carvedilol 25 mg tablet TAKE TWO TABLETS BY MOUTH TWICE DAILY FOR HIGH BLOOD PRESSURE active Not Available Not Available No t Available clonidine HCl 0.1 mg tablet TAKE ONE TABLET BY MOUTH EVERY 8 HOURS NEEDED FOR BLOOD PRESSURE active Not Available Not Available No t Available carvedilol 6.25 mg tablet TAKE 1 TABLET TWICE A DAY. TAKE WITH FOOD active Not Available Not Available No t Available carvedilol 12.5 mg tablet TAKE ONE TABLET BY MOUTH TWICE DAILY --TAKE WITH FOOD-- 09/04 completed Not Available Not Available Not Available atorvastati n 10 mg tablet TAKE ONE TABLET BY MOUTH EVERY DAY AT night 09/04 completed Not Available Not Available Not Available azithromyci n 250 mg tablet TAKE 2 TABLETS BY MOUTH ON DAY 1, THEN TAKE 1 TABLET DAILY ON DAYS 2-5 active Not Available Not Available No t Available hydrochloro thiazide 50 mg tablet TAKE ONE TABLET BY MOUTH EVERY DAY active Not Available Not Available No t Available sucralfate 1 gram tablet TAKE ONE TABLET BY MOUTH TWICE DAILY active Not Available Not Available No t Available lisinopril 20 mg tablet TAKE ONE TABLET BY MOUTH EVERY DAY 09/04 completed Not Available Not Available Not Available ondansetron HCl 4 mg tablet TAKE ONE TABLET BY MOUTH EVERY 8 HOURS active Not Available Not Available No t Available hydralazine 25 mg tablet TAKE ONE TABLET BY MOUTH THREE TIMES DAILY active Not Available Not Available No t Available clopidogrel 75 mg tablet TAKE ONE TABLET BY MOUTH EVERY DAY active Not Available Not Available No t Available amlodipine 5 mg tablet TAKE ONE TABLET BY MOUTH EVERY DAY 09/04 completed Not Available Not Available Not Available omeprazole 40 mg capsule,del ayed release TAKE ONE CAPSULE BY MOUTH EVERY MORNING 30 minutes BEFORE morning meal 09/04 completed Not Available Not Available Not Available spironolact one 25 mg tablet TAKE ONE TABLET BY MOUTH EVERY DAY active Not Available Not Available No t Available isosorbide mononitrate ER 60 mg tablet,exte nded release 24 hr TAKE ONE TABLET BY MOUTH EVERY DAY active Not Available Not Available No t Available amlodipine 10 mg tablet TAKE ONE TABLET BY MOUTH EVERY DAY FOR HIGH BLOOD PRESSURE active Not Available Not Available No t Available hydrocodone 7.5 mg-acetamin ophen 325 mg tablet TAKE ONE TABLET BY MOUTH FOUR TIMES DAILY FOR PAIN MAY CAUSE DROWSINES S active Not Available Not Available No t Available pantoprazol e 40 mg tablet,pablo yed release TAKE ONE TABLET BY MOUTH TWICE DAILY active Not Available Not Available No t Available misoprostol 200 mcg tablet TAKE ONE TABLET BY MOUTH TWICE DAILY active Not Available Not Available No t Available lisinopril 20 mg-hydrochl orothiazide 25 mg tablet TAKE ONE TABLET BY MOUTH EVERY MORNING 09/04 completed Not Available Not Available Not Available aspirin 81 mg chewable tablet chew AND swallow 1 TABLET BY MOUTH EVERY DAY active Not Available Not Available No t Available ergocalcife rol (vitamin D2) 1,250 mcg (50,000 unit) capsule TAKE ONE CAPSULE BY MOUTH ONCE WEEKLY active Not Available Not Available No t Available polyethylen e glycol 3350 17 gram/dose oral powder DISSOLVE 17 GRAMS OF POWDER INTO 4 TO 8 OUNCES OF WATER, JUICE, SODA, COFFEE, OR TEA THEN DRINK ONCE DAILY beginning 1 WEEK prior TO surgery; AFTER surgery DISSOLVE 17 GRAMS OF POWDER INTO 4 TO 8 OUNCES OF WATER, JUICE, SODA, COFFEE, OR TEA THEN DRINK TWICE DAILY FOR 2 WEEKS active Not Available Not Available No t Available lisinopril 40 mg tablet TAKE ONE TABLET BY MOUTH EVERY DAY active Not Available Not Available No t Available ondansetron 4 mg disintegrat ing tablet Place 2 tablets twice a day by transling ual route. 09/04 completed Not Available Not Available Not Available spironolact one 50 mg tablet TAKE ONE TABLET BY MOUTH EVERY DAY active Not Available Not Available No t Available nitrofurant oin monohydrate /macrocryst als 100 mg capsule TAKE ONE CAPSULE BY MOUTH TWICE DAILY FOR 5 DAYS -- FINISH ALL MEDICINE -- active Not Available Not Available No t Available amoxicillin 02/25 completed Not Available Not Available Not Available omeprazole 09/04 completed Not Available Not Available Not Available naproxen 02/25 completed Not Available Not Available Not Available FeroSul 325 mg (65 mg iron) tablet TAKE ONE TABLET BY MOUTH EVERY DAY active Not Available Not Available No t Available hydrocodone 3.75 mg-pseudoep hedrine 22.5 mg-guaifen 50 mg/5 mL liquid Take 4 times a day by oral route. active Not Available Not Available No t Available cholecalcif shane (vitamin D3) 50 mcg (2,000 unit) capsule TAKE ONE CAPSULE BY MOUTH EVERY DAY active Not Available Not Available No t Available prasugrel HCl 10 mg tablet TAKE ONE TABLET BY MOUTH EVERY DAY active Not Available Not Available No t Available sodium,pota ssium,mag sulfates 17.5 gram-3.13 gram-1.6 gram oral soln TAKE DIRECTED BY PHYSICIAN 'S OFFICE active Not Available Not Available No t Available clonidine HCl 1 MG 1-3 times daily active Not Available Not Available No t Available Movantik 25 mg tablet Take 1 tablet every day by oral route for 30 days. 09/04 completed Not Available Not Available Not Available Relistor 150 mg tablet Take by oral route for 30 days. active Not Available Not Available No t Available Vitals Date Recorded Body height Body mass index (BMI) Body weight Body temperature Oxygen saturation Oxygen saturation in Arterial blood by Pulse oximetry Systolic blood pressure Diastolic blood pressure Provider Name and Address Organization Details Last Updated DateTime 3 165.1 cm 23.5 kg/m2 16394.8 8 g 96.8 [degF] 99 % 99 % 202 mm[Hg] 104 mm[Hg] Mariah Carranza [facility] 3 09:38:20 Date Recorded Body height Body mass index (BMI) Body weight Body temperature Oxygen saturation Oxygen saturation in Arterial blood by Pulse oximetry Heart rate Heart rate Systolic blood pressure Diastolic blood pressure Provider Name and Address Organization Details Last Updated DateTime 4 165.1 cm 23.3 kg/m2 13394.9 3 g 98.2 [degF] 98 % 98 % 102 /min 97 /min 217 mm[Hg] 97 mm[Hg] Mariah Carranza [facility] [place] 4 09:38:46 Social History Question Answer Notes LastModified by Organizat ion Details LastModified Time Tobacco Smoking Status Never Smoker Mariah Carranza [facility] [place] 02/25/2023 09:38:42 What Is Your Level Of Alcohol Consumption? None [email or web address] Information not available 02/25/2023 What Is Your Level Of Caffeine Consumption? None [email or web address] Information not available 02/25/2023 Do You Use Any Illicit Or Recreational Drugs? No [email or web address] Information not available 02/25/2023 Do You Or Have You Ever Used Any Other Forms Of Tobacco Or Nicotine? No [email or web address] Information not available 02/25/2023 Sex: Unknown Functional Status None recorded. Mental Status None recorded. Family History Nothing Reported. Medical History No medical history recorded. Gynecological HistoryNo gynecological history recorded. Obstetrics History GPAL:G 0 P 0 0 0 0 Past Encounters Encounter ID Performer Location Encounter Start Date Encounter Closed Date Diagnosis/Indication Diagnosis SNOMED-CT Code Diagnosis ICD10 Code Diagnosis Note [id number] Rojas Smith PA-C [facility] [place] [address] 2 02/25/2023 09:23:32 02/25/2023 10:50:54 Therapeutic opioid induced constipation 8433017740 83866 K59.03 Nausea 594035428 R11.0 Heartburn 94124155 R12 Early satiety 985941379 R68.81 Loss of appetite 9011955 6 R63.0 [id number] Rojas Smith PA-C [facility] [place] [id number] 2 09/04/2023 09:13:29 09/04/2023 11:10:29 Therapeutic opioid induced constipation 1213532855 56954 K59.03 Nausea 269131970 R11.0 Heartburn 15734958 R12 Early satiety 665735063 R68.81 Loss of appetite 1589701 6 R63.0 Hiatal her luis manuel with gastroesophageal reflux 692625537 K21.9 Anemia due to blood loss 784728635 D50.0 Health Concerns Section Related Observation LastModified by Organization Detai ls LastModified Time None Recorded Concern Status LastModified by Organization Details LastModified Time None Recorded Advance Directives Directive None Recorded Payers Encounter Date Sequence Insurance Name Policy Number Policy Chavez Covered Member ID Chavez Member ID Guarantor Name 02/25/2023 1 [place] Lupe Foster [id number] Lupe Foster 09/04/2023 1 [place] Lupe Foster [id number] Lupe Foster Notes Date Note Type Note Provider Name and Address Organization Details Recorded Time 02/25/2023 text/html Ms. Foster is a very pleasant 67-year-old female who was referred by Bev Eckert APRN for evaluation of abdominal pain, post-prandial nausea and vomiting, and loss of appetite. She reports undergoing GBUS and HIDA scan recently that were normal. She is taking OTC omeprazole that has been somewhat helpful for heartburn and nausea. She notes early satiety and constipation. This has been worse since she started chronic opioid therapy in the past for back pain. She reports that Dr. Roth performed a colonoscopy last year that was normal and she states she was told she would need repeat in 10 years. Rojas Smith PA-C [address] [facility], [place], [address], [facility] [place] [facility] [place] 02/25/2023 17:05:43 09/04/2023 text/html PREVIOUS (02/25/23 Dexter Smith): Ms. Foster is a very pleasant 67-year-old female who was referred by Bev Eckert APRN for evaluation of abdominal pain, post-prandial nausea and vomiting, and loss of appetite. She reports undergoing GBUS and HIDA scan recently that were normal. She is taking OTC omeprazole that has been somewhat helpful for heartburn and nausea. She notes early satiety and constipation. This has been worse since she started chronic opioid therapy in the past for back pain. She reports that Dr. Roth performed a colonoscopy last year that was normal and she states she was told she would need repeat in 10 years. CURRENT (09/04/23 Dexter Smith): Ms. Foster is a very pleasat 67-year-old female who was referred by Bev Eckert APRN due to peptic ulcer disease with recent GI bleed/anemia. She was diagnosed with a bleeding duodenal ulcer back in April and was hospitalized, requiring blood transfusion x3 units. EGD was repeated in June, and then again 2 weeks ago at [facility]. Findings showed an essentially unchanged duodenal ulcer without active bleeding as well as a moderate to large sized hiatal hernia. She did require an additional 1 unit of blood last week due to continued low H & H. She has not had signs of blood loss in a few months. She is feeling okay today, but does have some continued breakthrough heartburn despite twice daily pantoprazole. She is taking the evening dose at bedtime. She just recently finished a course of Sucralfate. She denies abdominal pain, hematemesis, melena, or hematochezia. Rojas Smith PA-C [address], [place], [address], [facility] [place] [facility] [place] [facility] [place] 09/04/2023 14:38:29 OBGyn Episode No OBEpisode recorded.
--- OUTSIDE RECORDS SUMMARY | 2024-11-16 21:44 | XMS_ITS ---
Laboratory report Created on: October 22, 2024 FRANCES FITCH : 1955 Sex: Female Author Organization Unknown PROBLEMS Problems List Code Description RESULTS Laboratory Orders Date Order Code Test 2024-10-13 853196 ALDOSTERONE/GABRIELLE N RATIO Laboratory Results Date LOINC Test Value Unit Reference Range Interpre tation 2024-10-13 1763-2 ALDOSTERONE 4.5 NG/DL 0.0-30.0 2024-10-13 2915-7 RENIN ACTIVITY, PLASMA 4.278 NG/ML/HR 0.167-5.380 2024-10-13 99041-4 ALDOS/RENIN RATIO 1.1 0.0-30.0
[2024-11-16 21:46] LABS: Albumin Level 3.3 g/dl (3.5-5.0); Chloride 110 mmol/L (98-107); Potassium 3.6 mmoL/L (3.5-5.1); Sodium 139 mmol/L (136-145)
[2024-11-16] MEDS: SODIUM CHLORIDE 0.9% 10ML SYR (RAD ONLY) 10 ML IV (21:47)
[2024-11-16] MEDS: IOPAMIDOL-370 (76%);100ML BOTTLE 75 ML IV (21:47)
[2024-11-16 21:48] LABS: Alanine Aminotransferase 13 U/L (12-78); Alkaline Phosphatase 87 U/L (38-126); Anion Gap 8.6 mEq/L (5-15); Aspartate Amino Transferase 21 U/L (14-36); Bilirubin,Total 0.3 mg/dl (0.2-1.3); Blood Urea Nitrogen 39 mg/dl (7-17); Carbon Dioxide 24 mmol/L (22.0-30.0); Estimated Glomerular Filt Rate 100 ml/min (>60); GFR (African American) 121 ML/MIN (>60)
[2024-11-16 21:49] LABS: Albumin/Globulin Ratio 1.6 (1.1-1.8); Calcium 8.1 mg/dl (8.4-10.2); Globulin 2.1 g/dL (1.3-3.2); Glucose 139 mg/dl (74-100); Lipase 36 U/L (23-300); Total Protein,Serum 5.4 g/dl (6.3-8.2)
[2024-11-16 21:51] LABS: INR 0.97 (0.9-1.1); Prothrombin Time 10.9 seconds (10.1-12.5)
[2024-11-16 21:58] VITALS: BP 135/54; PULSE 88; RESP 15; O2SAT 97
[2024-11-16 22:01] VITALS: BP 123/53; PULSE 88; RESP 16; O2SAT 97
--- NOTE | 2024-11-16 22:15 | ECG_ITS ---
APPROVED REPORT Exam: Resting ECG HR:104 bpm ECG Measurements Heart Rate 104 AXES LA 152 P 57 QRSd 82 QRS 39 QT 347 T 19 QTc 408 Conclusion SINUS TACHYCARDIA LOW QRS VOLTAGE IN PRECORDIAL LEADS [QRS DEFLECTION < 1.0 mV IN CHEST LEADS] MODERATE T-WAVE ABNORMALITY, CONSIDER INFERIOR ISCHEMIA [-0.1+ mV T-WAVE IN II/aVF] ABNORMAL ECG UNCONFIRMED REPORT Electronically signed by : Neno Valente, 11/17/2024 01:39:58
[2024-11-16] MEDS: ONDANSETRON 4MG/2ML VIAL 4 MG IV (22:17)
[2024-11-16] MEDS: LACTATED RINGERS 1000ML 1,000 ML 999 ML IV (22:17)
[2024-11-16] MEDS: PANTOPRAZOLE SODIUM 80 MG in 0.9 % SODIUM CHLORIDE 100 ML 100 MG IV (22:17)
[2024-11-16] MEDS: PIPERACILLIN/TAZO 4.5 GM in 0.9 % SODIUM CHLORIDE 100 ML IV (22:17)
[2024-11-16] MEDS: HYDROMORPHONE 2MG/ML SYRINGE 0.5 MG IV (22:18)
--- NOTE | 2024-11-16 22:54 | ECG_ITS ---
APPROVED REPORT Exam: Resting ECG HR:94 bpm ECG Measurements Heart Rate 94 AXES MS 158 P 42 QRSd 79 QRS 39 QT 373 T 24 QTc 424 Conclusion SINUS RHYTHM Electronically signed by : Neno Valente, 11/17/2024 01:40:42
[2024-11-16 22:59] LABS: Troponin I < 0.01 ng/ml (0.00-0.034)
[2024-11-17] VITALS (37 sets, daily range): BP systolic 93–177; BP diastolic 55–98; PULSE 62–110; RESP 11–20; TEMP 36.5–37.2; O2SAT 94–100; BMI 22.1
--- NOTE | 2024-11-17 00:17 | P.HP_ITS ---
<Statement entered by Anthony Lord MD - 11/17/24 08:24> Rounded on patient after nurse practitioner. Personally examined and interviewed patient. Agree with exam findings and care plan as documented. History of Present Illness *Admission Date: 11/17/24 *Reason for visit:: Abdominal pain, dark-colored stool, coffee ground vomit *History of present illness: This is a 68-year-old female who has a past medical history significant for headache, pelvic organ prolapse, bladder prolapse, hypertension, pituitary adenoma, GERD, breast cancer, gastric ulcers, and depressive disorder who presents with a chief complaint of midepigastric abdominal pain, dark- colored stool, dark-colored emesis. Due to patient's symptoms, she presented to the emergency room for evaluation. While in emergency room, patient's presenting hemoglobin was 8. Patient also had some dark-colored stool in the emergency room. Medicine was contacted for admission due to potential upper GI bleed, so patient has been admitted for further management. During my evaluation of the patient, patient endorses having some lightheadedness/dizziness with her symptomology. Moreover, she states that she has been having a subjective fever and chills. She also mentions some diaphoresis. Patient's abdominal pain is actually located in her lower abdomen. Patient voices having episodes of emesis that were dark in color and they resembled coffee ground. She states she has been having episodes of diarrhea with 6 or more today and the last couple of stools were dark in color. Patient has known gastric ulcers. Her last upper endoscopy on July 2023 revealed a duodenal bulb ulceration antral free prepyloric ulceration that had improved from prior upper endoscopy. She also had a hiatal hernia and early Schatzki ring. She was recommended to continue PPI therapy. She is currently denying any chest pain, shortness of breath, hematuria, hematochezia, hemoptysis, rigors, nausea, or headache. Additional pertinent vitals obtained include a red blood cell count of 2.42, hemoglobin of 8.1, hematocrit of 24.4-it is worth mentioning that her prior H&H in June of last year was 14.6/43.8, chloride of 110, BUN of 39, blood glucose of 139, calcium 8.1, total protein of 5.4, albumin of 3.3, and CT scan of the abdomen and pelvis was consistent with findings with acute colitis but did not revealed any angiographic evidence consistent with GI bleed. [facility] Disclaimer: The information contained in this section may have been updated after the patient was seen, as this information can be updated by other users. Medical History (Updated 11/17/24 @ 00:27 by Rubio Lewis APRN) Headache Pelvic organ prolapse quantification stage 3 cystocele Bladder prolapse HTN (hypertension) History of sleep study History of pituitary adenoma GERD (gastroesophageal reflux disease) Breast cancer Major depressive disorder Surgical History History of elbow surgery History of back surgery History of carpal tunnel surgery History of hammer toe correction History of shoulder surgery History of appendectomy History of LAVH History of lumpectomy History of cardiac cath Family History Father Heart attack Cancer Mother Diabetes Sister Diabetes Hypertension Social History Smoking Status: Unknown if ever smoked alcohol intake: never substance use type: denies use current occupational status: disabled Travel in the last 8 weeks: None household members: spouse housing: house current occupational exposures/hazards: No caffeine: Yes Other Medical History Have you received the Flu Vaccine for this season: No Have you received the Pneumonia Vaccine: No Review of Systems Review of Systems Review of systems:: pertinent systems reviewed and negative unless documented below Constitutional Constitutional: Reports chills and Reports fever(s) Eyes Eyes: Reports system reviewed and no additional complaints, except as documented ENT Ears, Nose, Mouth, and Throat: Reports system reviewed and no additional complaints, except as documented *Cardiovascular Cardiovascular: Reports system reviewed and no additional complaints, except as documented *Respiratory Respiratory: Reports system reviewed and no additional complaints, except as documented *Gastrointestinal Gastrointestinal: Reports abdominal pain, Reports coffee ground emesis, Reports loose stools, Reports melena and Reports nausea *Genitourinary Genitourinary: Reports system reviewed and no additional complaints, except as documented *Musculoskeletal Musculoskeletal: Reports system reviewed and no additional complaints, except as documented Integumentary/Breasts Skin/Breast: Reports system reviewed and no additional complaints, except as documented *Neurologic Neurologic: Reports system reviewed and no additional complaints, except as documented Psychiatric Psychiatric: Reports system reviewed and no additional complaints, except as documented Endocrine Endocrine: Reports system reviewed and no additional complaints, except as documented Hematologic/Lymphatic Hematologic/Lymphatic: Reports system reviewed and no additional complaints, except as documented Allergic/Immunologic Allergic/Immunologic: Reports system reviewed and no additional complaints, exc ept as documented Meds Home Medications and Allergies Home Medications ?Medication ?Instructions ?Recorded ?Confirmed ?Type amlodipine 10 mg tablet 10 mg PO DAILY 04/06/24 08/01/24 History isosorbide mononitrate 120 mg 120 mg PO DAILY 04/06/24 08/01/24 History tablet,extended release 24 hr pantoprazole 40 mg tablet,delayed 40 mg PO DAILY 04/06/24 08/01/24 History release spironolactone 50 mg tablet 50 mg PO DAILY 04/06/24 08/01/24 History hydralazine 50 mg tablet 50 mg PO TID 04/13/24 08/01/24 History hydrochlorothiazide 50 mg tablet 100 mg (2 x 50 mg) PO DAILY #180 04/13/24 08/01/24 Rx tabs carvedilol 25 mg tablet See Rx Instructions .Route 07/13/24 08/01/24 Rx .COMPLEX #360 tabs lisinopril 40 mg tablet See Rx Instructions .Route 07/13/24 08/01/24 Rx .COMPLEX #90 tabs atorvastatin 40 mg tablet 40 mg PO HS 90 days #90 tabs 07/18/24 08/01/24 Rx cholecalciferol (vitamin D3) 50 50 mcg PO DAILY 08/01/24 08/01/24 History mcg (2,000 unit) capsule ergocalciferol (vitamin D2) 1,250 1,250 mcg PO WEEKLY 08/01/24 08/01/24 History mcg (50,000 unit) capsule ferrous sulfate 325 mg (65 mg 325 mg PO DAILY 08/01/24 08/01/24 History iron) tablet (FeroSul) hydrocodone 10 mg-acetaminophen 1 tab PO QID PRN 08/01/24 08/01/24 History 325 mg tablet ondansetron HCl 8 mg tablet 8 mg PO PRN 08/01/24 08/01/24 History New Prescriptions to Start Prescriptions: Allergies Allergy/AdvReac Type Severity Reaction Status Date / Time amoxicillin (AMOXICILLIN) Allergy Unknown I-RASH Verified 08/01/24 12:51 naproxen (NAPROXEN) Allergy Unknown I-RASH Verified 08/01/24 12:51 Exam Data for Last 24 hours Vital signs and Labs for Last 24 Hours: Temp Pulse Resp BP Pulse Ox O2 Del Method 97.8 F 88 16 123/53 L 97 Room Air 11/16/24 21:39 11/16/24 22:01 11/16/24 22:01 11/16/24 22:01 11/16/24 22:01 11/16/24 22:01 Laboratory Results - last 24 hr 11/16/24 21:10: WBC 9.0, RBC 2.42 L, Hgb 8.1 L, Hct 24.4 L, MCV 100.8 H, MCH 33 .5 H, MCHC 33.2, RDW 14.1, Plt Count 372, MPV 9.7, Neut % (Auto) 66.9, Lymph % (Auto) 24.7, [place] % (Auto) 5.8, Eos % (Auto) 1.0, Baso % (Auto) 1.3, Neut # (Auto) 6.0, Lymph # (Auto) 2.2, [place] # (Auto) 0.5, Eos # (Auto) 0.1, Baso # (Auto) 0.1, PT 10.9, INR 0.97, Sodium 139, Potassium 3.6, Chloride 110 H, Carbon Dioxide 24, Anion Gap 8.6, BUN 39 H, Creatinine 0.60, Estimated GFR 100, Est GFR ( Amer) 121, Glucose 139 H, Calcium 8.1 L, Total Bilirubin 0.3, AST 21, ALT 13, Alkaline Phosphatase 87, Troponin I < 0.01, Total Protein 5.4 L, Albumin 3.3 L, Globulin 2.1, Albumin/Globulin Ratio 1.6, Lipase 36 11/16/24 21:56: Lactate 1.0, Blood Type O Positive I & O for Last 24 hours: Intake & Output 11/14/24 11/15/24 11/16/24 11/17/24 23:59 23:59 23:59 23:59 Weight 59.874 kg Constitutional Constitutional: no acute distress and cooperative *Routine HEENT Exam Head: Present normocephalic and atraumatic Eye: Present EOMI and PERRL ENT: Present mucous membranes moist *Routine Neck Exam Neck: Present supple, full ROM and trachea midline *Routine Respiratory Exam Respiratory: Present CTA bilaterally, normal respiratory effort, able to speak in complete sentences and symmetric chest movement *Routine Cardiovascular Exam Cardiovascular: Present RRR, Normal S1 and Normal S2 *Routine Abdominal Exam Abdominal: Present soft and normoactive bowel sounds *Routine Rectal Exam Rectal:: deferred *Routine Genitalia Exam Genitalia:: deferred *Routine Extremities Exam Extremities: Present full ROM, pulses intact and normal capillary refill Routine Back/Spine/Pelvis Exam Back/Spine: Present full ROM *Routine Skin Exam Skin: Present intact, dry and warm *Routine Neurological Exam Neurological: Present alert, oriented X3, CN II-XII intact, moving all extremities and normal speech Routine Psychiatric Exam Psychiatric: Present normal affect, normal thought process, cooperative, good insight and good judgment H&P: Result Impressions 68-year-old female who has known gastric ulcers presents with possible GI bleed Assessment and Plan *Assessment and plan (1) GI bleed: Status: Acute Qualifiers: GI bleed type/associated pathology: melena Qualified Code(s): K92.1 - Melena Category: Medical Code(s): K92.2 - Gastrointestinal hemorrhage, unspecified (2) Acute colitis: Status: Acute Category: Medical Code(s): K52.9 - Noninfective gastroenteritis and colitis, unspecified (3) Macrocytosis: Status: Acute Category: Medical Code(s): D75.89 - Other specified diseases of blood and blood-forming organs Plan Assessment: Acute colitis - Continue Zosyn 4.5 g IV every 6 hours - Patient has longstanding history of PPI therapy - Will obtain stool for culture and C. difficile - Obtain procalcitonin GI bleed: Most likely upper - Patient received 80 mg of Protonix IV push while in emergency room - Will continue Protonix drip - Obtain hemoglobin hematocrit every 8 hours - Will type and screen and transfuse if hemoglobin is less than 7 or symptomatic any -Make patient n.p.o. -Will consult surgeon in a.m. Macrocytosis -Obtain folate and vitamin B12 level Plan: Admit patient to the stepdown unit on telemetry SCDs bilateral lower EXTR Normal saline at 100 mL an hour CBC/BMP daily 4 mg Zofran IV push to 8 hours for nausea Stool for culture Full code I will discuss this case with attending physician Dr. Lord and I look forward to more input
[2024-11-17] MEDS: 0.9 % SODIUM CHLORIDE 1000ML 1,000 ML 100 ML IV ×3 (00:31→20:30)
[2024-11-17] MEDS: PANTOPRAZOLE SODIUM 80 MG in 0.9 % SODIUM CHLORIDE 100 ML 10 MG IV (00:42)
[2024-11-17 01:29] LABS: Hematocrit 22.4 % (37.0-47.0); Hemoglobin 7.3 g/dL (12.2-16.2)
[2024-11-17 01:51] LABS: Troponin I < 0.01 ng/ml (0.00-0.034)
[2024-11-17] MEDS: HYDROCODONE/APAP 5/325 MG TABLET 1 TAB PO ×5 (03:07→23:17)
[2024-11-17] MEDS: PIPERACILLIN/TAZO 4.5 GM in 0.9 % SODIUM CHLORIDE 100 ML IV ×2 (03:33→10:10)
[2024-11-17 06:38] LABS: Chloride 114 mmol/L (98-107); Potassium 3.2 mmoL/L (3.5-5.1); Sodium 142 mmol/L (136-145)
[2024-11-17 06:41] LABS: Anion Gap 8.2 mEq/L (5-15); Blood Urea Nitrogen 26 mg/dl (7-17); Carbon Dioxide 23 mmol/L (22.0-30.0); Creatinine Clearance Estimated 53 mL/min (50-200); Estimated Glomerular Filt Rate 84 ml/min (>60); GFR (African American) 101 ML/MIN (>60)
[2024-11-17 06:42] LABS: Calcium 7.6 mg/dl (8.4-10.2); Glucose 100 mg/dl (74-100)
[2024-11-17 07:46] LABS: Troponin I < 0.01 ng/ml (0.00-0.034)
[2024-11-17 07:55] LABS: Procalcitonin 0.096 ng/mL (0.0-2.0)
[2024-11-17] MEDS: CHOLECALCIFEROL 1,000 UNITS (25MCG) TABLET 50 MCG PO (08:05)
[2024-11-17] MEDS: FERROUS SULFATE 325MG TABLET 325 MG PO (08:06)
[2024-11-17] MEDS: PANTOPRAZOLE 40MG VIAL 40 MG IV ×2 (08:06→21:45)
[2024-11-17 08:18] LABS: Vitamin B12 > 1000 pg/mL (239-931)
[2024-11-17 08:37] LABS: Folate 7.78 ng/mL
[2024-11-17] MEDS: ONDANSETRON 4MG/2ML VIAL 4 MG IV ×2 (08:59→18:33)
--- NOTE | 2024-11-17 09:01 | HMH.PHAINT1 ---
Pharmacy Intervention Comments: HOME MEDICATION LIST VERIFIED USING LIST FROM OUTPATIENT PHARMACY AND CARDIOLOGY OFFICE
--- NOTE | 2024-11-17 12:21 | P.PNANES_ITS ---
[facility] Disclaimer: The information contained in this section may have been updated after the patient was seen, as this information can be updated by other users. Medical History Headache Pelvic organ prolapse quantification stage 3 cystocele Bladder prolapse HTN (hypertension) History of sleep study History of pituitary adenoma GERD (gastroesophageal reflux disease) Breast cancer Major depressive disorder Surgical History History of elbow surgery History of back surgery History of carpal tunnel surgery History of hammer toe correction History of shoulder surgery History of appendectomy History of LAVH History of lumpectomy History of cardiac cath Family History Father Heart attack Cancer Mother Diabetes Sister Diabetes Hypertension Social History (Updated 11/17/24 @ 03:52 by Jerman Edwards RN) Smoking Status: Never smoker alcohol intake: never substance use type: denies use current occupational status: disabled Travel in the last 8 weeks: None household members: spouse housing: house current occupational exposures/hazards: No caffeine: Yes Have you lived/traveled outside [place] in past 30 days?: No Contact w/someone who lives/traveled outside [place] past 30 days?: No Exposure to someone with infectious disease in past 14 days?: No Do you have a fever (greater than 100.4 F or 38 C)?: No Have you tested positive for COVID-19: No Exposed to someone with COVID-19 in past 14 days?: No Do you have a sore throat?: No Do you have a cough?: No Do you have any weakness?: No Are you experiencing any nausea/vomitting?: No Do you have any diarrhea?: No Are you experiencing any unusual bleeding?: No Do you have any muscle aches/pain?: No Do you have any abdominal pain?: No Are you experiencing loss of taste or smell?: No [facility] Anesthesia Checklist Patient Identification Patient Identification: Arm Band and Verbal (Name & ) Structural Data Admitted From: Home Planned Operative Procedure/s: EGD Consent for Planned Operative Procedure(s) Verified: Yes Verified Documents: Surgical Consent NPO Status Verified Time NPO: 00:00 Chart Verification Results Verified: CBC and BMP Additional verifications Anesthesia Reactions: No Airway Assessment Mallampati Score:: Class I C-Spine Mobility Assessed: Yes TMJ Mobility Assessed: No Dentition: Poor Dentition (Chipped front left tooth) Neurological Assessment Level of Consciousness: Awake, Alert and Appropriate Hx Seizures: No Numbness or tingling in extremities: No Anesthesia Plan Anesthesia Risk discussed: Yes Anesthesia Plan: Verified ASA Class: III Anesthesia Type: MAC
--- NOTE | 2024-11-17 12:44 | EXP.HP ---
History of Present Illness *Admission Date: 11/17/24 *History of present illness: Mrs. Foster is a 68-year-old female who is admitted and here for upper GI bleed. The patient has had coffee-ground emesis and dark-colored stool with some abdominal pain her last upper endoscopy in July 2023 revealed a duodenal bulb ulceration and prepyloric ulceration. She did have a CAT scan consistent with findings of acute colitis. Did not reveal any radiographic evidence of GI bleed. The examination is deemed medically necessary for [default value]. The patient has been seen, interviewed and examined prior to the procedure by both myself and the anesthesia provider. [facility] Disclaimer: The information contained in this section may have been updated after the patient was seen, as this information can be updated by other users. Medical History (Updated 11/17/24 @ 12:47 by Johnny Walls II, MD) Headache Pelvic organ prolapse quantification stage 3 cystocele Bladder prolapse HTN (hypertension) History of sleep study History of pituitary adenoma GERD (gastroesophageal reflux disease) Breast cancer Major depressive disorder Surgical History History of elbow surgery History of back surgery History of carpal tunnel surgery History of hammer toe correction History of shoulder surgery History of appendectomy History of LAVH History of lumpectomy History of cardiac cath Family History Father Heart attack Cancer Mother Diabetes Sister Diabetes Hypertension Social History (Updated 11/17/24 @ 03:52 by Jerman Edwards RN) Smoking Status: Never smoker alcohol intake: never substance use type: denies use current occupational status: disabled Travel in the last 8 weeks: None household members: spouse housing: house current occupational exposures/hazards: No caffeine: Yes Have you lived/traveled outside [place] in past 30 days?: No Contact w/someone who lives/traveled outside [place] past 30 days?: No Exposure to someone with infectious disease in past 14 days?: No Do you have a fever (greater than 100.4 F or 38 C)?: No Have you tested positive for COVID-19: No Exposed to someone with COVID-19 in past 14 days?: No Do you have a sore throat?: No Do you have a cough?: No Do you have any weakness?: No Are you experiencing any nausea/vomitting?: No Do you have any diarrhea?: No Are you experiencing any unusual bleeding?: No Do you have any muscle aches/pain?: No Do you have any abdominal pain?: No Are you experiencing loss of taste or smell?: No Other Medical History Have you received the Flu Vaccine for this season: No Have you received the Pneumonia Vaccine: No Review of Systems Review of Systems Review of systems (narrative): Negative *Cardiovascular Comments: Negative *Gastrointestinal Comments: Negative *Genitourinary Comments: Negative *Musculoskeletal Comments: Negative *Neurologic Neurologic: Reports system reviewed and no additional complaints, except as documented Comments: Negative Meds Home Medications and Allergies Home Medications ?Medication ?Instructions ?Recorded ?Confirmed ?Type amlodipine 10 mg tablet 10 mg PO DAILY 04/06/24 11/17/24 History isosorbide mononitrate 120 mg 120 mg PO DAILY 04/06/24 11/17/24 History tablet,extended release 24 hr pantoprazole 40 mg tablet,delayed 40 mg PO DAILY 04/06/24 11/17/24 History release hydrochlorothiazide 50 mg tablet 100 mg (2 x 50 mg) PO DAILY #180 04/13/24 11/17/24 Rx tabs atorvastatin 40 mg tablet 40 mg PO HS 90 days #90 tabs 07/18/24 11/17/24 Rx cholecalciferol (vitamin D3) 50 50 mcg PO DAILY 08/01/24 11/17/24 History mcg (2,000 unit) capsule ergocalciferol (vitamin D2) 1,250 1,250 mcg PO WEEKLY 08/01/24 11/17/24 History mcg (50,000 unit) capsule ferrous sulfate 325 mg (65 mg 325 mg PO DAILY 08/01/24 11/17/24 History iron) tablet (FeroSul) hydrocodone 10 mg-acetaminophen 1 tab PO QID PRN Pain 08/01/24 11/17/24 History 325 mg tablet ondansetron HCl 8 mg tablet 8 mg PO TIDP PRN Nausea And 08/01/24 11/17/24 History Vomiting alendronate 70 mg tablet 70 mg PO WEEKLY 11/17/24 11/17/24 History carvedilol 25 mg tablet 50 mg PO BID 11/17/24 11/17/24 History clonidine HCl 0.1 mg tablet 0.1 mg PO BID 11/17/24 11/17/24 History escitalopram oxalate 5 mg tablet 5 mg PO DAILY 11/17/24 11/17/24 History lisinopril 40 mg tablet 40 mg PO DAILY 11/17/24 11/17/24 History New Prescriptions to Start Prescriptions: Allergies Allergy/AdvReac Type Severity Reaction Status Date / Time amoxicillin (AMOXICILLIN) Allergy Unknown I-RASH Verified 08/01/24 12:51 naproxen (NAPROXEN) Allergy Unknown I-RASH Verified 08/01/24 12:51 Exam Data for Last 24 hours Vital signs and Labs for Last 24 Hours: Temp Pulse Resp BP Pulse Ox O2 Del Method 98.4 F 90 16 166/73 H 98 Room Air 11/17/24 11:40 11/17/24 11:40 11/17/24 11:40 11/17/24 11:40 11/17/24 11:40 11/17/24 11:40 Laboratory Results - last 24 hr 11/16/24 21:10: WBC 9.0, RBC 2.42 L, Hgb 8.1 L, Hct 24.4 L, MCV 100.8 H, MCH 33.5 H, MCHC 33.2, RDW 14.1, Plt Count 372, MPV 9.7, Neut % (Auto) 66.9, Lymph % (Auto) 24.7, [place] % (Auto) 5.8, Eos % (Auto) 1.0, Baso % (Auto) 1.3, Neut # (Auto) 6.0, Lymph # (Auto) 2.2, [place] # (Auto) 0.5, Eos # (Auto) 0.1, Baso # (Auto) 0.1, PT 10.9, INR 0.97, Sodium 139, Potassium 3.6, Chloride 110 H, Carbon Dioxide 24, Anion Gap 8.6, BUN 39 H, Creatinine 0.60, Estimated GFR 100, Est GFR ( Amer) 121, Glucose 139 H, Calcium 8.1 L, Total Bilirubin 0.3, AST 21, ALT 13, Alkaline Phosphatase 87, Troponin I < 0.01, Total Protein 5.4 L, Albumin 3.3 L, Globulin 2.1, Albumin/Globulin Ratio 1.6, Lipase 36 11/16/24 21:56: Lactate 1.0, Blood Type O Positive, Antibody Screen Negative, Crossmatch (G) See Detail 11/17/24 01:16: Hgb 7.3 L, Hct 22.4 L, Troponin I < 0.01 11/17/24 05:23: Sodium 142, Potassium 3.2 L, Chloride 114 H, Carbon Dioxide 23, Anion Gap 8.2, BUN 26 H D, Creatinine 0.70, Estimated Creat Clear 53, Estimated GFR 84, Est GFR ( Amer) 101, Glucose 100 D, Calcium 7.6 L, Troponin I < 0.01, Vitamin B12 > 1000 H, Folate 7.78, Procalcitonin 0.096 I & O for Last 24 hours: Intake & Output 11/14/24 11/15/24 11/16/24 11/17/24 23:59 23:59 23:59 23:59 Intake Total 500 / 500 Output Total 1475 / 1475 Balance -975 / -975 Weight 132 lb 133 lb 1.983 oz *Routine HEENT Exam Head: Present normocephalic Eye: Present EOMI and PERRL ENT: Present mucous membranes moist *Routine Neck Exam Neck: Present supple *Routine Respiratory Exam Respiratory: Present CTA bilaterally *Routine Cardiovascular Exam Cardiovascular: Present RRR *Routine Abdominal Exam Abdominal: Present soft and normoactive bowel sounds; Absent tenderness *Routine Rectal Exam Rectal:: deferred *Routine Genitalia Exam Genitalia:: deferred *Routine Extremities Exam Extremities: Absent cyanosis, clubbing or edema *Routine Skin Exam Skin: Present warm; Absent rash *Routine Neurological Exam Neurological: Present alert and oriented X3 Assessment and Plan *Assessment and plan (1) Upper gastrointestinal bleed: Status: Acute Category: Medical Code(s): K92.2 - Gastrointestinal hemorrhage, unspecified (2) Coffee ground emesis: Status: Acute Category: Medical Code(s): K92.0 - Hematemesis (3) Melena: Status: Acute Category: Medical Code(s): K92.1 - Melena Plan A/P: 1. Upper GI bleed with coffee-ground emesis and melena is the preprocedural diagnosis. The patient will be anesthetized/sedated using MAC sedation. The patient has been seen and examined. Cardiac and lung assessment prior to the examination is stable. Proceed with planned diagnostic EGD.
--- NOTE | 2024-11-17 12:59 | HMH.PROCNOTE ---
[facility] Procedure Note Date: 11/17/24 Time: 13:37 Procedure Note:: Upper Endoscopy Procedure Report: Esophagogastroduodenoscopy with cold biopsies, forced coagulation (with hot biopsy forceps), Endo Clip placement and TTS balloon dilation Endoscopost: Johnny Walls II, MD Referring Physician: Bev Eckert PA-C Date of Procedure: November 17, 2024 Equipment: Olympus GIF 190 standard upper endoscope Sedation: MAC sedation Indications: Mrs. Foster is a 68-year-old female with a history of GI bleeding. Yesterday at 2:30 PM she began to have coffee-ground emesis and started passing dark stool/melena. She has had several dark bowel movements since then. Her presenting hemoglobin was 8.1. The patient's baseline hemoglobin is 14.6 (from June 2024). She did have a GI bleed and had EGD in June 2023 and biopsies at that time (Rachid Alcantara M.D.) revealed reactive gastropathy without H. pylori. The patient reports no NSAID use. She has been on pantoprazole since her last EGD which had shown duodenal bulb and prepyloric ulceration. She has had some epigastric and lower abdominal pain recently. She also has had some diarrhea. Her CT imaging yesterday showed findings consistent with acute colitis with bowel wall edema and some pericolonic inflammatory change. The angiogram showed no evidence of any active bleeding. Procedure: Prior to the procedure, a history and physical exam was performed, and patient's medications and allergies were reviewed. The risks, benefits and alternatives of the sedation and procedure were discussed with the patient. All questions were answered and informed consent was obtained. The patient was brought to the procedure room. Patient identification and proposed procedure were verified by the physician and the nurse. The patient was placed in a left lateral decubitus position and the scope was passed under direct vision. Throughout the procedure, the patient's blood pressure, pulse, and oxygen saturations were monitored continuously. The upper GI endoscopy was accomplished without difficulty. The patient tolerated the procedure well. Findings: The scope was passed directly into the upper esophagus and advanced to the third portion of the duodenum. There was some mucosal irregularity in the third portion and biopsies were obtained. There was some stenosis of the duodenum in the first portion from prior healed peptic ulcer. There was a small 8 mm clean-based ulcer adjacent to this at the junction of the first portion and duodenal bulb. The scope was withdrawn through a normal pylorus into the stomach. There was a prepyloric gastric ulcer that was 10 mm and there was a visible vessel and flat pigmented spot in the base of this ulcer. Initially, the gold probe was utilized but after several attempts, the gold probe would not produce any ablation and we eventually figured out that this was the ERBE machine itself. Instead, I did use hot biopsy forceps grasper with forced ablation and grasped the vessel and applied 4 to 5 seconds of force coagulation with excellent coagulative effect. I did use the end of the biopsy forceps on the pigmented spot and bluntly used ablation to coagulate. Lastly, I did place a single Endo Clip over the ulcer with closure. There was no heme identified. Biopsies were taken along the lesser curvature. There was no evidence of any chronic gastritis. Upon retroflexion there was a small 1 to 2 cm hiatal hernia. The scope was then withdrawn into the esophagus. There was no evidence of reflux esophagitis but there was a distal fibrous ring/Schatzki's ring. This was dilated to 60 Upper Sorbian/20 mm with shattering of the Schatzki's ring. The remainder of the esophageal mucosa was normal. Impression: 1. Prepyloric 10 mm gastric ulcer with visible vessel and flat pigmented spot status post biopsy forceps forced ablation and Endo Clip placement 2. Clean-based small 8 mm duodenal ulcer at junction of bulb and first portion of duodenum with some adjacent duodenal stenosis at the first portion (from prior healed peptic ulcer disease) 3. 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 pylori. Endoscopic measures taken to reduce ulcer rebleeding. I would avoid NSAIDs/aspirin, continue PPI therapy and add misoprostol. At some point in 3 to 6 months, I would consider repeat EGD with dilation of duodenal stenosis.
[2024-11-17] MEDS: VANCOMYCIN HCL 50MG/ML 150ML KIT 125 MG PO ×2 (17:05→21:43)
[2024-11-17] MEDS: miSOPROStol 100MCG TABLET 100 MCG PO ×2 (17:05→23:17)
[2024-11-17 18:54] LABS: Hematocrit 25.2 % (37.0-47.0)
[2024-11-17 19:06] LABS: Hemoglobin 8.4 g/dL (12.2-16.2)
[2024-11-17 20:18] LABS: Folate 7.57 ng/mL
[2024-11-17] MEDS: ATORVASTATIN 40MG TABLET 40 MG PO (21:43)
[2024-11-18 04:00] VITALS: BP 170/93; PULSE 90; RESP 15; TEMP 36.6; O2SAT 98; BMI 24.3
[2024-11-18] MEDS: miSOPROStol 100MCG TABLET 100 MCG PO ×4 (05:00→22:24)
[2024-11-18 06:24] LABS: Basophils # 0.1 K/mm3 (0-0.2); Basophils % 1.8 % (0.1-2.0); Eosinophils # 0.1 Kmm3 (0.0-0.4); Eosinophils % 0.9 % (0.1-12.0); Hematocrit 26.2 % (37.0-47.0); Hemoglobin 8.6 g/dL (12.2-16.2); Lymphocytes # 1.2 K/mm3 (0.7-4.5); Lymphocytes % 22.3 % (10-50); Mean Corpuscular HGB Conc 32.8 g/dL (31.8-35.4); Mean Corpuscular Hemoglobin 31.9 pg (27.0-31.2); Mean Platelet Volume 8.8 fl (7.4-10.4); Monocytes # 0.4 K/mm3 (0.1-1.0); Monocytes % 7.2 % (1.7-9.3); Neutrophils # 3.7 K/mm3 (1.8-7.8); Neutrophils % 67.4 % (37.0-80.0); Nucleated Red Blood Cells # 0 10^3/uL; Nucleated Red Blood Cells % 0 %; Platelet Count 309 K/mm3 (142-424); Red Cell Distribution Width-SD 59.3 fL; White Blood Count 5.6 K/mm3 (4.8-10.8)
[2024-11-18 06:29] LABS: Chloride 117 mmol/L (98-107); Sodium 143 mmol/L (136-145)
[2024-11-18 06:32] LABS: Blood Urea Nitrogen 11 mg/dl (7-17); Creatinine Clearance Estimated 58 mL/min (50-200); Estimated Glomerular Filt Rate 100 ml/min (>60); GFR (African American) 121 ML/MIN (>60)
[2024-11-18 06:33] LABS: Anion Gap 6.9 mEq/L (5-15); Calcium 7.8 mg/dl (8.4-10.2); Carbon Dioxide 22 mmol/L (22.0-30.0); Glucose 98 mg/dl (74-100)
[2024-11-18] MEDS: 0.9 % SODIUM CHLORIDE 1000ML 1,000 ML 100 ML IV (06:34)
[2024-11-18] MEDS: HYDROCODONE/APAP 5/325 MG TABLET 1 TAB PO ×3 (06:34→22:26)
[2024-11-18 07:29] LABS: Potassium 2.9 mmoL/L (3.5-5.1)
[2024-11-18 08:00] VITALS: BP 199/104; PULSE 103; RESP 18; TEMP 36.9; O2SAT 100
[2024-11-18] MEDS: POTASSIUM CHLORIDE 20MEQ TAB 40 MEQ PO ×3 (08:58→15:47)
[2024-11-18] MEDS: CHOLECALCIFEROL 1,000 UNITS (25MCG) TABLET 50 MCG PO (08:58)
[2024-11-18] MEDS: VANCOMYCIN HCL 50MG/ML 150ML KIT 125 MG PO ×4 (08:59→21:13)
[2024-11-18] MEDS: FERROUS SULFATE 325MG TABLET 325 MG PO (08:59)
[2024-11-18] MEDS: PANTOPRAZOLE 40MG VIAL 40 MG IV ×2 (08:59→21:04)
[2024-11-18 09:04] LABS: Iron 56 ug/dL (37-170)
[2024-11-18 09:14] LABS: Total Iron Binding Capacity 290 ug/dL (265-497)
[2024-11-18 09:40] LABS: Ferritin 29.7 ng/ml (11.1-264)
[2024-11-18] MEDS: LISINOPRIL 20MG TABLET 40 MG PO (11:57)
[2024-11-18] MEDS: ISOSORBIDE MONO 60MG TAB.ER.24H 120 MG PO (11:57)
[2024-11-18] MEDS: cloNIDine 0.1MG TABLET 0.1 MG PO (11:57)
[2024-11-18] MEDS: CARVEDILOL 25MG TABLET 50 MG PO (11:58)
[2024-11-18] MEDS: AMLODIPINE 10MG TABLET 10 MG PO (11:58)
[2024-11-18 11:59] VITALS: BP 223/117; PULSE 101; RESP 18; TEMP 36.6; O2SAT 99
[2024-11-18] MEDS: ESCITALOPRAM 10MG TABLET 5 MG PO (11:59)
[2024-11-18 15:17] LABS: Hematocrit 23.5 % (37.0-47.0); Hemoglobin 7.8 g/dL (12.2-16.2)
[2024-11-18] MEDS: ONDANSETRON 4MG/2ML VIAL 4 MG IV (15:26)
[2024-11-18 15:33] LABS: Anion Gap 2.8 mEq/L (5-15); Blood Urea Nitrogen 9 mg/dl (7-17); Calcium 7.8 mg/dl (8.4-10.2); Carbon Dioxide 24 mmol/L (22.0-30.0); Chloride 118 mmol/L (98-107); Creatinine Clearance Estimated 58 mL/min (50-200); Estimated Glomerular Filt Rate 100 ml/min (>60); GFR (African American) 121 ML/MIN (>60); Glucose 150 mg/dl (74-100); Potassium 3.8 mmoL/L (3.5-5.1); Sodium 141 mmol/L (136-145)
--- NOTE | 2024-11-18 15:33 | PC.NURSE ---
Pt. refused iv fluids.
[2024-11-18 16:00] VITALS: BP 96/46; PULSE 70; RESP 16; TEMP 37.1; O2SAT 92
--- NOTE | 2024-11-18 16:15 | PC.NURSE ---
Aox4 up ad izaiah, nausea and pain meds given once this shift, consult to GI, on clears, on contact for cdiff.
--- NOTE | 2024-11-18 19:37 | EXP.ACUTE.PN ---
Subjective *Date: 11/18/24 *Time: 22:15 Interval history: Patient continues to be weak but showing improvement. Stable on room air. Tolerating breakfast. In better spirits this morning. Denies significant bloody stools. Denies nausea or vomiting. Afebrile. Medical Exam Vital signs and Labs for Last 24 Hours: Vital Signs Temp Pulse Pulse Resp BP Pulse Ox O2 Del Method 11/18/24 17:58 Room Air 11/18/24 16:12 Room Air 11/18/24 16:00 98.7 F 70 16 96/46 L 92 L Room Air 11/18/24 13:00 Room Air 11/18/24 11:59 97.9 F 101 H 18 223/117 H 99 Room Air 11/18/24 10:36 Room Air 11/18/24 09:00 Room Air 11/18/24 08:00 Room Air 11/18/24 08:00 98.5 F 103 H 18 199/104 H 100 Room Air 11/18/24 06:17 Room Air 11/18/24 05:00 Room Air 11/18/24 04:00 97.9 F 90 15 170/93 H 98 Room Air 11/18/24 02:22 Room Air 11/18/24 01:00 Room Air 11/17/24 23:57 98.8 F 95 H 17 154/62 H 98 Room Air 11/17/24 23:00 Room Air 11/17/24 21:00 Room Air 11/17/24 20:00 102 H Intake and Output 11/18/24 11/18/24 11/18/24 07:59 15:59 23:59 Intake Total 120 / 1050 930 / 1050 0 / 1050 Output Total 0 / 0 0 / 0 Balance 120 / 1050 930 / 1050 0 / 1050 Intake: Intake, Oral Amount 120 / 1050 930 / 1050 0 / 1050 Output: Output, Urine Amount 0 / 0 0 / 0 Other: Number of Bowel Movements 1 Weight 66.043 kg Patient Weight 11/18/24 23:59 Weight 66.043 kg Laboratory Results - last 24 hr 11/17/24 18:28: Folate 7.57 11/18/24 05:25: WBC 5.6 D, RBC 2.70 L, Hgb 8.6 L, Hct 26.2 L, MCV 97.0, MCH 31.9 H, MCHC 32.8, RDW 17.0, Plt Count 309, MPV 8.8, Neut % (Auto) 67.4, Lymph % (Auto) 22.3, [place] % (Auto) 7.2, Eos % (Auto) 0.9, Baso % (Auto) 1.8, Neut # (Auto) 3.7, Lymph # (Auto) 1.2, [place] # (Auto) 0.4, Eos # (Auto) 0.1, Baso # (Auto) 0.1, Sodium 143, Potassium 2.9 L*, Chloride 117 H, Carbon Dioxide 22, Anion Gap 6.9, BUN 11 D, Creatinine 0.60, Estimated Creat Clear 58, Estimated GFR 100, Est GFR ( Amer) 121, Glucose 98, Calcium 7.8 L, Iron 56, TIBC 290, Iron Saturation 19.47754, Ferritin 29.7 D 11/18/24 15:02: Hgb 7.8 L, Hct 23.5 L, Sodium 141, Potassium 3.8 D, Chloride 118 H, Carbon Dioxide 24, Anion Gap 2.8 L, BUN 9, Creatinine 0.60, Estimated Creat Clear 58, Estimated GFR 100, Est GFR ( Amer) 121, Glucose 150 H D, Calcium 7.8 L I & O for Labs for Last 24 Hours: Intake & Output 11/15/24 11/16/24 11/17/24 11/18/24 23:59 23:59 23:59 23:59 Intake Total 1736 / 1856 1050 / 1050 Output Total 1825 / 1825 0 / 0 Balance - 1050 / 1050 Weight 59.874 kg 60.384 kg 66.043 kg Constitutional: Present no acute distress, average body habitus and chronically ill appearing Head: Present atraumatic and normocephalic ENT: Present normal exam Neck: Present normal inspection Respiratory: Present normal respiratory effort; Absent rhonchi, wheezes or crackles Cardiac: Present Reg Rate and Rhythm GI: Present soft, tenderness (Improving) and normal bowel sounds; Absent distention Extremities: Present normal inspection and full ROM Skin: Present intact; Absent erythema Neuro: Present Grossly Intact, alert, awake, oriented x 3 and moves all extremities Assessment and Plan *Assessment and plan (1) GI bleed: Status: Acute Qualifiers: GI bleed type/associated pathology: melena Qualified Code(s): K92.1 - Melena Category: Medical Code(s): K92.2 - Gastrointestinal hemorrhage, unspecified (2) Acute colitis: Status: Acute Category: Medical Code(s): K52.9 - Noninfective gastroenteritis and colitis, unspecified (3) Macrocytosis: Status: Acute Category: Medical Code(s): D75.89 - Other specified diseases of blood and blood-forming organs (4) Essential hypertension: Status: Chronic Category: Medical Code(s): I10 - Essential (primary) hypertension (5) Anxiety: Status: Chronic Category: Medical Code(s): F41.9 - Anxiety disorder, unspecified (6) C. difficile colitis: Status: Acute Category: Medical Code(s): A04.72 - Enterocolitis due to Clostridium difficile, not specified as recurrent Plan 68-year-old female who presented with concern for anemia and GI bleed. GI evaluated yesterday with scope, found to have ulcerations. Also found to be positive for C. difficile. Tolerating p.o. vancomycin. Hemoglobin stable today. Tolerating p.o. liquids. Will advance diet. Problems addressed as follows: Acute C. difficile colitis - Discontinue Zosyn - Initiated on vancomycin 125 mg p.o. every 6 hours. Continue for 10 days - C. difficile toxin positive on PCR - Showing improvement, advance diet to regular. GI bleed Peptic ulcer disease Acute blood loss anemia - Continue pantoprazole 40 mg twice daily - Discussed case with GI, was scoped yesterday with finding of ulcerations. Likely source of bleeding. Also had 1 small varices that was banded. - Recommend avoiding NSAIDs - Hemoglobin stable this morning at 8.6, repeat H&H this afternoon. Repeat CBC, CMP, magnesium ordered for the morning. - Continue misoprostol 100 mg every 6 hours while admitted Kidney function stable with BUN 11, creatinine 0.6. Potassium low this morning 2.9, replacing per protocol. Repeat ordered for the afternoon. Hypertension: Blood pressure increased today, resume home amlodipine 10 mg daily, carvedilol 50 mg twice daily, clonidine 0.1 mg twice daily, isosorbide 120 mg daily, lisinopril 40 mg daily Continue Lexapro 5 mg daily for mood disorder Resume statin 40 mg nightly Full code Holding anticoagulation Regular diet
[2024-11-18 20:00] VITALS: BP 88/46; PULSE 74; RESP 17; TEMP 36.6; O2SAT 94
[2024-11-18] MEDS: ATORVASTATIN 40MG TABLET 40 MG PO (21:04)
[2024-11-19] VITALS: BP 103/54; PULSE 89; RESP 16; TEMP 37.3; O2SAT 96
--- NOTE | 2024-11-19 02:52 | PC.NURSE ---
Pt states she is feeling fatigued, but otherwise doing well. Alert and oriented. Currently resting in bed with eyes closed. Respirations even and unlabored. Bed low, locked, and call light in reach. Family at bedside.
[2024-11-19 04:00] VITALS: BP 95/55; PULSE 74; RESP 16; TEMP 36.8; O2SAT 94; BMI 22.4
[2024-11-19] MEDS: ACETAMINOPHEN 325MG TAB 650 MG PO (05:09)
[2024-11-19] MEDS: miSOPROStol 100MCG TABLET 100 MCG PO ×2 (05:10→12:22)
[2024-11-19 07:19] LABS: Basophils # 0.1 K/mm3 (0-0.2); Basophils % 1.8 % (0.1-2.0); Eosinophils # 0.1 Kmm3 (0.0-0.4); Eosinophils % 1.1 % (0.1-12.0); Hematocrit 24.7 % (37.0-47.0); Hemoglobin 7.9 g/dL (12.2-16.2); Lymphocytes # 1.3 K/mm3 (0.7-4.5); Lymphocytes % 21.2 % (10-50); Mean Corpuscular Hemoglobin 31.9 pg (27.0-31.2); Mean Corpuscular Volume 99.6 fl (81-99); Mean Platelet Volume 8.9 fl (7.4-10.4); Monocytes # 0.5 K/mm3 (0.1-1.0); Monocytes % 7.6 % (1.7-9.3); Neutrophils # 4.3 K/mm3 (1.8-7.8); Nucleated Red Blood Cells # 0 10^3/uL; Nucleated Red Blood Cells % 0 %; Platelet Count 302 K/mm3 (142-424); Red Blood Count 2.48 M/mm3 (4.20-5.40); Red Cell Distribution Width 16.8 % (11.5-17.5); Red Cell Distribution Width-SD 59.6 fL; White Blood Count 6.3 K/mm3 (4.8-10.8)
[2024-11-19 07:22] LABS: Chloride 116 mmol/L (98-107); Potassium 4.2 mmoL/L (3.5-5.1); Sodium 142 mmol/L (136-145)
[2024-11-19 07:25] LABS: Anion Gap 6.2 mEq/L (5-15); Blood Urea Nitrogen 12 mg/dl (7-17); Carbon Dioxide 24 mmol/L (22.0-30.0); Creatinine Clearance Estimated 53 mL/min (50-200); Estimated Glomerular Filt Rate 100 ml/min (>60); GFR (African American) 121 ML/MIN (>60)
[2024-11-19 07:26] LABS: Calcium 7.9 mg/dl (8.4-10.2); Glucose 102 mg/dl (74-100)
[2024-11-19] MEDS: HYDROCODONE/APAP 5/325 MG TABLET 1 TAB PO (07:32)
[2024-11-19 08:00] VITALS: BP 133/65; PULSE 76; RESP 16; TEMP 36.8; O2SAT 95
[2024-11-19] MEDS: PANTOPRAZOLE 40MG VIAL 40 MG IV (08:42)
[2024-11-19] MEDS: CHOLECALCIFEROL 1,000 UNITS (25MCG) TABLET 50 MCG PO (08:42)
[2024-11-19] MEDS: FERROUS SULFATE 325MG TABLET 325 MG PO (08:42)
[2024-11-19] MEDS: SODIUM CHLORIDE 0.9% 10ML VIAL 10 ML IV (08:42)
[2024-11-19] MEDS: ESCITALOPRAM 10MG TABLET 5 MG PO (08:42)
[2024-11-19] MEDS: VANCOMYCIN HCL 50MG/ML 150ML KIT 125 MG PO ×2 (08:53→12:22)
[2024-11-19 10:15] VITALS: BP 131/62
[2024-11-19] MEDS: AMLODIPINE 10MG TABLET 10 MG PO (10:16)
[2024-11-19] MEDS: ISOSORBIDE MONO 60MG TAB.ER.24H 120 MG PO (10:16)
[2024-11-19] MEDS: cloNIDine 0.1MG TABLET 0.1 MG PO (10:16)
[2024-11-19] MEDS: CARVEDILOL 25MG TABLET 50 MG PO (10:16)
[2024-11-19] MEDS: LISINOPRIL 20MG TABLET 40 MG PO (10:16)
[2024-11-19 12:00] VITALS: BP 99/50; PULSE 65; RESP 16; TEMP 36.6; O2SAT 96
[2024-11-19] MEDS: ONDANSETRON 4MG/2ML VIAL 4 MG IV (12:25)
--- NOTE | 2024-11-19 12:53 | P.DS_ITS ---
General Admission date:: 11/17/24 HPI HPI HPI: Mrs. Foster is a 68-year-old female who is admitted and here for upper GI bleed. The patient has had coffee-ground emesis and dark-colored stool with some abdominal pain her last upper endoscopy in July 2023 revealed a duodenal bulb ulceration and prepyloric ulceration. She did have a CAT scan consistent with findings of acute colitis. Did not reveal any radiographic evidence of GI bleed. The examination is deemed medically necessary for [default value]. The patient has been seen, interviewed and examined prior to the procedure by both myself and the anesthesia provider. Hospital Course Hospital Course Hospital Course: Lupe Foster is a 68-year-old female who presented with concern for anemia and GI bleed. GI evaluated with scope, found to have ulcerations. Also found to be positive for C. difficile. Tolerating p.o. vancomycin. #Acute C. difficile colitis - C. difficile toxin positive on PCR - Initiated on vancomycin 125 mg p.o. every 6 hours. Continue for total of 10 days. - Tolerating diet, no signs of sepsis. #GI bleed #Peptic ulcer disease #Acute blood loss anemia - GI consulted, s/p EGD with multiple ulcerations with ablation, clipping and a esophageal fibrous ring s/p dilation. See full impression below. Will need repeat EGD in 3 to 6 months for dilation of duodenal stenosis per GI. - Recommend avoiding NSAIDs. Of note, patient has had a family passing a few years ago which has been incredibly stressful for her. Denies NSAID, alcohol use. ? Hemoglobin stable around 8.0 today. No signs of bleeding, vital signs stable. ? Started Protonix 40 mg twice daily, misoprostol 200 mg every 8 hours. ? Advised to follow-up with PCP within 1 week. #Hypertension: ? Resume home amlodipine 10 mg daily, carvedilol 50 mg twice daily, clonidine 0.1 mg twice daily, isosorbide 120 mg daily, lisinopril 40 mg daily. Continue Lexapro 5 mg daily for mood disorder Resume statin 40 mg nightly EGD impression: 1. Prepyloric 10 mm gastric ulcer with visible vessel and flat pigmented spot status post biopsy forceps forced ablation and Endo Clip placement 2. Clean-based small 8 mm duodenal ulcer at junction of bulb and first portion of duodenum with some adjacent duodenal stenosis at the first portion (from prior healed peptic ulcer disease) 3. 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 to 20 mm Exam Data for Last 24 hours Vital signs and Labs for Last 24 Hours: Temp Pulse Resp BP Pulse Ox O2 Del Method O2 Flow Rate 97.9 F 65 16 99/50 L 96 Room Air 5 11/19/24 12:00 11/19/24 12:00 11/19/24 12:00 11/19/24 12:00 11/19/24 12:00 11/19/24 12:00 11/17/24 13:04 Laboratory Results - last 24 hr 11/18/24 15:02: Hgb 7.8 L, Hct 23.5 L, Sodium 141, Potassium 3.8 D, Chloride 118 H, Carbon Dioxide 24, Anion Gap 2.8 L, BUN 9, Creatinine 0.60, Estimated Creat Clear 58, Estimated GFR 100, Est GFR ( Amer) 121, Glucose 150 H D, Calcium 7.8 L 11/19/24 06:35: WBC 6.3, RBC 2.48 L, Hgb 7.9 L, Hct 24.7 L, MCV 99.6 H, MCH 31.9 H, MCHC 32.0, RDW 16.8, Plt Count 302, MPV 8.9, Neut % (Auto) 68.0, Lymph % (Auto) 21.2, Dickenson % (Auto) 7.6, Eos % (Auto) 1.1, Baso % (Auto) 1.8, Neut # (Auto) 4.3, Lymph # (Auto) 1.3, Dickenson # (Auto) 0.5, Eos # (Auto) 0.1, Baso # (Auto) 0.1, Sodium 142, Potassium 4.2, Chloride 116 H, Carbon Dioxide 24, Anion Gap 6.2, BUN 12 D, Creatinine 0.60, Estimated Creat Clear 53, Estimated GFR 100, Est GFR ( Amer) 121, Glucose 102 H D, Calcium 7.9 L, Magnesium 2.0 I & O for Last 24 hours: Intake & Output 11/16/24 11/17/24 11/18/24 11/19/24 23:59 23:59 23:59 23:59 Intake Total 1736 / 1856 1050 / 1050 660 / 660 Output Total 1825 / 1825 0 / 0 0 / 0 Balance - 1050 / 1050 660 / 660 Weight 59.874 kg 60.384 kg 66.043 kg 61.235 kg Constitutional Constitutional: no acute distress *Routine HEENT Exam Head: Present normocephalic Eye: Present EOMI and PERRL ENT: Present mucous membranes moist *Routine Neck Exam Neck: Present supple; Absent lymphadenopathy *Routine Respiratory Exam Respiratory: Present CTA bilaterally *Routine Cardiovascular Exam Cardiovascular: Present RRR *Routine Abdominal Exam Abdominal: Present soft, normoactive bowel sounds and tenderness Comments: Mild tenderness to palpation epigastric region. *Routine Extremities Exam Extremities: Absent cyanosis, clubbing or edema *Routine Skin Exam Skin: Present warm; Absent rash *Routine Neurological Exam Neurological: Present alert and oriented X3 Results Data Completed and Pending Labs on day of discharge: Labs from last 24 hours 11/19/24 11/18/24 06:35 15:02 WBC 6.3 RBC 2.48 L Hgb 7.9 L 7.8 L Hct 24.7 L 23.5 L MCV 99.6 H MCH 31.9 H MCHC 32.0 RDW 16.8 Plt Count 302 MPV 8.9 Neut % (Auto) 68.0 Lymph % (Auto) 21.2 Dickenson % (Auto) 7.6 Eos % (Auto) 1.1 Baso % (Auto) 1.8 Neut # (Auto) 4.3 Lymph # (Auto) 1.3 Dickenson # (Auto) 0.5 Eos # (Auto) 0.1 Baso # (Auto) 0.1 Sodium 142 141 Potassium 4.2 3.8 D Chloride 116 H 118 H Carbon Dioxide 24 24 Anion Gap 6.2 2.8 L BUN 12 D 9 Creatinine 0.60 0.60 Estimated Creat Clear 53 58 Estimated GFR 100 100 Est GFR ( Amer) 121 121 Glucose 102 H D 150 H D Calcium 7.9 L 7.8 L Magnesium 2.0 DS: Diagnosis Discharge Diagnosis (1) GI bleed: Status: Acute Code(s): K92.2 - Gastrointestinal hemorrhage, unspecified Qualifiers: GI bleed type/associated pathology: melena Qualified Code(s): K92.1 - Melena (2) Acute colitis: Status: Acute Code(s): K52.9 - Noninfective gastroenteritis and colitis, unspecified (3) Macrocytosis: Status: Acute Code(s): D75.89 - Other specified diseases of blood and blood-forming organs (4) Essential hypertension: Status: Chronic Code(s): I10 - Essential (primary) hypertension (5) Anxiety: Status: Chronic Code(s): F41.9 - Anxiety disorder, unspecified (6) C. difficile colitis: Status: Acute Code(s): A04.72 - Enterocolitis due to Clostridium difficile, not specified as recurrent Meds Home Medications and Allergies Home Medications ?Medication ?Instructions ?Recorded ?Confirmed ?Type amlodipine 10 mg tablet 10 mg PO DAILY 04/06/24 11/17/24 History isosorbide mononitrate 120 mg 120 mg PO DAILY 04/06/24 11/17/24 History tablet,extended release 24 hr hydrochlorothiazide 50 mg tablet 100 mg (2 x 50 mg) PO DAILY #180 04/13/24 11/17/24 Rx tabs atorvastatin 40 mg tablet 40 mg PO HS 90 days #90 tabs 07/18/24 11/17/24 Rx cholecalciferol (vitamin D3) 50 50 mcg PO DAILY 08/01/24 11/17/24 History mcg (2,000 unit) capsule ergocalciferol (vitamin D2) 1,250 1,250 mcg PO WEEKLY 08/01/24 11/17/24 History mcg (50,000 unit) capsule ferrous sulfate 325 mg (65 mg 325 mg PO DAILY 08/01/24 11/17/24 History iron) tablet (FeroSul) hydrocodone 10 mg-acetaminophen 1 tab PO QID PRN Pain 08/01/24 11/17/24 History 325 mg tablet ondansetron HCl 8 mg tablet 8 mg PO TIDP PRN Nausea And 08/01/24 11/17/24 History Vomiting alendronate 70 mg tablet 70 mg PO WEEKLY 11/17/24 11/17/24 History carvedilol 25 mg tablet 50 mg PO BID 11/17/24 11/17/24 History clonidine HCl 0.1 mg tablet 0.1 mg PO BID 11/17/24 11/17/24 History escitalopram oxalate 5 mg tablet 5 mg PO DAILY 11/17/24 11/17/24 History lisinopril 40 mg tablet 40 mg PO DAILY 11/17/24 11/17/24 History misoprostol 200 mcg tablet 200 mcg PO TID 30 days #90 tabs 11/19/24 Rx pantoprazole 40 mg tablet,delayed 40 mg PO BID 30 days #60 tabs 11/19/24 Rx release vancomycin 50 mg/mL oral solution 125 mg (2.5 mL) PO QID 8 days #0 mL 11/19/24 Rx (Firvanq) New Prescriptions to Start Prescriptions: misoprostol Ruddy Rodrigues pantoprazole Ruddy Rodrigues Allergies Allergy/AdvReac Type Severity Reaction Status Date / Time amoxicillin (AMOXICILLIN) Allergy Unknown I-RASH Verified 08/01/24 12:51 naproxen (NAPROXEN) Allergy Unknown I-RASH Verified 08/01/24 12:51 Discharge Plan Disposition Patient Disposition: Home, Self-Care Condition: Fair Discharge Order Discharge Orders: Discharge Order (Routine); Ordered 11/19/24 Ordered By: Ruddy Rodrigues Follow up Plan Follow up with: Bev Eckert PA [Referring] - 11/25/24 3:30 pm Johnny Walls II, MD [Staff Physician] - 02/28/25 8:30 am Prescriptions/Medication Reconciliation: New vancomycin [Firvanq] 50 mg/mL Recon Soln 125 mg PO QID 8 Days Qty: 0 0RF misoprostol 200 mcg tablet 200 mcg PO TID 30 Days Qty: 90 0RF Continued ondansetron HCl 8 mg tablet 8 mg PO TIDP PRN (Reason: Nausea And Vomiting) hydrocodone-acetaminophen 10-325 mg tablet 1 tab PO QID PRN (Reason: Pain) ferrous sulfate [FeroSul] 325 mg (65 mg iron) tablet 325 mg PO DAILY ergocalciferol (vitamin D2) 1,250 mcg (50,000 unit) capsule 1,250 mcg PO WEEKLY cholecalciferol (vitamin D3) 50 mcg (2,000 unit) capsule 50 mcg PO DAILY hydrochlorothiazide 50 mg tablet 100 mg PO DAILY Qty: 180 3RF atorvastatin 40 mg tablet 40 mg PO HS 90 Days Qty: 90 3RF isosorbide mononitrate 120 mg tablet extended release 24 hr 120 mg PO DAILY amlodipine 10 mg tablet 10 mg PO DAILY clonidine HCl 0.1 mg tablet 0.1 mg PO BID alendronate 70 mg tablet 70 mg PO WEEKLY carvedilol 25 mg tablet 50 mg PO BID lisinopril 40 mg tablet 40 mg PO DAILY escitalopram oxalate 5 mg tablet 5 mg PO DAILY Changed pantoprazole 40 mg tablet,delayed release (DR/EC) 40 mg PO BID 30 Days Qty: 60 0RF Problem Reconciliation Problems Reviewed?: Yes Patient Discharge Instructions Patient Instructions: DI for Gastrointestinal Bleeding, Gastrointestinal Bleeding, DI for Colitis Print Language: Welsh Providers Primary Care Provider: Bev Eckert Admit Provider: Anthony Lord Attending Provider: Anthony Lord
--- NOTE | 2024-11-21 11:35 | SW/DCPLANNER ---
Spoke with patient on the phone. Patient stated that she is doing good. Patient stated that she is still feeling rough. Patient stated that she was able to get her medicine picked up. Patient stated that she has no concerns or questions at this time. Jesus Dominguez
== END 2024-11-19 13:28 | disposition home or self-care (01) | DRG 371 ==
LOC: ER 22:08 → 2ND 11-17
PROVIDERS: Internal Medicine Gastroenterology; Nurse Practitioner Family; Admitting Provider Internal Medicine Adolescent Medicine; Emergency Provider Student in an Organized Health Care Education/Training Program; PCP Physician Assistant; Visit Provider Internal Medicine Adolescent Medicine
PROC: 0DJ08ZZ Inspection of Upper Intestinal Tract, Via Natural or Artificial Opening Endoscopic (ICD-10-PCS; principal; 2024-11-17 12:30)
DX: A04.72 Enterocolitis due to Clostridium difficile, not specified as recurrent (principal); K25.4 Chronic or unspecified gastric ulcer with hemorrhage; D62 Acute posthemorrhagic anemia; K92.1 Melena; K92.0 Hematemesis; D75.89 Other specified diseases of blood and blood-forming organs; K22.2 Esophageal obstruction; K44.9 Diaphragmatic hernia without obstruction or gangrene; I10 Essential (primary) hypertension; Z88.0 Allergy status to penicillin; Z88.8 Allergy status to other drugs, medicaments and biological substances; Z79.899 Other long term (current) drug therapy; Z85.3 Personal history of malignant neoplasm of breast; Z86.018 Personal history of other benign neoplasm; Z83.3 Family history of diabetes mellitus; Z80.9 Family history of malignant neoplasm, unspecified; Z82.49 Family history of ischemic heart disease and other diseases of the circulatory system; F41.9 Anxiety disorder, unspecified
CPT/HCPCS: 36415; 36430; 74174; 80048; 80053; 82607; 82728; 82746; 83540; 83550; 83605; 83690; 83735; 84145; 84484; 85014; 85018; 85025; 85610; 86850; 87045; 87493; 93005; 99285; C1726; J1171; J2405; J2543; J7030; J7120; P9016; Q9967

== ENCOUNTER 2024-11-26 10:35 | Outpatient (CLI) | payer MEDICARE, SELFPAY ==
--- OUTSIDE RECORDS SUMMARY | 2024-11-26 10:40 | XMS_ITS | Data Portability ---
Author Organization [facility] [place] [facility] [place] [facility] [place] Address [address] [place] [address] Care Team Providers Care Senior Field Engineer Name Role Phone BEV ECKERT Primary Care Provider [phone] Assessment Encounter Date Assessment Date Assessment LastModified by Organization Details LastModified Time 02/25/2023 02/25/2023 67-year-old female with: 1) Poor appetite/nausea/v omiting/heartburn /early satiety: EGD scheduled for further evaluation -Will increase Omeprazole to 40 mg p.o. daily. 2) Opioid induced constipation: Start Relistor. 3) History of colonoscopy: At [facility] last year by Dr. Alcantara. Normal per patient report. [email or web address] Not available 02/25/2023 17:05:31 09/04/2023 09/04/2023 67-year-old female with: 1) Duodenal ulcer with recent GI hemorrhage: She has no signs of active GI bleeding. Recent EGD results from [facility] reviewed, indicated non-healing duodenal ulcer. -I will [...] to undergo bladder tack next month at [facility]. Labs to be done at [facility] per patient request. [email or web address] Not available 09/04/2023 14:38:23 Plan of Treatment Reminders Order Date Submit Date Provider Last Modified By Organization Details Last Modified Time Details Appointments None recorded. Lab CBC 2023 024 ULISES [facility], [address], [address], [place], [address], 4 14:05:18 iron + total iron-bindin g capacity (TIBC), serum 2023 024 acaldwell 64 [facility], [address], [address], [place], [address], 4 09:10:12 celiac disease comprehensi ve panel, serum 2023 024 ULISES [facility], [address], [address], [place], [address], 4 08:15:44 ESR (erythrocyt e sedimentati on rate), blood 2023 024 [email or web address] 64 [facility], [address], [address], [place], [address], 4 09:10:12 C reactive protein, QN, serum or plasma 2023 024 acaldwell 64 [facility], [address], [address], [place], [address], 4 09:10:12 vitamin B12 + folate, serum or blood 2023 024 acaldwell 64 [facility], [address], [address], [place], [address], 4 09:10:12 Referral None recorded. Procedures None recorded. Surgeries None recorded. Imaging None recorded. Medication Orders omeprazole 40 mg capsule,del ayed release [address] [facility], [address] [place] [address] [place], [id number], 4 09:37:20 Relistor 150 mg tablet 2022 023 [facility], [address] [place] [address] [address], [id number], 3 17:39:09 Patient TargetsNo targets recorded. Patient InstructionsNo instructions recorded. Reason for Referral None Reported. Results Created Date Observation Date Name Description Value Unit Range Abnormal Flag Note LastModifiedBy Organization Detail LastModifiedTime 11/02/19 24 11/05/2023 PATHO LOGY SPECI MEN pathology specimen SEE VICTORINO PARRA Not Available [facility] [address] , [place], [address], 11/05/2023 15:09:25 Result Notes None recorded. Problems Name Problem SNOMED Code Status Onset Date Resolution Date Notes Provider Name and Address Organization Details Recorded Time Therapeuti c opioid induced constipati on 5745118064627 02 Active 2022 Rojas Smith PA-C [address], [place], [address] , [place] [facility] [place] 3 10:13:20 Nausea 621970054 Active 2022 Rojas Smith PA-C [address], [place], [address] , [place] [facility] [place] 3 10:14:33 Heartburn 27059134 Active 2022 Rojas Smith PA-C [address], [place], [address] , [place] [facility] [place] 3 10:14:36 Early satiety 029725800 Active 2022 Rojas Smith PA-C [address], [place], [address] , [facility] [place] 3 10:14:40 Loss of appetite 24597180 Active 2022 Rojas Smith PA-C [address], [place], [place], [address] [place] [address] , [facility] [place] 3 17:03:43 Hiatal hernia with gastroesop hageal reflux 634866647 Active [address], [place] [address] , [facility] & [place] 4 10:08:31 Anemia due to blood loss 644539487 Active [address], [place] [address] , [facility] & [place] 4 10:14:56 Iron deficiency anemia 35840811 Active [address], [place] [address] , [facility] & [place] 4 14:52:46 Erosive esophagiti s 32960079 Active [address], [place] [address] , [facility] & [place] 4 09:55:08 Problem Notes None recorded. Medical Equipment None Reported. Allergies Allergen ID Allergen Name Allergen Category Reaction Reaction Severity Criticality Documentation Date Start Date Code Code System Note Provider Name and Address Organization Details Recorded Time 56775 naproxen medicatio n Not available Not available Not available 02/25/2023 7258 RxNorm Mariah Dillon [place], [place] - [facility] & [place] 3 09:39:26 71566 amoxicill in medicatio n Not available Not available Not available 02/25/2023 723 RxNorm Mariahquinten Carranza [facility], [place] - [facility] [place] 3 09:39:30 Medications Name Sig Start Date [...] Updated DateTime 3 165.1 cm 23.5 kg/m2 39052.8 8 g 96.8 [degF] 99 % 99 % 202 mm[Hg] 104 mm[Hg] Mariah Carranza [facility] 3 09:38:20 Date Recorded Body height Body mass index (BMI) Body weight Body temperature Oxygen saturation Oxygen saturation in Arterial blood by Pulse oximetry Heart rate Heart rate Systolic blood pressure Diastolic blood pressure Provider Name and Address Organization Details Last Updated DateTime 4 165.1 cm 23.3 kg/m2 10381.9 3 g 98.2 [degF] 98 % 98 % 102 /min 97 /min 217 mm[Hg] 97 mm[Hg] Mariah Carranza [facility] & [place] 4 09:38:46 Social History Question Answer Notes LastModified by Organizat ion Details LastModified Time Tobacco Smoking Status Never Smoker Mariah Carranza [facility] [place] 02/25/2023 09:38:42 What Is Your Level Of Alcohol Consumption? None [email or web address] Information not available 02/25/2023 What Is Your Level Of Caffeine Consumption? None [email or web address] Information not available 02/25/2023 Do You Use Any Illicit Or Recreational Drugs? No Information not available 02/25/2023 Do You Or Have You Ever Used Any Other Forms Of Tobacco Or Nicotine? No [email or web address] Information not available 02/25/2023 Sex: Unknown Functional Status None recorded. Mental Status None recorded. Family History Nothing Reported. Medical History No medical history recorded. Gynecological HistoryNo gynecological history recorded. Obstetrics History GPAL:G 0 P 0 0 0 0 Past Encounters Encounter ID Performer Location Encounter Start Date Encounter Closed Date Diagnosis/Indication Diagnosis SNOMED-CT Code Diagnosis ICD10 Code Diagnosis Note [id number] Rojas Smith PA-C [facility] [place] [address] 2 02/25/2023 09:23:32 02/25/2023 10:50:54 Therapeutic opioid induced constipation 8988576836 60451 K59.03 Nausea 366108628 R11.0 Heartburn 94363032 R12 Early satiety 778117450 R68.81 Loss of appetite 2277848 6 R63.0 [id number] Rojas Smith PA-C [facility] [place] 7562124-967 2 09/04/2023 09:13:29 09/04/2023 11:10:29 Therapeutic opioid induced constipation 2517598614 62107 K59.03 Nausea 636924182 R11.0 Heartburn 73617302 R12 Early satiety 008950686 R68.81 Loss of appetite 0867168 6 R63.0 Hiatal her luis manuel with gastroesophageal reflux 061245219 K21.9 Anemia due to blood loss 301572234 D50.0 Health Concerns Section Related Observation LastModified by Organization Detai ls LastModified Time None Recorded Concern Status LastModified by Organization Details LastModified Time None Recorded Advance Directives Directive None Recorded Payers Encounter Date Sequence Insurance Name Policy Number Policy Chavez Covered Member ID Chavez Member ID Guarantor Name 02/25/2023 1 [place] Lupe Foster [id number] 2 Lupe Foster 09/04/2023 1 [place] Lupe Foster [id number] Lupe Foster Notes Date Note Type [...] repeat in 10 years. Rojas Smith PA-C [address] [facility], [place], [address], [facility] [place] [facility] [place] 02/25/2023 17:05:43 09/04/2023 text/html PREVIOUS (02/25/23 Dexter [...] and then again [address] [facility]. Findings showed an essentially unchanged duodenal ulcer [...] hematemesis, melena, or hematochezia. Rojas Smith PA-C [address], [place], [address], [facility] [place] 09/04/2023 14:38:29 OBGyn Episode No OBEpisode recorded.
--- OUTSIDE RECORDS SUMMARY | 2024-11-26 10:40 | XMS_ITS ---
Laboratory report Created on: November 23, 2024 FRANCES FITCH : 1955 Sex: Female Author Organization Unknown PROBLEMS Problems List Code Description RESULTS Laboratory Orders Date Order Code Test 2024-11-17 150353 STOOL CULTURE Laboratory Results Date LOINC Test Value Unit Reference Range Interpre tation 2024-11-17 11658-3 SALMONELLA/SHIGE LLA SCREEN FINAL 2024-11-17 6463-4 RESULT 1 NSS 2024-11-17 6331-3 CAMPYLOBACTER CULTURE FINAL 2024-11-17 6463-4 RESULT 1 NCI 2024-11-17 90661-9 E COLI SHIGA TOXIN EIA N NEGATI VE
[2024-11-26 10:54] LABS: Basophils # 0.1 K/mm3 (0-0.2); Basophils % 1.4 % (0.1-2.0); Eosinophils # 0.2 Kmm3 (0.0-0.4); Eosinophils % 2.7 % (0.1-12.0); Hematocrit 36.6 % (37.0-47.0); Hemoglobin 11.8 g/dL (12.2-16.2); Lymphocytes % 14.3 % (10-50); Mean Corpuscular HGB Conc 32.2 g/dL (31.8-35.4); Mean Corpuscular Volume 99.2 fl (81-99); Mean Platelet Volume 8.6 fl (7.4-10.4); Monocytes # 0.5 K/mm3 (0.1-1.0); Monocytes % 7.3 % (1.7-9.3); Neutrophils # 5.3 K/mm3 (1.8-7.8); Nucleated Red Blood Cells # 0 10^3/uL; Nucleated Red Blood Cells % 0 %; Platelet Count 453 K/mm3 (142-424); Red Blood Count 3.69 M/mm3 (4.20-5.40); Red Cell Distribution Width 15.2 % (11.5-17.5); Red Cell Distribution Width-SD 55.8 fL; White Blood Count 7.1 K/mm3 (4.8-10.8)
== END 2024-11-26 23:59 | disposition home or self-care (01) ==
LOC: LAB 10:38
PROVIDERS: PCP Physician Assistant; Visit Provider Physician Assistant
DX: Z87.19 Personal history of other diseases of the digestive system (principal)
CPT/HCPCS: 36415; 85025

== ENCOUNTER 2025-02-10 14:01 | Outpatient (CLI) | payer MEDICARE, SELFPAY ==
--- OUTSIDE RECORDS SUMMARY | 2024-12-13 07:11 | XMS_ITS | Encounter Summary ---
[facility] Address [address] [place] [address] Care Team Providers Care Top Dyeing Machine Tender Name Role Phone Bev Eckert Primary Care Provider [phone] Reason for Referral * Diagnostic Medical (Routine) - Pending Review Specialty Diagnoses / Procedures Referred By Hannah do Referred To Contact Diagnoses Coronary artery disease involving tolowa dee-ni' coronary artery of tolowa dee-ni' heart without angina pectoris Precordial chest pain Procedures Cardiac Catheterization/Vascular Study Carly Holt APRN [address] [place] [address] Phone: tel: fax: Referral ID Status Reason Start Date Expiration Date V isits Requested Visits Authorized [id number] Pending Review 12/07/2024 03/08/2026 1 1 Reason for Visit * Auth/Cert (Routine) Specialty Diagnoses / Procedures Referred By Conthammad do Referred To Contact Diagnoses Coronary artery disease involving tolowa dee-ni' coronary artery of tolowa dee-ni' heart without angina pectoris Precordial chest pain Procedures MI CATH PLMT L HRT & ARTS W/NJX & ANGIO IMG S&I Left Heart Cath Referral ID Status Reason Start Date Expiration Date Visits Re quested Visits Authorized [id number] 1 1 Encounter Details Date Type Department Care Team (Late st Contact Info) Description 12/13/2024 7:11 AM EDT - 12/13/2024 1:37 PM EDT Hospital Encounter [facility] [address] [place] [address] Glenn Abdi MD [address] [facility] [address] [place] [address] Coronary artery disease involving tolowa dee-ni' coronary artery of tolowa dee-ni' heart without angina pectoris; Precordial chest pain Discharge Disposition: Home or Self Care Social History Tobacco Use Types Packs/Day Years Used Date Smoking Tobacco: Never Passive Smoke Exposure: Past Smokeless Tobacco: Never Alcohol Use Standard Drinks/Week Comments Not Currently 0 (1 standard drink = 0.6 oz pur e alcohol) AUDIT-C Answer Date Recorded Q1: How often do you have a drink containing alcohol? Never 12/13/2024 Q2: How many drinks containi ng alcohol do you have on a typical day when you are drinking? Patient does not drink Q3: How often do you have si x or more drinks on one occasion? Never 12/13/2024 Abuse Screen Answer Date Recorded Feels Unsafe at Home or Work/School no 12/13/2024 Feels Threatened by Someone no 11/25 Does Anyone Try to Keep You From Having Contact with Others or Doing Things Outside Your Home? no 12/13/2024 Physical Signs of Abuse Present no 12/13/2024 Housing Stability Answer Date Recorded Current Living Arrangements home 11/25 Potentially Unsafe Housing Conditions Not on marah e 12/13/2024 Disabilities Answer Date Recorded Difficulty Concentrating, Remembering or Making Decisions no 12/13/2024 Difficulty Managing Errands Independently no 12/13/2024 Comments Unknown Sex and Gender Information Value Date Recorded Sex Assigned at Not on file Legal Sex Female 2:58 PM EDT Gender Identity Not on file Sexual Orientation Not on file documented as of this encounter Last Filed Vital Signs Vital Sign Reading Time Taken Comments Blood Pressure 143/74 12/13/2024 1:00 PM EDT Pulse 73 12/13/2024 1:00 PM EDT Temperature 35.8 C (96.4 F) 12/13/2024 7:26 AM EDT Respiratory Rate 17 12/13/2024 11:14 AM EDT Oxygen Saturation 98% 12/13/2024 1:00 PM EDT Inhaled Oxygen Concentration - - Weight 60.5 kg (133 lb 6.4 oz) 12/13/2024 7:29 A M EDT Height 162.6 cm (5' 4 ) 12/13/2024 7:29 AM EDT Body Mass Index 22.9 12/13/2024 7:29 AM EDT documented in this encounter Functional Status * Question Answer Date of Assessment Author 1. Wish to be (Past 1 Month) No 12/13/2024 7:45 AM EDT Cyndi Jarvis RN 2. Non-Specific Active Suicidal Thoughts (Past 1 Month) No 12/13/2024 7:45 AM EDT Cyndi Jarvis RN * Calculated C-SSRS Risk Score (Lifetime/Recent) Answer Date of Assessment Author No Risk Indicated 12/13/2024 7:51 AM EDT Aleisha Burch RN * [place] Suicide Severity Rating Scale (Screener/Recent Self-Report) Question Answer Date of Assessment Author 6. Suicidal Behavior (Lifetime) No 12/13/2024 7:51 AM EDT Cyndi Jarvis RN documented as of this encounter Discharge Instructions * Attachments The following attachments cannot be sent through Care Everywhere. * Radial Site Care (Malagasy) * Moderate Conscious Sedation Adult Care After (Malagasy) * Coronary Angiogram (Malagasy) documented in this encounter Medications at Time of Discharge alendronate (FOSAMAX) 70 MG tablet Take 1 tablet by mouth Every 7 (Seven) Days. TAKES ON THURSDAY amLODIPine (NORVASC) 10 MG tabletIndications :Hypertension, essential Take 1 tablet by mouth Daily. 30 tablet 11 09/28/2024 carvedilol (COREG) 25 MG tablet Take 1 tablet by mouth 2 (Two) Times a Day With Meals. 04/06/2024 Cholecalciferol (Vitamin D3) 50 MCG (1999 UT) capsule Take 1 capsule by mouth Daily. cloNIDine (CATAPRES) 0.1 MG tabletIndications :Hypertension, essential Take 1 tablet by mouth 2 (Two) Times a Day. 60 tablet 11 11/09/2024 FeroSul 325 (65 Fe) MG tablet Take 1 tablet by mouth Daily With Breakfast. HYDROcodone-aceta minophen (NORCO) 10-325 MG per tablet Take 1 tablet by mouth Every 4 (Four) Hours As Needed for Moderate Pain. 06/22/2024 hydrOXYzine (ATARAX) 25 MG tablet Take 1 tablet by mouth 3 (Three) Times a Day As Needed for Anxiety. 90 tablet 1 12/07/2024 isosorbide mononitrate (IMDUR) 120 MG 24 hr tablet TAKE ONE TABLET BY MOUTH EVERY DAY 90 tablet 3 11/10/2024 lisinopril (PRINIVIL,ZESTRIL ) 40 MG tablet Take 1 tablet by mouth Daily. 06/13/2024 NON FORMULARY Take 400 mg by mouth Daily. SLIPPERY ELM ondansetron (ZOFRAN) 8 MG tablet Take 1 tablet by mouth Every 8 (Eight) Hours As Needed. 05/30/2024 pantoprazole (PROTONIX) 40 MG EC tablet Take 1 tablet by mouth 2 (Two) Times a Day. 04/06/2024 Potassium 99 MG tablet Take 99 mg by mouth Daily. rosuvastatin (Crestor) 40 MG tablet Take 1 tablet by mouth Every Night. vitamin B-12 (CYANOCOBALAMIN) 1000 MCG tablet Take 1 tablet by mouth 3 times a day. vitamin D (ERGOCALCIFEROL) 1.25 MG (89800 UT) capsule capsule Take 1 capsule by mouth 1 (One) Time Per Week. TAKES ON THURSDAY documented as of this encounter H&P Notes * Rosa Walls, TREVOR - 12/13/2024 8:12 AM EDT H&P reviewed. The patient was examined and there are no changes to the H&P. Patient with history of normal stress test in 2022 followed by cardiac cath revealing 70-80% proximal LAD stenosis status post MIREYA x 1 at [facility], Dr. Rogers. She has had recurrent chest pain and dyspnea reminiscent of her symptoms prior to stenting. Underwent a stress test 08/2024 that was norm al. Has had difficult to control hypertension, on multiple antihypertensives. Underwent repeat stress test 11/30/2024 that was again without ischemia. Due to persistent symptoms, presents today for definitive evaluation with left heart cath +/- PCI via right radial approach with Dr. Abdi. Right radial Barbeau type a. Labs reviewed. The risks, benefits, and alternatives of the procedure have been reviewed and the patient wishes to proceed. Patient previously had GI bleeding on DAPT. Further recommendations to follow procedure. Electronically signed by Rosa Walls APRN, 12/13/24, 8:15 AM EDT. Cosigned by Glenn Abdi MD at 12/13/2024 1:33 PM EDT Associated attestation - Glenn Abdi MD - 12/13/2024 1:33 PM EDT Agree with below Source Note - Carly Holt APRN - 12/07/2024 9:00 AM EDT Images from the original note were not included. [facility] Provider Note Date: 12/07/2024 Name: Lupe Foster : 1955 PCP: Bev Eckert PA Chief Complaint Patient presents with Coronary Artery Disease Hypertension Subjective History of Present Illness Lupe Foster is a 68 y.o. female with past medical history of CAD s/p LAD stenting in 2022, hypertension, hyperlipidemia, breast cancer, anemia, thyroid disease and acid reflux who presents today for follow-up on chest pain, hypertension and stress test results. Patient has a history of uncontrolled hypertension that has been difficult to manage. Dr. Wilde added clonidine at last office visit 1 month ago but she is still experiencing significantly elevated readings. It is averaging 180s/90s with occasional readings of 200s/100s. She has been experiencing exertional chest pain and shortness of breath that is relieved with rest. She cannot walk far distances without having to stop to catch her breath. She reports that symptoms are similar to what she experienced prior to her previous stent. She also reports that she had a normal stress test prior to her stent in 2022. Dr. Wilde ordered a stress test that was completed on 11/30/2024 which revealed no evidence of ischemia. However, Dr. Wilde noted that she will likely need a left heart cath if symptoms continue, as she has similarsymptoms as before and had a previous normal stress test before her stent was placed. She has a history of GI bleeds, most recent upper GI bleed was 11/17/2024. If PCI needed, she will need a bare-metal stent because of GI ulcer and bleeding issues. Cardiac History 1. CAD s/p LAD stent on 04/01/23 --09/21/24 normal nuclear stress test 2. HTN 3. Mild to moderate mitral regurg 4. Normal PSG at [facility] 2023 Nuclear stress test 11/30/2024-no evidence of ischemia. Echo 09/15/24 Left ventricular systolic function is normal. Calculated left ventricular EF = 65.3% Left ventricular ejection fraction appears to be 61 - 65%. Left ventricular diastolic function was normal. Estimated right ventricular systolic pressure from tricuspid regurgitation is normal (<35 mmHg). Mild to moderate mitral valve regurgitation is present. Renal artery duplex 09/15/24 Less than 60% stenosis bilaterally [facility] 04/01/23-severe proximal LAD disease, successful stent to the proximal LAD reduced to 0% with 1 drug-eluting stent. Carotid duplex 10/29/2022- <50% stenosis bilaterally Reports Denies Chest Pain [x] [] Shortness of Air [x] [] Palpitations [x] [] Edema [] [x] Dizziness [x] [] Syncope [] [x] Allergies Allergen Reactions Amoxicillin Hives, Rash, Unknown - Low Severity, Swelling and Unknown (See Comments) no reaction listed in chart. Naproxen Hives, Rash, Unknown - Low Severity, Swelling and Unknown (See Comments) no reaction listed in chart Current Outpatient Medications: alendronate (FOSAMAX) 70 MG tablet, Take 1 tablet by mouth Every 7 (Seven) Days., Disp: , Rfl: amLODIPine (NORVASC) 10 MG tablet, Take 1 tablet by mouth Daily., Disp: 30 tablet, Rfl: 11 atorvastatin (LIPITOR) 40 MG tablet, Take 1 tablet by mouth Every Night., Disp: , Rfl: carvedilol (COREG) 25 MG tablet, Take 1 tablet by mouth 2 (Two) Times a Day With Meals., Disp: , Rfl: Cholecalciferol (Vitamin D3) 50 MCG (1999 UT) capsule, Take 1 capsule by mouth Daily., Disp: , Rfl: cloNIDine (CATAPRES) 0.1 MG tablet, Take 1 tablet by mouth 2 (Two) Times a Day., Disp: 60 tablet, Rfl: 11 escitalopram (Lexapro) 5 MG tablet, Take 1 tablet by mouth Daily., Disp: 30 tablet, Rfl: 0 FeroSul 325 (65 Fe) MG tablet, Take 1 tablet by mouth Daily With Breakfast., Disp: , Rfl: HYDROcodone-acetaminophen (NORCO) 10-325 MG per tablet, Take 1 tablet by mouth Every 4 (Four) HoursAs Needed for Moderate Pain., Disp: , Rfl: isosorbide mononitrate (IMDUR) 120 MG 24 hr tablet, TAKE ONE TABLET BY MOUTH EVERY DAY, Disp: 90 tablet, Rfl: 3 lisinopril (PRINIVIL,ZESTRIL) 40 MG tablet, Take 1 tablet by mouth Daily., Disp: , Rfl: ondansetron (ZOFRAN) 8 MG tablet, Take 1 tablet by mouth Every 8 (Eight) Hours As Needed., Disp: , Rfl: pantoprazole (PROTONIX) 40 MG EC tablet, Take 1 tablet by mouth 2 (Two) Times a Day., Disp: , Rfl: vitamin D (ERGOCALCIFEROL) 1.25 MG (23896 UT) capsule capsule, Take 1 capsule by mouth 1 (One) TimePer Week., Disp: , Rfl: hydroCHLOROthiazide 25 MG tablet, Take 1 tablet by mouth Daily., Disp: 30 tablet, Rfl: 3 hydrOXYzine (ATARAX) 25 MG tablet, Take 1 tablet by mouth 3 (Three) Times a Day As Needed for Anxiety., Disp: 90 tablet, Rfl: 1 Past Medical History: Diagnosis Date Acid reflux Anemia Arthritis Breast cancer 2015 Treated w/radiation Coronary artery disease 04/01/2023 Mid LAD RX MIREYA Depression High cholesterol History of blood transfusion History of GI bleed 2022 Hypertension Iron deficiency Osteoporosis Thyroid disease Vitamin D deficiency Past Surgical History: Procedure Laterality Date APPENDECTOMY CARDIAC CATHETERIZATION FINGER SURGERY Right thumb FOOT SURGERY Right hammer toe HAND SURGERY Right HYSTERECTOMY LAPAROSCOPIC TUBAL LIGATION SHOULDER SURGERY Left right elbow surgery THYROIDECTOMY Partial Family History Problem Relation Age of Onset Suicidality Mother Leukemia Father Cancer Sister Diabetes Brother Social History Socioeconomic History Marital status: Tobacco Use Smoking status: Never Passive exposure: Past Smokeless tobacco: Never Vaping Use Vaping status: Never Used Substance and Sexual Activity Alcohol use: Not Currently Drug use: Not Currently Sexual activity: Defer Objective Vital Signs: BP 140/88 Pulse 92 Ht 165.1 cm (65 ) Wt 59.9 kg (132 lb) SpO2 98% BMI 21.97 kg/m?? Estimated body mass index is 21.97 kg/m?? as calculated from the following: Height as of this encounter: 165.1 cm (65 ). Weight as of this encounter: 59.9 kg (132 lb). BMI is within normal parameters. No other follow-up for BMI required. Physical Exam Vitals reviewed. Constitutional: Appearance: Normal appearance. HENT: Head: Normocephalic. Cardiovascular: Rate and Rhythm: Normal rate and regular rhythm. Heart sounds: Normal heart sounds. Pulmonary: Effort: Pulmonary effort is normal. Breath sounds: Normal breath sounds. Musculoskeletal: Right lower leg: No edema. Left lower leg: No edema. Skin: General: Skin is warm and dry. Capillary Refill: Capillary refill takes less than 2 seconds. Neurological: General: No focal deficit present. Mental Status: She is alert and oriented to person, place, and time. Psychiatric: Mood and Affect: Mood normal. Behavior: Behavior normal. Cardiology studies reviewed: nuclear stress test reviewed Assessment and Plan Diagnoses and all orders for this visit: 1. Coronary artery disease involving tolowa dee-ni' coronary artery of tolowa dee-ni' heart without angina pectoris(Primary) Assessment & Plan: S/P stent to the LAD March 2023. She reports exertional chest pain and shortness of breath thatis relieved with rest. She cannot walk far distances without having to stop to catch her breath. The symptoms are similar to what she experienced prior to her previous stent. She also reports that she had a normal stress test prior to her stent in 2022. Dr. Wilde ordered a stress test that was completed on 11/30/2024 which revealed no evidence of ischemia. However, Dr. Wilde noted that she will likely need a left heart cath if symptoms continue, as she has similar symptoms as before and had a previous normal stress test before her stent was placed. She has a history of GI bleeds, most recent upper GI bleed was 11/17/2024. If PCI needed, she will need a bare-metal stent because of GI ulcer and bleeding issues. Orders: - Case Request Environmental Marketing Representative: Left Heart Cath 2. Hypertension, essential Assessment & Plan: Hypertension is uncontrolled Medication changes per orders. Weight loss. Regular aerobic exercise. Ambulatory blood pressure monitoring. Blood pressure will be reassessedin 4 weeks. -Continue amlodipine, carvedilol, clonidine, lisinopril and isosorbide at current doses - Add hydrochlorothiazide 25 mg once daily - Follow-up in 1 month Orders: - hydroCHLOROthiazide 25 MG tablet; Take 1 tablet by mouth Daily. Dispense: 30 tablet; Refill: 3 3. Precordial chest pain - Case Request Environmental Marketing Representative: Left Heart Cath Other orders - hydrOXYzine (ATARAX) 25 MG tablet; Take 1 tablet by mouth 3 (Three) Times a Day As Needed for Anxiety. Dispense: 90 tablet; Refill: 1 Recommendations: ER if symptoms increase and Report if any new/changing symptoms immediately Follow Up Return in about 6 weeks (around 01/18/2025) for heart cath follow up. Patient was given instructions and counseling regarding her condition or for health maintenance advice. Please see specific information pulled into the AVS if appropriate. documented in this encounter Plan of Treatment Not on file documented as of this encounter Procedures Procedure Name Priority Date/Time Associated Diagnosis Comments METANEPHRINES, FRAC. FREE, PLASMA Routine 12/13/2024 12:13 PM EDT ALDOSTERONE Routine 12/13/2024 12:13 PM EDT RENIN DIRECT ASSAY Routine 12/13/2024 12 :13 PM EDT CARDIAC CATHETERIZATION Routine 12/14/19 11:08 AM EDT Coronary artery disease involving tolowa dee-ni' coronary artery of tolowa dee-ni' heart without angina pectoris Precordial chest pain POCT CREATININE Routine 12/13/2024 7:41 AM EDT TSH RFX ON ABNORMAL TO FREE T4 Add-On 12/13/2024 7:35 AM EDT CBC (NO DIFF) STAT 12/13/2024 7:35 AM EDT HEMOGLOBIN A1C STAT 12/13/2024 7:35 AM EDT LIPID PANEL STAT 12/13/2024 7:35 AM EDT BASIC METABOLIC PANEL STAT 12/13/2024 7:35 AM EDT SCANNED - TELEMETRY 12/13/2024 documented in this encounter Results * Renin Direct Assay (12/13/2024 12:13 PM EDT) Renin Activity 0.844 0.167 - 5.380 ng/mL/hr 12/15/2024 10:07 PM EDT [facility] Blood Line / Unknown 12/13/2024 12 :13 PM EDT 12/13/2024 12:17 PM EDT Narrative [facility] - 12/15/2024 10:07 PM EDT Test(s) 399136-Snttz Activity, Plasma was developed and its performance characteristics determined by [employer]. It has not been cleared or approved by the Food and Drug Administration. Performed at: 01 - [address] [id number] Centrifuge Separator Operator: Flora Mares MD, Phone: [phone] Glenn Abdi MD LAB BLOOD ORDERABLES Final Resul t [facility] [address] [place] [address], * Aldosterone (12/13/2024 12:13 PM EDT) Aldosterone 1.0 0.0 - 30.0 ng/dL 12/17/2024 8:11 AM EDT [facility] Blood Line / Unknown 12/13/2024 12 :13 PM EDT 12/13/2024 12:17 PM EDT Narrative [facility] - 12/17/2024 8:11 AM EDT Test(s) 125625-Qnewdanicky was developed and its performance characteristics determined by [employer]. It has not been cleared or approved by the Food and Drug Administration. Performed at: - [address] [id number] Centrifuge Separator Operator: Flora Mares MD, Phone: [phone] us Glenn Abdi MD LAB BLOOD ORDERABLES Final Resul t Performing Organization Address [facility] Co de Phone Number [facility] [address] [place] [address], * Metanephrines, Frac. Free, Plasma (12/13/2024 12:13 PM EDT) [facility] Signature Normetanephrine 50.0 0.0 - 285.2 pg/mL 12/18/2024 2:09 PM EDT [facility] Metanephrine <25.0 0.0 - 88.0 pg/mL 12/18/2024 2:09 PM EDT [facility] Blood Line / Unknown 12/13/2024 12 :13 PM EDT 12/13/2024 12:17 PM EDT Narrative [facility] - 12/18/2024 2:09 PM EDT Test(s) 999320-Gzoydxeimrbopuu, Pl; [id number]-Rtfgceylszty, Pl was developed and its performance characteristics determined by [facility]. It has not been cleared or approved by the Food and Drug Administration. Performed at: - [address] [id number] Centrifuge Separator Operator: Flora Mares MD, Phone: [phone] us Glenn Abdi MD LAB BLOOD ORDERABLES Final Resul t Performing Organization Address [facility] Co de Phone Number [facility] [address] [place] [address], * LEFT HEART CATH (12/13/2024 11:08 AM EDT) Anatomical Region Laterality Modality X-Ray Angiograph y Narrative 12/13/2024 12:27 PM EDT No new obstructive atherosclerosis. Widely patent LAD stent. Systemic hypertension. Elevated LVEDP 20 mmHg. Procedure Narrative Indication for procedure: Anginal equivalent, history of CAD status post LAD PCI, persistent symptoms despite multiple antianginals. Procedure(s) Performed: Right femoral radial artery access Left heart catheterization Selective coronary angiography Description of the Procedure: A 6Fr GlideSheath slender sheath was placed in the right radial artery with ultrasound guidance. A standard radial cocktail was administered. Left heart catheterization with placement of a 5Fr JR4 diagnostic catheter in the left ventricle followed by left ventricular pressure measurements. Selective angiography of the left coronary arteries was performed with a 5Fr JL Perfecto diagnostic catheter. Selective angiography of the right coronary artery was performed with a 5Fr Perfecto diagnostic catheter. The procedure was completed and the sheath was removed. A radial hemostasis band was placed on the artery for hemostasis. Risks, benefits and alternatives were discussed with the patient and/or family. Plan is for minimal sedation. Under my direct supervision, intravenous minimal sedation sedation was administered during the course of this procedure with continuous monitoring of hemodynamic parameters and level of consciousness by an independent trained observer. Less than 20 mL of estimated blood loss during the case. No specimen was collected during the case. Recommendations Aggressive lifestyle and risk factor modifications for history of CAD as well as ongoing uncontrolled hypertension. Continue current antihypertensives. Aldosterone renin ratio, plasma metanephrines, and TSH levels pending. Renal angiogram in 2022 with normal renal arteries. If with persistent refractory uncontrolled hypertension, consider renal denervation when available. Coronary Findings Diagnostic Dominance: Co-dominant Left Main: The vessel was visualized by angiography, is moderate in size and is angiographically normal. Left Anterior Descending: The vessel is moderate in size. Widely patent previously placed proximal segment stent. Medium size first diagonal branch. Small sized second diagonal branch. Left Circumflex: The vessel is large in size. No significant disease. Large sized OM1 without significant disease. Medium sized PDA without significant disease. Right Coronary Artery: The vessel is moderate in size. No significant disease. Medium sized RPLS and RV marginal branch Intervention No interventions have been documented. Hemodynamics LV pressures (S/D/E) 20 mmHg AO pressures (S/D/M) : 158/83/LV-AO pressure gradient (peak-peak): 7 mmHg us Carly Holt APRN CV CARDIAC CATH ORDERABL ES Final Result * POC Creatinine (12/13/2024 7:41 AM EDT) Creatinine 0.80 0.60 - 1.30 mg/dL 12/13/2024 8:13 AM EDT [facility] Comment:Serial Number: [id number] 9Operator: [id number] Blood 12/13/2024 7:41 AM EDT 12/13/2024 8:13 AM EDT us Glenn Abdi MD POINT OF CARE TEST ORDERABLES Fi nal Result Performing Organization Address City/[facility]/ZIP Co de Phone Number [facility]
[address] [place] [address], * TSH Rfx On Abnormal To Free T4 (12/13/2024 7:35 AM EDT) Pathologist [facility] TSH 2.360 0.270 - 4.200 uIU/mL 12/13/2024 12:43 PM EDT [facility] Blood Line / Unknown 12/13/2024 7: 35 AM EDT 12/13/2024 7:45 AM EDT us Glenn Abdi MD LAB BLOOD ORDERABLES Final Resul t Performing Organization Address City/[facility]/ZIP Co de Phone Number [facility]
[address] [place] [address], * (ABNORMAL) Hemoglobin A1c (12/13/2024 7:35 AM EDT) Hemoglobin A1C 4.40(L) 4.80 - 5.60 % 12/13/2024 9:15 AM EDT [facility] Blood Line / Unknown 12/13/2024 7: 35 AM EDT 12/13/2024 7:45 AM EDT Narrative [facility] - 12/13/2024 9:15 AM EDT Hemoglobin A1C Ranges: Increased Risk for Diabetes 5.7% to 6.4% Diabetes >= 6.5% Diabetic Goal < 7.0% us Rosa Walls BUSINESS CONTINUITY STRATEGY DIRECTOR LAB BLOOD ORDERABLES Final R esult [facility]
[address] [place] [address], * Lipid Panel (12/13/2024 7:35 AM EDT) Total Cholesterol 158 0 - 200 mg/dL 12/13/2024 8:12 AM EDT [facility] Triglycerides 101 0 - 150 mg/dL 12/13/2024 8:12 AM EDT [facility] HDL Cholesterol 53 40 - 60 mg/dL 12/13/2024 8:12 AM EDT [facility] LDL Cholesterol 87 0 - 100 mg/dL 12/13/2024 8:12 AM EDT [facility] VLDL Cholesterol 18 5 - 40 mg/dL 12/13/2024 8:12 AM EDT [facility] LDL/HDL Ratio 1.60 12/13/2024 8:12 AM EDT [facility] Blood Line / Unknown 12/13/2024 7: 35 AM EDT 12/13/2024 7:45 AM EDT Narrative [facility] - 12/13/2024 8:12 AM EDT Cholesterol Reference Ranges (U.S. Department of Health and Human Services ATP III Classifications) Desirable <200 mg/dL Borderline High 200-239 mg/dL High Risk >240 mg/dL Triglyceride Reference Ranges (U.S. Department of Health and Human Services ATP III Classifications) Normal <150 mg/dL Borderline High 150-199 mg/dL High 200-499 mg/dL Very High >500 mg/dL HDL Reference Ranges (U.S. Department of Health and Human Services ATP III Classifications) Low <40 mg/dl (major risk factor for CHD) High >60 mg/dl ('negative' risk factor for CHD) LDL Reference Ranges (U.S. Department of Health and Human Services ATP III Classifications) Optimal <100 mg/dL Near Optimal 100-129 mg/dL Borderline High 130-159 mg/dL High 160-189 mg/dL Very High >189 mg/dL LDL is calculated using the NIH LDL-C calculation. Rosa Mathisbins BUSINESS CONTINUITY STRATEGY DIRECTOR LAB BLOOD ORDERABLES Final R esult [facility]
[address] [place] [address], * (ABNORMAL) Basic Metabolic Panel (12/13/2024 7:35 AM EDT) Glucose 108(H) 65 - 99 mg/dL 12/13/2024 8:12 AM EDT [facility] BUN 19 8 - 23 mg/dL 12/13/2024 8:12 AM EDT [facility] Creatinine 0.68 0.57 - 1.00 mg/dL 12/13/2024 8:12 AM EDT [facility] Sodium 143 136 - 145 mmol/L 12/13/2024 8:12 AM EDT [facility] Potassium 3.8 3.5 - 5.2 mmol/L 12/13/2024 8:12 AM EDT [facility] Chloride 105 98 - 107 mmol/L 12/13/2024 8:12 AM EDT [facility] CO2 26.0 22.0 - 29.0 mmol/L 12/13/2024 8:12 AM EDT [facility] Calcium 8.9 8.6 - 10.5 mg/dL 12/13/2024 8:12 AM EDT [facility] BUN/Creatinine Ratio 27.9(H) 7.0 - 25.0 12/13/2024 8:12 AM EDT [facility] Anion Gap 12.0 5.0 - 15.0 mmol/L 12/13/2024 8:12 AM EDT [facility] eGFR 95.6 >60.0 mL/min/1.7 3 12/13/2024 8:12 AM EDT [facility] Blood Line / Unknown 12/13/2024 7: 35 AM EDT 12/13/2024 7:45 AM EDT [facility] - 12/13/2024 8:12 AM EDT GFR Categories in Chronic Kidney Disease (CKD) GFR Category GFR (mL/min/1.73) Interpretation G1 90 or greater Normal or high (1) G2 60-89 Mild decrease (1) G3a 45-59 Mild to moderate decrease G3b 30-44 Moderate to severe decrease G4 15-29 Severe decrease G5 14 or less Kidney failure (1)In the absence of evidence of kidney disease, neither GFR category G1 or G2 fulfill the criteria for CKD. eGFR calculation 2020 CKD-EPI creatinine equation, which does not include race as a factor Rosa Walls BUSINESS CONTINUITY STRATEGY DIRECTOR LAB BLOOD ORDERABLES Final R esult [facility]
[address] [place] [address], * (ABNORMAL) CBC (No Diff) (12/13/2024 7:35 AM EDT) WBC 5.38 3.40 - 10.80 10*3/mm3 12/13/2024 7:49 AM EDT [facility] RBC 4.01 3.77 - 5.28 10*6/mm3 12/13/2024 7:49 AM EDT [facility] Hemoglobin 12.5 12.0 - 15.9 g/dL 12/13/2024 7:49 AM EDT [facility] Hematocrit 40.3 34.0 - 46.6 % 12/13/2024 7:49 AM EDT [facility] MCV 100.5(H) 79.0 - 97.0 fL 12/13/2024 7:49 AM EDT [facility] MCH 31.2 26.6 - 33.0 pg 12/13/2024 7:49 AM EDT [facility] MCHC 31.0(L) 31.5 - 35.7 g/dL 12/13/2024 7:49 AM EDT [facility] RDW 12.6 12.3 - 15.4 % 12/13/2024 7:49 AM EDT [facility] RDW-SD 47.1 37.0 - 54.0 fl 12/13/2024 7:49 AM EDT [facility] MPV 8.7 6.0 - 12.0 fL 12/13/2024 7:49 AM EDT [facility] Platelets 379 140 - 450 10*3/mm3 12/13/2024 7:49 AM EDT [facility] Blood Line / Unknown 12/13/2024 7: 35 AM EDT 12/13/2024 7:45 AM EDT Rosa Walls APRN LAB BLOOD ORDERABLES Final R esult [facility]
[address] [place] [address], * Telemetry Scan (12/13/2024) [facility] Onbase ECG ORDERABLES Final Result documented in this encounter Visit Diagnoses Diagnosis Coronary artery disease involving tolowa dee-ni' coronary artery of tolowa dee-ni' heart without angina pectoris Precordial chest pain Precordial pain Coronary artery disease involving tolowa dee-ni' coronary artery of tolowa dee-ni' heart without angina pectoris Precordial chest pain Precordial pain documented in this encounter Admitting Diagnoses Diagnosis Coronary artery disease involving tolowa dee-ni' coronary artery of tolowa dee-ni' heart without angina pectoris Precordial chest pain Precordial pain documented in this encounter Administered Medications Inactive Administered Medications - up to 3 most recent administrations Medication Order MAR Action Action Date Dose Rate Site acetaminophen (TYLENOL) tablet 650 mg 650 mg, Oral, Every 4 Hours PRN, Mild Pain, Fever, temperature greater than 101F, Starting on Thu12/13/24 at 1109, Do not exceed 4 grams of acetaminophen in a 24 hr period. If given for pain, use the following pain scale: Mild Pain = Pain Score of 1-3, CPOT 1-2 Moderate Pain = Pain Score of 4-6, CPOT 3-4 Severe Pain = Pain Score of 7-10, CPOT 5-8 Based on patient request - if ordered for moderate or severe pain, provider allows for administration of a medication prescribed for a lower pain scale. Do not exceed 4 grams of acetaminophen in a 24 hr period. Max dose of 2gm for AST/ALT greater than 120 units/L. If given for pain, use the following pain scale: Mild Pain = Pain Score of 1-3, CPOT 1-2 Moderate Pain = Pain Score of 4-6, CPOT 3-4 Severe Pain = Pain Score of 7-10, CPOT 5-8 aspirin chewable tablet 324 mg 324 mg, Oral, Once, On Thu12/13/24 at 0719, For 1 dose, Herbal/drug interaction: Avoid use with ginkgo biloba. Based on patient request - if ordered for moderate or severe pain, provider allows for administration of a medication prescribed for a lower pain scale. Do not exceed 4 grams of aspirin in a 24 hr period. If given for pain, use the following pain scale: Mild Pain = Pain Score of 1-3, CPOT 1-2 Moderate Pain = Pain Score of 4-6, CPOT 3-4 Severe Pain = Pain Score of 7-10, CPOT 5-8Indications:Coronary artery disease involving tolowa dee-ni' coronary artery of tolowa dee-ni' heart without angina pectoris,Precordial chest pain Given 12/13/2024 7:55 AM EDT 324 mg nitroglycerin (NITROSTAT) SL tablet 0.4 mg 0.4 mg, Sublingual, Every 5 Minutes PRN, Chest Pain, Systolic BP Greater Than 100, Starting on Thu12/13/24 at 1109, Notify Provider if Pain Unrelieved After 3 Doses May administer up to 3 doses per episode. Hold if SBP less than 100. sodium chloride 0.9 % bolus 179.7 mL 179.7 mL (3 mL/kg 59.9 kg), Intravenous, at 179.7 mL/hr, Administer over 1 Hours, Once Over 1 Hour, On Thu12/13/24 at 0719, For 1 dose, Administer One Hour Prior to Receiving IV ContrastIndications:Coronary artery disease involving tolowa dee-ni' coronary artery of tolowa dee-ni' heart without angina pectoris,Precordial chest pain New Bag 12/13/2024 7:54 AM EDT 179.7 mL 179.7 mL/hr documented in this encounter Active and Recently Administered Medications Times are shown in EDT. Scheduled Medication Order 12/11/2024 12/12/2024 12/13/2024 aspirin chewable tablet 324 mg (COMPLETED)(Linked Group 1) 324 mg, Oral, Once, On Thu12/13/24 at 0719, For 1 dose, Herbal/drug interaction: Avoid use with ginkgo biloba. Based on patient request - if ordered for moderate or severe pain, provider allows for administration of a medication prescribed for a lower pain scale. Do not exceed 4 grams of aspirin in a 24 hr period. If given for pain, use the following pain scale: Mild Pain = Pain Score of 1-3, CPOT 1-2 Moderate Pain = Pain Score of 4-6, CPOT 3-4 Severe Pain = Pain Score of 7-10, CPOT 5-8 0755 (Given - Provid er: Aleisha Jarvis RN) sodium chloride 0.9 % bolus 179.7 mL (COMPLETED) 179.7 mL (3 mL/kg 59.9 kg), Intravenous, at 179.7 mL/hr, Administer over 1 Hours, Once Over 1 Hour, On Thu12/13/24 at 0719, For 1 dose, Administer One Hour Prior to Receiving IV Contrast 0754 (New Bag - Prov ider: Aleisha Jarvis RN) PRN Medication Order 12/11/2024 12/12/2024 12/13/2024 acetaminophen (TYLENOL) tablet 650 mg 650 mg, Oral, Every 4 Hours PRN, Mild Pain, Fever, temperature greater than 101F, Starting on Thu12/13/24 at 1109, Do not exceed 4 grams of acetaminophen in a 24 hr period. If given for pain, use the following pain scale: Mild Pain = Pain Score of 1-3, CPOT 1-2 Moderate Pain = Pain Score of 4-6, CPOT 3-4 Severe Pain = Pain Score of 7-10, CPOT 5-8 Based on patient request - if ordered for moderate or severe pain, provider allows for administration of a medication prescribed for a lower pain scale. Do not exceed 4 grams of acetaminophen in a 24 hr period. Max dose of 2gm for AST/ALT greater than 120 units/L. If given for pain, use the following pain scale: Mild Pain = Pain Score of 1-3, CPOT 1-2 Moderate Pain = Pain Score of 4-6, CPOT 3-4 Severe Pain = Pain Score of 7-10, CPOT 5-8 fentaNYL citrate (PF) (SUBLIMAZE) injection (CANCELED) Code / Trauma / Sedation Medication, Starting on Thu12/13/24 at 1052 1052 (Given - Provid er: Angle Oneill RN) heparin (porcine) injection (CANCELED) Code / Trauma / Sedation Medication, Starting on Thu12/13/24 at 1059 1059 (Given - Provid er: Glenn Abdi MD) iopamidol (ISOVUE-370) 76 % injection (CANCELED) Code / Trauma / Sedation Medication, Starting on Thu12/13/24 at 1111 1111 (Given - Provid er: Glenn Abdi MD) lidocaine PF 1% (XYLOCAINE) injection (CANCELED) Code / Trauma / Sedation Medication, Starting on Thu12/13/24 at 1057 1057 (Given - Provid er: Glenn Abdi MD) midazolam (VERSED) injection (CANCELED) Code / Trauma / Sedation Medication, Starting on Thu12/13/24 at 1052 1052 (Given - Provid er: Angle Oneill RN) niCARdipine (CARDENE) syringe (CANCELED) Code / Trauma / Sedation Medication, Starting on Thu12/13/24 at 1059 1059 (Given - Provid er: Glenn Abdi MD) nitroglycerin (NITROSTAT) SL tablet 0.4 mg 0.4 mg, Sublingual, Every 5 Minutes PRN, Chest Pain, Systolic BP Greater Than 100, Starting on Thu12/13/24 at 1109, Notify Provider if Pain Unrelieved After 3 Doses May administer up to 3 doses per episode. Hold if SBP less than 100. nitroglycerin 100 mcg/mL in D5W syringe (CANCELED) Code / Trauma / Sedation Medication, Starting on Thu12/13/24 at 1059 1059 (Given - Provid er: Glenn Abdi MD) O2 (OXYGEN) (CANCELED) Code / Trauma / Sedation Medication, Starting on Thu12/13/24 at 1052 1052 (Given - Provid er: Angle Oneill RN) Linked Groups Order Group 1: aspirin chewable tablet 324 mg (COMPLETED)Jump to med 324 mg, Oral, Once, On Thu12/13/24 at 0719, For 1 dose, Herbal/drug interaction: Avoid use with ginkgo biloba. Based on patient request - if ordered for moderate or severe pain, provider allows for administration of a medication prescribed for a lower pain scale. Do not exceed 4 grams of aspirin in a 24 hr period. If given for pain, use the following pain scale: Mild Pain = Pain Score of 1-3, CPOT 1-2 Moderate Pain = Pain Score of 4-6, CPOT 3-4 Severe Pain = Pain Score of 7-10, CPOT 5-8 And aspirin EC tablet 81 mg (CANCELED) 81 mg, Oral, Daily, First dose on Thu12/14/24 at 0900, Do not crush or chew the capsules or tablets. The drug may not work as designed if the capsule or tablet is crushed or chewed. Swallow whole. Do not exceed 4 grams of aspirin in a 24 hr period. If given for pain, use the following pain scale: Mild Pain = Pain Score of 1-3, CPOT 1-2 Moderate Pain = Pain Score of 4-6, CPOT 3-4 Severe Pain = Pain Score of 7- 10, CPOT 5-8 documented in this encounter Care Teams Top Dyeing Machine Tender Relationship Specialty Start Date End Date Bev Eckert PA PCP - General Physician Broiler Manager 03/09/23 documented as of this encounter
--- OUTSIDE RECORDS SUMMARY | 2024-12-13 10:08 | XMS_ITS | Encounter Summary ---
Author Organization [facility] ystem Address [address] [place] [address] Care Team Providers Care Store Operations Specialist Name Role Phone Bev Eckert Primary Care Provider [phone] Reason for Visit * Auth/Cert (Routine) Specialty Diagnoses / Procedures Referred By Contac t Referred To Contact Diagnoses Coronary artery disease involving [place] coronary artery of [place] heart without angina pectoris Precordial chest pain Procedures NE CATH PLMT L HRT & ARTS W/NJX & ANGIO IMG S&I Left Heart Cath Referral ID Status Reason Start Date Expiration Date Visits Re quested Visits Authorized [id number] 1 1 Encounter Details Date Type Department Care Team (Late st Contact Info) Description 12/13/2024 10:08 AM EDT - 12/13/2024 11:08 AM EDT Surgery [facility] SPECIALIST [address] [place] [address] Glenn Abdi MD [address] [facility] [address] [place] [address] Left Heart Cath - Right radial access [19590 (CPT )] Social History Tobacco Use Types Packs/Day Years [...] Sign Reading Time Taken Comments Blood Pressure 194/99 12/13/2024 10:49 AM EDT Pulse 81 12/13/2024 10:49 AM EDT Temperature 35.8 C (96.4 F) 12/13/2024 7:26 AM EDT Respiratory Rate 17 12/13/2024 10:49 AM EDT Oxygen Saturation 96% 12/13/2024 10:49 AM EDT Inhaled Oxygen Concentration - - Weight [...] 7:51 AM EDT Aleisha Burch RN * [place] Suicide Severity Rating Scale (Screener/Recent Self-Report) Question Answer Date of Assessment Author 6. Suicidal Behavior (Lifetime) No 12/13/2024 7:51 AM EDT Cyndi Jarvis RN documented as of this encounter Discharge Instructions * Attachments The following attachments cannot be sent through Care Everywhere. * Radial Site Care (Congolese) * Moderate Conscious Sedation Adult Care After (Congolese) * Coronary Angiogram (Congolese) documented in this encounter Medications at Time [...] a day. vitamin D (ERGOCALCIFEROL) 1.25 MG (65741 UT) capsule capsule Take 1 capsule by mouth 1 (One) Time Per Week. TAKES ON THURSDAY documented as of this encounter H&P Notes * Rosa Walls APRN - 12/13/2024 8:12 AM EDT H&P reviewed. The patient was examined and there are no changes to the H&P. Patient with history of normal stress test in 2022 followed by cardiac cath revealing 70-80% proximal LAD stenosis status post MIREYA x 1 at [facility], Dr. Rogers. She has had recurrent [...] moderate mitral regurg 4. Normal PSG at [facility] 2023 Nuclear stress test 11/30/2024-no evidence [...] duplex 09/15/24 Less than 60% stenosis bilaterally [facility] 04/01/23-severe proximal LAD disease, successful stent to [...] , Rfl: Cholecalciferol (Vitamin D3) 50 MCG (2000 UT) capsule, Take 1 capsule by mouth [...] , Rfl: vitamin D (ERGOCALCIFEROL) 1.25 MG (62701 UT) capsule capsule, Take 1 capsule by [...] Date Acid reflux Anemia Arthritis Breast cancer 2014 Treated w/radiation Coronary artery disease 04/01/2023 Mid [...] this visit: 1. Coronary artery disease involving [place] coronary artery of [place] heart without angina pectoris(Primary) Assessment & Plan: [...] and bleeding issues. Orders: - Case Request Agile Scrum Coach: Left Heart Cath 2. Hypertension, essential Assessment [...] 3. Precordial chest pain - Case Request Agile Scrum Coach: Left Heart Cath Other orders - hydrOXYzine [...] 11:08 AM EDT Coronary artery disease involving [place] coronary artery of [place] heart without angina pectoris Precordial chest pain [...] - 5.380 ng/mL/hr 12/15/2024 10:07 PM EDT [facility] Blood Line / Unknown 12/13/2024 12 :13 PM EDT 12/13/2024 12:17 PM EDT [facility] - 12/15/2024 10:07 PM EDT Test(s) 099700-Kdjwl Activity, Plasma was developed and its performance characteristics determined by [facility]. It has not been cleared or approved by the Food and Drug Administration. Performed at: - [address] [id number] Meat Packager: Flora Mares MD, Phone: [phone] us Glenn Abdi MD LAB BLOOD ORDERABLES Final Resul t Performing Organization Address [facility] de Phone Number [facility] [address] [place] [address], * Aldosterone (12/13/2024 12:13 PM EDT) Aldosterone 1.0 0.0 - 30.0 ng/dL 12/17/2024 8:11 AM EDT [facility] Blood Line / Unknown 12/13/2024 12 :13 PM EDT 12/13/2024 12:17 PM EDT Narrative [facility] - 12/17/2024 8:11 AM EDT Test(s) 027157-Vwbiwvkvgfs was developed and its performance characteristics determined by [facility]. It has not been cleared or approved by the Food and Drug Administration. Performed at: - [address] [id number] Meat Packager: Flora Mares MD, Phone: [phone] us Glenn Abdi MD LAB BLOOD ORDERABLES Final Resul t Performing Organization Address [facility] de Phone Number [facility] [address] [place] [address], * Metanephrines, Frac. Free, Plasma (12/13/2024 12:13 PM EDT) Normetanephrine 50.0 0.0 - 285.2 pg/mL 12/18/2024 2:09 PM EDT [facility] Metanephrine <25.0 0.0 - 88.0 pg/mL 12/18/2024 2:09 PM EDT [facility] Blood Line / Unknown 12/13/2024 12 :13 PM EDT 12/13/2024 12:17 PM EDT Narrative [facility] - 12/18/2024 2:09 PM EDT Test(s) 811631-Upkwjyxlqhdxlmx, Pl; 250443-Bycxakbtchrm, Pl was developed and its performance characteristics determined by [facility]. It has not been cleared or approved by the Food and Drug Administration. Performed at: - [address] [id number] Meat Packager: Flora Mares MD, Phone: [phone] us Glenn Abdi MD LAB BLOOD ORDERABLES Final Resul t Performing Organization Address City/State/[facility] Co de Phone Number [facility] [address] [place] [address], * LEFT HEART CATH (12/13/2024 11:08 AM [...] : 158/83/LV-AO pressure gradient (peak-peak): 7 mmHg Carly Holt APRN CV CARDIAC CATH ORDERABL ES Final Result * POC Creatinine (12/13/2024 7:41 AM EDT) Creatinine 0.80 0.60 - 1.30 mg/dL 12/13/2024 8:13 AM EDT [facility] Comment:Serial Number: [id number] 9Operator: [id number] Blood 12/13/2024 7:41 AM EDT 12/13/2024 8:13 AM EDT Glenn Abdi MD POINT OF CARE TEST ORDERABLES Fi nal Result [facility]
[address] [place] [address], * TSH Rfx On Abnormal To Free T4 (12/13/2024 7:35 AM EDT) TSH 2.360 0.270 - 4.200 uIU/mL 12/13/2024 12:43 PM EDT [facility] Blood Line / Unknown 12/13/2024 7: 35 AM EDT 12/13/2024 7:45 AM EDT Glenn Abdi MD LAB BLOOD ORDERABLES Final Resul t Performing Organization Address [facility] de Phone Number [facility]
[address] [place] [address], * (ABNORMAL) Hemoglobin A1c (12/13/2024 7:35 AM EDT) Pathologist [facility] Hemoglobin A1C 4.40(L) 4.80 - 5.60 % 12/13/2024 9:15 AM EDT [facility] Blood Line / Unknown 12/13/2024 7: 35 AM EDT 12/13/2024 7:45 AM EDT Narrative [facility] - 12/13/2024 9:15 AM EDT Hemoglobin A1C Ranges: Increased Risk for Diabetes 5.7% to 6.4% Diabetes >= 6.5% Diabetic Goal < 7.0% Rosa Walls APRN LAB BLOOD ORDERABLES Final R esult Performing Organization Address City/[facility]/ZIP Co de Phone Number [facility]
[address] [place] [address], * Lipid Panel (12/13/2024 7:35 AM EDT) Pathologist [facility] Total Cholesterol 158 0 - 200 mg/dL 12/13/2024 8:12 AM EDT [facility] Triglycerides 101 0 - 150 mg/dL 12/13/2024 8:12 AM EDT [facility] HDL Cholesterol 53 40 - 60 mg/dL 12/13/2024 8:12 AM EDT [facility] LDL Cholesterol 87 0 - 100 mg/dL 12/13/2024 8:12 AM EDT [facility] VLDL Cholesterol 18 5 - 40 mg/dL 12/13/2024 8:12 AM EDT [facility] LDL/HDL Ratio 1.60 12/13/2024 8:12 AM EDT [facility] Blood Line / Unknown 12/13/2024 7: 35 AM EDT 12/13/2024 7:45 AM EDT Narrative [facility] - 12/13/2024 8:12 AM EDT Cholesterol [...] is calculated using the NIH LDL-C calculation. us Rosa Walls APRN LAB BLOOD ORDERABLES Final R esult [facility]
[address] [id number], * (ABNORMAL) Basic Metabolic Panel (12/13/2024 7:35 AM EDT) Glucose 108(H) 65 - 99 mg/dL 12/13/2024 8:12 AM EDT [facility] BUN 19 8 - 23 mg/dL 12/13/2024 8:12 AM T [facility] Creatinine 0.68 0.57 - 1.00 mg/dL 12/13/2024 8:12 AM EDT [facility] Sodium 143 136 - 145 mmol/L 12/13/2024 8:12 AM EDT [facility] Potassium 3.8 3.5 - 5.2 mmol/L 12/13/2024 8:12 AM EDT [facility] Chloride 105 98 - 107 mmol/L 12/13/2024 8:12 AM EDT [facility] CO2 26.0 22.0 - 29.0 mmol/L 12/13/2024 8:12 AM EDT [facility] Calcium 8.9 8.6 - 10.5 mg/dL 12/13/2024 8:12 AM [facility] BUN/Creatinine Ratio 27.9(H) 7.0 - 25.0 12/13/2024 8:12 AM EDT [facility] Anion Gap 12.0 5.0 - 15.0 mmol/L 12/13/2024 8:12 AM [facility] eGFR 95.6 >60.0 mL/min/1.7 3 12/13/2024 8:12 AM [facility] Blood Line / Unknown 12/13/2024 7: 35 AM EDT 12/13/2024 7:45 AM EDT [facility] - 12/13/2024 8:12 AM EDT GFR [...] does not include race as a factor us Rosa Walls FLARE BREAKER LAB BLOOD ORDERABLES Final R esult [facility]
[address] [place] [address], * (ABNORMAL) CBC (No Diff) (12/13/2024 7:35 AM EDT) WBC 5.38 3.40 - 10.80 10*3/mm3 12/13/2024 7:49 AM EDT [facility] RBC 4.01 3.77 - 5.28 10*6/mm3 12/13/2024 7:49 AM EDT [facility] Hemoglobin 12.5 12.0 - 15.9 g/dL 12/13/2024 7:49 AM EDT [facility] Hematocrit 40.3 34.0 - 46.6 % 12/13/2024 7:49 AM EDT [facility] MCV 100.5(H) 79.0 - 97.0 fL 12/13/2024 7:49 AM EDT [facility] MCH 31.2 26.6 - 33.0 pg 12/13/2024 7:49 AM EDT [facility] MCHC 31.0(L) 31.5 - 35.7 g/dL 12/13/2024 7:49 AM EDT [facility] RDW 12.6 12.3 - 15.4 % 12/13/2024 7:49 AM EDT [facility] RDW-SD 47.1 37.0 - 54.0 fl 12/13/2024 7:49 AM EDT [facility] MPV 8.7 6.0 - 12.0 fL 12/13/2024 7:49 AM EDT [facility] Platelets 379 140 - 450 10*3/mm3 12/13/2024 7:49 AM EDT [facility] Blood Line / Unknown 12/13/2024 7: 35 AM EDT 12/13/2024 7:45 AM EDT Rosa Walls FLARE BREAKER LAB BLOOD ORDERABLES Final R esult [facility]
[address] [place] [address], * Telemetry Scan (12/13/2024) [facility] Onbase ECG ORDERABLES Final Result documented in this encounter Visit Diagnoses Diagnosis Coronary artery disease involving [place] coronary artery of [place] heart without angina pectoris Precordial chest pain Precordial pain Coronary artery disease involving [place] coronary artery of [place] heart without angina pectoris Precordial chest pain Precordial pain documented in this encounter Admitting Diagnoses Diagnosis Coronary artery disease involving [place] coronary artery of [place] heart without angina pectoris Precordial chest pain [...] of 7-10, CPOT 5-8Indications:Coronary artery disease involving [place] coronary artery of [place] heart without angina pectoris,Precordial chest pain Given 12/13/2024 7:55 AM EDT 324 mg fentaNYL citrate (PF) (SUBLIMAZE) injection Code / Trauma / Sedation Medication, Starting on Thu12/13/24 at 1052 Given 12/13/2024 10:52 AM EDT 50 mcg heparin (porcine) injection Code / Trauma / Sedation Medication, Starting on Thu12/13/24 at 1059 Given 12/13/2024 10:59 AM EDT 5,000 Units iopamidol (ISOVUE-370) 76 % injection Code / Trauma / Sedation Medication, Starting on Thu12/13/24 at 1111 Given 12/13/2024 11:11 AM EDT 30 mL lidocaine PF 1% (XYLOCAINE) injection Code / Trauma / Sedation Medication, Starting on Thu12/13/24 at 1057 Given 12/13/2024 10:57 AM EDT 5 mL Wrist Right midazolam (VERSED) injection Code / Trauma / Sedation Medication, Starting on Thu12/13/24 at 1052 Given 12/13/2024 10:52 AM EDT 2 mg niCARdipine (CARDENE) syringe Code / Trauma / Sedation Medication, Starting on Thu12/13/24 at 1059 Given 12/13/2024 10:59 AM EDT 200 mcg nitroglycerin (NITROSTAT) SL tablet 0.4 mg 0.4 mg, Sublingual, Every 5 Minutes PRN, Chest Pain, Systolic BP Greater Than 100, Starting on Thu12/13/24 at 1109, Notify Provider if Pain Unrelieved After 3 Doses May administer up to 3 doses per episode. Hold if SBP less than 100. nitroglycerin 100 mcg/mL in D5W syringe Code / Trauma / Sedation Medication, Starting on Thu12/13/24 at 1059 Given 12/13/2024 10:59 AM EDT 200 mcg O2 (OXYGEN) Code / Trauma / Sedation Medication, Starting on Thu12/13/24 at 1052 Given 12/13/2024 10:52 AM EDT 2 L sodium chloride 0.9 % bolus 179.7 mL 179.7 mL (3 mL/kg 59.9 kg), Intravenous, at 179.7 mL/hr, Administer over 1 Hours, Once Over 1 Hour, On Thu12/13/24 at 0719, For 1 dose, Administer One Hour Prior to Receiving IV ContrastIndications:Cor onary artery disease involving [place] coronary artery of [place] heart without angina pectoris,Precordial chest pain New [...] 5-8 documented in this encounter Care Teams Store Operations Specialist Relationship Specialty Start Date End Date Bev Eckert PA PCP - General Physician Network Support Analyst 03/09/23 documented as of this encounter
--- OUTSIDE RECORDS SUMMARY | 2025-02-10 14:03 | XMS_ITS | Encounter Summary ---
[facility] Organization [facility] Address [address] [place] [address] Care Team Providers Care Residential Sales Executive Name Role Phone Bev Eckert Primary Care Provider [phone] Encounter Details Date Type Department Care Team (Latest Contact Info) Description 12/13/2024 Travel Social History Tobacco Use Types Packs/Day Years [...] on file documented as of this encounter Functional Status * Question Answer [...] 7:51 AM EDT Aleisha Burch RN * [place] Suicide Severity Rating Scale (Screener/Recent Self-Report) Question Answer Date of Assessment Author 6. Suicidal Behavior (Lifetime) No 12/13/2024 7:51 AM EDT Cyndi Jarvis RN documented as of this encounter Plan of Treatment Not on file documented as of this encounter Visit Diagnoses Not on filedocumented in this encounter Care Teams Residential Sales Executive Relationship Specialty Start Date End Date Bev Eckert PA PCP - General Physician Confectionery Drops Machine Operator 03/09/23 documented as of this encounter
--- OUTSIDE RECORDS SUMMARY | 2025-02-10 14:03 | XMS_ITS | Data Portability ---
Author Organization [employer] [facility] Address [address] [place] [address] Assessment No assessment recorded. Plan of Treatment Reminders Order Date Submit Date Provider Last Modified By Organization Details Last Modified Time Details Appointments FOLLOW UP 15 2024 10:45A M Bev Eckert PA-C Not available Not available Not available Lab unlisted lab - toxassure flex 19, [id number] 2024 025 [employer] [place] [facility]), [address] [place], [address], 01/21/2025 14:07:59 CBC w/ auto diff 2024 025 [facility] [address] [place], [address], 11/28/2024 13:27:10 PTH (parathyr oid hormone), intact, serum or plasma 2024 025 [employer] [place] [facility] [address] [place], [address], 08/23/2024 11:08:19 iron + TIBC + ferritin, serum 2024 025 [facility] [address] [place], [address], 08/23/2024 11:08:18 HIV 1 + 2, meaningfu l use set 2023 024 [facility] ([place]), [address] [place], [address], 05/26/2024 13:08:46 Hepatitis C IgG Ab, qual, serum 2023 [facility]), [address] [place], [address], 05/26/2024 13:08:43 lipid panel, serum 2023 [facility] ([place]), [address] [place], [address], 05/26/2024 13:08:42 TSH, ultra-sen sitive, serum 2023 [facility]), [address] [place], [address], 05/26/2024 13:08:45 vitamin D, 25-hydrox y, total, serum 2023 [facility]), [address] [place], [address], 05/26/2024 13:08:45 CMP, serum or plasma 2023 [facility]), [address] [place], [address], 05/26/2024 13:08:41 unlisted lab - fe+CBC/D/ plt+TIBC+ ashley 2023 [facility] ([place]), [address] [place], [address], 05/26/2024 13:08:40 unlisted lab - toxassure flex 19, [id number] -P 2023 [facility] ([place]), [address] [place], [address], 05/26/2024 13:08:39 Referral None recorded. Procedures None recorded. Surgeries None recorded. Imaging None recorded. Medication Orders olanzapin e 5 mg tablet [address] [place] [address], [address] [place] [address] [address] [place], [id number], 01/24/2025 16:13:15 rosuvasta tin 40 mg tablet [address] [place] [address], [address] [place] [address] [address], [id number], 11/26/2024 11:02:35 clonidine HCl ER 0.1 mg tablet,ex tended release,1 2 hr [address] [place] [address], [address] [place] [address] [address] [place], [id number], 08/22/2024 10:51:20 Catapres- TTS-2 0.2 mg/24 hr transderm al patch [address] [place] [address], [address] [place] [address] [address] [place], [id number], 01/17/2025 11:44:42 Patient TargetsNo targets recorded. Patient Instructions Encounter Date Encounter Id Patient Instructions Last Modified By Organization Details Last Modified Time 08/22/2024 [id number] high blood pressure: care instructions [email or web address] Not available 08/22/2024 09:46:11 learning about high blood pressure [email or web address] Not available 08/22/2024 09:46:10 11/25/2024 [id number] high cholesterol : care instructions [email or web address] Not available 11/25/2024 15:49:15 01/17/2025 [id number] high blood pressure: care instructions [email or web address] Not available 01/19/2025 13:47:54 learning about high blood pressure [email or web address] Not available 01/19/2025 13:47:54 Reason for Referral None Reported. Results Created Date Observation Date Name Description Value Unit Range Abnormal Flag Note LastModifiedBy Organization Detail LastModifiedTime 05/20/2005/26/2024 TOXAS SURE FLEX 19, UR summary report FINAL ===== ===== ===== ===== ===== ===== ===== ===== ===== ===== ===== ===== ===== === Amphe tamin es, MS, Ur RFX Canna binoi ds, MS, Ur RFX Opiat e Class , MS, Ur RFX ToxAs sure Flex 19, Ur ===== ===== ===== ===== ===== ===== ===== ===== ===== ===== ===== ===== ===== === Test Resul t Flag Units Drug Prese nt Morph ine 504 ng/mg creat Normo rphin e 157 ng/mg creat Poten tial sourc es of morph ine inclu de admin istra tion of codei ne or morph ine, use of heroi n, or inges tion of poppy seeds . Normo rphin e is an expec ismael metab olite of morph ine. [place] codon e 5233 ng/mg creat [place] morph one 229 ng/mg creat Dihyd rocod eine 810 ng/mg creat Norhy droco done >4348 ng/mg creat Sourc es of hydro codon e inclu de sched uled presc ripti on medic ation s. [place] morph one, dihyd rocod eine and norhy droco done are expec ismael metab olite s of hydro codon e. [place] morph one and dihyd rocod eine are also avail able as sched uled presc ripti on medic ation s. ===== ===== ===== ===== ===== ===== ===== ===== ===== ===== ===== ===== ===== === Test Resul t Flag Units Ref Range Creat inine 115 mg/dL >=20 ===== ===== ===== ===== ===== ===== ===== ===== ===== ===== ===== ===== ===== === Decla red Medic ation s: Medic ation list was not provi ded. ===== ===== ===== ===== ===== ===== ===== ===== ===== ===== ===== ===== ===== === For clini harsh consu ltati on, pleas e call [phone]. ===== ===== ===== ===== ===== ===== ===== ===== ===== ===== ===== ===== ===== === Not Available [facility] ([facility]) [address] [place], [address], 05/26/2024 13:08:39 05/20/2005/26/2024 TOXAS SURE FLEX 19, UR pdf . Not Available [facility] ([facility]) [address] [place], [address], 05/26/2024 13:08:39 05/20/2005/26/2024 TOXAS SURE FLEX 19, UR creatinine 115 mg/dL REFER ENCE RANGE : Ref Range >=20 Not Available [facility] ([facility]) [address] [place], [address], 05/26/2024 13:08:39 05/20/2005/26/2024 TOXAS SURE FLEX 19, UR amphetamines ia COMMEN T NG/mL cutoff :300 Furth er testi ng indic ated Not Available [facility] ([facility]) [address] [place], [address], 05/26/2024 13:08:39 05/20/20 24 05/26/2024 TOXAS SURE FLEX 19, UR benzodiazepi monster NEGATI VE Not Available [facility] ([facility]) [address] [facility], [place], [address], 05/26/2024 13:08:39 05/20/20 24 05/26/2024 TOXAS SURE FLEX 19, UR diazepam NOT DETECT ED NG/mg _crea t Not Available [facility] ([facility]) [address] [place], [address], 05/26/2024 13:08:39 05/20/2005/26/2024 TOXAS SURE FLEX 19, UR desmethyldia zepam NOT DETECT ED NG/mg _crea t Not Available [facility] ([facility]) [address] [place], [address], 05/26/2024 13:08:39 05/20/2005/26/2024 TOXAS SURE FLEX 19, UR oxazepam NOT DETECT ED NG/mg _crea t Not Available [facility] ([facility]) [address] [place], [address], 05/26/2024 13:08:39 05/20/20 24 05/26/2024 TOXAS SURE FLEX 19, UR temazepam NOT DETECT ED NG/mg _crea t Expec ismael metab olism of benzo diaze pine class drugs : Paren t Drug Detec ismael Metab olite s ----- ----- - ----- ----- ----- ----- Diaze lucia: Desme thyld iazep am, Temaz epam, Oxaze lucia Chlor diaze poxid e: Desme thyld iazep am, Oxaze lucia Clora zepat e: Desme thyld iazep am, Oxaze lucia Halaz epam: Desme thyld iazep am, Oxaze lucia Temaz epam: Oxaze lucia Oxaze lucia: None Not Available [facility] ([facility]) [address] [facility], [place], [address], 05/26/2024 13:08:39 05/20/2005/26/2024 TOXAS SURE FLEX 19, UR alprazolam NOT DETECT ED NG/mg _crea t Not Available [facility] ([facility]) [address] [facility], [place], [address], 05/26/2024 13:08:39 05/20/2005/26/2024 TOXAS SURE FLEX 19, UR alpha-hydrox yalprazolam NOT DETECT ED NG/mg _crea t Not Available [facility] ([facility]) [address] [facility], [place], [address], 05/26/2024 13:08:39 05/20/2005/26/2024 TOXAS SURE FLEX 19, UR desalkylflur azepam NOT DETECT ED NG/mg _crea t Not Available [facility] ([facility]) [address] [facility], [place], [address], 05/26/2024 13:08:39 05/20/2005/26/2024 TOXAS SURE FLEX 19, UR lorazepam NOT DETECT ED NG/mg _crea t Not Available [facility] ([facility]) [address] [place], [address], 05/26/2024 13:08:39 05/20/2005/26/2024 TOXAS SURE FLEX 19, UR alpha-hydrox ytriazolam NOT DETECT ED NG/mg _crea t Not Available [facility] ([facility]) [address] [place], [address], 05/26/2024 13:08:39 05/20/2005/26/2024 TOXAS SURE FLEX 19, UR clonazepam NOT DETECT ED NG/mg _crea t Not Available [facility] ([facility]) [address] [place], [address], 05/26/2024 13:08:39 05/20/2005/26/2024 TOXAS SURE FLEX 19, UR 7-aminoclona zepam NOT DETECT ED NG/mg _crea t Not Available [facility] ([facility]) [address] [place], [address], 05/26/2024 13:08:39 05/20/2005/26/2024 TOXAS SURE FLEX 19, UR midazolam NOT DETECT ED NG/mg _crea t Not Available [facility] ([facility]) [address] [facility], [place], [address], 05/26/2024 13:08:39 05/20/2005/26/2024 TOXAS SURE FLEX 19, UR alpha-hydrox ymidazolam NOT DETECT ED NG/mg _crea t Not Available [facility] ([facility]) [address] [facility], [place], [address], 05/26/2024 13:08:39 05/20/2005/26/2024 TOXAS SURE FLEX 19, UR flunitrazepa m NOT DETECT ED NG/mg _crea t Not Available [facility] ([facility]) [address] [place], [address], 05/26/2024 13:08:39 05/20/2005/26/2024 TOXAS SURE FLEX 19, UR desmethylflu nitrazepam NOT DETECT ED NG/mg _crea t Not Available [facility] ([facility]) [address] [place], [address], 05/26/2024 13:08:39 05/20/2005/26/2024 TOXAS SURE FLEX 19, UR cocaine metabolite ia NEGATI VE NG/mL cutoff :150 Not Available [facility] ([facility]) [address] [place], [address], 05/26/2024 13:08:39 05/20/2005/26/2024 TOXAS SURE FLEX 19, UR ethanol biomarkers ia NEGATI VE NG/mL cutoff :500 Not Available [facility] ([facility]) [address] [place], [address], 05/26/2024 13:08:39 05/20/2005/26/2024 TOXAS SURE FLEX 19, UR cannabinoids ia COMMEN T NG/mL cutoff :20 Furth er testi ng indic ated Not Available [facility] ([facility]) [address] [place], [address], 05/26/2024 13:08:39 05/20/2005/26/2024 TOXAS SURE FLEX 19, UR 6-acetylmorp cuong ia NEGATI VE NG/mL cutoff :10 Not Available [facility] ([facility]) [address] [place], [address], 05/26/2024 13:08:39 05/20/2005/26/2024 TOXAS SURE FLEX 19, UR opiate class ia COMMEN T NG/mL cutoff :100 Furth er testi ng indic ated Not Available [facility] ([facility]) [address] [place] [address], [address], 05/26/2024 13:08:39 05/20/2005/26/2024 TOXAS SURE FLEX 19, UR oxycodone class ia NEGATI VE NG/mL cutoff :100 Not Available [facility] ([facility]) [address] [place], [address], 05/26/2024 13:08:39 05/20/2005/26/2024 TOXAS SURE FLEX 19, UR methadone ia NEGATI VE NG/mL cutoff :100 Not Available [facility] ([facility]) [address] [place] [address], [address], 05/26/2024 13:08:39 05/20/2005/26/2024 TOXAS SURE FLEX 19, UR methadone mtb ia NEGATI VE NG/mL cutoff :100 Not Available [facility] ([facility]) [address] [place], [address], 05/26/2024 13:08:39 05/20/2005/26/2024 TOXAS SURE FLEX 19, UR buprenorphin e ia NEGATI VE NG/mL cutoff :5.0 Not Available [facility] ([facility]) [address] [place], [address], 05/26/2024 13:08:39 05/20/2005/26/2024 TOXAS SURE FLEX 19, UR fentanyl ia NEGATI VE NG/mL cutoff :2.0 Not Available [facility] ([facility]) [address] [place], [address], 05/26/2024 13:08:39 05/20/2005/26/2024 TOXAS SURE FLEX 19, UR tapentadol ia NEGATI VE NG/mL cutoff :200 Not Available [facility] ([facility]) [address] [place], [address], 05/26/2024 13:08:39 05/20/20 24 05/26/2024 TOXAS SURE FLEX 19, UR propoxyphene ia NEGATI VE NG/mL cutoff :300 Not Available [facility] ([facility]) [address] [place], [address], 05/26/2024 13:08:39 05/20/2005/26/2024 TOXAS SURE FLEX 19, UR tramadol ia NEGATI VE NG/mL cutoff :200 Not Available [facility] ([facility]) [address] [place] [address], [address], 05/26/2024 13:08:39 05/20/20 24 05/26/2024 TOXAS SURE FLEX 19, UR methylphenid ate ia NEGATI VE NG/mL cutoff :100 Not Available [facility] ([facility]) [address] [place], [address], 05/26/2024 13:08:39 05/20/2005/26/2024 TOXAS SURE FLEX 19, UR barbiturates ia NEGATI VE NG/mL cutoff :200 Not Available [facility] ([facility]) [address] [place], [address], 05/26/2024 13:08:39 05/20/2005/26/2024 TOXAS SURE FLEX 19, UR phencyclidin e ia NEGATI VE NG/mL cutoff :25 Not Available [facility] ([facility]) [address] [place], [address], 05/26/2024 13:08:39 05/20/2005/26/2024 TOXAS SURE FLEX 19, UR gabapentin ia NEGATI VE ug/mL cutoff :1.0 Not Available [facility] ([facility]) [address] [place], [address], 05/26/2024 13:08:39 05/20/2005/26/2024 TOXAS SURE FLEX 19, UR anticonvulsa nts NEGATI VE Not Available [facility] ([facility]) [address] [place], [address], 05/26/2024 13:08:39 05/20/2005/26/2024 TOXAS SURE FLEX 19, UR pregabalin NOT DETECT ED Not Available [facility] ([facility]) [address] [place], [address], 05/26/2024 13:08:39 05/20/2005/26/2024 TOXAS SURE FLEX 19, UR carisoprodol ia NEGATI VE NG/mL cutoff :100 Not Available [facility] ([facility]) [address] [place], [address], 05/26/2024 13:08:39 05/20/2005/21/2024 FE+CB C/D/P LT+TI BC+FE R iron bind.cap.(TI BC) 479 ug/dL 250-45 0 above high normal Not Available [facility] ([facility]) [address] [place], [address], 05/26/2024 13:08:40 05/20/2005/21/2024 FE+CB C/D/P LT+TI BC+FE R UIBC 464 ug/dL 118-36 9 above high normal Not Available [facility] ([facility]) [address] [place], [address], 05/26/2024 13:08:40 05/20/2005/21/2024 FE+CB C/D/P LT+TI BC+FE R iron 15 ug/dL 27-139 below low normal Not Available [facility] ([facility]) [address] [place], [address], 05/26/2024 13:08:40 05/20/2005/21/2024 FE+CB C/D/P LT+TI BC+FE R iron saturation 3 % 15-55 alert low Not Available [facility]) [address] [place], [address], 05/26/2024 13:08:40 05/20/2005/21/2024 FE+CB C/D/P LT+TI BC+FE R ferritin 7 NG/mL 15-150 below low normal Not Available [facility] ([facility]) [address] [place], [address], 05/26/2024 13:08:40 05/20/2005/21/2024 FE+CB C/D/P LT+TI BC+FE R WBC 5.0 x10e3 /uL 3.4-10 .8 normal Not Available [facility] ([facility]) [address] [place], [address], 05/26/2024 13:08:40 05/20/2005/21/2024 FE+CB C/D/P LT+TI BC+FE R RBC 4.40 x10e6 /uL 3.77-5 .28 normal Not Available [facility] ([facility]) [address] [facility], [place], [address], 05/26/2024 13:08:40 05/20/2005/21/2024 FE+CB C/D/P LT+TI BC+FE R hemoglobin 11.0 g/dL 11.1-1 5.9 below low normal Not Available [facility] ([facility]) [address] [place], [address], 05/26/2024 13:08:40 05/20/2005/21/2024 FE+CB C/D/P LT+TI BC+FE R hematocrit 36.1 % 34.0-4 6.6 normal Not Available [facility] ([facility]) [address] [place], [address], 05/26/2024 13:08:40 05/20/2005/21/2024 FE+CB C/D/P LT+TI BC+FE R MCV 82 fL 79-97 normal Not Available [facility] ([facility]) [address] [place], [address], 05/26/2024 13:08:40 05/20/2005/21/2024 FE+CB C/D/P LT+TI BC+FE R MCH 25.0 pg 26.6-3 3.0 below low normal Not Available [facility] ([facility]) [address] [place], [address], 05/26/2024 13:08:40 05/20/20 24 05/21/2024 FE+CB C/D/P LT+TI BC+FE R MCHC 30.5 g/dL 31.5-3 5.7 below low normal Not Available [facility] ([facility]) [address] [facility], [place], [address], 05/26/2024 13:08:40 05/20/2005/21/2024 FE+CB C/D/P LT+TI BC+FE R RDW 14.9 % 11.7-1 5.4 Not Available [facility] ([facility]) [address] [facility], [place], [address], 05/26/2024 13:08:40 05/20/2005/21/2024 FE+CB C/D/P LT+TI BC+FE R platelets 508 x10e3 /uL 150-45 0 above high normal Not Available [facility] ([facility]) [address] [facility], [place], [address], 05/26/2024 13:08:40 05/20/2005/21/2024 FE+CB C/D/P LT+TI BC+FE R neutrophils 71 % not estab. normal Not Available [facility] ([facility]) [address] [facility], [place], [address], 05/26/2024 13:08:40 05/20/20 24 05/21/2024 FE+CB C/D/P LT+TI BC+FE R lymphs 20 % not estab. normal Not Available [facility] ([facility]) [address] [facility], [place], [address], 05/26/2024 13:08:40 05/20/2005/21/2024 FE+CB C/D/P LT+TI BC+FE R monocytes 7 % not estab. normal Not Available [facility] ([facility]) [address] [facility], [place], [address], 05/26/2024 13:08:40 05/20/20 24 05/21/2024 FE+CB C/D/P LT+TI BC+FE R eos 1 % not estab. normal Not Available [facility] ([facility]) [address] [facility], [place], [address], 05/26/2024 13:08:40 05/20/2005/21/2024 FE+CB C/D/P LT+TI BC+FE R basos 1 % not estab. normal Not Available [facility] ([facility]) [address] [facility], [place], [address], 05/26/2024 13:08:40 05/20/2005/21/2024 FE+CB C/D/P LT+TI BC+FE R immature cells 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 Not Available [facility] ([facility]) [address] [facility], [place], [address], 05/26/2024 13:08:40 05/20/2005/21/2024 FE+CB C/D/P LT+TI BC+FE R neutrophils (absolute) 3.5 x10e3 /uL 1.4-7. 0 normal Not Available [facility] ([facility]) [address] [facility], [place], [address], 05/26/2024 13:08:40 05/20/20 24 05/21/2024 FE+CB C/D/P LT+TI BC+FE R lymphs (absolute) 1.0 x10e3 /uL 0.7-3. 1 normal Not Available [facility] ([facility]) [address] [place], [address], 05/26/2024 13:08:40 05/20/20 24 05/21/2024 FE+CB C/D/P LT+TI BC+FE R monocytes(ab solute) 0.3 x10e3 /uL 0.1-0. 9 normal Not Available [facility] ([facility]) [address] [place], [address], 05/26/2024 13:08:40 05/20/20 24 05/21/2024 FE+CB C/D/P LT+TI BC+FE R eos (absolute) 0.1 x10e3 /uL 0.0-0. 4 normal Not Available [facility] ([facility]) [address] [facility], [place], [address], 05/26/2024 13:08:40 05/20/2005/21/2024 FE+CB C/D/P LT+TI BC+FE R baso (absolute) 0.1 x10e3 /uL 0.0-0. 2 normal Not Available [facility] ([facility]) [address] [place], [address], 05/26/2024 13:08:40 05/20/2005/21/2024 FE+CB C/D/P LT+TI BC+FE R immature granulocytes 0 % not estab. Not Available [facility] ([facility]) [address] [facility], [place], [address], 05/26/2024 13:08:40 05/20/2005/21/2024 FE+CB C/D/P LT+TI BC+FE R immature grans (abs) 0.0 x10e3 /uL 0.0-0. 1 Not Available [facility] ([facility]) [address] [facility], [place], [address], 05/26/2024 13:08:40 05/20/2005/21/2024 FE+CB C/D/P LT+TI BC+FE R NRBC 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 Not Available [facility] ([facility]) [address] [place], [address], 05/26/2024 13:08:40 05/20/2005/21/2024 FE+CB C/D/P LT+TI BC+FE R hematology comments: 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 Not Available [facility] ([facility]) [address] [place], [address], 05/26/2024 13:08:40 05/20/2019 0505/21/2024 COMP. METAB OLIC PANEL (14) glucose 96 mg/dL 70-99 normal Not Available [facility] ([facility]) [address] [place], [address], 05/26/2024 13:08:41 05/20/20 24 05/21/2024 COMP. METAB OLIC PANEL (14) BUN 19 mg/dL 8-27 normal Not Available [facility] ([facility]) [address] [place], [address], 05/26/2024 13:08:41 05/20/2005/21/2024 COMP. METAB OLIC PANEL (14) creatinine 0.62 mg/dL 0.57-1 .00 normal Not Available [facility] ([facility]) [address] [place], [address], 05/26/2024 13:08:41 05/20/20 24 05/21/2024 COMP. METAB OLIC PANEL (14) eGFR 98 mL/mi n/1.7 3 >59 normal Not Available [facility] ([facility]) [address] [place], [address], 05/26/2024 13:08:41 05/20/20 24 05/21/2024 COMP. METAB OLIC PANEL (14) BUN/creatini ne ratio 31 12-28 above high normal Not Available [facility] ([facility]) [address] [place], [address], 05/26/2024 13:08:41 05/20/20 24 05/21/2024 COMP. METAB OLIC PANEL (14) sodium 142 mmol/ L 134-14 4 normal Not Available [facility] ([facility]) [address] [place], [address], 05/26/2024 13:08:41 05/20/20 24 05/21/2024 COMP. METAB OLIC PANEL (14) potassium 4.6 mmol/ L 3.5-5. 2 normal Not Available [facility] ([facility]) [address] [place], [address], 05/26/2024 13:08:41 05/20/20 24 05/21/2024 COMP. METAB OLIC PANEL (14) chloride 104 mmol/ L 96-106 normal Not Available [facility] ([facility]) [address] [place], [address], 05/26/2024 13:08:41 05/20/20 24 05/21/2024 COMP. METAB OLIC PANEL (14) carbon dioxide, total 26 mmol/ L 20-29 normal Not Available [facility] ([facility]) [address] [place], [address], 05/26/2024 13:08:41 05/20/20 24 05/21/2024 COMP. METAB OLIC PANEL (14) calcium 9.4 mg/dL 8.7-10 .3 normal Not Available [facility] ([facility]) [address] [place], [address], 05/26/2024 13:08:41 05/20/20 24 05/21/2024 COMP. METAB OLIC PANEL (14) protein, total 6.6 g/dL 6.0-8. 5 normal Not Available [facility] ([facility]) [address] [place], [address], 05/26/2024 13:08:41 05/20/20 24 05/21/2024 COMP. METAB OLIC PANEL (14) albumin 4.4 g/dL 3.9-4. 9 normal Not Available [facility] ([facility]) [address] [place], [address], 05/26/2024 13:08:41 05/20/20 24 05/21/2024 COMP. METAB OLIC PANEL (14) globulin, total 2.2 g/dL 1.5-4. 5 Not Available [facility] ([facility]) [address] [facility] [place], [address], 05/26/2024 13:08:41 05/20/2005/21/2024 COMP. METAB OLIC PANEL (14) bilirubin, total <0.2 mg/dL 0.0-1. 2 Not Available [facility] ([facility]) [address] [facility] [place], [address], 05/26/2024 13:08:41 05/20/2005/21/2024 COMP. METAB OLIC PANEL (14) alkaline phosphatase 179 IU/L 44-121 above high normal Not Available [facility] ([facility]) [address] [facility] [place], [address], 05/26/2024 13:08:41 05/20/20 24 05/21/2024 COMP. METAB OLIC PANEL (14) AST (SGOT) 19 IU/L 0-40 normal Not Available [facility] ([facility]) [address] [facility], [place], [address], 05/26/2024 13:08:41 05/20/2005/21/2024 COMP. METAB OLIC PANEL (14) ALT (SGPT) 14 IU/L 0-32 normal Not Available [facility] ([facility]) [address] [place], [address], 05/26/2024 13:08:41 05/20/2005/26/2024 OPIAT E CLASS , MS, UR RFX opiate class +POSIT MAGGIE+ Not Available [facility] ([facility]) [address] [place], [address], 05/26/2024 13:08:41 05/20/2005/26/2024 OPIAT E CLASS , MS, UR RFX codeine NOT DETECT ED NG/mg _crea t Not Available [facility] ([facility]) [address] [place], [address], 05/26/2024 13:08:41 05/20/2005/26/2024 OPIAT E CLASS , MS, UR RFX morphine 504 NG/mg _crea t Not Available [facility] ([facility]) [address] [facility], [place], [address], 05/26/2024 13:08:41 05/20/2005/26/2024 OPIAT E CLASS , MS, UR RFX normorphine 157 NG/mg _crea t Not Available [facility] ([facility]) [address] [facility], [place], [address], 05/26/2024 13:08:41 05/20/2005/26/2024 OPIAT E CLASS , MS, UR RFX norcodeine NOT DETECT ED NG/mg _crea t Not Available [facility] [facility] [address] [place], [address], 05/26/2024 13:08:41 05/20/2005/26/2024 OPIAT E CLASS , MS, UR RFX hydrocodone 5233 NG/mg _crea t Not Available [facility] ([facility]) [address] [place], [address], 05/26/2024 13:08:41 05/20/2005/26/2024 OPIAT E CLASS , MS, UR RFX hydromorphon e 229 NG/mg _crea t Not Available [facility] ([facility]) [address] [place], [address], 05/26/2024 13:08:41 05/20/2005/26/2024 OPIAT E CLASS , MS, UR RFX dihydrocodei ne 810 NG/mg _crea t Not Available [facility] ([facility]) [address] [place], [address], 05/26/2024 13:08:41 05/20/2005/26/2024 OPIAT E CLASS , MS, UR RFX norhydrocodo ne >4348 NG/mg _crea t Expec ismael metab olism of opiat e class drugs : Paren t Drug Detec ismael Metab olite s ----- ----- - ----- ----- ----- ----- Codei ne: Major : Morph ine, Baring deine Minor : [place] codon e, [place] morph one, Dihyd rocod eine, Norhy droco done, Normo rphin e Morph ine: Major : Normo rphin e Minor : [place] morph one [place] codon e: [place] morph one, Dihyd rocod eine, Norhy droco done [place] morph one: None Dihyd rocod eine: None Heroi n: 6-Andrew tylmo rphin e (if inclu ded), Morph ine, Normo rphin e Codei ne, in small amoun ts in robb rison to morph ine, is often detec ismael when heroi n is the sourc e drug. Not Available [facility] ([facility]) [address] [place], [address], 05/26/2024 13:08:41 05/20/2005/21/2024 LIPID PANEL cholesterol, total 143 mg/dL 100-19 9 normal Not Available [facility] ([facility]) [address] [place], [address], 05/26/2024 13:08:42 05/20/2005/21/2024 LIPID PANEL triglyceride s 96 mg/dL 0-149 normal Not Available [facility] ([facility]) [address] [place], [address], 05/26/2024 13:08:42 05/20/2005/21/2024 LIPID PANEL HDL cholesterol 46 mg/dL >39 normal Not Available [facility] ([facility]) [address] [place], [address], 05/26/2024 13:08:42 05/20/2005/21/2024 LIPID PANEL VLDL cholesterol harsh 18 mg/dL 5-40 Not Available [facility] ([facility]) [address] [place], [address], 05/26/2024 13:08:42 05/20/2005/21/2024 LIPID PANEL LDL chol calc ([facility]) 79 mg/dL 0-99 Not Available [facility] ([facility]) [address] [place], [address], 05/26/2024 13:08:42 05/20/2005/21/2024 LIPID PANEL LDL calc comment: 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 Not Available [facility] ([facility]) [address] [place], [address], 05/26/2024 13:08:42 05/20/2005/26/2024 AMPHE TAMIN ES, MS, UR RFX amphetamines NEGATI VE Not Available [facility] ([facility]) [address] [place], [address], 05/26/2024 13:08:43 05/20/2005/26/2024 AMPHE TAMIN ES, MS, UR RFX methamphetam ine NOT DETECT ED NG/mg _crea t Not Available [facility] ([facility]) [address] [place], [address], 05/26/2024 13:08:43 05/20/2005/26/2024 AMPHE TAMIN ES, MS, UR RFX amphetamine NOT DETECT ED NG/mg _crea t Not Available [facility] ([facility]) [address] [place], [address], 05/26/2024 13:08:43 05/20/2005/26/2024 AMPHE TAMIN ES, MS, UR RFX MDMA (ecstasy) NOT DETECT ED NG/mg _crea t Not Available [facility] ([facility]) [address] [facility] [place], [address], 05/26/2024 13:08:43 05/20/2005/26/2024 IBRAHIMA RICHARDS ES, MS, UR RFX mda (ecstasy metabolite) NOT DETECT ED NG/mg _crea t Not Available [facility] ([facility]) [address] [facility], [place], [address], 05/26/2024 13:08:43 05/20/2005/21/2024 HCV ANTIB ILSA CASCA DE(PC R/GEN O) HCV Ab NON REACTI VE non reacti ve Not Available [facility] ([facility]) [address] [facility], [place], [address], 05/26/2024 13:08:43 05/20/2005/21/2024 HCV ANTIB ILSA CASCA DE(PC R/GEN O) interpretati on: COMMEN T Not infec ismael with HCV unles s early or acute infec tion is suspe cted (whic h may be delay ed in an immun ocomp romis ed indiv idual ), or other evide nce exist s to indic ate HCV infec tion. Not Available [facility] ([facility]) [address] [facility], [place], [address], 05/26/2024 13:08:43 05/20/2005/26/2024 NICHOLAS KHALIL DS, MS, UR RFX cannabinoids NEGATI VE Not Available [facility] ([facility]) [address] [facility], [place], [address], 05/26/2024 13:08:44 05/20/2005/26/2024 NICHOLAS KHALIL DS, MS, UR RFX carboxy-THC NOT DETECT ED NG/mg _crea t Not Available [facility] ([facility]) [address] [facility], [place], [address], 05/26/2024 13:08:44 05/20/2005/21/2024 TSH TSH 0.563 uIU/m L 0.450- 4.500 normal Not Available [facility] ([facility]) [address] [facility], [place], [address], 05/26/2024 13:08:45 05/20/20 24 05/21/2024 VITAM IN D, 25-HY DROXY vitamin D, 25-hydroxy 33.0 NG/mL 30.0-1 00.0 Vitam in D defic iency has been defin ed by the Insti tute of Medic ine and an Endoc rine Socie ty pract ice guide line as a level of serum 25-OH vitam in D less than 20 ng/mL (1,2) . The Endoc rine Socie ty went on to furth er defin e vitam in D insuf ficie ncy as a level betwe en 21 and 29 ng/mL (2). 1. IOM (Inst itute of Medic ine). 2009. Jeramie ry refer ence josee es for calci um and D. Wolf oneill [place]: The Natio nal [facility] Press . 2. Ping tripp [place], Adrian banuelos [place], [place] off-F errar i FERRELL, et al. Evalu ation , treat ment, and preve ntion of vitam in D defic iency : an Endoc rine Socie ty clini harsh pract ice guide line. JCEM. 2010; 96(7) :1911 -30. Not Available [facility] ([facility]) [address] [facility], [place], [address], 05/26/2024 13:08:45 05/20/20 24 05/21/2024 HIV AB/P2 4 AG WITH REFLE X HIV Ab/P24 Ag screen NON REACTI VE non reacti ve HIV Negat maggie HIV-1 /HIV- 2 antib odies and HIV-1 p24 antig en were NOT detec ismael. There is no labor atory evide nce of HIV infec tion. Not Available [facility] ([facility]) [address] [facility], [place], [address], 05/26/2024 13:08:46 08/22/19 25 08/23/2024 FE+TI BC+FE R iron bind.cap.(TI BC) 298 ug/dL 250-45 0 normal Not Available [facility] ([facility]) [address] [place], [address], 08/23/2024 11:08:18 08/22/19 25 08/23/2024 FE+TI BC+FE R UIBC 149 ug/dL 118-36 9 normal Not Available [facility] ([facility]) [address] [place], [address], 08/23/2024 11:08:18 08/22/19 25 08/23/2024 FE+TI BC+FE R iron 149 ug/dL 27-139 above high normal Not Available [facility] ([facility]) [address] [place], [address], 08/23/2024 11:08:18 08/22/19 25 08/23/2024 FE+TI BC+FE R iron saturation 50 % 15-55 normal Not Available [facility] ([facility]) [address] [place], [address], 08/23/2024 11:08:18 08/22/19 25 08/23/2024 FE+TI BC+FE R ferritin 223 NG/mL 15-150 above high normal Not Available [facility] ([facility]) [address] [place], [address], 08/23/2024 11:08:18 08/22/19 25 08/23/2024 PTH, INTAC T PTH, intact 24 pg/mL 15-65 normal Not Available [facility] ([facility]) [address] [place], [address], 08/23/2024 11:08:19 01/18/20 25 01/21/2025 TOXAS SURE FLEX 19, UR summary report FINAL ===== ===== ===== ===== ===== ===== ===== ===== ===== ===== ===== ===== ===== === Opiat e Class , MS, Ur RFX ToxAs sure Flex 19, Ur ===== ===== ===== ===== ===== ===== ===== ===== ===== ===== ===== ===== ===== === Test Resul t Flag Units Drug Prese nt Morph ine 1708 ng/mg creat Normo rphin e 229 ng/mg creat Poten tial sourc es of morph ine inclu de admin istra tion of codei ne or morph ine, use of heroi n, or inges tion of poppy seeds . Normo rphin e is an expec ismael metab olite of morph ine. [place] codon e 4548 ng/mg creat [place] morph one 2908 ng/mg creat Dihyd rocod eine 1809 ng/mg creat Norhy droco done >6250 ng/mg creat Sourc es of hydro codon e inclu de sched uled presc ripti on medic ation s. [place] morph one, dihyd rocod eine and norhy droco done are expec ismael metab olite s of hydro codon e. [place] morph one and dihyd rocod eine are also avail able as sched uled presc ripti on medic ation s. ===== ===== ===== ===== ===== ===== ===== ===== ===== ===== ===== ===== ===== === Test Resul t Flag Units Ref Range Creat inine 80 mg/dL >=20 ===== ===== ===== ===== ===== ===== ===== ===== ===== ===== ===== ===== ===== === Decla red Medic ation s: Medic ation list was not provi ded. ===== ===== ===== ===== ===== ===== ===== ===== ===== ===== ===== ===== ===== === For clini harsh consu ltati on, pleas e call . ===== ===== ===== ===== ===== ===== ===== ===== ===== ===== ===== ===== ===== === Not Available [facility] ([facility]) [address] [place], [address], 01/21/2025 14:07:59 01/18/20 25 01/21/2025 TOXAS SURE FLEX 19, UR pdf . Not Available [facility] ([facility]) [address] [place], [address], 01/21/2025 14:07:59 01/18/20 25 01/21/2025 TOXAS SURE FLEX 19, UR creatinine 80 mg/dL >=20 REFER ENCE RANGE : Ref Range >=20 Not Available [facility] ([facility]) [address] [place], [address], 01/21/2025 14:07:59 01/18/20 25 01/21/2025 TOXAS SURE FLEX 19, UR amphetamines ia Negati ve NG/mL cutoff :300 Not Available [facility] ([facility]) [address] [place], [address], 01/21/2025 14:07:59 01/18/20 25 01/21/2025 TOXAS SURE FLEX 19, UR benzodiazepi monster Negati ve Not Available [facility] ([facility]) [address] [place], [address], 01/21/2025 14:07:59 01/18/20 25 01/21/2025 TOXAS SURE FLEX 19, UR diazepam Not Detect ed NG/mg _crea t Not Available [facility] ([facility]) [address] [place], [address], 01/21/2025 14:07:59 01/18/20 25 01/21/2025 TOXAS SURE FLEX 19, UR desmethyldia zepam Not Detect ed NG/mg _crea t Not Available [facility] ([facility]) [address] [place], [address], 01/21/2025 14:07:59 01/18/20 25 01/21/2025 TOXAS SURE FLEX 19, UR oxazepam Not Detect ed NG/mg _crea t Not Available [facility] ([facility]) [address] [facility], [place], [address], 01/21/2025 14:07:59 01/18/20 25 01/21/2025 TOXAS SURE FLEX 19, UR temazepam Not Detect ed NG/mg _crea t Expec ismael metab olism of benzo diaze pine class drugs : Paren t Drug Detec ismael Metab olite s ----- ----- - ----- ----- ----- ----- Diaze lucia: Desme thyld iazep am, Temaz epam, Oxaze lucia Chlor diaze poxid e: Desme thyld iazep am, Oxaze lucia Clora zepat e: Desme thyld iazep am, Oxaze lucia Halaz epam: Desme thyld iazep am, Oxaze lucia Temaz epam: Oxaze lucia Oxaze lucia: None Not Available [facility] ([facility]) [address] [place], [address], 01/21/2025 14:07:59 01/18/20 25 01/21/2025 TOXAS SURE FLEX 19, UR alprazolam Not Detect ed NG/mg _crea t Not Available [facility] ([facility]) [address] [place], [address], 01/21/2025 14:07:59 01/18/20 25 01/21/2025 TOXAS SURE FLEX 19, UR alpha-hydrox yalprazolam Not Detect ed NG/mg _crea t Not Available [facility] ([facility]) [address] [place], [address], 01/21/2025 14:07:59 01/18/20 25 01/21/2025 TOXAS SURE FLEX 19, UR desalkylflur azepam Not Detect ed NG/mg _crea t Not Available [facility] ([facility]) [address] [place], [address], 01/21/2025 14:07:59 01/18/20 25 01/21/2025 TOXAS SURE FLEX 19, UR lorazepam Not Detect ed NG/mg _crea t Not Available [facility] ([facility]) [address] [place], [address], 01/21/2025 14:07:59 01/18/20 25 01/21/2025 TOXAS SURE FLEX 19, UR alpha-hydrox ytriazolam Not Detect ed NG/mg _crea t Not Available [facility] ([facility]) [address] [place], [address], 01/21/2025 14:07:59 01/18/20 25 01/21/2025 TOXAS SURE FLEX 19, UR clonazepam Not Detect ed NG/mg _crea t Not Available [facility] ([facility]) [address] [place], [address], 01/21/2025 14:07:59 01/18/20 25 01/21/2025 TOXAS SURE FLEX 19, UR 7-aminoclona zepam Not Detect ed NG/mg _crea t Not Available [facility] ([facility]) [address] [place], [address], 01/21/2025 14:07:59 01/18/20 25 01/21/2025 TOXAS SURE FLEX 19, UR midazolam Not Detect ed NG/mg _crea t Not Available [facility] ([facility]) [address] [place], [address], 01/21/2025 14:07:59 01/18/20 25 01/21/2025 TOXAS SURE FLEX 19, UR alpha-hydrox ymidazolam Not Detect ed NG/mg _crea t Not Available [facility] ([facility]) [address] [place], [address], 01/21/2025 14:07:59 01/18/20 25 01/21/2025 TOXAS SURE FLEX 19, UR flunitrazepa m Not Detect ed NG/mg _crea t Not Available [facility] ([facility]) [address] [place], [address], 01/21/2025 14:07:59 01/18/20 25 01/21/2025 TOXAS SURE FLEX 19, UR desmethylflu nitrazepam Not Detect ed NG/mg _crea t Not Available [facility] ([facility]) [address] [place], [address], 01/21/2025 14:07:59 01/18/20 25 01/21/2025 TOXAS SURE FLEX 19, UR cocaine metabolite ia Negati ve NG/mL cutoff :150 Not Available [facility] ([facility]) [address] [place], [address], 01/21/2025 14:07:59 01/18/20 25 01/21/2025 TOXAS SURE FLEX 19, UR ethanol biomarkers ia Negati ve NG/mL cutoff :500 Not Available [facility] ([facility]) [address] [place], [address], 01/21/2025 14:07:59 01/18/20 25 01/21/2025 TOXAS SURE FLEX 19, UR cannabinoids ia Negati ve NG/mL cutoff :20 Not Available [facility] ([facility]) [address] [place], [address], 01/21/2025 14:07:59 01/18/20 25 01/21/2025 TOXAS SURE FLEX 19, UR 6-acetylmorp cuong ia Negati ve NG/mL cutoff :10 Not Available [facility] ([facility]) [address] [place], [address], 01/21/2025 14:07:59 01/18/20 25 01/21/2025 TOXAS SURE FLEX 19, UR opiate class ia COMMEN T NG/mL cutoff :100 Furth er testi ng indic ated Not Available [facility] ([facility]) [address] [place], [address], 01/21/2025 14:07:59 01/18/20 25 01/21/2025 TOXAS SURE FLEX 19, UR oxycodone class ia Negati ve NG/mL cutoff :100 Not Available [facility] ([facility]) [address] [place], [address], 01/21/2025 14:07:59 01/18/20 25 01/21/2025 TOXAS SURE FLEX 19, UR methadone ia Negati ve NG/mL cutoff :100 Not Available [facility] ([facility]) [address] [place], [address], 01/21/2025 14:07:59 01/18/20 25 01/21/2025 TOXAS SURE FLEX 19, UR methadone mtb ia Negati ve NG/mL cutoff :100 Not Available [facility] ([facility]) [address] [place], [address], 01/21/2025 14:07:59 01/18/20 25 01/21/2025 TOXAS SURE FLEX 19, UR buprenorphin e ia Negati ve NG/mL cutoff :5.0 Not Available [facility] ([facility]) [address] [place], [address], 01/21/2025 14:07:59 01/18/20 25 01/21/2025 TOXAS SURE FLEX 19, UR fentanyl ia Negati ve NG/mL cutoff :2.0 Not Available [facility] ([facility]) [address] [place], [address], 01/21/2025 14:07:59 01/18/20 25 01/21/2025 TOXAS SURE FLEX 19, UR tapentadol ia Negati ve NG/mL cutoff :200 Not Available [facility] ([facility]) [address] [place], [address], 01/21/2025 14:07:59 01/18/20 25 01/21/2025 TOXAS SURE FLEX 19, UR propoxyphene ia Negati ve NG/mL cutoff :300 Not Available [facility] ([facility]) [address] [place], [address], 01/21/2025 14:07:59 01/18/20 25 01/21/2025 TOXAS SURE FLEX 19, UR tramadol ia Negati ve NG/mL cutoff :200 Not Available [facility] ([facility]) [address] [place], [address], 01/21/2025 14:07:59 01/18/20 25 01/21/2025 TOXAS SURE FLEX 19, UR methylphenid ate ia Negati ve NG/mL cutoff :100 Not Available [facility] ([facility]) [address] [place], [address], 01/21/2025 14:07:59 01/18/20 25 01/21/2025 TOXAS SURE FLEX 19, UR barbiturates ia Negati ve NG/mL cutoff :200 Not Available [facility] ([facility]) [address] [place], [address], 01/21/2025 14:07:59 01/18/20 25 01/21/2025 TOXAS SURE FLEX 19, UR phencyclidin e ia Negati ve NG/mL cutoff :25 Not Available [facility] ([facility]) [address] [place], [address], 01/21/2025 14:07:59 01/18/20 25 01/21/2025 TOXAS SURE FLEX 19, UR gabapentin ia Negati ve ug/mL cutoff :1.0 Not Available [facility] ([facility]) [address] [place], [address], 01/21/2025 14:07:59 01/18/20 25 01/21/2025 TOXAS SURE FLEX 19, UR anticonvulsa nts Negati ve Not Available [facility] ([facility]) [address] [place], [address], 01/21/2025 14:07:59 01/18/20 25 01/21/2025 TOXAS SURE FLEX 19, UR pregabalin Not Detect ed Not Available [facility] ([facility]) [address] [place], [address], 01/21/2025 14:07:59 01/18/20 25 01/21/2025 TOXAS SURE FLEX 19, UR carisoprodol ia Negati ve NG/mL cutoff :100 Not Available [facility] ([facility]) [address] [place], [address], 01/21/2025 14:07:59 01/18/20 25 01/21/2025 OPIAT E CLASS , MS, UR RFX opiate class +POSIT MAGGIE+ Not Available [facility] ([facility]) [address] [place], [address], 01/21/2025 14:08:00 01/18/20 25 01/21/2025 OPIAT E CLASS , MS, UR RFX codeine Not Detect ed NG/mg _crea t Not Available [facility] ([facility]) [address] [place], [address], 01/21/2025 14:08:00 01/18/20 25 01/21/2025 OPIAT E CLASS , MS, UR RFX morphine 1708 NG/mg _crea t Not Available [facility] ([facility]) [address] [place], [address], 01/21/2025 14:08:00 01/18/20 25 01/21/2025 OPIAT E CLASS , MS, UR RFX normorphine 229 NG/mg _crea t Not Available [facility] ([facility]) [address] [place], [address], 01/21/2025 14:08:00 01/18/20 25 01/21/2025 OPIAT E CLASS , MS, UR RFX norcodeine Not Detect ed NG/mg _crea t Not Available [facility] ([facility]) [address] [place], [address], 01/21/2025 14:08:00 01/18/20 25 01/21/2025 OPIAT E CLASS , MS, UR RFX hydrocodone 4548 NG/mg _crea t Not Available [facility] ([facility]) [address] [place], [address], 01/21/2025 14:08:00 01/18/20 25 01/21/2025 OPIAT E CLASS , MS, UR RFX hydromorphon e 2908 NG/mg _crea t Not Available [facility] ([facility]) [address] [place], [address], 01/21/2025 14:08:00 06/24/01/21/2025 OPIAT E CLASS , MS, UR RFX dihydrocodei ne 1809 NG/mg _crea t Not Available [facility] ([facility]) [address] [facility], [place], [address], 01/21/2025 14:08:00 01/18/20 25 01/21/2025 OPIAT E CLASS , MS, UR RFX norhydrocodo ne >6250 NG/mg _crea t Expec ismael metab olism of opiat e class drugs : Paren t Drug Detec ismael Metab olite s ----- ----- - ----- ----- ----- ----- Codei ne: Major : Morph ine, Baring deine Minor : [place] codon e, [place] morph one, Dihyd rocod eine, Norhy droco done, Normo rphin e Morph ine: Major : Normo rphin e Minor : [place] morph one [place] codon e: [place] morph one, Dihyd rocod eine, Norhy droco done [place] morph one: None Dihyd rocod eine: None Heroi n: 6-Andrew tylmo rphin e (if inclu ded), Morph ine, Normo rphin e Codei ne, in small amoun ts in robb rison to morph ine, is often detec ismael when heroi n is the sourc e drug. Not Available [facility] ([facility]) [address] [facility], [place], [address], 01/21/2025 14:08:00 08/15/19 25 08/04/2024 DEXA, axial skele ton + verte bral fract ure asses sment No observ ation record ed. [email or web address] [facility] [address], [place], [address], 08/23/2024 14:49:20 08/22/19 MAMMO , scree aurelia, bilat eral No observ ation record ed. Not Available 2024 14:49:20 09/12/19 25 08/29/2024 estephania r monit or No observ ation record ed. [email or web address] [facility] [address] [place], [address], 09/13/2024 09:12:46 09/15/19 25 09/15/2024 exerc ise stres s echoc ardio gram No observ ation record ed. [email or web address] [facility] [address] [place], [address], 09/15/2024 16:19:12 09/15/19 25 09/15/2024 US, duple x, renal arter y No observ ation record ed. [email or web address] [facility] [address] [place], [address], 09/15/2024 16:34:32 09/28/19 25 09/21/2024 stres s echoc ardio gram No observ ation record ed. [email or web address] [facility] [address] [place], [address], 09/27/2024 13:12:43 12/02/1911/30/2024 nucle ar stres s test No observ ation record ed. [email or web address] [facility] [address] [place], [address], 12/01/2024 20:07:08 Result Notes None recorded. Problems Name Problem SNOMED Code Status Onset Date Resolution Date Notes Provider Name and Address Organization Details Recorded Time Essential hypertension 89901337 Active 2023 CAROLINA Badillo [address] [place] [address], [phone] 8, [employer] 14:07:59 Hyperlipidemia 30574698 Active 2023 CAROLINA Badillo [address] [place] [address], 737[address] 8, [employer] 14:08:16 Vitamin D deficiency 77555419 Active 2023 CAROLINA Badillo [address] [place] [address], [phone] 8, [employer] 4 14:08:38 Iron deficiency anemia 15858167 Active 2023 CAROLINA Badillo [address] [place] [address], [address] 8, [employer] 4 14:08:11 Gastroesophage al reflux disease without esophagitis 690522377 Active 2023 CAROLINA Badillo [address] [place] [address], [address]48[address]396 8, [employer] 4 14:08:05 Chronic low back pain 924202899 Active 2023 CAROLINA Badillo [address] [place] [address], 847[address] 8, [employer] 4 14:07:53 Osteoporosis 24422848 Active 2024 CAROLINA Badillo [address] [place] [address], [address]314 8, [employer] 5 11:59:06 Primary insomnia 8066011 Active 2024 CAROLINA Badillo [address] [place] [address], [address] 8, [employer] 5 12:04:42 Problem Notes None recorded. Procedures Surgical History Date Name Laterality Status Provider Name and Address Organization Details Recorded Time 07/07/20 Most Recent Mammogram completed [employer] 08/22/2024 09:33:07 Appendectomy completed [employer] 05/20/2024 09:45:22 Back Surgery completed [employer] 05/20/2024 09:45:22 Breast Biopsy completed [employer] 05/20/2024 09:45:22 Hysterectomy completed [employer] 05/20/2024 09:45:22 Tubal Ligation completed [employer] 05/20/2024 09:45:22 Total Hysterectomy completed [employer] 05/20/2024 09:45:22 Thyroid Surgery completed [employer] 05/20/2024 09:45:22 Imaging Results None recorded. Procedure Notes None recorded. Medical Equipment None Reported. Allergies Allergen ID Allergen Name Allergen Category Reaction Reaction Severity Criticality Documentation Date Start Date Code Code System Note Provider Name and Address Organization Details Recorded Time 61017 Product containin g penicilli n (product) medicatio n rash Not available Not available 05/20/2024 38912 8001 SNOMED [employer] 4 09:45:42 48057 naproxen medicatio n Not available Not available Not available 05/20/2024 7258 RxNorm [employer] 09:45:37 30134 amoxicill in medicatio n Not available Not available Not available 05/20/2024 723 RxNorm [employer] 4 09:45:50 Medications Name Sig Start Date Stop Date Status Note LastModified by Organization Details LastModified Time slippery elm bark 400 mg capsule Take 1 capsule every day by oral route. active Not Available Not Available No t Available atorvastati n 40 mg tablet TAKE ONE TABLET BY MOUTH EVERY DAY AT BEDTIME FOR cholester ol 01/17 completed Not Available Not Available Not Available carvedilol 25 mg tablet TAKE TWO TABLETS BY MOUTH TWICE DAILY FOR HIGH BLOOD PRESSURE active Not Available Not Available No t Available clonidine HCl 0.1 mg tablet TAKE ONE TABLET BY MOUTH TWICE DAILY active Not Available Not Available No t Available azithromyci n 250 mg tablet TAKE 2 TABLETS BY MOUTH ON DAY 1, THEN TAKE 1 TABLET DAILY ON DAYS 2-5 05/17 completed Not Available Not Available Not Available clonidine 0.2 mg/24 hr weekly transdermal patch apply 1 PATCH TO THE SKIN ONCE A WEEK DIRECTED FOR HIGH BLOOD PRESSURE 01/17 completed Not Available Not Available Not Available hydrochloro thiazide 50 mg tablet TAKE TWO TABLETS BY MOUTH EVERY DAY 01/17 completed Not Available Not Available Not Available hydrocodone 5 mg-acetamin ophen 325 mg tablet TAKE ONE TABLET BY MOUTH EVERY 4 HOURS NEEDED FOR trauma/nguyen rgery MAY CAUSE DROWSINES S 05/17 completed Not Available Not Available Not Available senna 8.6 mg tablet TAKE ONE TABLET BY MOUTH EVERY DAY NEEDED FOR constipat ion 05/20 completed Not Available Not Available Not Available ondansetron HCl 8 mg tablet TAKE ONE TABLET BY MOUTH EVERY 8 HOURS NEEDED FOR NAUSEA AND VOMITING active Not Available Not Available No t Available sucralfate 1 gram tablet TAKE ONE TABLET BY MOUTH TWICE DAILY 05/17 completed Not Available Not Available Not Available lisinopril 20 mg tablet TAKE ONE TABLET BY MOUTH EVERY DAY 05/17 completed Not Available Not Available Not Available ondansetron HCl 4 mg tablet TAKE ONE TABLET BY MOUTH EVERY 8 HOURS 05/17 completed Not Available Not Available Not Available alendronate 70 mg tablet TAKE ONE TABLET BY MOUTH ONCE WEEKLY FOR osteoporO sis DIRECTED 2024 active Not Available Not Available Not Avai lable olanzapine 5 mg tablet TAKE ONE TABLET BY MOUTH EVERY DAY AT BEDTIME active Not Available Not Available No t Available clindamycin HCl 150 mg capsule TAKE ONE CAPSULE BY MOUTH THREE TIMES DAILY -- FINISH ALL MEDICINE -- 05/20 completed Not Available Not Available Not Available hydralazine 25 mg tablet TAKE ONE TABLET BY MOUTH THREE TIMES DAILY 05/20 completed Not Available Not Available Not Available metronidazo le 500 mg tablet TAKE ONE TABLET BY MOUTH TWICE DAILY FOR 7 DAYS 05/17 completed Not Available Not Available Not Available clopidogrel 75 mg tablet TAKE ONE TABLET BY MOUTH EVERY DAY 05/20 completed Not Available Not Available Not Available hydrocodone 10 mg-acetamin ophen 325 mg tablet TAKE ONE TABLET BY MOUTH FOUR TIMES DAILY NEEDED MAY CAUSE DROWSINES S active Not Available Not Available No t Available ondansetron 8 mg disintegrat ing tablet DISSOLVE ONE TABLET BY MOUTH EVERY 8 HOURS NEEDED FOR NAUSEA AND VOMITING 05/17 completed Not Available Not Available Not Available isosorbide mononitrate ER 120 mg tablet,exte nded release 24 hr TAKE ONE TABLET BY MOUTH EVERY DAY active Not Available Not Available No t Available isosorbide mononitrate ER 60 mg tablet,exte nded release 24 hr TAKE ONE TABLET BY MOUTH EVERY DAY 05/17 completed Not Available Not Available Not Available amlodipine 10 mg tablet TAKE ONE TABLET BY MOUTH EVERY DAY active Not Available Not Available No t Available benzonatate 100 mg capsule TAKE ONE CAPSULE BY MOUTH THREE TIMES DAILY NEEDED FOR COUGH -SWALLOW WHOLE. DO NOT CRUSH OR CHEW- 05/20 completed Not Available Not Available Not Available hydrocodone 7.5 mg-acetamin ophen 325 mg tablet TAKE ONE TABLET BY MOUTH FOUR TIMES DAILY NEEDED FOR PAIN MAY CAUSE DROWSINES S 05/23 completed Not Available Not Available Not Available pantoprazol e 40 mg tablet,pablo yed release TAKE ONE TABLET BY MOUTH TWICE DAILY active Not Available Not Available No t Available misoprostol 200 mcg tablet TAKE ONE TABLET BY MOUTH TWICE DAILY 05/20 completed Not Available Not Available Not Available docusate sodium 100 mg capsule TAKE ONE CAPSULE BY MOUTH TWICE DAILY 05/20 completed Not Available Not Available Not Available lisinopril 20 mg-hydrochl orothiazide 25 mg tablet TAKE ONE TABLET BY MOUTH EVERY MORNING 05/20 completed Not Available Not Available Not Available hydroxyzine HCl 25 mg tablet TAKE ONE TABLET BY MOUTH THREE TIMES DAILY NEEDED FOR ANXIETY MAY CAUSE DROWSINES S active Not Available Not Available No t Available hydralazine 50 mg tablet TAKE ONE TABLET BY MOUTH THREE TIMES DAILY 01/17 completed Not Available Not Available Not Available hydrochloro thiazide 25 mg tablet TAKE ONE TABLET BY MOUTH EVERY DAY 01/17 completed Not Available Not Available Not Available ergocalcife rol (vitamin D2) 1,250 mcg [...] THEN DRINK TWICE DAILY FOR 2 WEEKS 05/20 completed Not Available Not Available Not Available methylpredn isolone 4 mg tablets in a dose pack TAKE ACCORDING TO PACKAGE INSTRUCTI ONS --TAKE WITH FOOD-- -- FINISH ALL MEDICINE -- 05/17 completed Not Available Not Available Not Available lisinopril 40 mg tablet TAKE ONE TABLET BY MOUTH EVERY DAY FOR BLOOD PRESSURE active Not Available Not Available No t Available spironolact one 50 mg tablet TAKE ONE TABLET BY MOUTH EVERY DAY FOR fluid 01/17 completed Not Available Not Available Not Available rosuvastati n 40 mg tablet TAKE ONE TABLET BY MOUTH EVERY DAY AT BEDTIME active Not Available Not Available No t Available escitalopra m 5 mg tablet TAKE ONE TABLET BY MOUTH EVERY DAY active Not Available Not Available No t Available nitrofurant oin monohydrate /macrocryst als 100 mg capsule TAKE ONE CAPSULE BY MOUTH TWICE DAILY FOR 5 DAYS -- FINISH ALL MEDICINE -- 05/20 completed Not Available Not Available Not Available FeroSul 325 mg (65 mg iron) tablet TAKE ONE TABLET BY MOUTH EVERY DAY DIRECTED FOR IRON DEFICIENC Y active Not Available Not Available No t Available cholecalcif shane (vitamin D3) 50 mcg (2,000 unit) capsule TAKE ONE CAPSULE BY MOUTH EVERY DAY FOR vitamin d active Not Available Not Available No t Available sodium,pota ssium,mag sulfates 17.5 gram-3.13 gram-1.6 gram oral soln TAKE DIRECTED BY PHYSICIAN 'S OFFICE 05/20 completed Not Available Not Available Not Available clonidine HCl ER 0.1 mg tablet,exte nded release,12 hr TAKE ONE TABLET BY MOUTH TWICE DAILY active Not Available Not Available No t Available Vitamin B12 1000 mcg once daily active Not Available Not Available No t Available potassium citrate (replacemen t) 99 mg capsule Take 1 capsule by oral route. active Not Available Not Available No t Available Vitals Date Recorded Body height Body mass index (BMI) Body weight Body temperature Oxygen saturation Oxygen saturation in Arterial blood by Pulse oximetry Heart rate Systolic And Diastolic Systolic And Diastolic Systolic And Diastolic Provider Name and Address Organization Details Last Updated DateTime 5 165.1 cm 22.1 kg/m2 77472.0 7 g 97.9 [degF] 98 % 98 % 88 /min 200/98 mm[Hg] 196/98 mm[Hg] 194/98 mm[Hg] [facility] [employer] 5 13:20:05 Date Recorded Body height Body mass index (BMI) Body weight Body temperature Heart rate Oxygen saturation Oxygen saturation in Arterial blood by Pulse oximetry Systolic And Diastolic Systolic And Diastolic Provider Name and Address Organization Details Last Updated DateTime 5 165.1 cm 22.3 kg/m2 75994.3 8 g 97.9 [degF] 84 /min 96 % 96 % 182/85 mm[Hg] 163/72 mm[Hg] Modesto Zhang [employer] 5 15:16:06 Date Recorded Body height Body mass index (BMI) Body weight Oxygen saturation Oxygen saturation in Arterial blood by Pulse oximetry Body temperature Heart rate Systolic And Diastolic Systolic And Diastolic Systolic And Diastolic Provider Name and Address Organization Details Last Updated DateTime 5 165.1 cm 22 kg/m2 35262.9 1 g 96 % 96 % 98.3 [degF] 78 /min 198/102 mm[Hg] 208/96 mm[Hg] 196/100 mm[Hg] [facility]ilda [employer] 5 11:43:51 Date Recorded Body weight Body mass index (BMI) Body height Heart rate Oxygen saturation Oxygen saturation in Arterial blood by Pulse oximetry Systolic And Diastolic Provider Name and Address Organization Details Last Updated DateTime 4 03643.0 3 g 22.9 kg/m2 165.1 cm 92 /min 95 % 95 % 195/100 mm[Hg] [employer] 4 09:44:22 Social History Question Answer Notes LastModified by Organizat ion Details LastModified Time Tobacco Smoking Status Never Smoker [facility] 05/20/2024 09:45:22 Do You Have An Advance Directive? No Information not available 05/20/2024 Is Your Home Air Conditioned? Yes Information not available 05/20/2024 If You Are , What Was Your Level Of Alcohol Consumption Prior To ? None Information not available 05/20/2024 Do You Wear A Helmet When Biking? No Information not available 05/20/2024 Are You Blind Or Do You Have Difficulty Seeing? No Information not available 05/20/2024 What Is Your Level Of Caffeine Consumption? Occasional Information not available 05/20/2024 What Type Of Circuits Engineer Do You Use? None Information not available 05/20/2024 Have You Been To An Area Known To Be High Risk For COVID-19? No Information not available 05/20/2024 Are You Deaf Or Do You Have Serious Difficulty Hearing? No Information not available 05/20/2024 What Type Of Diet Are You Following? REGULAR Information not available 05/20/2024 What Is The Highest Grade Or Level Of School You Have Completed Or The Highest Degree You Have Received? [id number] Information not available 05/20/2024 Have There Been Any Changes To Your Family Or Social Situation? No Information no t available 05/20/2024 Are There Any Guns Present In Your Home? Yes Information not available 05/20/2024 Which Of Your Hands Is Dominant? Right Information not available 05/20/2024 What Is Your Home Situation? Other Information not available 05/20/2024 Do You Have A Medical Power Of Party Plan Sales Director? No Information not available 05/20/2024 What Was The Date Of Your Most Recent Tobacco Screening? 01/17/2025 Information not available 01/17/2025 Do You Have Any Pets? Yes Information not available 05/20/2024 Do You Use Protection During Sex? No Information not available 05/20/2024 What Is Your Relationship Status? Information not available 05/20/2024 Have You Repeated Any Grades? No Information not available 05/20/2024 Do You Use Your Seat Belt Or Car Seat Routinely? Yes Information not available 05/20/2024 Are You Sexually Active? Yes Information not available 05/20/2024 Do You Have Any Siblings? 3 Sisters Information not available 05/20/2024 Do You Have Smoke And Carbon Monoxide Detectors In Your Home? Yes Information not available 05/20/2024 Are You Passively Exposed To Smoke? Yes Information no t available 05/20/2024 Are There Any Smokers In Your House? Yes Information not available 05/20/2024 Do You Use Sunscreen Routinely? No Information not available 05/20/2024 Has Tobacco Cessation Counseling Been Provided? No Information not available 05/20/2024 Have You Recently Traveled Abroad? No Information not available 05/20/2024 Do You Have Difficulty Walking Or Climbing Stairs? No Information not available 05/20/2024 Are You Currently In School? No Information not available 05/20/2024 What Contraceptive Method Was Reported At Start Of This Visit? Female Sterilization Information not available 01/17/2025 Do You Have Any Dietary Restrictions? No Information not available 05/20/2024 Sex: Female Functional Status Question Answer Note LastModified by Organizat ion Details LastModified Time Do you use any illicit or recreational drugs? No Information not available 05/20/2024 Do you or have you ever used any other forms of tobacco or nicotine? No Information not available 05/20/2024 What is your level of alcohol consumption? None Information not available 05/20/2024 Are you currently employed? No Information not available 05/20/2024 Do you have transportation difficulties? No Information not available 05/20/2024 Are you able to walk? YESWOREST Information not available 05/20/2024 Do you have difficulty doing errands alone? No Information not available 05/20/2024 Are you able to care for yourself? Yes Information not available 05/20/2024 Do you have difficulty dressing or bathing? No Information not available 05/20/2024 What is your exercise level? None Information not available 05/20/2024 Mental Status Question Answer Note LastModified by Organizat ion Details LastModified Time Do you feel stressed (tense, restless, nervous, or anxious, or unable to sleep at night)? [id number] Information not available 05/20/2024 Do you have difficulty concentrating, remembering or making decisions? No Information no t available 05/20/2024 Are you or have you been involved with bullying? No Information not available 05/20/2024 Family History Relationship Description Onset Age of this Age Resolved Age Notes LastModified by Organization Details LastModified Time Mother Anxiety disorder Not available 2023 09:45:19 Mother Arthritis Not available 05/20/2024 09:45:19 Mother Hypertensive disorder Not available 2023 09:45:19 Sister Hypertensive disorder Not available 2023 09:45:19 Medical History Condition Response Arthritis Y Breast Cancer Y Hospitalizations N Acid Reflux (GERD) Y Emergency room visit since last appointm ent. N Thyroid Problems Y GI Problems Y ADD/ADHD N Anemia Y Bladder or Kidney Problems Y High Cholesterol Y Headaches Y Hypertension Y Gynecological History Statement/Question Response Menses Monthly N HPV Vaccine N Date of Last Pap Smear Current Control Method Hysterectom y Most Recent Mammogram 07/07/2024 Age at First Child 19 Obstetrics History GPAL:G 3 P 3 0 0 3 Type Value Multiple Births 0 Full Term 3 Induced 0 Spontaneous 0 Premature 0 Living 3 Ectopics 0 Total 3 Immunizations Vaccine Type Date Status Note Provider Nam e and Address Organization Details Recorded Time zoster recombinant 5 completed CAROLINA Badillo [address] [place] [address], [phone], [employer] 08/23/2024 14:49:19 Pneumococcal conjugate PCV15, polysaccharide [id number] conjugate, adjuvant, PF 5 completed CAROLINA Badillo [address] [place] [address], [id number], [employer] 08/23/2024 14:49:19 COVID-19, mRNA, LNP-S, PF, 30 mcg/0.3 mL dose 1 completed Matilda Vice null, [employer] 08/22/2024 09:07:51 COVID-19, mRNA, LNP-S, PF, 30 mcg/0.3 mL dose 1 completed Matilda Vice null, [employer] 08/22/2024 09:07:51 Tdap 9 completed Matilda Vice null, [employer] 08/22/2024 09:07:51 Past Encounters Encounter ID Performer Location Encounter Start Date Encounter Closed Date Diagnosis/Indication Diagnosis SNOMED-CT Code Diagnosis ICD10 Code Diagnosis Note [id number] CAROLINA Badillo [facility] [address] [facility] [address] 05/20/2024 09:27:07 05/20/2024 10:55:27 Long-term current use of opiate analgesic drug 5395641031 36836 Z79.891 Body mass index 20-24 - normal 863159366 Z68.22 Essential hypertension 09062291 I10 Patient has had heart cath, renal artery ultrasound , etc and has been on multiple medication s for blood pressure without clear reduction in her blood pressure Hyperlipidemia 13021862 E78.5 Vitamin D deficiency 347 94148 E55.9 Iron defic iency anemia 82041811 D50.9 Patient has been on Ferosul since August 2023. H&H, iron studies are still abnormal. Patient requires an iron tranfusion to restore therapeuti c levels of iron. Gastroesop hageal reflux disease without esophagitis 081770910 K21.9 Chronic low back pain 27 5447569 M54.[address] Raphael chavez substances agreement signed todayUDS today Influenza vaccination declined 531703001 Z28.21 Adult heal th examination 740409451 Z00.00 [id number] CAROLINA Badillo [facility] [address] [place] [address] 08/22/2024 08:57:45 08/22/2024 10:07:02 Alkaline phosphatase above reference range 568538248 R74.8 Serum iron below reference range 868416902 R79.0 Active or passive immunization 296957402 Z23 Essential hypertension 83530421 I10 Patient has had heart cath, renal artery ultrasound , etc and has been on multiple medication s for blood pressure without clear reduction in her blood pressureTr [facility] Chronic low back pain 27 0867783 M54.50 Continue Baring [id number] CAROLINA Badillo [facility] [address] [place] [address] 11/25/2024 15:03:39 11/25/2024 16:29:19 Hyperlipidemia 83681086 E78.5 History of lower gastrointestinal bleed 1265730197 90001 Z87.19 [id number] CAROLINA Badillo [facility] [address] [place] [address] 01/17/2025 11:22:36 01/17/2025 12:05:05 Long-term current use of drug therapy 413299111 Z79.899 Primary insomnia 5296021 F51.01 Chronic low back pain 27 2397718 M54.[address] Gonzales Essential hypertension 34054061 I10 Patient has had heart cath, renal artery ultrasound , etc and has been on multiple medication s for blood pressure without clear reduction in her blood pressureNo clear change in blood pressure with any interventi on Health Concerns Section Related Observation LastModified by Organization Detai ls LastModified Time None Recorded Concern Status LastModified by Organization Details LastModified Time None Recorded Advance Directives Directive N: Payers Insurance Date Sequence Insurance Name Policy Number Policy Chavez Covered Member ID Chavez Member ID Guarantor Name 02/04/2025 1 [place]ICARE [place]: [employer] [facility] Lupe J Feeback [id number] Lupe Feeback Notes Date Note Type Note Provider Name and Address Organization Details Recorded Time 05/20/2024 text/html Patient presents to establish care at [facility], former patient of [employer].Patient has chronic low back pain. She has had several surgeries. She states with pain medicine, pain decreases to a 5-6/10. Without pain meds, it is a 9/10. She is frustrated because she really isn't able to do anything without pain. Her does the majority of the physical jobs.Patient has hypertension. SHe has seen both myself and cardiology re: HTN for several years. Medications have been adjusted multiple times. She has had numerous tests done. She states cardiology basically said at her last visit that nothing explained her refractory HTN and was going to refer her to nephrology even though those tests have also been normal. She hasn't heard from that appointment yet. CAROLINA Badillo [address] [place] [address], [place], [address], [place] [facility] [employer] [facility] 05/30/2024 13:50:14 08/22/2024 text/html Patient presents for followup.History of low back pain. Takes Baring, it does help reduce her pain. She has been on that for many years, it does not last as long as it once did.Her alkaline phosphatase was elevated at last blood draw.She recently had an iron infusion.Her blood pressure is elevated today. It is always elevated despite numerous meds. She has seen cardiology, full workup without specific cause. Has an appt at next month. CAROLINA Badillo [address] [place], [address], [employer] 08/23/2024 15:06:24 11/25/2024 text/html Patient presents for followup. Hospitalized last week with acute GI bleed. Had ulcer cauterized. Received 2 units of blood. Still tired but feeling ok.Would like to see if changing Lipitor to Crestor will help with her leg cramps. CAROLINA Badillo [address] [place], [address], [employer] 11/25/2024 17:45:27 01/17/2025 text/html Patient presents for followup. History of chronic pain. Due for refills on Baring. Helps decrease pain so that she can stay active with her family.Has a history of HTN. Blood pressure elevated today. Has seen 2 different cardiologists, has had several heart catchs, renal artery US, etc and no one has found a clear cause nor solution. On multiple meds and none of them really decrease BP. However, she states that she feels fine.she does state that she does not sleep. Always feels like her mind is racing. Worries a lot. Was on Lexapro a few months ago but it didn't seem to change much CAROLINA Badillo [address] [place], [address], [employer] 01/19/2025 13:49:06 OBGyn Episode No OBEpisode recorded.
--- OUTSIDE RECORDS SUMMARY | 2025-02-10 14:03 | XMS_ITS | Encounter Summary ---
[facility] [address] [place] [address] Care Team Providers Care Pyrometallurgical Engineer Name Role Phone Bev Eckert Primary Care Provider Reason for Visit * Reason Comments Med Refill Encounter Details Date Type Department Care Team (Late st Contact Info) Description 11/14/2024 Refill [facility] [address] [place] [id number] Margie Wilde MD [address] [place] [address] Med Refill Social History Tobacco Use Types Packs/Day Years Used Date Smoking Tobacco: Never Passive Smoke Exposure: Past Smokeless Tobacco: Never Alcohol Use Standard Drinks/Week Comments Not Currently 0 (1 standard drink = 0.6 oz pur e alcohol) Comments Unknown Sex and Gender Information Value Date Recorded Sex Assigned at Not on file Legal Sex Female 2:58 PM EDT Gender Identity Not on file Sexual Orientation Not on file documented as of this encounter Plan of Treatment Not on file documented as of this encounter Visit Diagnoses Not on filedocumented in this encounter Care Teams Pyrometallurgical Engineer Relationship Specialty Start Date End Date Bev Eckert PA PCP - General Physician Furniture Delivery Driver 03/09/23 documented as of this encounter
--- OUTSIDE RECORDS SUMMARY | 2025-02-10 14:04 | XMS_ITS | Clinical Summary ---
Author Organization [facility] Address [address] [place] [address] Care Team Providers Care Wafer Polisher Name Role Phone Bev Eckert Primary Care Provider [phone] Allergies Active Allergy Reactions Criticality Noted Date Comments Amoxicillin Hives,Rash,Unknown - Low Severity,Swelling,Unknow n (See Comments) High 11/15/2014 no reaction listed in chart. Naproxen Hives,Rash,Unknown - Low Severity,Swelling,Unknow n (See Comments) High 11/15/2014 no reaction listed in chart Medications alendronate (FOSAMAX) 70 MG tablet Take 1 tablet by mouth Every 7 (Seven) Days. TAKES ON THURSDAY Active carvedilol (COREG) 25 MG tablet Take 1 tablet by mouth 2 (Two) Times a Day With Meals. 4 Active Cholecalciferol (Vitamin D3) 50 MCG (2000 UT) capsule Take 1 capsule by mouth Daily. Active vitamin D (ERGOCALCIFEROL) 1.25 MG (57213 UT) capsule capsule Take 1 capsule by mouth 1 (One) Time Per Week. TAKES ON THURSDAY Active FeroSul 325 (65 Fe) MG tablet Take 1 tablet by mouth Daily With Breakfast. Active HYDROcodone-acet aminophen (NORCO) 10-325 MG per tablet Take 1 tablet by mouth Every 4 (Four) Hours As Needed for Moderate Pain. 4 Active lisinopril (PRINIVIL,ZESTRI L) 40 MG tablet Take 1 tablet by mouth Daily. 4 Active ondansetron (ZOFRAN) 8 MG tablet Take 1 tablet by mouth Every 8 (Eight) Hours As Needed. 4 Active pantoprazole (PROTONIX) 40 MG EC tablet Take 1 tablet by mouth 2 (Two) Times a Day. 4 Active amLODIPine (NORVASC) 10 MG tabletIndication s:Hypertension, essential Take 1 tablet by mouth Daily. 30 tablet 11 5 Active cloNIDine (CATAPRES) 0.1 MG tabletIndication s:Hypertension, essential Take 1 tablet by mouth 2 (Two) Times a Day. 60 tablet 11 5 Active isosorbide mononitrate (IMDUR) 120 MG 24 hr tablet TAKE ONE TABLET BY MOUTH EVERY DAY 90 tablet 3 5 Active hydrOXYzine (ATARAX) 25 MG tablet Take 1 tablet by mouth 3 (Three) Times a Day As Needed for Anxiety. 90 tablet 1 5 Active Potassium 99 MG tablet Take 99 mg by mouth Daily. Active NON FORMULARY Take 400 mg by mouth Daily. SLIPPERY ELM Active vitamin B-12 (CYANOCOBALAMIN) 1000 MCG tablet Take 1 tablet by mouth 3 times a day. Active rosuvastatin (Crestor) 40 MG tablet Take 1 tablet by mouth Every Night. Active Active Problems Problem Noted Date Diagnosed Date Hypertension, essential 08/29/2024 Assessment & Plan (12/07/2024 1:18 PM EDT): Hypertension is uncontrolled Medication changes per orders. Weight loss. Regular aerobic exercise. Ambulatory blood pressure monitoring. Blood pressure will be reassessedin 4 weeks. -Continue amlodipine, carvedilol, clonidine, lisinopril and isosorbide at current doses - Add hydrochlorothiazide 25 mg once daily - Follow-up in 1 month Assessment & Plan (09/28/2024 5:21 PM EST): Very resistant hypertension. Blood pressure log reviewed. Start back amlodipine. Then plan to start back hydrochlorothiazide next. Will also check for other secondary causes. Discussed exercise and low-sodium diet. She has already had a sleep study. Orders: Catecholamines, Fractionated, Plasma; Future Cortisol - AM; Future Aldosterone / Renin Ratio; Future amLODIPine (NORVASC) 10 MG tablet; Take 1 tablet by mouth Daily. Assessment & Plan (09/15/2024 12:22 PM EST): Hypertension is uncontrolled Medication changes per orders. Ambulatory blood pressure monitoring. Blood pressure will be reassessed at next scheduled follow-up . Patient reports the clonidine since she has been wearing the patch has caused her moods to be more agitated. She reports worsening stress and anxiety over the past few months. Patient states that August is a hard month for her because of her mother's birthday and her father's . Patient states she does not want to add another medicine and would like to stop most of her medicines and restart. Patient has been instructed to stop her clonidine due to adverse effects. Patient has been instructed to continue her carvedilol, lisinopril, and isosorbide. Once starting on the Lexapro she may add her amlodipine and hydrochlorothiazide back if her blood pressures continue to be uncontrolled. Meaning SBP greater than 180. Plan to start a low-dose of Lexapro 5 mg for possible underlying causes of her hypertension. Patient reports headache, elevated heart rate, and seeing spots with the elevated blood pressures. Patient instructed to keep her stress test appointment. Limit sodium intake. Patient to keep blood pressure log at home. Patient instructed with sustained SBP greater than 180 wait 15 minutes to retake blood pressure if it continues to be greater than 180 to go to the ER. Assessment & Plan (08/29/2024 1:22 PM EST): She reports uncontrolled blood pressure for the last several months. She is on multiple medications with no improvement in blood pressure readings. It is averaging 180s-90s/100s. Her BP today is 166/102. Her primary care provider added a clonidine patch to her regimen 1 week ago. She has not noticed a significant improvement in blood pressure yet. - Proceed with cardiac workup and renal duplex - Consider secondary causes of hypertension after workup - Continue current medication regimen and keep a log of BP readings Coronary artery disease invo lving little traverse coronary artery of little traverse heart without angina pectoris 08/29/2024 Assessment & Plan (12/07/2024 1:39 PM EDT): S/P stent to the LAD March 2023. [...] because of GI ulcer and bleeding issues. Assessment & Plan (09/15/2024 12:26 PM EST): Coronary artery disease is stable. Continue current treatment regimen. Cardiac status will be reassessed at the next regular appointment. Patient is s/p stent to the LAD March 2023. Patient encouraged to keep her stress test appointment and follow-up OV appointment. Patient to continue on her aspirin and atorvastatin. Assessment & Plan (08/29/2024 1:20 PM EST): Coronary artery disease is stable. Continue current treatment regimen. Cardiac status will be reassessed in 4 weeks. S/p LAD stent in March 2023. She has been off of aspirin and Effient for approximately 5 months due to several GI bleeds. She has had 2 nosebleeds since that time that required ER visits. - Consider restarting aspirin 81 mg daily at follow-up visit? Renal artery stenosis 08/29/2024 Assessment & Plan (09/15/2024 12:25 PM EST): Preliminary results of renal artery duplex shows less than 60% stenosis bilaterally. Assessment & Plan (08/29/2024 1:20 PM EST): She also was told at some point that she has renal artery stenosis but is unsure which side. She has also been experiencing significantly elevated and resistant hypertension -Renal artery duplex Precordial chest pain 08/29/2024 Assessment & Plan (08/29/2024 1:18 PM EST): Intermittent episodes of chest pressure, shortness of breath and known CAD - Nuclear stress test for further evaluation. Patient unable to walk on treadmill due to severe back pain Palpitations 08/29/2024 Assessment & Plan (08/29/2024 1:21 PM EST): Worsening palpitations and frequent episodes of a fast, pounding heartbeat. - 5-day Holter monitor for further evaluation Encounters Date Type Department Care Team Description 12/13/2024 10:08 AM EDT - 12/13/2024 11:08 AM EDT Surgery [facility] [address] [place] [address] Glenn Abdi MD Left Heart Cath - Right radial access [22731 (CPT )] 12/13/2024 7:11 AM EDT - 12/13/2024 1:37 PM EDT Hospital Encounter [facility] [address] [place] [address] Glenn Abdi MD Coronary artery disease involving little traverse coronary artery of little traverse heart without angina pectoris; Precordial chest pain Discharge Disposition: Home or Self Care 12/13/2024 Travel 12/07/2024 9:00 AM EDT Office Visit [facility] [address] [phone] Carly Holt APRN Coronary artery disease involving little traverse coronary artery of little traverse heart without angina pectoris (Primary Dx); Hypertension, essential; Precordial chest pain 12/07/2024 Prep for Surgery [facility] ONLY [address] [place] [address] Rosa Walls APRN Coronary artery disease involving little traverse coronary artery of little traverse heart without angina pectoris (Primary Dx); Precordial chest pain 12/07/2024 Telephone [facility] [address] [phone] Carly Holt APRN JENNIE TRAUTWEIN, STRUCTURAL LAYOUT WORKER-MEDICATION LIST 12/07/2024 Travel 11/30/2024 5:00 AM EDT Outside Facility Service [facility] [address] [phone] Margie Wilde MD Coronary artery disease involving little traverse coronary artery of little traverse heart without angina pectoris; Precordial chest pain 11/21/2024 Telephone [facility] [address] [phone] Aleisha Sherman MA 11/14/2024 Refill [facility] [address] [phone] Margie Wilde MD Med Refill from Last 3 Months Family History Medical History Relation Name Comments Diabetes Brother Leukemia Father Suicidality Mother Cancer Sister Relation Name Status Comments Brother Father Mother Sister Social History Tobacco Use Types Packs/Day Years Used Date Smoking Tobacco: Never Passive Smoke Exposure: Past Smokeless Tobacco: Never Tobacco Cessation:Counseling Given: Yes Alcohol Use Standard Drinks/Week Comments Not Currently [...] on file Sexual Orientation Not on file Last Filed Vital Signs Vital Sign Reading [...] Mass Index 22.9 12/13/2024 7:29 AM EDT Plan of Treatment Health Maintenance Due Date Last Done Comments COLOGUARD 2002 COLON CANCER SCREENING 5 YEA R SIGMOIDOSCOPY 2002 COLONOSCOPY 2002 [address]AL CANCER SCREENING 2002 CT COLONOGRAPHY 2002 FECAL OCCULT BLOOD TEST 2002 FIT Testing (1 year) 2002 COVID-19 Vaccine (3 - 2023-2 5 season) 2024 01/02/2021, 12/12/2020 ANNUAL WELLNESS VISIT 08/24/2024 HEPATITIS C SCREENING 08/24/2024 ZOSTER VACCINE (2 of 2) 10/17/2024 08/22/2024 INFLUENZA VACCINE 04/26/2025 Pneumococcal Vaccine 50+ (2 of 2 - PPSV23) 08/22/2025 08/22/2024 MAMMOGRAM 07/07/2026 07/07/2024, 06/26, 07/06/2023, Additional history exists DXA SCAN 08/04/2026 08/04/2024 TDAP/TD VACCINES (2 - Td or Tdap) 03/15/2029 019 Procedures Procedure Name Priority Date/Time Associated Diagnosis Comments RENIN DIRECT ASSAY Routine 12/13/2024 12 :13 PM EDT ALDOSTERONE Routine 12/13/2024 12:13 PM EDT METANEPHRINES, FRAC. FREE, PLASMA Routine 12/13/2024 12:13 PM EDT CARDIAC CATHETERIZATION Routine 12/14/19 11:08 AM EDT Coronary artery disease involving little traverse coronary artery of little traverse heart without angina pectoris Precordial chest pain POCT CREATININE Routine 12/13/2024 7:41 AM EDT TSH RFX ON ABNORMAL TO FREE T4 Add-On 12/13/2024 7:35 AM EDT HEMOGLOBIN A1C STAT 12/13/2024 7:35 AM EDT LIPID PANEL STAT 12/13/2024 7:35 AM EDT BASIC METABOLIC PANEL STAT 12/13/2024 7:35 AM EDT CBC (NO DIFF) STAT 12/13/2024 7:35 AM EDT SCANNED - TELEMETRY 12/13/2024 OUTSIDE NON-INVASIVE CARDIOLOGY STUDY Routine 11/30/2024 Coronary artery disease involving little traverse coronary artery of little traverse heart without angina pectoris Precordial chest pain ENDOSCOPY, INT 11/17/2024 SCANNED - LABS 11/17/2024 SCANNED - IMAGING 11/16/2024 from Last 3 Months Results * Metanephrines, Frac. Free, Plasma (12/13/2024 12:13 PM EDT) Normetanephrine 50.0 0.0 - 285.2 pg/mL 12/18/2024 2:09 PM EDT [facility] Metanephrine <25.0 0.0 - 88.0 pg/mL 12/18/2024 2:09 PM EDT [facility] Blood Line / Unknown 12/13/2024 12 :13 PM EDT 12/13/2024 12:17 PM EDT Narrative [facility] - 12/18/2024 2:09 PM EDT Test(s) [id number], Pl; [id number], Pl was developed and its performance characteristics determined by [facility]. It has not been cleared or approved by the Food and Drug Administration. Performed at: [address] [id number] [place] Operator: Flora Mares MD, Phone: [phone] us Glenn Abdi MD LAB BLOOD ORDERABLES Final Resul t Performing Organization Address [facility] de Phone Number [facility] [address] [place] [address], * Aldosterone (12/13/2024 12:13 PM EDT) Aldosterone 1.0 0.0 - 30.0 ng/dL 12/17/2024 8:11 AM EDT [facility] Blood Line / Unknown 12/13/2024 12 :13 PM EDT 12/13/2024 12:17 PM EDT Narrative [facility] - 12/17/2024 8:11 AM EDT Test(s) [id number] was developed and its performance characteristics determined by [facility]. It has not been cleared or approved by the Food and Drug Administration. Performed at: [address] [id number] [place] Operator: Flora Mares MD, Phone: [phone] Glenn Abdi MD LAB BLOOD ORDERABLES Final Resul t Performing Organization Address [facility] de Phone Number [facility] [address] [place] [address], * Renin Direct Assay (12/13/2024 12:13 PM EDT) Renin Activity 0.844 0.167 - 5.380 ng/mL/hr 12/15/2024 10:07 PM EDT [facility] Blood Line / Unknown 12/13/2024 12 :13 PM EDT 12/13/2024 12:17 PM EDT Narrative [facility] - 12/15/2024 10:07 PM EDT Test(s) [id number] Activity, Plasma was developed and its performance characteristics determined by [facility]. It has not been cleared or approved by the Food and Drug Administration. Performed at: 01 - [facility] [address] [place], [place] [id number] [place] Operator: Flora Mares MD, Phone: [phone] Glenn Abdi MD LAB BLOOD ORDERABLES Final Resul t [facility] [address] [place] [address], * LEFT HEART CATH (12/13/2024 11:08 AM [...] - 1.30 mg/dL 12/13/2024 8:13 AM EDT [facility] Comment:Serial Number: [id number] 9Operator: [id number] Blood 12/13/2024 7:41 AM EDT 12/13/2024 8:13 AM EDT Glenn Abdi MD POINT OF CARE TEST ORDERABLES Fi nal Result [facility]
[address] [place] [address], * TSH Rfx On Abnormal To Free T4 (12/13/2024 7:35 AM EDT) TSH 2.360 0.270 - 4.200 uIU/mL 12/13/2024 12:43 PM EDT [facility] Blood Line / Unknown 12/13/2024 7: 35 AM EDT 12/13/2024 7:45 AM EDT us Glenn Abdi MD LAB BLOOD ORDERABLES Final Resul t [facility]
[address] [place] [address], * (ABNORMAL) CBC (No Diff) (12/13/2024 7:35 AM EDT) WBC 5.38 3.40 - 10.80 10*3/mm3 12/13/2024 7:49 AM EDT [facility] RBC 4.01 3.77 - 5.28 10*6/mm3 12/13/2024 7:49 AM EDT [facility] Hemoglobin 12.5 12.0 - 15.9 g/dL 12/13/2024 7:49 AM EDT [facility] Hematocrit 40.3 34.0 - 46.6 % 12/13/2024 7:49 AM EDT [facility] MCV 100.5(H) 79.0 - 97.0 fL 12/13/2024 7:49 AM EDT [facility] MCH 31.2 26.6 - 33.0 pg 12/13/2024 7:49 AM EDT [facility] MCHC 31.0(L) 31.5 - 35.7 g/dL 12/13/2024 7:49 AM EDT [facility] RDW 12.6 12.3 - 15.4 % 12/13/2024 7:49 AM EDT [facility] RDW-SD 47.1 37.0 - 54.0 fl 12/13/2024 7:49 AM EDT [facility] MPV 8.7 6.0 - 12.0 fL 12/13/2024 7:49 AM EDT [facility] Platelets 379 140 - 450 10*3/mm3 12/13/2024 7:49 AM EDT [facility] Blood Line / Unknown 12/13/2024 7: 35 AM EDT 12/13/2024 7:45 AM EDT Rosa Walls STRUCTURAL LAYOUT WORKER LAB BLOOD ORDERABLES Final R esult Performing Organization Address [facility] Co de Phone Number [facility]
[address] [place] [address], * (ABNORMAL) Hemoglobin A1c (12/13/2024 7:35 AM EDT) Hemoglobin A1C 4.40(L) 4.80 - 5.60 % 12/13/2024 9:15 AM EDT [facility] Blood Line / Unknown 12/13/2024 7: 35 AM EDT 12/13/2024 7:45 AM EDT Narrative [facility] - 12/13/2024 9:15 AM EDT Hemoglobin A1C Ranges: Increased Risk for Diabetes 5.7% to 6.4% Diabetes >= 6.5% Diabetic Goal < 7.0% Rosa Walls APRN LAB BLOOD ORDERABLES Final R esult Performing Organization Address City/[facility]/ZIP Co de Phone Number [facility]
[address] [place] [address], * Lipid Panel (12/13/2024 7:35 AM EDT) Total Cholesterol 158 0 - 200 mg/dL 12/13/2024 8:12 AM EDT [facility] Triglycerides 101 0 - 150 mg/dL 12/13/2024 8:12 AM EDT [facility] HDL Cholesterol 53 40 - 60 mg/dL 12/13/2024 8:12 AM EDT [facility] LDL Cholesterol 87 0 - 100 mg/dL 12/13/2024 8:12 AM EDT [facility] VLDL Cholesterol 18 5 - 40 mg/dL 12/13/2024 8:12 AM EDT [facility] LDL/HDL Ratio 1.60 12/13/2024 8:12 AM EDT [facility] Blood Line / Unknown 12/13/2024 7: 35 AM EDT 12/13/2024 7:45 AM EDT Narrative [facility] - 12/13/2024 8:12 AM EDT Cholesterol [...] calculated using the NIH LDL-C calculation. Rosa Walls APRN LAB BLOOD ORDERABLES Final R esult [facility]
[address] [place] [address], * (ABNORMAL) Basic Metabolic Panel (12/13/2024 7:35 AM EDT) Glucose 108(H) 65 - 99 mg/dL 12/13/2024 8:12 AM EDT [facility] BUN 19 8 - 23 mg/dL 12/13/2024 8:12 AM EDT [facility] Creatinine 0.68 0.57 - 1.00 mg/dL 12/13/2024 8:12 AM EDT [facility] Sodium 143 136 - 145 mmol/L 12/13/2024 8:12 AM EDT [facility] Potassium 3.8 3.5 - 5.2 mmol/L 12/13/2024 8:12 AM EDT [facility] Chloride 105 98 - 107 mmol/L 12/13/2024 8:12 AM EDT [facility] CO2 26.0 22.0 - 29.0 mmol/L 12/13/2024 8:12 AM EDT [facility] Calcium 8.9 8.6 - 10.5 mg/dL 12/13/2024 8:12 AM EDT [facility] BUN/Creatinine Ratio 27.9(H) 7.0 - 25.0 12/13/2024 8:12 AM EDT [facility] Anion Gap 12.0 5.0 - 15.0 mmol/L 12/13/2024 8:12 AM EDT [facility] eGFR 95.6 >60.0 mL/min/1.7 3 12/13/2024 8:12 AM EDT [facility] Blood Line / Unknown 12/13/2024 7: 35 AM EDT 12/13/2024 7:45 AM EDT Narrative [facility] - 12/13/2024 8:12 AM EDT GFR [...] race as a factor us Rosa Walls APRN LAB BLOOD ORDERABLES Final R esult [facility]
[address] [place] [address], * Telemetry Scan (12/13/2024) [facility] Onbase ECG ORDERABLES Final Result * External Stress Procedure (11/30/2024) Anatomical Region Laterality Modality Other Margie Wilde MD CV CARDIAC SERVICES ORDERABL ES Final Result * Endoscopy, Int (11/17/2024) Margie Wilde MD INTERFACE NEEDS Final Result * LABS SCANNED (11/17/2024) Margie Wilde MD LAB BLOOD ORDERABLES Final R esult * IMAGING SCANNED (11/16/2024) Anatomical Region Laterality Modality Radiographic Darlin ging Margie Wilde MD IMG DIAGNOSTIC IMAGING ORDER MORGAN Final Result from Last 3 Months Insurance MEDICARE A & B Advance Directives * CPR (Attempt to Resuscitate) (Latest Code Status on File) Date Activated Date Inactivated Comments 12/13/2024 11:10 AM 12/13/2024 3:46 PM Question Answer Comments Code Status (Patient has no pulse and is not breathing): CPR (Attempt to Resuscitate) Medical Interventions (Patie nt has pulse or is breathing): Full Support Care Teams Wafer Polisher Relationship Specialty Start Date End Date Bev Eckert PA PCP - General Physician Telemarketer Supervisor 03/09/23
--- OUTSIDE RECORDS SUMMARY | 2025-02-10 14:04 | XMS_ITS | Clinical Summary ---
Author Organization [facility] Address [address] [place] [address] Care Team Providers Care Oil Winterizer Name Role Phone Renita Steve GROUP SALES COORDINATOR Unavailable [phone] Bev Eckert Primary Care Provider [phone] Allergies Active Allergy Reactions Criticality Noted Date Comments Amoxicillin Rash,Swelling,Unknow n - Patient states they do not know rxn details,Hives High 11/15/2014 no reaction listed in chart. Cefdinir Palpitations High 05/21/2023 Naproxen Rash,Swelling,Unknow n - Patient states they do not know rxn details,Hives High 11/15/2014 no reaction listed in chart Statins Other - please docum ent in the comment field High 05/21/2023 Medications cloNIDine (Catapres) 0.1 MG tablet Take 0.1 mg by mouth 2 (two) times a day. 1 Active lisinopril-hydr oCHLOROthiazide 20-25 MG tablet Take 1 tablet by mouth 1 (one) time each day. 1 Active cholecalciferol (Vitamin D-3) 50 MCG (1999 UT) capsule Take 1 capsule (2,000 Units) by mouth 1 (one) time each day. 3 Active carvedilol (Coreg) 25 MG tablet TAKE TWO TABLETS BY MOUTH TWICE DAILY FOR HIGH BLOOD PRESSURE 3 Active atorvastatin (Lipitor) 40 MG tablet Take 1 tablet (40 mg) by mouth 1 (one) time each day. 3 Active pantoprazole (Protonix) 40 MG EC tablet Take 1 tablet (40 mg) by mouth 2 (two) times a day. Active prasugrel (Effient) 10 MG tablet Take 1 tablet (10 mg) by mouth 1 (one) time each day. 3 Active ergocalciferol 1.25 MG (42509 UT) capsule Take 1 capsule (50,000 Units) by mouth 1 (one) time per week. 3 Active clopidogrel (Plavix) 75 MG tablet Take 1 tablet (75 mg) by mouth 1 (one) time each day. Active amLODIPine (Norvasc) 10 MG tablet Take 1 tablet (10 mg) by mouth 1 (one) time each day. 3 Active spironolactone (Aldactone) 50 MG tablet Take 1 tablet (50 mg) by mouth 1 (one) time each day. 3 Active HYDROcodone-renata taminophen ([place]ro[place]) 10-325 MG tablet TAKE ONE TABLET BY MOUTH FOUR TIMES DAILY NEEDED MAY CAUSE DROWSINESS 4 Active lisinopril 40 MG tablet Take 1 tablet (40 mg) by mouth 1 (one) time each day. 4 Active ondansetron (Zofran) 8 MG tablet Take 1 tablet (8 mg) by mouth every 8 (eight) hours if needed for nausea or vomiting. 4 Active hydrALAZINE (Apresoline) 50 MG tablet Take 1 tablet (50 mg) by mouth 3 (three) times a day. 4 Active polyethylene glycol (Miralax) 17 GM/SCOOP powder DISSOLVE 17 GRAMS OF POWDER INTO 4 TO 8 OUNCES OF WATER, JUICE, SODA, COFFEE, OR TEA THEN DRINK ONCE DAILY beginning 1 WEEK prior TO surgery; AFTER surgery DISSOLVE 17 GRAMS OF POWDER INTO 4 TO 8 OUNCES OF WATER, JUICE, SODA, COFFEE, OR TEA THEN DRINK TWICE DAILY FOR 2 WEEKS 4 Active FeroSul 325 (65 Fe) MG tablet TAKE ONE TABLET BY MOUTH EVERY DAY DIRECTED FOR IRON DEFICIENCY 4 Active Active Problems Problem Noted Date Diagnosed Date Malignant neoplasm of right breast in female, estrogen receptor positive 05/21/2021 Cancer Staging:Clinical stage from 10/25/2013:Stage IIA(T2, N0, M0) - Unsigned Back pain 11/11/2018 Degeneration, intervertebral disc, lumbar 2018 Lumbar facet arthropathy 11/11/2018 Family History Medical History Relation Name Comments Cardiac disorder Other 1 Diabetes Other 2 Hypertension Other 3 Other cancer Other 4 Breast cancer Sister Relation Name Status Comments Other 1 Other 2 Other 3 Other 4 Sister Social History Tobacco Use Types Packs/Day Years Used Date Smoking Tobacco: Never Smokeless Tobacco: Never Tobacco Cessation:Counseling Given: Not Answered Alcohol Use Standard Drinks/Week Comments No 0 (1 standard drink = 0.6 oz pur e alcohol) PHQ-2 Answer Date Recorded Patient Health Questionnaire-2 Score 0 07/07/2024 PHQ-9 Answer Date Recorded Patient Health Questionnaire-9 Score 0 07/07/2024 Comments No Sex and Gender Information Value Date Recorded Sex Assigned at Not on file Legal Sex Female 7:36 PM EDT Gender Identity Not on file Sexual Orientation Not on file Last Filed Vital Signs Vital Sign Reading Time Taken Comments Blood Pressure 189/98 07/06/2023 3:21 PM EST Pulse 80 07/07/2024 11:23 AM EST Temperature 36.7 C (98 F) 07/07/2024 11:23 AM EST Respiratory Rate 16 05/22/2022 11:5 4 AM EDT Oxygen Saturation 97% 07/07/2024 11: 23 AM EST Inhaled Oxygen Concentration - - Weight 61.2 kg (134 lb 14.7 oz) 024 11:23 AM EST Height 165.1 cm (5' 5 ) 07/07/2024 11:2 3 AM EST Body Mass Index 22.45 07/07/2024 11:23 AM EST Plan of Treatment Upcoming Encounters Date Type Department Care Team (Late st Contact Info) Description 07/24/2025 8:30 AM EST Appointment [facility] [place] [address] [address] [facility] [address] [place] [address] 07/24/2025 9:30 AM EST Office Visit [facility] [address] [facility]nd [place] [address] Renita Steve, GROUP SALES COORDINATOR [address] [place] [address] Health Maintenance Due Date Last Done Comments [facility]-Bone Density Scan 1955 [facility]-Hepatitis C Screening 1955 [facility]-Medicare Annual Wellness (AWV) 1955 [facility]-/Child/Adol SDOH Screenings 1955 [facility]- SDOH Screenings 12/11/1975 [facility]-Adult SDOH Screenings 12/11/1975 [facility]-Pneumococcal Vaccine: 50+ Years (1 of 2 - PCV) 1976 [facility]-Zoster Vaccines (1 of 2) 1976 CT Colonography 2002 Colonoscopy 2002 FIT-DNA 2002 FIT 2002 FOBT 2002 Sigmoidoscopy 2002 [facility]-Colorectal Cancer Screening 2002 [id number] Vaccine (3 - Pfizer risk series) 01/30/2021 01/02/2021, 12/12/2020 [facility]-Influenza Vaccine (#1) 2025 [facility]-Depression Screening 07/07/2025 07/07/2024, 06/26 [facility]-DTaP,Tdap,and Td Vaccines (2 - Td or Tdap) 03/15/2029 03/15/2019 [facility]-RSV Vaccine: 60+ Years or (1 - 1-dose 75+ series) 2032 [facility]-Breast Cancer Screening Discontinued 06/26, 07/06/2023, 05/22/2022, Additional history exists HPV Vaccines Aged Out No longer eligi ble based on patient's age to complete this topic [facility]-HIB Vaccines Aged Out No longer e ligible based on patient's age to complete this topic [facility]-Hepatitis A Vaccines Aged Out No longer eligible based on patient's age to complete this topic [facility]-IPV Vaccines Aged Out No longer e ligible based on patient's age to complete this topic [facility]-Rotavirus Vaccines Aged Out No lo nger eligible based on patient's age to complete this topic Procedures Procedure Name Priority Date/Time Associated Diagnosis Comments MAMMOGRAPHY BREAST SCREENING TOMOSYNTHESIS BILATERAL Routine 07/07/2024 10:28 AM EST Malignant 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 BI-RADS CATEGORY: Overall: 2 - Benign RECOMMENDATION: - Routine Screening Mammogram in 1 Year. Patient Lifetime Risk Score of Breast Malignancy: A risk score has not been calculated for this patient. This risk assessment is calculated using the Daisy Risk Assessment model which may underestimate the lifetime risk of breast malignancy. COMMUNICATION: Computer-aided detection (CAD) and tomosynthesis were utilized by the radiologist in the interpretation of this examination. The results and recommendations will be sent to the patient in a printed lay language version of the imaging report. Narrative 07/07/2024 10:53 AM EST EXAM: Mammography Breast Screening with Tomosynthesis REASON FOR EXAM: Screening Mammogram HISTORY: Patient is 68 y.o. Family medical history includes breast cancer in sister (age of onset: 56). Hormone history includes control (2 years) and tamoxifen (5 years). 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 Medical history includes breast cancer, 2014 (right breast) and radiation therapy, 2014 (right breast). COMPARISON STUDIES: Compared to: 03/25/2017 Mammography Breast Diagnostic Tomosynthesis Bilateral at [facility] 09/30/2018 Mammography Breast Diagnostic Tomosynthesis Bilateral at [facility] 05/14/2021 Mammography Breast Diagnostic Tomosynthesis Bilateral at [facility] 05/22/2022 Mammography Breast Screening Tomosynthesis Bilateral at [facility] 07/06/2023 Mammography Breast Screening Tomosynthesis Bilateral at [facility] BREAST COMPOSITION: There are scattered areas of fibroglandular density. FINDINGS: There are post-lumpectomy changes present in the right breast. There is no evidence of suspicious masses, calcifications, or other abnormal findings. Renita Steve APRN IMG BI PROCEDURES Final R esult from Last 3 Months or Most Recently Relevant to Health Maintenance Insurance MEDICARE Member Subscriber Plan / Payer (Ef fective 2013-Present) Name:Lupe Foster Member ID:[id number] Relation to Subscriber:Self Name:Lupe Foster Subscriber ID:[id number] Payer ID:MEDICARE Group ID:Not on file Type:Medicare Address: [address] Care Teams Oil Winterizer Relationship Specialty Start Date End Date Bev Eckert PA [address] [place] [address] PCP - General 10/29/22 Renita Steve, TREVOR [address] [facility] [address] [place] [address] Nurse Practitioner Internal Medicine 05/14/21
--- OUTSIDE RECORDS SUMMARY | 2025-02-10 14:04 | XMS_ITS | Clinical Summary ---
Author Organization [facility] Address [address] [place] [address] Phone Care Team Providers Care Music Critic Name Role Phone Melania Mcgregor MD Primary Care Provider Allergies Active Allergy Reactions Criticality Noted Date Comments Amoxicillin Hives Medium 07/29/2023 Naproxen Hives Medium 07/29/2023 Medications amLODIPine (NORVASC) 10 mg Oral Tablet Take 10 mg by mouth daily. Active atorvastatin (LIPITOR) 40 mg Oral Tablet Take 40 mg by mouth daily. Active carvediloL (COREG) 25 mg Oral Tablet Take 25 mg by mouth 2 times daily. Active clopidogreL (PLAVIX) 75 mg Oral Tablet Take 75 mg by mouth daily. Active lisinopriL (PRINIVIL;ZESTR IL) 20 mg Oral Tablet tablet Take 20 mg by mouth daily. Active miSOPROStoL (CYTOTEC) 200 mcg Oral Tablet Take 200 mcg by mouth 2 times daily. Active ondansetron (ZOFRAN) 4 mg Oral Tablet Take 4 mg by mouth every 8 hours as needed for Nausea. Active pantoprazole (PROTONIX) 40 mg Oral Tablet, Delayed Release (E.C.) Take 40 mg by mouth daily. Active spironolactone (ALDACTONE) 50 mg Oral Tablet Take 50 mg by mouth daily. Active Cholecalciferol , Vitamin D3, 50 mcg (2,000 unit) Oral Capsule Take 1 Capsule by mouth daily. Active ergocalciferol (VITAMIN D) 1,250 mcg (50,000 unit) Oral Capsule Take 50,000 Units by mouth once a week. Active docusate sodium (COLACE) 100 mg Oral Capsule Take 1 Capsule by mouth 2 times daily. 60 Capsule 2 11/23/2023 Active senna (SENOKOT) 8.6 mg Oral Tablet Take 1 Tablet by mouth daily as needed for Constipation . 30 Tablet 1 11/23/2023 Active HYDROcodone-renata taminophen (NORCO) 5-325 mg Oral Tablet Take 1 Tablet by mouth every 4 hours as needed for Major Surgery/Trau ma (G89.18). 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 07/29/2023 Female cystocele 07/29/2023 Mixed stress and urge urinary incontinence 07/29 Constipation 07/29/2023 Surgical History Surgery Date Site/Laterality Comments CARDIAC CATHETERIZATION BREAST SURGERY lumpectomy left side COLONOSCOPY UPPER GASTROINTESTINAL ENDOSCOPY HYSTERECTOMY THYROID SURGERY parathyroid TUBAL LIGATION APPENDECTOMY HAND SURGERY Carpel tunnel Right ELBOW SURGERY Right SHOULDER SURGERY BACK SURGERY PA COLPOCLEISIS LE FORT TYPE 11/23/2023 N/A Colpocleisis with levator plication, Posterior Repair, Placement of Retropubic Sling, Cystoscopy; Surgeon: Melania Mcgregor MD; Location: [facility]; Service: Gynecology Medical devices from this surgery are in the Medical Devices section. RECTOCELE REPAIR 11/23/2023 N/A .; Surgeon: Melania Mcgrgeor MD; Location: [facility] MAIN OR; Service: Gynecology Medical devices from this surgery are in the Medical Devices section. URETHROPEXY 11/23/2023 N/A .; Surgeon: Melania Mcgregor MD; Location: [facility]; Service: Gynecology Medical devices from this surgery are in the Medical Devices section. Medical History Medical History Date Comments Shortness of breath not currentl y BLOCK (dyspnea on exertion) CAD (coronary artery disease) Hypertension Hyperlipidemia Cardiac dysrhythmia sinus Tach Arthritis Osteoporosis Headache migraines Thyroid disease parathyroid gabe rhona Anemia Encounter for blood transfusion 2x Cancer (HCC) Breast Family History Medical History Relation Name Comments Anesth Problems Neg Hx Social History Tobacco Use Types Packs/Day Years Used Date Smoking Tobacco: Never Smokeless Tobacco: Never Tobacco Cessation:Counseling Given: No Alcohol Use Standard Drinks/Week Comments Not Currently 0 (1 standard drink = 0.6 oz pur e alcohol) Comments No Sex and Gender Information Value Date Recorded Sex Assigned at Not on file Legal Sex Female 9:18 AM EDT Gender Identity Not on file Sexual Orientation Not on file Obstetrics History Last Filed Vital Signs Vital Sign Reading Time Taken Comments Blood Pressure 117/56 11/24/2023 8:22 AM EDT Pulse 88 05/10/2024 10:18 AM EDT Temperature 36.7 C (98.1 F) 11/24/2023 8:22 AM EDT Respiratory Rate 18 11/24/2023 8:22 AM EDT Oxygen Saturation 98% 05/10/2024 10:18 AM EDT Inhaled Oxygen Concentration - - Weight 61.7 kg (136 lb) 01/05/2024 1:27 PM EDT Height 165.1 cm (5' 5 ) 01/05/2024 1:27 PM EDT Body Mass Index 22.63 01/05/2024 1:27 PM EDT Plan of Treatment Health Maintenance Due Date Last Done Comments Wellness Exam Medicare 1958 Hepatitis C Screening 12/11/1975 Cologuard 2002 Colon Cancer Screening 2002 Colonoscopy 2002 FIT 2002 Sigmoidoscopy 2002 Virtual Colonography 2002 Pneumococcal Vaccine 50+ (1 of 1 - PCV) 12/11/2007 Zoster (1 of 2) 12/11/2007 Bone Density Screening 2022 COVID-19 Vaccine (3 - season) 2024 01/02/2021, 12/12/2020 Influenza Vaccine (#1) 2025 Breast Cancer Screening 07/07/2026 07/07/20 24, 07/06/2023, 07/06/2023, Additional history exists DTaP/TDaP/Td (2 - Td or Tdap) 03/15/2029 03/15/2019 Hepatitis B Vaccine Aged Out No longe r eligible based on patient's age to complete this topic Meningococcal B Vaccine Aged Out No l onger eligible based on patient's age to complete this topic Medical Devices Implanted Type Area Pocket Secretary Assembler Device Identifier Shelf Expiration Date Model / Serial / Lot Breast Marker Right: Breast Screw Right: Elbow Cardiac Stent N/A: Heart Cardiac Stent N/A: Heart Desara Blue Tv Transvaginal Mesh Sling - [id number] Implanted:Qty: 1 on 11/23/2023 by Melania Mcgregor MD at [facility] N/A: [facility] 06/24/2026 [facility]-[id number] TV / / [id number] Insurance MEDICARE [place] PART A AND B MEDICARE [place] PART A AND B Advance Directives For more information, please contact: [phone] * Full Code (Latest Code Status on File) Date Activated Date Inactivated Comments 11/23/2023 6:41 PM 11/24/2023 4:19 PM Care Teams Music Critic Relationship Specialty Start Date End Date Melania Mcgregor MD [address] [place] [address] PCP - General Obstetrics & Gynecology - Female Pelvic Medicine And Reconstructive Surgery 11/23/23
--- OUTSIDE RECORDS SUMMARY | 2025-02-10 14:04 | XMS_ITS ---
Laboratory report Created on: December 20, 2024 FRANCES FITCH : 1955 Sex: Female Author Name MONIQUE LO Organization Unknown PROBLEMS Problems List Code Description RESULTS Laboratory Orders Date Order Code Test 2024-12-13 [id number] ALDOSTERONE LCMS , SERUM Laboratory Results Date LOINC Test Value Unit Reference Range [facility] tation 2024-12-13 [id number] ALDOSTERONE 1 NG/DL 0.0-30.0
--- OUTSIDE RECORDS SUMMARY | 2025-02-10 14:04 | XMS_ITS ---
Laboratory report Created on: December 20, 2024 FRANCES FITCH : 1955 Sex: Female Author Name MONIQUE LO Organization Unknown PROBLEMS Problems List Code Description RESULTS Laboratory Orders Date Order Code Test 2024-12-13 [id number] METANEPHRINES, F RAC., PL. FREE Laboratory Results Date LOINC Test Value Unit Reference Range Interpre tation 2024-12-13 [id number] NORMETANEPHRINE, PL 50 PG/ML 0.0-285.2 2024-12-13 [id number] METANEPHRINE, PL <25.0 PG/ML 0.0-88.0
--- OUTSIDE RECORDS SUMMARY | 2025-02-10 14:04 | XMS_ITS | Data Portability ---
Author Organization [place] Address [address] [place] [address] Care Team Providers Care Medicare Biller Name Role Phone BEV ECKERT Primary Care Provider Assessment Encounter Date Assessment Date Assessment LastModified by Organization Details LastModified Time 02/25/2023 02/25/2023 67-year-old female with: 1) Poor appetite/nausea/v omiting/heartburn /early satiety: EGD scheduled for further evaluation -Will increase Omeprazole to 40 mg p.o. daily. 2) Opioid induced constipation: Start Relistor. 3) History of colonoscopy: At [facility] last year by Dr. Alcantara. Normal per patient report. [email or web address] Not available 02/25/2023 17:05:31 09/04/2023 09/04/2023 67-year-old female with: 1) Duodenal ulcer with recent GI hemorrhage: She has no signs of active GI bleeding. Recent EGD results from [facility] reviewed, indicated non-healing duodenal ulcer. -I will [...] to undergo bladder tack next month at [facility]. Labs to be done at [facility] per patient request. [email or web address] Not available 09/04/2023 14:38:23 Plan of Treatment Reminders Order Date Submit Date Provider Last Modified By Organization Details Last Modified Time Details Appointments None recorded. Lab CBC 2023 024 ULISES [facility], [address], [address], [place], [address], 4 14:05:18 iron + total iron-bindin g capacity (TIBC), serum 2023 024 acaldwell 64 [facility], [address], [address], [place], [address], 4 09:10:12 celiac disease comprehensi ve panel, serum 2023 024 ULISES [facility], [address], [address], [place], [address], 4 08:15:44 ESR (erythrocyt e sedimentati on rate), blood 2023 024 acaldwell 64 [facility], [address], [address], [place], [address], 4 09:10:12 C reactive protein, QN, serum or plasma 2023 024 acaldwell 64 [facility], [address], [address], [place], [address], 4 09:10:12 vitamin B12 + folate, serum or blood 2023 024 acaldwell 64 [facility], [address], [address], [place], [address], 4 09:10:12 Referral None recorded. Procedures None recorded. Surgeries None recorded. Imaging None recorded. Medication Orders omeprazole 40 mg capsule,del ayed release [address] [facility], [address] [place] [address] E [place]ella [place], [id number], 4 09:37:20 Relistor 150 mg tablet 2022 023 [facility], [address] [place] [address] E [place]Pmella Abel [place], [id number], 3 17:39:09 Patient TargetsNo targets recorded. Patient InstructionsNo instructions recorded. Reason for Referral None Reported. Results Created Date Observation Date Name Description Value Unit Range Abnormal Flag Note LastModifiedBy Organization Detail LastModifiedTime 11/02/19 24 11/05/2023 PATHO LOGY SPECI MEN pathology specimen SEE VICTORINO PARRA Not Available [facility] ([facility]) [address], [place], [address], 11/05/2023 15:09:25 Result Notes None recorded. Problems Name Problem SNOMED Code Status Onset Date Resolution Date Notes Provider Name and Address Organization Details Recorded Time Therapeuti c opioid induced constipati on 8764711259794 02 Active 2022 Rojas Smith PA-C [address], [place], [address] , [facility] - [facility] & [place] 3 10:13:20 Nausea 568377293 Active 2022 Rojas Smith PA-C [address], [place], [address] , [place] - [facility] & [place] 3 10:14:33 Heartburn 01849423 Active 2022 Rojas Smith PA-C [address], [place], [address] , [place] - [facility] & [place] 3 10:14:36 Early satiety 240594059 Active 2022 Rojas Smith PA-C [address], [place], [address] [place] [address] , [place] - [facility] & [place] 3 10:14:40 Loss of appetite 98375355 Active 2022 Rojas Smith PA-C [address], [place] [address] , [place] - [facility] & [place] 3 17:03:43 Hiatal hernia with gastroesop hageal reflux 303553362 Active [address], [place] [address] , [facility] - [facility] & [place] 4 10:08:31 Anemia due to blood loss 419104744 Active [address], [place] [address] , [facility] - [facility] & [place] 4 10:14:56 Iron deficiency anemia 50669150 Active [address], [place] [address] , [facility] - [facility] & [place] 4 14:52:46 Erosive esophagiti s 16161181 Active [address], [place] [address] , [place] - [facility] & [place] 4 09:55:08 Problem Notes Documentation Provider Name and Address Organization Details Recorded Time Encounter Note : GI Consult History and Physical [facility] Name Lupe Foster Date of Service 1500 [id number] (F) Attending KHRIS WASHINGTON Admitted [id number] Discharged Primary STONE BEV D - Chief Complaint Weakness History of Present Illness Ms. Foster is a very pleasant 67-year-old female with past medical history of breast cancer, bladder prolapse, GERD, pituitary adenoma, hypertension, major depressive disorder, and cystocele who [facility] due to symptomatic anemia. She has a recent history of known non-healing duodenal ulceration that was diagnosed in April 2023 during hospitalization for GI bleed. She required blood transfusion x3 at that time. She has undergone 2 subsequent EGDs at [facility], in June and July which showed essentially unchanged duodenal ulcer without active bleeding as well as a lrngbvro-ie-jvlvv sized hiatal hernia. She required an additional unit of blood last month due to decreasing H& H. She has not had signs of blood loss for few months now. She woke up this morning feeling weak and with family noting significant pallor. She presented to the ED at [facility] and was found to have hemoglobin decreased at 5.2. Stool was occult positive. She was transfused 2 additional prior to transfer. On presentation here, the patient reports moderate improvement in weakness following blood transfusion. She denies overt shortness of breath or abdominal pain. She denies hematemesis, melena, or hematochezia. She is prescribed Plavix due to history of cardiac stenting. She had recently held this for 1 week as she was scheduled for endoscopy with us, however she had to reschedule the procedure due to illness. She has resumed Plavix 3 days ago. She was prescribed an oral daily iron supplement by me last month, which she has continued. Reason for Consultation Symptomatic anemia, known duodenal ulcer Past Medical History Arthritis Malignant tumor of breast Disorder of thyroid gland Acid reflux Hypercholesterolemia Chronic back pain Hypertensive disorder Past Surgical History Colonoscopy Esophagogastroduodenoscopy Cardiac catheterization Ligation of fallopian tube Appendectomy Procedure on elbow Procedure on shoulder, right Decompression of median nerve, right Procedure on back Subtotal thyroidectomy Lumpectomy of breast Insertion of stent Social History tobacco use Current Every Day Smoker, 0 yrs alcohol use No Known Use drug use No Known Use marital status 1 of 3 GI Consult History and Physical [facility] Name Lupe Foster Date of Service 1500 [id number] (F) Attending KHRIS WASHINGTON Admitted [id number] Discharged Primary ARTURO SOTO D - Family History Parents Father Hypertensive disorder; Leukemia; Chronic obstructive pulmonary disease Mother Hypertensive disorder; Diabetes mellitus Allergies NAPROXEN - Rash AMOXICILLIN - Rash Home Medications amLODIPine (NORVASC) Dose: 10 MG BY MOUTH ONCE DAILY atorvastatin (LIPITOR) Dose: 40 MG BY MOUTH ONCE DAILY benzonatate (TESSALON PERLES) Dose: 100 MG BY MOUTH THREE TIMES A DAY NEEDED for COUGH cholecalciferol (VITAMIN D3) 1000 UNIT Dose: 50 UNT BY MOUTH ONCE DAILY clopidogrel (PLAVIX) Dose: 75 MG BY MOUTH ONCE DAILY Coreg Oral Tablet 25 MG Dose: 50 MG BY MOUTH TWICE A DAY ergocalciferol (VITAMIN D) 48703 UNIT Dose: 12721 UNT BY MOUTH ONCE EACH WEEK hydroCHLOROthiazide Dose: 50 MG BY MOUTH ONCE DAILY isosorbide mono. (IMDUR) Dose: 60 MG BY MOUTH ONCE DAILY lisinopril (ZESTRIL) Dose: 40 MG BY MOUTH ONCE DAILY NORCO 7.5-325 MG Dose: 1 TAB BY MOUTH EVERY SIX HOURS pantoprazole (PROTONIX) Dose: 40 MG BY MOUTH TWICE A DAY spironolactone (ALDACTONE) Dose: 50 MG BY MOUTH ONCE DAILY sucralfate (CARAFATE) Dose: 1 GM BY MOUTH TWICE DAILY BEFORE MEALS Review of Systems Narrative 14-point review of systems performed and negative except for that mentioned in the HPI Vital Signs 1423 T 98.3 HR 110 (H) RR 18 BP 161 / 89 O2Sat 97 Physical Exam Narrative General: Patient is a female lying in bed in no apparent distress. Appears stated age. Eyes: There is no scleral icterus. No conjunctival erythema. 2 of 3 GI Consult History and Physical [facility] Name Lupe Foster Date of Service 1500 [id number] (F) Attending KHRIS WASHINGTON Admitted [id number] Discharged Primary STONE BEV D - ENT: There is no pharyngeal erythema or exudate. External ears appear normal. No nasal drainage noted. Neck: Neck is supple, trachea is midline, no masses noted Respiratory: Breath sounds are clear to auscultation bilaterally. No evidence of increased work of breathing or accessory muscle use. Cardiovascular: Regular rate and rhythm. No rubs, gallops, or murmurs auscultated. Abdomen: Abdomen is soft, non-distended, and non-tender. There is no rebound tenderness or guarding noted. Bowel sounds normal. No hepatosplenomegaly. Musculoskeletal: No apparent injury noted. No joint swelling. Peripheral Vascular/Extremities: No lower extremity edema noted. Skin is warm, no peripheral cyanosis. Skin: Pallor noted. No jaundice. No rashes or lesions noted. Lymphatics: No cervical, postauricular, or supraclavicular lymphadenopathy. Neurological: Alert and oriented x4. Appears normal in conversation. No asterixis. Psychiatric: Speech is of regular rate, rhythm, volume, and amount. Mood appears stable. Affect is full range. No evidence of acute agitation. Lab Results Hgb at the outside hospital reported at 5.2 on presentation this morning. Recent outpatient labs on 09/04/22 were c/w iron deficiency and hgb 9.5. Celiac disease panel was negative. Procedures and Surgeries None Problem List Anemia Gastrointestinal hemorrhage Chronic duodenal ulcer Assessment/Plan 67-year-old female with recurrent anemia due to gastrointestinal blood loss presumed to be related to known duodenal ulcer. She presented to an outside ED earlier today with findings of hemoglobin 5.2. She is status post transfusion 2 units PRBCs per transfer records. She has no signs of overt ongoing GI bleeding at this time. 1) Anemia due to gastrointestinal bleeding: We will plan for EGD now for further evaluation. -Continue Pantoprazole IV drip -Hold Plavix -Avoid NSAIDS -Further recommendations to be made following endoscopy Electronically signed by MELVIN FIGUEROA on 4718 I hereby attest the note that was written on this patient accurately reflects the notations made when patient was examined. Electronically signed by PAUL MOULTON on 5276 3 of 3 CC'ed Logic: Ordering Provider: MELVIN RENNER Consulting Provider: EVERTON Menjivar [facility] 10/09/2023 14:15:36 Medical Equipment None Reported. Allergies Allergen ID Allergen Name Allergen Category Reaction Reaction Severity Criticality Documentation Date Start Date Code Code System Note Provider Name and Address Organization Details Recorded Time 01436 naproxen medicatio n Not available Not available Not available 02/25/2023 7258 RxNorm EVERTON Dang [facility] 3 09:39:26 67394 amoxicill in medicatio n Not available Not available Not available 02/25/2023 723 RxNorm Mariah Bundyjosep dao, [place] - [facility] [place] [facility] [place] 3 09:39:30 Medications Name Sig Start Date [...] Pulse oximetry Heart rate Heart rate Systolic And Diastolic Provider Name and Address Organization Details Last Updated DateTime 4 165.1 cm 23.3 kg/m2 56000.9 3 g 98.2 [degF] 98 % 98 % 102 /min 97 /min 217/97 mm[Hg] Mariah Carranza [facility] & [place] 4 09:38:46 Date Recorded Body height Body mass index (BMI) Body weight Body temperature Oxygen saturation Oxygen saturation in Arterial blood by Pulse oximetry Systolic And Diastolic Provider Name and Address Organization Details Last Updated DateTime 3 165.1 cm 23.5 kg/m2 54989.8 8 g 96.8 [degF] 99 % 99 % 202/104 mm[Hg] Mariah TOSCANO [facility] & [place] 3 09:38:20 Social History Question Answer Notes LastModified by Organizat ion Details LastModified Time Tobacco Smoking Status Never Smoker EVERTON Dang [facility] [place] [facility] [place] 02/25/2023 09:38:42 What Is Your Level Of Caffeine Consumption? None [email or web address] Information not available 02/25/2023 Sex: Unknown Functional Status Question Answer Note LastModified by Organizat ion Details LastModified Time Do you use any illicit or recreational drugs? No [email or web address] Information not available 02/25/2023 Do you or have you ever used any other forms of tobacco or nicotine? No [email or web address] Information not available 02/25/2023 What is your level of alcohol consumption? None [email or web address] Information not available 02/25/2023 Mental Status None recorded. Family History Nothing Reported. Medical History No medical history recorded. Gynecological HistoryNo gynecological history recorded. Obstetrics History GPAL:G 0 P 0 0 0 0 Past Encounters Encounter ID Performer Location Encounter Start Date Encounter Closed Date Diagnosis/Indication Diagnosis SNOMED-CT Code Diagnosis ICD10 Code Diagnosis Note [id number] Rojas Smith PA-C [facility] [address] [address] 02/25/2023 09:23:32 02/25/2023 10:50:54 Therapeutic opioid induced constipation 1622743117 26994 K59.03 Nausea 468218962 R11.0 Heartburn 19164611 R12 Early satiety 145831133 R68.81 Loss of appetite 1070322 6 R63.0 [id number] Rojas Smith PA-C [facility] [address] [address] 09/04/2023 09:13:29 09/04/2023 11:10:29 Therapeutic opioid induced constipation 2096426237 12092 K59.03 Nausea 519558713 R11.0 Heartburn 25940694 R12 Early satiety 855256090 R68.81 Loss of appetite 1293235 6 R63.0 Hiatal her luis manuel with gastroesophageal reflux 269945578 K21.9 Anemia due to blood loss 390825188 D50.0 Health Concerns Section Related Observation LastModified by Organization Detai ls LastModified Time None Recorded Concern Status LastModified by Organization Details LastModified Time None Recorded Advance Directives Directive None Recorded Payers Insurance Date Sequence Insurance Name Policy Number Policy Chavez Covered Member ID Chavez Member ID Guarantor Name 12/06/2023 1 [place] Lupe Foster [id number] Lupe Foster Notes Date Note Type [...] repeat in 10 years. Rojas Smith PA-C [address] [facility], [place], [address], [facility] - [facility] 02/25/2023 17:05:43 09/04/2023 text/html PREVIOUS (02/25/23 Dexter [...] and then again 2 weeks ago at [facility]. Findings showed an essentially unchanged duodenal ulcer [...] hematemesis, melena, or hematochezia. Rojas Smith PA-C [address], [place], [address], [facility] - [place] [facility] [place] 09/04/2023 14:38:29 OBGyn Episode No OBEpisode recorded.
--- OUTSIDE RECORDS SUMMARY | 2025-02-10 14:04 | XMS_ITS | Continuity of Care Document ---
Author Organization [place] - [place] [employer], [employer] [facility] Address [address] [place] [address] Assessment No assessment recorded. Plan of Treatment Reminders Order Date Submit Date Provider Last Modified By Organization Details Last Modified Time Details Appointments FOLLOW UP 15 2024 10:45A M Bev Eckert PA-C Not available Not available Not available Lab unlisted lab - toxassure flex 19, [id number] -P 2024 025 [place] [facility], [address] [place] [address], [place], [address], 01/21/2025 14:07:59 Referral None recorded. Procedures None recorded. Surgeries None recorded. Imaging None recorded. Medication Orders olanzapin e 5 mg tablet 2024 025 [facility], [address] [place] [address] [place], [id number], 01/24/2025 16:13:15 Patient TargetsNo targets recorded. Patient Instructions Encounter Date Encounter Id Patient Instructions Last Modified By Organization Details Last Modified Time 01/17/2025 [id number] high blood pressure: care instructions Not available 01/19/2025 13:47:54 learning about high blood pressure [email or web address] Not available 01/19/2025 13:47:54 Reason for Referral None Reported. Problems Name Problem SNOMED Code Status Onset Date Resolution Date Notes Provider Name and Address Organization Details Recorded Time Essential hypertension 60856666 Active 2023 CAROLINA Badillo [address] [place] [address], [address], [employer] 14:07:59 Hyperlipidemia 21831072 Active 2023 CAROLINA Badillo [address] [place] [address], [address], [employer] 14:08:16 Vitamin D deficiency 51475955 Active 2023 CAROLINA Badillo [address] [place] [address], [address], [employer] 14:08:38 Iron deficiency anemia 77760912 Active 2023 CAROLINA Badillo [address] [place] [address], [address], [employer] 14:08:11 Gastroesophage al reflux disease without esophagitis 828496146 Active 2023 CAROLINA Badillo [address] [place] [address], [address], [employer] 14:08:05 Chronic low back pain 552468632 Active 2023 CAROLINA Badillo [address] [place] [address], [address], [employer] 14:07:53 Osteoporosis 80610447 Active 2024 CAROLINA Badillo [address] [place] [address], [address], [employer] 5 11:59:06 Primary insomnia 1360583 Active 2024 CAROLINA Badillo [address] [place] [address], [address], [employer] 5 12:04:42 Problem Notes None recorded. Procedures Surgical History Date Name Laterality Status Provider Name and Address Organization Details Recorded Time 07/07/20 Most Recent Mammogram completed [employer] 08/22/2024 09:33:07 Appendectomy completed Matilda Vice [place] [facility]. 05/20/2024 09:45:22 Back Surgery completed [employer]. 05/20/2024 09:45:22 Breast Biopsy completed [employer]. 05/20/2024 09:45:22 Hysterectomy completed [employer] 05/20/2024 09:45:22 Tubal Ligation completed [employer]. 05/20/2024 09:45:22 Total Hysterectomy completed [employer]. 05/20/2024 09:45:22 Thyroid Surgery completed [employer]. 05/20/2024 09:45:22 Imaging Results None recorded. Procedure Notes None recorded. Medical Equipment None Reported. Allergies Allergen ID Allergen Name Allergen Category Reaction Reaction Severity Criticality Documentation Date Start Date Code Code System Note Provider Name and Address Organization Details Recorded Time 82970 Product containin g penicilli n (product) medicatio n rash Not available Not available 05/20/2024 76671 8001 SNOMED Yasuu, [employer] 4 09:45:42 43590 naproxen medicatio n Not available Not available Not available 05/20/2024 7258 RxNorm Yasuu, [employer] 4 09:45:37 32520 amoxicill in medicatio n Not available Not available Not available 05/20/2024 723 RxNorm Yasuu, [employer] 4 09:45:50 Medications Name Sig Start Date [...] Updated DateTime 5 165.1 cm 22 kg/m2 44881.9 1 g 96 % 96 % 98.3 [degF] 78 /min 198/102 mm[Hg] 208/96 mm[Hg] 196/100 mm[Hg] Matilda Decker [employer] 11:43:51 Social History Question Answer Notes LastModified by Organizat ion Details LastModified Time Tobacco Smoking Status Never Smoker Matilda Decker sylwia, [employer] 05/20/2024 09:45:22 Do You Have An Advance [...] Information not available 05/20/2024 What Type Of Parking Enforcement Manager Do You Use? None Information not available [...] Or The Highest Degree You Have Received? GE43753-4 Information not available 05/20/2024 Have There Been Any Changes To Your Family Or Social Situation? No Information no t available 05/20/2024 Are There Any Guns Present In Your Home? Yes Information not available 05/20/2024 Which Of Your Hands Is Dominant? Right Information not available 05/20/2024 What Is Your Home Situation? Other Information not available 05/20/2024 Do You Have A Medical Power Of Showplace Manager? No Information not available 05/20/2024 What Was [...] anxious, or unable to sleep at night)? [id number] Information not available 05/20/2024 Do you have [...] Time zoster recombinant 5 completed CAROLINA Badillo [address] [place] [address], [address], [place] [employer] 08/23/2024 14:49:19 Pneumococcal conjugate PCV15, polysaccharide UML676 conjugate, adjuvant, PF 5 completed CAROLINA Badillo [address] [place], [address], [employer] 08/23/2024 14:49:19 COVID-19, mRNA, LNP-S, PF, 30 mcg/0.3 mL dose 1 completed Matilda Vice null, [employer] 08/22/2024 09:07:51 COVID-19, mRNA, LNP-S, PF, 30 mcg/0.3 mL dose 1 completed Matilda Vice null, [employer] 08/22/2024 09:07:51 Tdap 9 completed Matilda Vice null, [employer] 08/22/2024 09:07:51 Past Encounters Encounter ID Performer Location Encounter Start Date Encounter Closed Date Diagnosis/Indication Diagnosis SNOMED-CT Code Diagnosis ICD10 Code Diagnosis Note [id number] CAROLINA Badillo [address] [address] 01/17/2025 11:22:36 01/17/2025 12:05:05 Long-term current use of drug therapy 796601133 Z79.899 Primary insomnia 3268231 F51.01 Chronic low back pain 27 5668723 M54.[address] Gonzales Essential hypertension 43194335 I10 Patient has had heart cath, renal artery ultrasound , etc and has been on multiple medication s for blood pressure without clear reduction in her blood pressureNo clear change in blood pressure with any interventi on Health Concerns Section Related Observation LastModified by Organization Detai ls LastModified Time None Recorded Concern Status LastModified by Organization Details LastModified Time None Recorded Payers Encounter Date Sequence Insurance Name Policy Number Policy Chavez Covered Member ID Chavez Member ID Guarantor Name 01/17/2025 1 MEDICARE [place]: [employer] [facility] Lupe J Feeback [id number] 2 Lupe Feeback Notes Date Note Type Note Provider Name and Address Organization Details Recorded Time 01/17/2025 text/html Patient presents for followup. History of chronic pain. Due for refills on Caliente. Helps decrease pain so that she can [...] didn't seem to change much CAROLINA Badillo [address] [place] [address], [place], [address], [facility] [employer] 01/19/2025 13:49:06 OBGyn Episode No OBEpisode recorded.
[2025-02-10 15:06] LABS: Hematocrit 45.4 % (37.0-47.0); Hemoglobin 14.8 g/dL (12.2-16.2); Immature Granulocytes % 0.5 %; Mean Corpuscular HGB Conc 32.6 g/dL (31.8-35.4); Mean Corpuscular Hemoglobin 29.9 pg (27.0-31.2); Mean Corpuscular Volume 91.7 fl (81-99); Nucleated Red Blood Cells % 0 %; Platelet Count 367 K/mm3 (142-424); Red Blood Count 4.95 M/mm3 (4.20-5.40); Red Cell Distribution Width-SD 40.3 fL; White Blood Count 6.6 K/mm3 (4.8-10.8)
[2025-02-10 15:53] LABS: Alanine Aminotransferase 12 U/L (12-78); Albumin Level 4.4 g/dl (3.5-5.0); Albumin/Globulin Ratio 2.1 (1.1-1.8); Alkaline Phosphatase 120 U/L (38-126); Anion Gap 14.1 mEq/L (5-15); Aspartate Amino Transferase 21 U/L (14-36); Bilirubin,Total 0.5 mg/dl (0.2-1.3); Blood Urea Nitrogen 14 mg/dl (7-17); Calcium 9.9 mg/dl (8.4-10.2); Carbon Dioxide 27 mmol/L (22.0-30.0); Chloride 103 mmol/L (98-107); Creatinine,Serum 0.80 mg/dl (0.52-1.04); Estimated Glomerular Filt Rate 72 ml/min (>60); GFR (African American) 87 ML/MIN (>60); Globulin 2.1 g/dL (1.3-3.2); Glucose 114 mg/dl (74-100); Potassium 4.1 mmoL/L (3.5-5.1); Sodium 140 mmol/L (136-145); Total Protein,Serum 6.5 g/dl (6.3-8.2)
[2025-02-10 16:45] LABS: Iron 99 ug/dL (37-170)
[2025-02-10 16:54] LABS: Total Iron Binding Capacity 311 ug/dL (265-497)
[2025-02-10 17:21] LABS: Ferritin 21.5 ng/ml (11.1-264)
== END 2025-02-10 23:59 | disposition home or self-care (01) ==
LOC: LAB 14:02
PROVIDERS: PCP Physician Assistant; Visit Provider Physician Assistant
DX: Z86.2 Personal history of diseases of the blood and blood-forming organs and certain disorders involving the immune mechanism (principal)
CPT/HCPCS: 36415; 80053; 82728; 83540; 83550; 85025

== ENCOUNTER 2025-03-15 08:50 | Outpatient (RCR) | payer MEDICARE, SELFPAY | END 2025-03-15 23:59 | disposition home or self-care (01) | LOC: OT 08:50 | PROVIDERS: Visit Provider Orthopaedic Surgery Adult Reconstructive Orthopaedic Surgery | DX: M19.012 Primary osteoarthritis, left shoulder (principal) | CPT/HCPCS: 97032; 97166 ==

== ENCOUNTER 2025-04-04 13:00 | Outpatient (RCR) | payer MEDICARE, SELFPAY | END 2025-04-04 23:59 | disposition home or self-care (01) | LOC: OT 13:00 | PROVIDERS: Visit Provider Orthopaedic Surgery Adult Reconstructive Orthopaedic Surgery | DX: M25.812 Other specified joint disorders, left shoulder (principal) | CPT/HCPCS: 97032; 97140; 97530 ==

== ENCOUNTER 2025-05-08 11:00 | Day surgery (SDC) | payer MEDICARE, SELFPAY ==
[2025-05-02 15:45] VITALS: BMI 22.3
--- NOTE | 2025-05-03 12:49 | EXP.HP ---
History of Present Illness *Admission Date: 05/08/25 *History of present illness: Mrs. Foster is a 69-year-old female who is here for diagnostic EGD. The patient was hospitalized in October 2023 and had EGD with me showing prepyloric gastric ulcer (10 mm) as well as a clean-based duodenal ulcer at the junction between the bulb and first portion. There was also some adjacent duodenal stenosis and fibrosis. She also had a distal esophageal fibrotic ring that was dilated. The patient has been on pantoprazole twice daily and misoprostol. I had recommended that she have repeat EGD in 3 to 6 months because of the duodenal stenosis. The patient continues to get a lot of heartburn, reflux, nausea and intermittent vomiting. The examination is deemed medically necessary for diagnostic EGD. The patient has been seen, interviewed and examined prior to the procedure by both myself and the anesthesia provider. [facility] Disclaimer: The information contained in this section may have been updated after the patient was seen, as this information can be updated by other users. Medical History Headache Pelvic organ prolapse quantification stage 3 cystocele Bladder prolapse HTN (hypertension) History of sleep study Negative for BRYAN 11/03/22 History of pituitary adenoma GERD (gastroesophageal reflux disease) Breast cancer Major depressive disorder Surgical History History of elbow surgery History of back surgery History of carpal tunnel surgery History of hammer toe correction History of shoulder surgery History of appendectomy History of LAVH History of lumpectomy History of cardiac cath Family History Father Heart attack Cancer Mother Diabetes Sister Diabetes Hypertension Social History Smoking Status: Never smoker alcohol intake: never substance use type: denies use current occupational status: disabled Travel in the last 8 weeks?: None household members: spouse housing: house current occupational exposures/hazards: No caffeine: Yes Have you lived/traveled outside [place] in past 30 days?: No Contact w/someone who lives/traveled outside [place] past 30 days?: No Exposure to someone with infectious disease in past 14 days?: No Do you have a fever (greater than 100.4 F or 38 C)?: No Have you tested positive for COVID-19?: No Exposed to someone with COVID-19 in past 14 days?: No Do you have a sore throat?: No Do you have a cough?: No Do you have any weakness?: No Do you have any diarrhea?: No Are you experiencing any unusual bleeding?: No Do you have any muscle aches/pain?: No Do you have any abdominal pain?: No Are you experiencing loss of taste or smell?: No Other Medical History Have you received the Flu Vaccine for this season: No Have you received the Pneumonia Vaccine: Yes Review of Systems Review of Systems Review of systems (narrative): Negative *Cardiovascular Comments: Negative *Gastrointestinal Comments: Negative *Genitourinary Comments: Negative *Musculoskeletal Comments: Negative *Neurologic Comments: Negative Meds Home Medications and Allergies Home Medications ?Medication ?Instructions ?Recorded ?Confirmed ?Type amlodipine 10 mg tablet 10 mg PO DAILY 04/06/24 05/08/25 History isosorbide mononitrate 120 mg 120 mg PO DAILY 04/06/24 05/08/25 History tablet,extended release 24 hr cholecalciferol (vitamin D3) 50 50 mcg PO DAILY 08/01/24 05/08/25 History mcg (2,000 unit) capsule ergocalciferol (vitamin D2) 1,250 1,250 mcg PO WEEKLY 08/01/24 05/08/25 History mcg (50,000 unit) capsule ferrous sulfate 325 mg (65 mg 325 mg PO DAILY 08/01/24 05/08/25 History iron) tablet (FeroSul) ondansetron HCl 8 mg tablet 8 mg PO TIDP PRN Nausea And 08/01/24 05/08/25 History Vomiting alendronate 70 mg tablet 70 mg PO WEEKLY 11/17/24 05/08/25 History clonidine HCl 0.1 mg tablet 0.1 mg PO BID 11/17/24 05/08/25 History pantoprazole 40 mg tablet,delayed 40 mg PO BID 30 days #60 tabs 11/19/24 05/08/25 Rx release lisinopril 40 mg tablet 40 mg PO DAILY #90 tabs 01/05/25 05/08/25 Rx carvedilol 25 mg tablet 50 mg (2 x 25 mg) PO BID 90 days 01/09/25 05/08/25 Rx #360 tabs hydrochlorothiazide 25 mg tablet 25 mg PO DAILY PRN 03/02/25 04/11/25 History olanzapine 5 mg tablet 5 mg PO HS 03/02/25 05/08/25 History rosuvastatin 40 mg tablet 40 mg PO DAILY 03/02/25 05/08/25 History hydralazine 25 mg tablet 25 mg PO BID #60 tabs 04/11/25 05/08/25 Rx hydrocodone 10 mg-acetaminophen 1 tab PO NEEDED PRN Pain 05/02/25 05/08/25 History 325 mg tablet New Prescriptions to Start Prescriptions: Allergies Allergy/AdvReac Type Severity Reaction Status Date / Time amoxicillin (AMOXICILLIN) Allergy Unknown I-RASH Verified 05/08/25 11:27 naproxen (NAPROXEN) Allergy Unknown I-RASH Verified 05/08/25 11:27 Exam Data for Last 24 hours I & O for Last 24 hours: Intake & Output 04/30/25 05/01/25 05/02/25 05/03/25 23:59 23:59 23:59 23:59 Weight 126 lb *Routine HEENT Exam Head: Present normocephalic Eye: Present EOMI and PERRL ENT: Present mucous membranes moist *Routine Neck Exam Neck: Present supple *Routine Respiratory Exam Respiratory: Present CTA bilaterally *Routine Cardiovascular Exam Cardiovascular: Present RRR *Routine Abdominal Exam Abdominal: Present soft and normoactive bowel sounds; Absent tenderness *Routine Rectal Exam Rectal:: deferred *Routine Genitalia Exam Genitalia:: deferred *Routine Extremities Exam Extremities: Absent cyanosis, clubbing or edema *Routine Skin Exam Skin: Present warm; Absent rash *Routine Neurological Exam Neurological: Present alert and oriented X3 Assessment and Plan *Assessment and plan (1) Duodenal stenosis: Status: Acute Category: Medical Code(s): K31.5 - Obstruction of duodenum (2) Nausea & vomiting: Status: Acute Category: Medical Code(s): R11.2 - Nausea with vomiting, unspecified (3) History of gastric ulcer: Status: Acute Category: Medical Code(s): Z87.11 - Personal history of peptic ulcer disease (4) History of duodenal ulcer: Status: Acute Category: Medical Code(s): Z87.19 - Personal history of other diseases of the digestive system (5) GERD (gastroesophageal reflux disease): Status: Chronic Qualifiers: Esophagitis presence: with esophagitis Qualified Code(s): K21.0 - Gastro-esophageal reflux disease with esophagitis Category: Medical Code(s): K21.9 - Gastro-esophageal reflux disease without esophagitis Plan A/P: 1. Nausea and vomiting with history of duodenal stenosis and prior history of duodenal and gastric ulcer examined with endoscopy as inpatient due to GI bleed is the preprocedural diagnosis. The patient has a long history of GERD and remains symptomatic despite pantoprazole twice daily. The patient will be anesthetized/sedated using MAC sedation. The patient has been seen and examined. Cardiac and lung assessment prior to the examination is stable. Proceed with planned diagnostic EGD.
--- NOTE | 2025-05-08 07:08 | P.PCN_ITS ---
[facility] Procedure Note Date: 05/08/25 Time: 12:10 Procedure Note:: Upper Endoscopy Procedure Report: Esophagogastroduodenoscopy with cold biopsies and TTS balloon dilation Endoscopost: Johnny Walls II, MD Referring Physician: Bev Eckert PA-C Date of Procedure: May 08, 2025 Equipment: Olympus GIF-1100 standard upper endoscope Sedation: MAC sedation Indications: Mrs. Foster is a 69-year-old female who is here for diagnostic EGD. The patient was hospitalized in October 2023 and had EGD with me showing prepyloric gastric ulcer (10 mm) as well as a clean-based duodenal ulcer at the junction between the bulb and first portion. There was also some adjacent duodenal stenosis and fibrosis. She also had a distal esophageal fibrotic ring that was dilated. The patient has been on pantoprazole twice daily and misoprostol. I had recommended that she have repeat EGD in 3 to 6 months because of the duodenal stenosis. The patient reports early satiety and states that she gets full after a couple of bites. She has been losing weight. The patient continues to get a lot of heartburn, reflux, nausea and intermittent vomiting. The examination is deemed medically necessary for diagnostic EGD. Procedure: Prior to the procedure, a history and physical exam was performed, and patient's medications and allergies were reviewed. The risks, benefits and alternatives of the sedation and procedure were discussed with the patient. All questions were answered and informed consent was obtained. The patient was brought to the procedure room. Patient identification and proposed procedure were verified by the physician and the nurse. The patient was placed in a left lateral decubitus position and the scope was passed under direct vision. Throughout the procedure, the patient's blood pressure, pulse, and oxygen saturations were monitored continuously. The upper GI endoscopy was accomplished without difficulty. The patient tolerated the procedure well. Findings: The scope was passed directly into the upper esophagus and advanced to the third portion of the duodenum. Initially, the scope could not be advanced beyond the first portion because of some post bulbar duodenal stenosis. This was originally 6 to 7 mm diameter and the scope did eventually pass without dilation. There was some mild duodenitis of the 2nd and 3rd portion of the duodenum. Cold biopsies were taken from the second portion of the duodenum x 2 for the disaccharidase assay. The scope was withdrawn to the duodenal stenosis at the first portion. This was dilated to 15 mm with a TTS wire-guided hydrostatic balloon. The scope was withdrawn through a normal bulb and pylorus into the stomach. There was bile reflux with mild antral gastropathy. The body and fundus of the stomach were normal. There were no ulcers within the stomach or duodenum. Upon retroflexion there was a 2-3 cm hiatal hernia. Cold biopsies were taken from the antrum. The scope was then withdrawn into the esophagus. There were a couple of tongues of salmon-colored mucosa in the distal esophagus at the GE junction that were biopsied to rule out Rogers's esophagus. The remainder of the esophageal mucosa was normal. Impression: 1. Duodenal stenosis (first portion)?from healed PUD with some mucosal f ibrosis?status post dilation to 15 mm (from 6 to 7 mm diameter) 2. Healed peptic ulcer disease 3. Bile reflux with mild linear reactive gastropathy of antrum 4. Nonerosive GERD with 2 to 3 cm hiatal hernia Plan: I will follow-up the biopsies and disaccharidase assay. I would continue PPI therapy. We will discuss additional treatment options.
[2025-05-08 11:34] VITALS: BP 192/114; PULSE 112; RESP 20; TEMP 36.6; O2SAT 96
[2025-05-08] MEDS: LACTATED RINGERS 1000ML 1,000 ML 50 ML IV (11:44)
--- NOTE | 2025-05-08 11:57 | EXP.ANES.CKL ---
[facility] Disclaimer: The information contained in this section may have been updated after the patient was seen, as this information can be updated by other users. Medical History Headache Pelvic organ prolapse quantification stage 3 cystocele Bladder prolapse HTN (hypertension) History of sleep study Negative for BRYAN 11/03/22 History of pituitary adenoma GERD (gastroesophageal reflux disease) Breast cancer Major depressive disorder Surgical History History of elbow surgery History of back surgery History of carpal tunnel surgery History of hammer toe correction History of shoulder surgery History of appendectomy History of LAVH History of lumpectomy History of cardiac cath Family History Father Heart attack Cancer Mother Diabetes Sister Diabetes Hypertension Social History Smoking Status: Never smoker alcohol intake: never substance use type: denies use current occupational status: disabled Travel in the last 8 weeks?: None household members: spouse housing: house current occupational exposures/hazards: No caffeine: Yes Have you lived/traveled outside [place] in past 30 days?: No Contact w/someone who lives/traveled outside [place] past 30 days?: No Exposure to someone with infectious disease in past 14 days?: No Do you have a fever (greater than 100.4 F or 38 C)?: No Have you tested positive for COVID-19?: No Exposed to someone with COVID-19 in past 14 days?: No Do you have a sore throat?: No Do you have a cough?: No Do you have any weakness?: No Do you have any diarrhea?: No Are you experiencing any unusual bleeding?: No Do you have any muscle aches/pain?: No Do you have any abdominal pain?: No Are you experiencing loss of taste or smell?: No [facility] Anesthesia Checklist Patient Identification Patient Identification: Arm Band Structural Data Planned Operative Procedure/s: EGD Consent for Planned Operative Procedure(s) Verified: Yes Verified Documents: Surgical Consent and History and Physical NPO Status Verified Time NPO: 00:00 Additional verifications Anesthesia Reactions: No Airway Assessment Mallampati Score:: Class II C-Spine Mobility Assessed: Yes TMJ Mobility Assessed: Yes Dentition: Good Dentition Neurological Assessment Level of Consciousness: Awake, Alert and Appropriate Anesthesia Plan Anesthesia Risk discussed: Yes Anesthesia Plan: Verified ASA Class: III Anesthesia Type: MAC
[2025-05-08 12:13] VITALS: BP 161/80; PULSE 102; RESP 16; TEMP 36.2; O2SAT 95
[2025-05-08 12:23] VITALS: BP 176/71; PULSE 107; RESP 16; O2SAT 96
[2025-05-08 12:33] VITALS: BP 154/76; PULSE 98; RESP 16; O2SAT 98
[2025-05-08 12:43] VITALS: BP 153/78; PULSE 99; RESP 16; O2SAT 99
[2025-05-12 12:12] LABS: Interpretation Notes (.); Lactase 32.67 (>/= 14.0); Maltase 166.17 (>/= 110.0); Palatinase 10.73 (>/= 8.5); Reference Notes (.); Sucrase 39.2 (>/= 25.0)
== END 2025-05-08 12:46 | disposition home or self-care (01) ==
PROVIDERS: PCP Physician Assistant; Visit Provider Internal Medicine Gastroenterology
PROC: 0DJ08ZZ Inspection of Upper Intestinal Tract, Via Natural or Artificial Opening Endoscopic (ICD-10-PCS; CPT 43239; principal; 2025-05-08 12:30)
DX: K31.5 Obstruction of duodenum (principal); Z87.11 Personal history of peptic ulcer disease; K21.9 Gastro-esophageal reflux disease without esophagitis; K44.9 Diaphragmatic hernia without obstruction or gangrene; K31.89 Other diseases of stomach and duodenum; K29.80 Duodenitis without bleeding; I10 Essential (primary) hypertension; Z85.3 Personal history of malignant neoplasm of breast; F32.9 Major depressive disorder, single episode, unspecified; Z79.899 Other long term (current) drug therapy; Z88.0 Allergy status to penicillin; Z88.6 Allergy status to analgesic agent
CPT/HCPCS: 43239; 43249; 82657; C1726; J2003; J2704; J7120